=== PATIENT | female | born 1960 | race Hispanic/Latino ===

== ENCOUNTER 2018-02-26 01:56 | Inpatient (IN) | payer OTHER ==
[2018-02-26] MEDS ORDERED: Propofol 10 mg/ml Inj (20 ML) ONE (02:01)
[2018-02-26] MEDS ORDERED: Propofol 10 mg/ml 1,000 MG/100 ML VIAL ONE (02:14)
[2018-02-26] MEDS ORDERED: Propofol 10 mg/ml Inj (20 ML) IVP ONE ×2 (02:15→02:17)
[2018-02-26] MEDS ORDERED: Sodium Chloride 0.9% 1,000 ML IV STA (02:15)
--- NOTE | 2018-02-26 02:16 | ED PDOC ---
Arrival/HPI - General Time Seen by Provider: 02/26/18 02:15 Historian: Spouse, EMS - History of Present Illness Narrative History of Present Illness (Text): 02/26/18 00:53 Sidra Ruano is a 57 year old female, whose past medical history includes CHF , COPD, diabetes, and peripheral vascular disease, who presents to the Emergency department brought in by EMS in respiratory distress. 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 of any chest pain. EMS on arrival noted patient to be in respiratory distress, placed patient on CPAP, and was brought to ER for further evaluation. HPI and ROS limited secondary to patient's respiratory distress. Time/Duration: 1 hour Symptom Onset: Sudden Symptom Course: Worsening Severity Level: Severe Activities at Onset: Light Context: Home Past Medical History - Provider Review Nursing Documentation Reviewed: Yes Family/Social History - Physician Review Nursing Documentation Reviewed: Yes Family/Social History: Unknown Family HX Allergies/Home Meds Allergies/Adverse Reactions: Allergies No Known Allergies Allergy (Verified 02/26/18 02:12) Home Medications: Home Meds Medication Instructions Recorded Confirmed Gabapentin [Neurontin] 300 mg PO TID 02/26/18 02/26/18 metFORMIN [glucOPHAGE] 500 mg PO BID 02/26/18 02/26/18 Review of Systems - Review of Systems Systems not reviewed;Unavailable: Respiratory Distress Respiratory: SOB Endocrine: Diaphoresis Physical Exam Vital Signs Reviewed: Yes Vital Signs Temp Pulse Resp BP Pulse Ox 02/26/18 05:11 120 H 20 107/60 100 02/26/18 04:40 121 H 20 101/60 100 02/26/18 04:25 120 H 22 96/57 L 100 02/26/18 03:45 116 H 22 98/57 L 98 02/26/18 03:15 126 H 20 110/71 98 02/26/18 02:57 120 H 20 91/25 L 99 02/26/18 02:49 124 H 20 154/89 H 97 02/26/18 02:44 97.2 F L 02/26/18 02:40 124 H 20 101/64 99 02/26/18 02:39 128 H 20 116/74 100 02/26/18 02:38 131 H 15 93/32 L 100 02/26/18 02:15 133 H 15 132/79 99 02/26/18 02:05 130 H 43 H 146/92 H 73 L 02/26/18 02:00 158 H 40 H 146/94 H 73 L Blood Pressure: Hypertensive Pulse: Tachycardic Appearance: Positive for: Non-Toxic Mental Status: Positive for: Lethargic - Systems Exam Head: Present: Atraumatic, Normocephalic Pupils: Present: PERRL Conjunctiva: Present: Normal Mouth: Present: Moist Mucous Membranes Neck: Present: Normal Range of Motion Respiratory/Chest: Present: Respiratory Distress (Severe respiratory distress), Rales (Rales bilaterally), Rhonchi Cardiovascular: Present: Normal S1, S2, Tachycardic. No: Murmurs Abdomen: No: Tenderness, Distention, Peritoneal Signs Upper Extremity: No: Cyanosis, Edema Lower Extremity: Present: Other (Mottling of bilateral lower extremities). No: Edema Neurological: Present: Motor Func Grossly Intact Skin: Present: Warm, Dry. No: Rashes Psychiatric: Present: Lethargic Medical Decision Making ED Course and Treatment: 02/26/18 00:53 Impression: 57 year old female brought in for respiratory distress. Plan: -- EKG -- Chest X-ray -- Labs, cardiac enzymes, BNP, blood cultures, ABG, VBG -- Urinalysis, urine cultures -- Duoneb -- Reassess and disposition Progress Notes: Pt brought in by ALS, on CPAP. Seen on arrival. Pt in severe respiratory distress, will intubate. 02/26/2018 02:11 PROCEDURE: INTUBATION Performed by the emergency provider Consent: Discussion of the risks, benefits, and alternatives to the procedure, along with informed consent was precluded by the urgency of the procedure and the patient condition. Timeout: A timeout to verify the correct patient, procedure, and site was performed. Indication: Respiratory distress, low O2 saturation Pre-oxygenation: [id number] Medications: Propofol. See MAR for details. ETT Size: 7.5 gauge Confirmation: Cords directly visualized as tube passed, good bilateral breath sounds, positive CO2 detector color change, tube fogging, adequate chest rise, improving pulse oximetry reading, improved skin color, and absence of gastric sounds. ETT Secured: The cuff was inflated and the tube was secured appropriately at a distance of 22 cm at the lip. Post-Procedure: There were no immediate complications. CXR Confirmation: Yes 02/26/18 02:27 Post-intubation Chest X-ray reviewed, shows increased pulmonary vascular markings, ET riding high above the tabitha. 02/26/18 02:30 ET tube was adjusted accordingly. No complications. 02/26/18 03:03 Reviewed EKG, sinus tachycardia at 124 bpm. Fusion complexes. LAD. Anteroseptal infarct. Lateral ST elevations. Paged cryptographic clerk recreational assistant. 02/26/18 03:[address] Carney, sandwich artist recreational assistant, who is aware and agrees to evaluate EKG. EKG sent to him for review. 02/26/18 03:[address] Carney, who reviewed EKG sent to him, states it is not a Code Heart. Recommends pt be heparinized. 02/26/18 03:26 Case discussed with medical care manager, who is aware and agrees with plan. Case discussed with Dr. Huitron, operations project manager, who is aware and agrees with plan. Accepts pt in to the hospitalist service. Pt will be admitted to the ICU for respiratory failure, CHF, ACS, sepsis, pneumonia, and COPD. 02/26/18 04:16 Lactate: 3.8. Code Sepsis called. - Critical Care Critical Care Minutes: 45 minutes - Lab Interpretations Lab Results: 02/26/18 02:04 02/26/18 02:04 Lab Results 02/26/18 02:55: pCO2 55 H, pO2 471.0 H, HCO3 17.1 L, ABG pH 7.10 L*, ABG Total CO2 18.8 L, ABG O2 Saturation 100.9 H, ABG O2 Content 20.9, ABG Base Excess - 12.9 L, ABG Hemoglobin 14.5, ABG Carboxyhemoglobin 3.5 H, POC ABG HHb (Measured ) -0.9 L, ABG Methemoglobin 0.8, ABG O2 Capacity 20.7, Hgb O2 Saturation 96.6, FiO2 100.0 02/26/18 02:10: Procalcitonin 0.05 L 02/26/18 02:10: Free T4 0.98, TSH 3rd Generation 5.87 H 02/26/18 02:04: Triglycerides 335 H, Cholesterol 211 H, LDL Cholesterol Direct 144 H, HDL Cholesterol 36 02/26/18 02:04: WBC 28.1 H*, RBC 5.61, Hgb 17.1 H, Hct 51.5 H, MCV 91.8, MCH 30.5, MCHC 33.2, RDW 13.6, Plt Count 320, MPV 11.2 H, Neutrophils % (Manual) 26 L, Lymphocytes % (Manual) 67 H, Atypical Lymphs % 2 H, Monocytes % (Manual) 2, Eosinophils % (Manual) 3, Platelet Evaluation Normal 02/26/18 02:04: Sodium 142, Potassium 3.4 L, Chloride 105, Carbon Dioxide 16 L, Anion Gap 25 H, BUN 10, Creatinine 0.8, Est GFR ( Amer) > 60, Est GFR ( Non-Af Amer) > 60, Random Glucose 372 H*, Calcium 9.4, Total Bilirubin 0.3, AST 20, ALT 31, Alkaline Phosphatase 102, Lactate Dehydrogenase 519, Total Creatine Kinase 46, Troponin I 0.93 H*, NT-Pro-B Natriuret Pep 2280 H, Total Protein 7.5 , Albumin 4.1, Globulin 3.4, Albumin/Globulin Ratio 1.2 02/26/18 02:04: PT 10.1, INR 0.89 L, APTT 30.2 I have reviewed the lab results: Yes - RAD Interpretation Radiology Orders: 02/26/18 02:13 CHEST PORTABLE [RAD] Stat Warehouse Freight Handler: ED Physician - EKG Interpretation Interpreted by ED Physician: Yes Type: 12 lead EKG - Medication Orders Current Medication Orders: Albuterol/Ipratropium (Duoneb 3 Mg/0.5 Mg (3 Ml) Ud) 3 ml IH [id number] [facility] Last Admin: 02/26/18 13:38 Dose: 3 ml Atorvastatin Calcium (Lipitor) 40 mg PO DIN [facility] Last Admin: 02/26/18 19:00 Dose: 40 mg Furosemide (Lasix) 40 mg IVP Q12 [facility] Last Admin: 02/26/18 14:30 Dose: 40 mg MAR Blood Pressure Document 02/26/18 14:30 PEPE (Rec: 02/26/18 14:31 [facility] [id number]) Blood Pressure Blood Pressure (100/60-150/90) 120/64 IVP Administration Document 02/26/18 14:30 PEPE (Rec: 02/26/18 14:31 [facility][id number]) Charges for Administration # of IVP Administrations 1 Propofol (Diprivan) 1,000 mg in 100 mls @ 3.36 mls/hr IV .Q24H PRN; Protocol; 5 MCG/KG/MIN PRN Reason: TITRATE PER MD ORDER Last Admin: 02/26/18 14:16 Dose: 37.2 mcg/kg/min, 25 mls/hr eMAR Start Stop Document 02/26/18 14:16 PEPE (Rec: 02/26/18 14:18 [id number]) Intravenous Solution Start Date 02/26/18 Start Time 14:17 End Date 02/26/18 Manuel Agitation Sedation Document 02/26/18 14:16 PEPE (Rec: 02/26/18 14:18 [facility]EROGG-[id number]) Manuel Agitation Sedation Scale Manuel Agitation Sedation Scale Score 0 Alert and Calm: Spontaneously pays attention to care center manager Titration Intervention Document 02/26/18 14:16 PEPE (Rec: 02/26/18 14:18 [facility]DOY-[id number]) Titration Intake Cumulative Intake (Rx) 100 Waste Amount 0 Container Volume 100 Titration Dosing Titration Dose 37.2 IV Rate 25 Intake/Decrease Started/Running Cumulative Dose 1000 Cefepime HCl (Maxipime 2gm) 2 gm in 100 mls @ 100 mls/hr IVPB Q12 [facility] PRN Reason: Protocol Stop: 03/03/18 10:01 Last Admin: 02/26/18 10:26 Dose: 100 mls/hr eMAR Start Stop Document 02/26/18 10:26 PEPE (Rec: 02/26/18 10:26 [facility] CAMPUSTPC-[id number]) Intravenous Solution Start Date 02/26/18 Start Time 10:26 End Date 02/26/18 End time 11:35 Total Infusion Time 69 Doxycycline Hyclate 100 mg/ (Sodium Chloride) 100 mls @ 100 mls/hr IVPB Q12 [facility] PRN Reason: Protocol Last Admin: 02/26/18 09:22 Dose: 100 mls/hr eMAR Start Stop Document 02/26/18 09:22 PEPE (Rec: 02/26/18 09:23 [id number]) Intravenous Solution Start Date 02/26/18 Start Time 09:23 End Date 02/26/18 End time 10:25 Total Infusion Time 62 Insulin Human Regular 100 (units/ Sodium Chloride) 100 mls @ 4 mls/hr IV .Q24H PRN; Protocol; 4 UNITS/HR PRN Reason: TITRATE PER MD ORDER Last Titration: 02/26/18 19:09 Dose: 4 units/hr, 4 mls/hr Titration Intervention Document 02/26/18 19:09 PEPE (Rec: 02/26/18 19:10 [facility]USHZE-[id number]) Titration Intake Titration Intake 4 Cumulative Intake 38 Cumulative Intake (Rx) 38 Waste Amount 0 Container Volume 62 Titration Dosing Titration Dose 4 IV Rate 4 Intake/Decrease Running Cumulative Dose 38 Dobutamine HCl/Dextrose (Dobutamine/Dextrose 5% 500mg/250ml) 500 mg in 250 mls @ 14.499 mls/hr IV .[id number] PRN; Protocol; 5 MCG/KG/MIN PRN Reason: TITRATE PER PROTOCOL Last Admin: 02/26/18 14:18 Dose: 5 mcg/kg/min, 14.499 mls/hr eMAR Start Stop Document 02/26/18 14:18 PEPE (Rec: 02/26/18 14:19 [id number]) Intravenous Solution Start Date 02/26/18 Start Time 14:19 End Date 02/26/18 Titration Intervention Document 02/26/18 14:18 PEPE (Rec: 02/26/18 14:19 [facility]USKYW-[id number]) Titration Intake Waste Amount 0 Container Volume 250 Titration Dosing Titration Dose 5 IV Rate 14.499 Intake/Decrease Started Methylprednisolone (Solu-Medrol) 20 mg IVP Q12 [facility] Last Admin: 02/26/18 09:34 Dose: 20 mg IVP Administration Document 02/26/18 09:34 PEPE (Rec: 02/26/18 09:34 [facility]US[facility]B-[id number]) Charges for Administration # of IVP Administrations 1 Pantoprazole Sodium (Protonix Inj) 40 mg IVP DAILY [facility] Last Admin: 02/26/18 10:27 Dose: 40 mg IVP Administration Document 02/26/18 10:27 PEPE (Rec: 02/26/18 10:27 [facility]USFFR-[id number]) Charges for Administration # of IVP Administrations 1 Discontinued Medications Albuterol/Ipratropium (Duoneb 3 Mg/0.5 Mg (3 Ml) Ud) 3 ml IH ONCE STA Stop: 02/26/18 02:30 Last Admin: 02/26/18 02:31 Dose: 3 ml Aspirin (Aspirin Supp) 300 mg RC STAT STA Stop: 02/26/18 03:16 Last Admin: 02/26/18 03:28 Dose: 300 mg MAR Pain/Vitals Document 02/26/18 03:28 RG (Rec: 02/26/18 03:28 [id number][facility] Pain Reassessment Is This A Pain ReAssessment? No Clopidogrel Bisulfate (Plavix) 75 mg PO DAILY [facility] Last Admin: 02/26/18 09:43 Dose: 75 mg Clopidogrel Bisulfate (Plavix) 525 mg PO STAT STA Stop: 02/26/18 11:15 Last Admin: 02/26/18 11:38 Dose: 525 mg Heparin Sodium (Porcine) (Heparin) 6,000 units IV ONCE STA PRN Reason: Protocol Stop: 02/26/18 03:16 Last Admin: 02/26/18 03:49 Dose: 6,000 units eMAR Start Stop Document 02/26/18 03:49 RG (Rec: 02/26/18 03:51 [id number]) Intravenous Solution Start Date 02/26/18 Start Time 03:52 End Date 02/26/18 End time 03:53 Total Infusion Time 1 Heparin Sodium/Sodium Chloride (Heparin 99614 Units/250ml 1/2 Normal Saline) 25 ,000 units in 250 mls @ 10 mls/hr IV .Q24H PRN; Protocol; 1,000 UNITS/HR PRN Reason: coronary ischemia Last Admin: 02/26/18 04:09 Dose: 10 mls/hr eMAR Start Stop Document 02/26/18 04:09 RG (Rec: 02/26/18 04:16 [id number]) Intravenous Solution Start Date 02/26/18 Start Time 04:09 Vancomycin HCl (Vancomycin 1gm) 1 gm in 250 mls @ 167 mls/hr IVPB STAT STA PRN Reason: Protocol Stop: 02/26/18 04:50 Last Admin: 02/26/18 04:16 Dose: 167 mls/hr eMAR Start Stop Document 02/26/18 04:16 RG (Rec: 02/26/18 04:20 [id number]) Intravenous Solution Start Date 02/26/18 Start Time 04:16 Piperacillin Sod/Tazobactam Sod (Zosyn 3.375 In Ns 100ml) 100 mls @ 200 mls/hr IV STAT STA PRN Reason: Protocol Stop: 02/26/18 03:51 Last Admin: 02/26/18 03:45 Dose: 200 mls/hr eMAR Start Stop Document 02/26/18 03:45 RG (Rec: 02/26/18 04:04 [id number] Intravenous Solution Start Date 02/26/18 Start Time 03:45 Potassium Chloride (Potassium Chloride 10 Meq/100 Ml) 10 meq in 100 mls @ 50 mls/hr IVPB Q2H [facility] Stop: 02/26/18 08:29 Last Admin: 02/26/18 07:14 Dose: 50 mls/hr eMAR Start Stop Document 02/26/18 07:14 [facility] (Rec: 02/26/18 07:15 [facility] [id number]) Intravenous Solution Start Date 02/26/18 Start Time 07:15 End Date 02/26/18 End time 09:15 Total Infusion Time 120 Sodium Chloride (Sodium Chloride 0.9%) 1,000 mls @ 999 mls/hr IV .Q1H1M STA Stop: 02/26/18 03:15 Last Admin: 02/26/18 02:15 Dose: 999 mls/hr eMAR Start Stop Document 02/26/18 02:15 RG (Rec: 02/26/18 05:18 [id number]) Intravenous Solution Start Date 02/26/18 Start Time 02:15 Lactated Ringer's (Lactated Ringer's) 2,000 mls @ 999 mls/hr IV .Q2H1M [facility] Stop: 02/26/18 06:45 Last Admin: 02/26/18 06:00 Dose: 999 mls/hr eMAR Start Stop Document 02/26/18 06:00 [facility]HA (Rec: 02/26/18 07:03 [facility] [id number]) Intravenous Solution Start Date 02/26/18 Start Time 06:00 End Date 02/26/18 End time 07:00 Total Infusion Time 60 Milrinone Lactate/Dextrose (Primacor 20mg/100ml D5w) 100 mls @ 10.874 mls/hr IV .Q9H12M PRN; Protocol; 0.375 MCG/KG/MIN PRN Reason: TITRATE PER MD ORDER Last Admin: 02/26/18 09:09 Dose: 0.375 mcg/kg/min, 10.874 mls/hr eMAR Start Stop Document 02/26/18 09:09 PEPE (Rec: 02/26/18 09:11 [id number]) Intravenous Solution Start Date 02/26/18 Start Time 09:10 End Date 02/26/18 MAR Pulse and Blood Pressure Document 02/26/18 09:09 PEPE (Rec: 02/26/18 09:11 [id number]-[id number]) Pulse Pulse Rate (60-90) 112 Blood Pressure Blood Pressure (100/60-150/90) 98/66 Titration Intervention Document 02/26/18 09:09 PEPE (Rec: 02/26/18 09:11 [id number]-[id number]) Titration Intake Waste Amount 0 Container Volume 100 Titration Dosing Titration Dose 0.375 IV Rate 10.874 Intake/Decrease Started Potassium Chloride (Potassium Chloride 20 Meq/100 Ml) 20 meq in 100 mls @ 50 mls/hr IVPB Q2H [facility] Stop: 02/26/18 12:29 Last Admin: 02/26/18 09:42 Dose: Sodium Chloride (Sodium Chloride 0.9%) 1,000 mls @ 50 mls/hr IV .Q20H [facility] Stop: 02/26/18 19:00 Last Admin: 02/26/18 13:35 Dose: 50 mls/hr eMAR Start Stop Document 02/26/18 13:35 PEPE (Rec: 02/26/18 17:20 [facility]ERVQP-[id number]) Intravenous Solution Start Date 02/26/18 Start Time 13:00 End Date 02/26/18 End time 16:45 Total Infusion Time 225 Lorazepam (Ativan) 2 mg IVP ONCE ONE Stop: 02/26/18 03:01 Last Admin: 02/26/18 03:01 Dose: 2 mg IVP Administration Document 02/26/18 03:01 TOBIAS (Rec: 02/26/18 03:29 RG [id number]) Charges for Administration # of IVP Administrations 1 Lorazepam (Ativan) 2 mg IVP ONCE ONE Stop: 02/26/18 03:43 Last Admin: 02/26/18 03:45 Dose: 2 mg IVP Administration Document 02/26/18 03:45 RG (Rec: 02/26/18 04:21 [id number]) Charges for Administration # of IVP Administrations 1 Methylprednisolone (Solu-Medrol) 125 mg IVP ONCE ONE Stop: 02/26/18 02:51 Last Admin: 02/26/18 02:51 Dose: 125 mg IVP Administration Document 02/26/18 02:51 RG (Rec: 02/26/18 03:28 [id number]) Charges for Administration # of IVP Administrations 1 Metoprolol Tartrate (Lopressor) 5 mg IVP Q6H [facility] Last Admin: 02/26/18 10:25 Dose: 5 mg IVP Administration Document 02/26/18 10:25 PEPE (Rec: 02/26/18 10:26 [facility] [id number]) Charges for Administration # of IVP Administrations 1 MAR Pulse and Blood Pressure Document 02/26/18 10:25 PEPE (Rec: 02/26/18 10:26 [facility] [id number]) Pulse Pulse Rate (60-90) 115 Blood Pressure Blood Pressure (100/60-150/90) 104/65 Midazolam HCl (Versed Inj) 2 mg IVP STAT STA Stop: 02/26/18 04:14 Last Admin: 02/26/18 04:14 Dose: 2 mg IVP Administration Document 02/26/18 04:14 RG (Rec: 02/26/18 04:22 [id number][facility] Charges for Administration # of IVP Administrations 1 Propofol (Diprivan) 50 mg IVP ONCE ONE Stop: 02/26/18 02:16 Last Admin: 02/26/18 02:16 Dose: 50 mg IVP Administration Document 02/26/18 02:16 RG (Rec: 02/26/18 04:24 [id number]) Charges for Administration # of IVP Administrations 1 Propofol (Diprivan) 50 mg IVP ONCE ONE Stop: 02/26/18 02:18 Last Admin: 02/26/18 02:18 Dose: 50 mg IVP Administration Document 02/26/18 02:18 RG (Rec: 02/26/18 04:25 [id number]) Charges for Administration # of IVP Administrations 1 Sodium Bicarbonate (Sodium Bicarbonate 8.4% (50 Meq) Syringe) 50 meq IVP ONCE ONE Stop: 02/26/18 03:44 Last Admin: 02/26/18 05:01 Dose: 50 meq IVP Administration Document 02/26/18 05:01 TOBIAS (Rec: 02/26/18 05:01 [id number]) Charges for Administration # of IVP Administrations 1 - Scribe Statement The provider has reviewed the documentation as recorded by the Shasta Coronel Provider Scribe Attestation: All medical record entries made by the Scribe were at my direction and personally dictated by me. I have reviewed the chart and agree that the record accurately reflects my personal performance of the history, physical exam, medical decision making, and the department course for this patient. I have also personally directed, reviewed, and agree with the discharge instructions and disposition. Disposition/Present on Arrival - Present on Arrival Any Indicators Present on Arrival: No History of DVT/PE: No History of Uncontrolled Diabetes: No Urinary Catheter: No History of Decub. Ulcer: No History Surgical Site Infection Following: None - Disposition Have Diagnosis and Disposition been Completed?: Yes Diagnosis: Respiratory failure, CHF (congestive heart failure), Sepsis, Pneumonia, COPD ( chronic obstructive pulmonary disease), ACS (acute coronary syndrome) Disposition: HOSPITALIZED Disposition Time: 03:50 Patient Plan: Admission Patient Problems: Current Active Problems Problem Status Onset ACS (acute coronary syndrome) Acute CHF (congestive heart failure) Acute COPD (chronic obstructive pulmonary disease) Acute Pneumonia Acute Respiratory failure Acute Sepsis Acute Condition: CRITICAL
[2018-02-26] MEDS: Propofol 10 mg/ml 1,000 MG/100 ML VIAL IV PRN ×3 (02:20→20:00)
[2018-02-26] MEDS ORDERED: Albuterol-Ipratrop 3 mg / 0.5 (3 ml) UD IH STA (02:29)
[2018-02-26] MEDS ORDERED: Albuterol-Ipratrop 3 mg / 0.5 (3 ml) UD ONE (02:35)
[2018-02-26 02:46] LABS: HEMOGLOBIN 17.1 g/dL (12.0-16.0); MEAN CELL VOLUME 91.8 fl (80.0-105.0); MEAN CORPUSCULAR HEMOGLOBIN 30.5 pg (25.0-35.0); MEAN CORPUSCULAR HGB CONC 33.2 g/dl (31.0-37.0); MEAN PLATELET VOLUME 11.2 fl (7.0-11.0); PLATELET COUNT 320 10^3/uL (120.0-450.0); RBC 5.61 10^6/uL (3.5-6.1); RED CELL DISTRIBUTION WIDTH 13.6 % (11.5-14.5)
[2018-02-26 02:59] LABS: ALB/GLOB RATIO 1.2 (1.1-1.8); ALBUMIN 4.1 g/dL (3.0-4.8); ALT/SGPT 31 U/L (7-56); AST/SGOT 20 U/L (14-36); BLOOD UREA NITROGEN 10 mg/dL (7-21); CALCIUM 9.4 mg/dL (8.4-10.5); GFR NON-AFRICAN AMERICAN > 60
[2018-02-26 03:02] LABS: ARTERIAL BLOOD GAS HCO3 17.1 mmol/L (21-28); ARTERIAL BLOOD GAS HEMOGLOBIN 14.5 g/dL (11.7-17.4); ARTERIAL BLOOD GAS O2 CAPACITY 20.7 mL/dl (16-24); ARTERIAL BLOOD GAS O2 CONTENT 20.9 ML/dl (15-23); ARTERIAL BLOOD GAS O2 SAT 100.9 % (95-98); ARTERIAL BLOOD GAS PCO2 55 mm/Hg (35-45); ARTERIAL BLOOD GAS TCO2 18.8 mmol.L (22-28)
[2018-02-26 03:07] LABS: INR 0.89 (0.93-1.08); PARTIAL THROMBOPLASTIN TIME 30.2 Seconds (25.1-36.5); PROTHROMBIN TIME 10.1 SECONDS (9.4-12.5)
[2018-02-26 03:10] LABS: WHITE BLOOD COUNT 28.1 10^3/ul (4.5-11.0)
[2018-02-26] MEDS ORDERED: Heparin25000 units/250ml 1/2NS 25,000 UNITS/250 ML BAG IV PRN (03:15)
[2018-02-26] MEDS ORDERED: Vancomycin 1gm in NS 250ml 1 GM/250 ML BAG IVPB STA (03:21)
[2018-02-26] MEDS ORDERED: Piperacillin/Tazobact 3.375 gm 100 ML IV STA (03:22)
[2018-02-26 03:39] LABS: B-TYPE NATRIURETIC PEPTIDE 2280 pg/mL (0-450); TROPONIN I 0.93 ng/mL
[2018-02-26] MEDS ORDERED: Sodium Bicarbonate (8.4%) 50 Meq Syringe IVP ONE (03:43)
--- NOTE | 2018-02-26 03:47 | CP.PCM.CON ---
History of Present Illness - History of Present Illness History of Present Illness: PGY-[address] Huitron ICU consult: SOB, intubated Sidra Ruano is a 57 year old female, whose past medical history includes COPD , diabetes, and peripheral vascular disease, presents to the Emergency department brought in by EMS in respiratory distress. As per boyfriend, patient became acutely short of breath and diaphoretic 1 prior to arrival, woke boyfriend up at 1am, and notified EMS. EMS on arrival noted patient to be in respiratory distress, placed patient on CPAP, and was brought to ER for further evaluation. pedialyute, pediasure 1/2 galloon/. HOld Pt usually with 1 pillow. She had chronic cough from COPD. Pt is not sick recent. no sick contract. No travel. No Chest pain TEJADA PMH DM at least 8 years COPD, Claudication of L leg Seasonal allergy PSH Balloon angioplasty for L leg, no stent, 02/16/18, (Dr Martinez, @ [facility]) FH Mom = CHF, passed from cancer SH Quit smoking 2 months 1/2 ppd x 30 years Denies ETOH Denies illicit drug All NKDA Med = metformin ([facility]) PMD = No [facility]D [facility] Allergies/Adverse Reactions: Allergies Allergy/AdvReac Type Severity Reaction Status Date / Time No Known Allergies Allergy Verified 02/26/18 02:12 - Medications Medications: Current Medications Propofol (Diprivan) 1,000 mg in 100 mls @ 3.36 mls/hr IV .Q24H PRN; Protocol; 5 MCG/KG/MIN PRN Reason: TITRATE PER MD ORDER Heparin Sodium/Sodium Chloride (Heparin 02433 Units/250ml 1/2 Normal Saline) 25 ,000 units in 250 mls @ 10 mls/hr IV .Q24H PRN; Protocol; 1,000 UNITS/HR PRN Reason: coronary ischemia Vancomycin HCl (Vancomycin 1gm) 1 gm in 250 mls @ 167 mls/hr IVPB STAT STA PRN Reason: Protocol Stop: 02/26/18 04:50 Piperacillin Sod/Tazobactam Sod (Zosyn 3.375 In Ns 100ml) 100 mls @ 200 mls/hr IV STAT STA PRN Reason: Protocol Stop: 02/26/18 03:51 Results - Vital Signs Recent Vital Signs: Last Vital Signs Temp 97.2 F L 02/26/18 02:44 Pulse 130 H 02/26/18 02:05 Resp 43 H 02/26/18 02:05 BP 146/92 H 02/26/18 02:05 Pulse Ox 73 L 02/26/18 02:05 - Labs Result Diagrams: 02/26/18 02:04 02/26/18 02:04 Labs: Laboratory Results - last 24 hr 02/26/18 02/26/18 02/26/18 02:04 02:04 02:04 WBC 28.1 H* RBC 5.61 Hgb 17.1 H Hct 51.5 H MCV 91.8 MCH 30.5 MCHC 33.2 RDW 13.6 Plt Count 320 MPV 11.2 H PT 10.1 INR 0.89 L APTT 30.2 pCO2 pO2 HCO3 ABG pH ABG Total CO2 ABG O2 Saturation ABG O2 Content ABG Base Excess ABG Hemoglobin ABG Carboxyhemoglobin POC ABG HHb (Measured) ABG Methemoglobin ABG O2 Capacity Hgb O2 Saturation FiO2 Sodium 142 Potassium 3.4 L Chloride 105 Carbon Dioxide 16 L Anion Gap 25 H BUN 10 Creatinine 0.8 Est GFR ( Amer) > 60 Est GFR (Non-Af Amer) > 60 Random Glucose 372 H* Calcium 9.4 Total Bilirubin 0.3 AST 20 ALT 31 Alkaline Phosphatase 102 Lactate Dehydrogenase 519 Total Creatine Kinase 46 Total Protein 7.5 Albumin 4.1 Globulin 3.4 Albumin/Globulin Ratio 1.2 02/26/18 02:55 WBC RBC Hgb Hct MCV MCH MCHC RDW Plt Count MPV PT INR APTT pCO2 55 H pO2 471.0 H HCO3 17.1 L ABG pH 7.10 L* ABG Total CO2 18.8 L ABG O2 Saturation 100.9 H ABG O2 Content 20.9 ABG Base Excess -12.9 L ABG Hemoglobin 14.5 ABG Carboxyhemoglobin 3.5 H POC ABG HHb (Measured) -0.9 L ABG Methemoglobin 0.8 ABG O2 Capacity 20.7 Hgb O2 Saturation 96.6 FiO2 100.0 Sodium Potassium Chloride Carbon Dioxide Anion Gap BUN Creatinine Est GFR ( Amer) Est GFR (Non-Af Amer) Random Glucose Calcium Total Bilirubin AST ALT Alkaline Phosphatase Lactate Dehydrogenase Total Creatine Kinase Total Protein Albumin Globulin Albumin/Globulin Ratio
--- NOTE | 2018-02-26 04:02 | CP.PCM.HP ---
<Madeline Fonseca - Last Filed: 02/27/18 07:49> History of Present Illness - History of Present Illness History of Present Illness: PGY-[address] Huitron CC: SOB, intubated Sidra Ruaon is a 57 year old female, COPD former smoker 1/2ppd x 30 years who quit 2 weeks ago after a recent balloon angioplasty for LLE for PAD, presents to the Emergency department brought in by EMS in respiratory distress. As per boyfriend, patient was uneventful during the day, and she went to an outdoor libertarian the previous day. Tonight at 1am, pt complained to boyfriend that she became acutely short of breath and diaphoretic. Sitting up did not relief the SOB. EMS on arrival noted patient to be in respiratory distress, placed patient on CPAP, and was brought to ER for further evaluation. She was intubated in the ED. VS T97.2 rectal HR 130 146/92 RR 43 O2 73L WBC 28. Hb 17. HCT 51 pH 7.1 PCO2 55 PO2 471 on 100%O2 Pending VBG lactate As baseline, Pt usually with 1 pillow. She had chronic cough from COPD. Pt is not sick recent. no sick contract. No travel. No recent antibiotics ROS provided by boyfriend: No Chest pain, N/v/d/c, dysuria. (+) TEJADA PMH DM at least 8 years COPD, Claudication of L leg Seasonal allergy Former smoker who quit 2 weeks ago PSH Balloon angioplasty for L leg, no stent, 02/16/18, (Dr Martinez, @ [facility]) FH Mom = CHF, passed from cancer SH Quit smoking 2 weeks ago 1/2 ppd x 30 years Denies ETOH Denies illicit drug All NKDA Med = metformin ([facility]) PMD = No PMD [facility] pharmacy, [facility] Present on Admission - Present on Admission Any Indicators Present on Admission: No Meds Allergies/Adverse Reactions: Allergies Allergy/AdvReac Type Severity Reaction Status Date / Time No Known Allergies Allergy Verified 02/26/18 02:12 Physical Exam - Constitutional Appears: In Acute Distress, Other (intubated) - Head Exam Head Exam: ATRAUMATIC, NORMAL INSPECTION, NORMOCEPHALIC - Eye Exam Eye Exam: EOMI, Normal appearance, PERRL. absent: Scleral icterus - ENT Exam ENT Exam: Mucous Membranes Moist - Neck Exam Additional comments: supple - Respiratory Exam Respiratory Exam: Clear to Auscultation Bilateral, Rales, Rhonchi, Respiratory Distress - Cardiovascular Exam Cardiovascular Exam: Tachycardia, +S1, +S2 - GI/Abdominal Exam GI & Abdominal Exam: Normal Bowel Sounds, Soft - Extremities Exam Extremities exam: Positive for: pedal pulses present. Negative for: calf tenderness, pedal edema - Back Exam Back exam: absent: CVA tenderness (L), CVA tenderness (R) - Neurological Exam Additional comments: sedated on propofol - Skin Skin Exam: Diaphoretic, Warm Results - Vital Signs Recent Vital Signs: Last Vital Signs Temp 97.2 F L 02/26/18 02:44 Pulse 130 H 02/26/18 02:05 Resp 43 H 02/26/18 02:05 BP 146/92 H 02/26/18 02:05 Pulse Ox 73 L 02/26/18 02:05 - Labs Result Diagrams: 02/27/18 05:20 02/27/18 05:20 Labs: Laboratory Results - last 24 hr 02/26/18 02/26/18 02/26/18 02:04 02:04 02:04 WBC 28.1 H* RBC 5.61 Hgb 17.1 H Hct 51.5 H MCV 91.8 MCH 30.5 MCHC 33.2 RDW 13.6 Plt Count 320 MPV 11.2 H PT 10.1 INR 0.89 L APTT 30.2 pCO2 pO2 HCO3 ABG pH ABG Total CO2 ABG O2 Saturation ABG O2 Content ABG Base Excess ABG Hemoglobin ABG Carboxyhemoglobin POC ABG HHb (Measured) ABG Methemoglobin ABG O2 Capacity Hgb O2 Saturation FiO2 Sodium 142 Potassium 3.4 L Chloride 105 Carbon Dioxide 16 L Anion Gap 25 H BUN 10 Creatinine 0.8 Est GFR ( Amer) > 60 Est GFR (Non-Af Amer) > 60 Random Glucose 372 H* Calcium 9.4 Total Bilirubin 0.3 AST 20 ALT 31 Alkaline Phosphatase 102 Lactate Dehydrogenase 519 Total Creatine Kinase 46 Troponin I 0.93 H* NT-Pro-B Natriuret Pep 2280 H Total Protein 7.5 Albumin 4.1 Globulin 3.4 Albumin/Globulin Ratio 1.2 02/26/18 02:55 WBC RBC Hgb Hct MCV MCH MCHC RDW Plt Count MPV PT INR APTT pCO2 55 H pO2 471.0 H HCO3 17.1 L ABG pH 7.10 L* ABG Total CO2 18.8 L ABG O2 Saturation 100.9 H ABG O2 Content 20.9 ABG Base Excess -12.9 L ABG Hemoglobin 14.5 ABG Carboxyhemoglobin 3.5 H POC ABG HHb (Measured) -0.9 L ABG Methemoglobin 0.8 ABG O2 Capacity 20.7 Hgb O2 Saturation 96.6 FiO2 100.0 Sodium Potassium Chloride Carbon Dioxide Anion Gap BUN Creatinine Est GFR ( Amer) Est GFR (Non-Af Amer) Random Glucose Calcium Total Bilirubin AST ALT Alkaline Phosphatase Lactate Dehydrogenase Total Creatine Kinase Troponin I NT-Pro-B Natriuret Pep Total Protein Albumin Globulin Albumin/Globulin Ratio Assessment & Plan - Assessment and Plan (Free Text) Plan: Hypercapic Hypoxic respiratory failure, requiring intubation COPD exacerbation from pneumonia Severe Sepsis from pneumonia, lactic acidosis @ 3.6, complicated by ACS ACS Possible flash pulmonary edema from acute CHF secondary to ACS Primary Respiratory Acidosis, Chronic, with Secondary Metabolic Acidosis and Additional Metabolic Alkalosis Neuro - Sedated on propofol. Maintain nomothermia. Lefty hugger as needed. Pending UDS Pulm - Duoneb GOLDEN, Steroid, ABX Card - Per Dr Rivera, not a code heart. recommended heparin gtt Echocardiogram; trend cardiac iso Cardiology consult Dr. Cruz. F/u if plan to cath. Defer to cardio re: decision ASA, Beta marsha, ACEi/ARB. f/u lipid panel GI - NPO - Pending UDS, U/A, strict i.o. repleted K s/p 1 amp bicarb Endo - A1c, tsh, free t4 ISSS Heme - on heparin gtt ID - Got Vanco and zosyn in ed @ 4-5am. iD consult. Fluid resuscitated 30cc/kg. PVX - heparin gtt, protonix. s/r/d/w Dr Huitron <Elana BEY,Gm - Last Filed: 02/27/18 15:34> Results - Vital Signs Recent Vital Signs: Last Vital Signs Temp 98.2 F 02/27/18 06:50 Pulse 120 H 02/27/18 10:34 Resp 15 02/27/18 06:59 BP 111/57 L 02/27/18 10:37 Pulse Ox 99 02/27/18 06:59 - Labs Result Diagrams: 02/27/18 05:20 02/27/18 05:20 Labs: Laboratory Results - last 24 hr 02/26/18 02/26/18 02/26/18 15:25 15:25 15:32 WBC RBC Hgb Hct MCV MCH MCHC RDW Plt Count MPV Gran % Lymph % (Auto) [place] % (Auto) Eos % (Auto) Baso % (Auto) Gran # Lymph # (Auto) [place] # (Auto) Eos # (Auto) Baso # (Auto) pCO2 pO2 46 HCO3 ABG pH ABG Total CO2 ABG O2 Saturation ABG Base Excess ABG Potassium VBG pH 7.33 VBG pCO2 39.0 L VBG HCO3 20.6 L VBG Total CO2 21.8 L VBG O2 Sat (Calc) 89.4 H VBG Base Excess -4.9 L VBG Potassium 3.7 Sodium 140.0 Chloride 108.0 H Glucose 247 H Lactate 3.3 H Mechanical Rate FiO2 21.0 Tidal Volume PEEP Potassium Carbon Dioxide Anion Gap BUN Creatinine Est GFR ( Amer) Est GFR (Non-Af Amer) POC Glucose (mg/dL) 212 H Random Glucose Calcium Lactate Dehydrogenase 755 H Total Creatine Kinase 187 Troponin I 2.64 H* D Arterial Blood Potassium Venous Blood Potassium 3.7 02/26/18 02/26/18 02/26/18 17:24 19:04 19:59 WBC RBC Hgb Hct MCV MCH MCHC RDW Plt Count MPV Gran % Lymph % (Auto) [place] % (Auto) Eos % (Auto) Baso % (Auto) Gran # Lymph # (Auto) [place] # (Auto) Eos # (Auto) Baso # (Auto) pCO2 pO2 HCO3 ABG pH ABG Total CO2 ABG O2 Saturation ABG Base Excess ABG Potassium VBG pH VBG pCO2 VBG HCO3 VBG Total CO2 VBG O2 Sat (Calc) VBG Base Excess VBG Potassium Sodium Chloride Glucose Lactate Mechanical Rate FiO2 Tidal Volume PEEP Potassium Carbon Dioxide Anion Gap BUN Creatinine Est GFR ( Amer) Est GFR (Non-Af Amer) POC Glucose (mg/dL) 213 H 220 H 201 H Random Glucose Calcium Lactate Dehydrogenase Total Creatine Kinase Troponin I Arterial Blood Potassium Venous Blood Potassium 02/26/18 02/26/18 02/27/18 21:12 22:20 00:00 WBC RBC Hgb Hct MCV MCH MCHC RDW Plt Count MPV Gran % Lymph % (Auto) [place] % (Auto) Eos % (Auto) Baso % (Auto) Gran # Lymph # (Auto) [place] # (Auto) Eos # (Auto) Baso # (Auto) pCO2 pO2 HCO3 ABG pH ABG Total CO2 ABG O2 Saturation ABG Base Excess ABG Potassium VBG pH VBG pCO2 VBG HCO3 VBG Total CO2 VBG O2 Sat (Calc) VBG Base Excess VBG Potassium Sodium Chloride Glucose Lactate Mechanical Rate FiO2 Tidal Volume PEEP Potassium Carbon Dioxide Anion Gap BUN Creatinine Est GFR ( Amer) Est GFR (Non-Af Amer) POC Glucose (mg/dL) 192 H 201 H 177 H Random Glucose Calcium Lactate Dehydrogenase Total Creatine Kinase Troponin I Arterial Blood Potassium Venous Blood Potassium 02/27/18 02/27/18 02/27/18 00:50 02:16 02:59 WBC RBC Hgb Hct MCV MCH MCHC RDW Plt Count MPV Gran % Lymph % (Auto) [place] % (Auto) Eos % (Auto) Baso % (Auto) Gran # Lymph # (Auto) [place] # (Auto) Eos # (Auto) Baso # (Auto) pCO2 pO2 HCO3 ABG pH ABG Total CO2 ABG O2 Saturation ABG Base Excess ABG Potassium VBG pH VBG pCO2 VBG HCO3 VBG Total CO2 VBG O2 Sat (Calc) VBG Base Excess VBG Potassium Sodium Chloride Glucose Lactate Mechanical Rate FiO2 Tidal Volume PEEP Potassium Carbon Dioxide Anion Gap BUN Creatinine Est GFR ( Amer) Est GFR (Non-Af Amer) POC Glucose (mg/dL) 172 H 171 H 169 H Random Glucose Calcium Lactate Dehydrogenase Total Creatine Kinase Troponin I Arterial Blood Potassium Venous Blood Potassium 02/27/18 02/27/18 02/27/18 04:10 05:18 05:20 WBC RBC Hgb Hct MCV MCH MCHC RDW Plt Count MPV Gran % Lymph % (Auto) [place] % (Auto) Eos % (Auto) Baso % (Auto) Gran # Lymph # (Auto) [place] # (Auto) Eos # (Auto) Baso # (Auto) pCO2 37 pO2 149.0 H HCO3 22.9 ABG pH 7.40 ABG Total CO2 24.0 ABG O2 Saturation 100.0 H ABG Base Excess -1.5 ABG Potassium 3.4 L VBG pH VBG pCO2 VBG HCO3 VBG Total CO2 VBG O2 Sat (Calc) VBG Base Excess VBG Potassium Sodium 139.0 142 Chloride 109.0 H 108 H Glucose 227 H Lactate 1.1 Mechanical Rate 20 FiO2 60.0 Tidal Volume 400 PEEP 5 Potassium 3.6 Carbon Dioxide 23 Anion Gap 15 BUN 8 Creatinine 0.5 L Est GFR ( Amer) > 60 Est GFR (Non-Af Amer) > 60 POC Glucose (mg/dL) 169 H Random Glucose 230 H Calcium 9.2 Lactate Dehydrogenase Total Creatine Kinase Troponin I Arterial Blood Potassium 3.4 L Venous Blood Potassium 02/27/18 02/27/18 05:20 07:45 WBC 14.7 H RBC 4.47 Hgb 13.1 Hct 38.8 MCV 86.8 MCH 29.3 MCHC 33.8 RDW 13.7 Plt Count 207 MPV 10.9 Gran % 87.4 H Lymph % (Auto) 7.4 L [place] % (Auto) 5.2 Eos % (Auto) 0.0 L Baso % (Auto) 0.0 Gran # 12.87 H Lymph # (Auto) 1.1 L [place] # (Auto) 0.8 H Eos # (Auto) 0.0 Baso # (Auto) 0.00 pCO2 pO2 HCO3 ABG pH ABG Total CO2 ABG O2 Saturation ABG Base Excess ABG Potassium VBG pH VBG pCO2 VBG HCO3 VBG Total CO2 VBG O2 Sat (Calc) VBG Base Excess VBG Potassium Sodium Chloride Glucose Lactate Mechanical Rate FiO2 Tidal Volume PEEP Potassium Carbon Dioxide Anion Gap BUN Creatinine Est GFR ( Amer) Est GFR (Non-Af Amer) POC Glucose (mg/dL) 236 H Random Glucose Calcium Lactate Dehydrogenase Total Creatine Kinase Troponin I Arterial Blood Potassium Venous Blood Potassium Attending/Attestation - Attestation I have personally seen and examined this patient.: Yes I have fully participated in the care of the patient.: Yes I have reviewed all pertinent clinical information: Yes Notes (Text): -I agree with the above H&P completed by the resident physician with the following additions and/or changes: -The patient is a 57 year old woman with a history of COPD, NIDDM and PVD (s/p LE stent), who is being admitted to the ICU with acute hypercapneic and hypoxic respiratory failure (requiring intubation in the ED) due to acute COPD exacerbation and acute pulmonary edema. She may also have an underlying pneumonia (difficult to assess on CXR). She was also found to have an elevated troponin for which therapeutic Heparin drip will be started. She will also be placed on Duo-nebs ATC, IV Solumedrol, empiric IV antibiotics and diuretics as needed. A 2D-echo, procalcitonin and repeat ABG-shock panel have all been ordered. Also, cardiology and ID consults have been ordered. Strict I/Os and daily weights will be monitored. Critical Care Time Spent: 45-60 minutes
[2018-02-26 04:04] LABS: VENOUS BLOOD GAS BASE EXCESS -9.8 mmol/L (0.0-2.0); VENOUS BLOOD GAS PO2 61 mm/Hg (30-55)
[2018-02-26] MEDS ORDERED: Midazolam 2 MG/2 ML VIAL IVP STA (04:13)
[2018-02-26] MEDS ORDERED: Midazolam 2 MG/2 ML VIAL ONE ×3 (04:13→12:31)
[2018-02-26] MEDS ORDERED: Lactated Ringer's 2,000 ML IV SCH (04:45)
[2018-02-26 05:24] LABS: ATYPICAL LYMPHOCYTE 2 % (0.0-0.0); EOSINOPHIL 3 % (0.0-3.0); LYMPHOCYTE 67 % (22.0-35.0); NEUTROPHIL 26 % (50.0-70.0)
[2018-02-26 05:26] LABS: MONOCYTE 2 % (1.0-6.0); PLATELET ESTIMATE NORMAL (NORMAL)
[2018-02-26 06:16] LABS: HDL CHOLESTEROL 36 mg/dL (29-60)
[2018-02-26 06:18] LABS: URINE BILIRUBIN NEGATIVE (NEGATIVE); URINE BLOOD MODERATE (NEGATIVE); URINE GLUCOSE (UA) >=1000 mg/dL (NEGATIVE); URINE LEUKOCYTE ESTERASE NEGATIVE Leu/uL (NEGATIVE); URINE PROTEIN >=300 mg/dL (<30 mg/dL); URINE UROBILINOGEN 0.2 E.U./dL (<1 E.U./dL)
[2018-02-26 06:23] LABS: URINE APPEARANCE SL CLOUDY (CLEAR); URINE COLOR YELLOW (YELLOW)
[2018-02-26 06:27] LABS: LDL CHOLESTEROL 144 mg/dL (0-129)
[2018-02-26 06:32] LABS: URINE AMORPHOUS SEDIMENT MANY; URINE WBC 0 - 2 /hpf (0-6)
[2018-02-26 06:33] LABS: FREE T4 0.98 ng/dL (0.78-2.19)
[2018-02-26 06:43] LABS: VENOUS BLOOD GAS BASE EXCESS -6.8 mmol/L (0.0-2.0); VENOUS BLOOD GAS PO2 82 mm/Hg (30-55); VENOUS BLOOD PH 7.22 (7.32-7.43)
[2018-02-26] MEDS ORDERED: Insulin Lispro (humaLOG) MEDIUM Coverage SC SCH (07:30)
[2018-02-26 07:52] LABS: BARBITURATES, UR NEGATIVE (NEGATIVE); BENZODIAZEPINES, UR POSITIVE (NEGATIVE); OPIATES, UR NEGATIVE (NEGATIVE); PHENCYCLIDINE, UR NEGATIVE (NEGATIVE)
[2018-02-26] MEDS: Albuterol-Ipratrop 3 mg / 0.5 (3 ml) UD IH SCH ×3 (07:59→19:51)
[2018-02-26] MEDS ORDERED: Milrinone 20mg/100ml D5W 100 ML IV PRN (08:13)
[2018-02-26] MEDS ORDERED: Metoprolol 1 mg/ml Inj IVP SCH (08:15)
[2018-02-26] MEDS ORDERED: Insulin Regular 100 UNITS in Sodium Chloride 0.9% 99 ML IV PRN (08:20)
[2018-02-26 08:40] LABS: VENOUS BLOOD GAS BASE EXCESS -5.1 mmol/L (0.0-2.0); VENOUS BLOOD GAS PO2 47 mm/Hg (30-55)
[2018-02-26 08:43] LABS: ARTERIAL BLOOD GAS HCO3 18.8 mmol/L (21-28); ARTERIAL BLOOD GAS O2 SAT 98.1 % (95-98); ARTERIAL BLOOD GAS PCO2 34 mm/Hg (35-45); ARTERIAL BLOOD GAS PH 7.35 (7.35-7.45); ARTERIAL BLOOD GAS TCO2 19.8 mmol.L (22-28)
[2018-02-26 08:44] LABS: BASO # 0.02 K/mm3 (0.0-2.0); BASO % 0.1 % (0.0-3.0); EOS % 0.1 % (1.5-5.0); GRAN # 12.52 (1.4-6.5); GRAN % 90.9 % (50.0-68.0); HEMOGLOBIN 14.1 g/dL (12.0-16.0); MEAN CELL VOLUME 87.8 fl (80.0-105.0); MEAN CORPUSCULAR HEMOGLOBIN 30.2 pg (25.0-35.0); MEAN CORPUSCULAR HGB CONC 34.4 g/dl (31.0-37.0); MEAN PLATELET VOLUME 10.7 fl (7.0-11.0); MONO # 0.3 (0.1-0.6); MONO % 1.9 % (1.0-6.0); RBC 4.67 10^6/uL (3.5-6.1); RED CELL DISTRIBUTION WIDTH 13.4 % (11.5-14.5); WHITE BLOOD COUNT 13.8 10^3/ul (4.5-11.0)
[2018-02-26 09:01] LABS: ALB/GLOB RATIO 1.2 (1.1-1.8); ALBUMIN 3.3 g/dL (3.0-4.8); ALT/SGPT 43 U/L (7-56); AST/SGOT 45 U/L (14-36); BLOOD UREA NITROGEN 12 mg/dL (7-21); CALCIUM 8.4 mg/dL (8.4-10.5); GFR NON-AFRICAN AMERICAN > 60
[2018-02-26 09:07] LABS: TROPONIN I 1.97 ng/mL
--- NOTE | 2018-02-26 09:22 | RAD ---
HISTORY: post intubation COMPARISON: No prior. FINDINGS: LUNGS: No active pulmonary disease. PLEURA: No significant pleural effusion identified, no pneumothorax apparent. CARDIOVASCULAR: There is moderate vascular congestion OSSEOUS STRUCTURES: No significant abnormalities. VISUALIZED UPPER ABDOMEN: Normal. OTHER FINDINGS: None. IMPRESSION: Moderate vascular congestion. The endotracheal and nasogastric tubes are in satisfactory position
[2018-02-26] MEDS: MethylPREDNISolone 40 mg Vial IVP SCH ×2 (09:34→23:38)
[2018-02-26] MEDS: Cefepime IV 2 gm in NS 2 GM/100 ML BAG IVPB SCH (10:26)
[2018-02-26] MEDS ORDERED: Phenylephrine 10 mg/ml Inj ONE (11:29)
[2018-02-26] MEDS ORDERED: Lidocaine 2% Inj (20ml) ONE (11:29)
[2018-02-26] MEDS ORDERED: Nitroglycerin 50mg in D5W 50 MG/250 ML BOTTLE IV ONE (11:30)
[2018-02-26] MEDS ORDERED: Iodixanol 320 MG/ML 200 ML BOTTLE IV ONE (11:30)
[2018-02-26] MEDS ORDERED: Iodixanol 320 MG/ML 100 ML BOTTLE IV ONE (11:30)
[2018-02-26] MEDS ORDERED: Iohexol 350mgl/ml 50 ML ONE (11:30)
[2018-02-26] MEDS ORDERED: Eptifibatide 20 mg/10mL Inj IVP ONE (12:31)
[2018-02-26] MEDS ORDERED: Eptifibatide 0.75 mg/ml 75 MG/100 ML BOTTLE IV ONE (12:41)
--- NOTE | 2018-02-26 12:51 | CP.PCM.PN ---
<Sofie Harvey - Last Filed: 02/26/18 14:09> Subjective - Date & Time of Evaluation Date of Evaluation: 02/26/18 Time of Evaluation: 12:49 - Subjective Subjective: Code Heart note 57 year old female with PMH of COPD, former smoker, recent balloon angioplasty of LLE for PAD initially presented with respiratory distress s/p intubation and found to have [place]. Code heart was called this morning at 12:05 pm. Patient was intubated on sedation. Patient was transported to cardiac cath with respiratory therapist and portable ventilation. Patient was on equine dentist as well. patient care was transferred to cardiac cath team and heel blacker. Objective - Vital Signs/Intake and Output Vital Signs (last 24 hours): Temp Pulse Resp BP Pulse Ox 97.2 F L 115 H 30 H 104/65 98 02/26/18 02:44 02/26/18 10:25 02/26/18 10:56 02/26/18 10:25 02/26/18 10:56 Intake and Output: 02/26/18 02/26/18 06:59 18:59 Intake Total 80 26 Balance 80 26 - Medications Medications: Current Medications Albuterol/Ipratropium (Duoneb 3 Mg/0.5 Mg (3 Ml) Ud) 3 ml IH [id number] [facility] Last Admin: 02/26/18 07:59 Dose: 3 ml Atorvastatin Calcium (Lipitor) 40 mg PO DIN GOLDEN Clopidogrel Bisulfate (Plavix) 75 mg PO DAILY [facility] Last Admin: 02/26/18 09:43 Dose: 75 mg Propofol (Diprivan) 1,000 mg in 100 mls @ 3.36 mls/hr IV .Q24H PRN; Protocol; 5 MCG/KG/MIN PRN Reason: TITRATE PER MD ORDER Last Titration: 02/26/18 11:35 Dose: 37.2 mcg/kg/min, 25 mls/hr Heparin Sodium/Sodium Chloride (Heparin 70916 Units/250ml 1/2 Normal Saline) 25 ,000 units in 250 mls @ 10 mls/hr IV .Q24H PRN; Protocol; 1,000 UNITS/HR PRN Reason: coronary ischemia Last Admin: 02/26/18 04:09 Dose: 10 mls/hr Cefepime HCl (Maxipime 2gm) 2 gm in 100 mls @ 100 mls/hr IVPB Q12 GOLDEN PRN Reason: Protocol Stop: 03/03/18 10:01 Last Admin: 02/26/18 10:26 Dose: 100 mls/hr Doxycycline Hyclate 100 mg/ (Sodium Chloride) 100 mls @ 100 mls/hr IVPB Q12 GOLDEN PRN Reason: Protocol Last Admin: 02/26/18 09:22 Dose: 100 mls/hr Milrinone Lactate/Dextrose (Primacor 20mg/100ml D5w) 100 mls @ 10.874 mls/hr IV .Q9H12M PRN; Protocol; 0.375 MCG/KG/MIN PRN Reason: TITRATE PER MD ORDER Last Admin: 02/26/18 09:09 Dose: 0.375 mcg/kg/min, 10.874 mls/hr Insulin Human Regular 100 (units/ Sodium Chloride) 100 mls @ 4 mls/hr IV .Q24H PRN; Protocol; 4 UNITS/HR PRN Reason: TITRATE PER MD ORDER Last Titration: 02/26/18 12:02 Dose: 5 units/hr, 5 mls/hr Methylprednisolone (Solu-Medrol) 20 mg IVP Q12 GOLDEN Last Admin: 02/26/18 09:34 Dose: 20 mg Metoprolol Tartrate (Lopressor) 5 mg IVP Q6H [facility] Last Admin: 02/26/18 10:25 Dose: 5 mg Pantoprazole Sodium (Protonix Inj) 40 mg IVP DAILY [facility] Last Admin: 02/26/18 10:27 Dose: 40 mg - Labs Labs: 02/26/18 08:30 02/26/18 08:30 PT 10.1 SECONDS (9.4-12.5) 02/26/18 02:04 INR 0.89 (0.93-1.08) L 02/26/18 02:04 APTT 64.3 Seconds (25.1-36.5) H 02/26/18 08:30 - Head Exam Head Exam: ATRAUMATIC, NORMOCEPHALIC - Respiratory Exam Respiratory Exam: absent: Respiratory Distress Additional comments: intubated - Cardiovascular Exam Cardiovascular Exam: REGULAR RHYTHM <Irfan,Mohammad - Last Filed: 02/27/18 15:45> Objective - Vital Signs/Intake and Output Vital Signs (last 24 hours): Temp Pulse Resp BP Pulse Ox 98.2 F 120 H 15 111/57 L 99 02/27/18 06:50 02/27/18 10:34 02/27/18 06:59 02/27/18 10:37 02/27/18 06:59 Intake and Output: 02/27/18 02/27/18 06:59 18:59 Intake Total 1146 Output Total 900 Balance 246 - Medications Medications: Current Medications Albuterol/Ipratropium (Duoneb 3 Mg/0.5 Mg (3 Ml) Ud) 3 ml IH [id number] [facility] Last Admin: 02/27/18 13:04 Dose: 3 ml Aspirin (Aspirin Chewable) 81 mg PO DAILY [facility] Last Admin: 02/27/18 10:37 Dose: 81 mg Atorvastatin Calcium (Lipitor) 40 mg PO DIN [facility] Last Admin: 02/26/18 19:00 Dose: 40 mg Budesonide (Pulmicort Respules) 1 mg IH [id number] [facility] Last Admin: 02/27/18 13:03 Dose: 0.5 mg Carvedilol (Coreg) 25 mg PO BID [facility] Enoxaparin Sodium (Lovenox) 40 mg SC DAILY [facility] PRN Reason: Protocol Last Admin: 02/27/18 10:06 Dose: 40 mg Furosemide (Lasix) 40 mg IVP Q12 [facility] Last Admin: 02/27/18 10:12 Dose: 40 mg Cefepime HCl (Maxipime 2gm) 2 gm in 100 mls @ 100 mls/hr IVPB Q12 GOLDEN PRN Reason: Protocol Stop: 03/03/18 10:01 Last Admin: 02/27/18 10:05 Dose: 100 mls/hr Doxycycline Hyclate 100 mg/ (Sodium Chloride) 100 mls @ 100 mls/hr IVPB Q12 GOLDEN PRN Reason: Protocol Last Admin: 02/27/18 09:59 Dose: 100 mls/hr Insulin Detemir (Levemir) 60 unit SC DAILY [facility] Last Admin: 02/27/18 14:21 Dose: 60 unit Insulin Human Regular (Humulin R Med) 0 units SC ACHS [facility] PRN Reason: Protocol Lisinopril (Zestril) 5 mg PO DAILY [facility] Last Admin: 02/27/18 09:56 Dose: 5 mg Methylprednisolone (Solu-Medrol) 20 mg IVP DAILY [facility] Last Admin: 02/27/18 10:02 Dose: 20 mg Pantoprazole Sodium (Protonix Inj) 40 mg IVP DAILY [facility] Last Admin: 02/27/18 10:05 Dose: 40 mg - Labs Labs: 02/27/18 05:20 02/27/18 05:20 PT 10.1 SECONDS (9.4-12.5) 02/26/18 02:04 INR 0.89 (0.93-1.08) L 02/26/18 02:04 APTT 64.3 Seconds (25.1-36.5) H 02/26/18 08:30 Attending/Attestation - Attestation I have personally seen and examined this patient.: Yes I have fully participated in the care of the patient.: Yes I have reviewed all pertinent clinical information, including history, physical exam and plan: Yes
[2018-02-26] MEDS ORDERED: Iodixanol 320 mg/ml 150 ml Bottle IV ONE (12:52)
[2018-02-26 13:27] VITALS: BMI 31.5
[2018-02-26] MEDS ORDERED: DOBUTamine 500mg/250ml D5W 500 MG/250 ML BAG IV PRN (13:27)
[2018-02-26] MEDS ORDERED: Sodium Chloride 0.9% 1,000 ML IV SCH (13:30)
--- NOTE | 2018-02-26 14:26 | CARDCATH ---
PROCEDURE DATE: 02/26/2018 EMERGENCY CARDIAC CATH AND PTCA HISTORY: The patient is a 57-year-old woman, who presented in respiratory distress and cardiogenic shock. She was found to have ST elevations across the anterior precordium. Because of this, a code heart was called and the patient was brought for an emergency cardiac catheterization under code heart secondary to cardiogenic shock. PROCEDURE: Emergency left heart catheterization with coronary arteriography and left ventriculogram followed by attempted PTCA of an occluded LAD. The right femoral artery was cannulated with a 6-[place] sheath. There were no complications. I performed moderate sedation, which included the presence of an independent trained observer that assisted in the patient's level of consciousness and physiologic status. After administration of Versed and fentanyl, my intra service time was 30 minutes. The findings on catheterization revealed a left ventricle that revealed an akinetic anterior apical segment. The inferobasal and anterobasal segments moved well. Overall ejection fraction was approximately 20-25%. There was no mitral regurgitation. LVEDP was 20 mmHg. Her coronary anatomy revealed a right dominant circulation. The RCA revealed diffuse atherosclerosis throughout its tree. There were collaterals going from the RCA into the LAD, which was found to be diffusely diseased with multiple critical lesions. The left main artery revealed intimal irregularities without critical lesions. The circumflex artery and obtuse marginal branches revealed intimal irregularities without critical lesions. The LAD was occluded at its takeoff from the left main. There was a small stump that could barely be seen in only one view. The patient was started on intravenous Integrilin as well as IV heparin. Multiple attempts at crossing the stump of the LAD, which appeared like either a chronic occlusion or a subacute chronic occlusion were unsuccessful due to the heavy calcium and the nature of the occlusion. After multiple attempts with multiple wires, the procedure was aborted. Angio-Seal was used to close the femoral artery site. The patient tolerated the procedure well. In summary, the procedure was unsuccessful for attempt at PTCA of a subacute versus chronic LAD occlusion. The LAD occlusion was a flush occlusion of the left main. Cardiac catheterization reveals single vessel CAD with an LV that revealed an anteroapical anterior wall myocardial infarction with an EF of 20%. Given these findings, the patient's treatment will be IV ionotropic therapy as well as diuresis in hopes of getting off her respirator. Coronary artery bypass surgery would not be feasible given the chronicity of the total occlusion as well as the diffuse disease seen on retrograde filling of the LAD. Tadeo Cruz MD
--- NOTE | 2018-02-26 15:21 | CP.CCUPN ---
<Golden Singer - Last Filed: 02/26/18 15:10> CCU Subjective - Physician Review Events Since Last Encounter (Free Text): 02/26/18 10:00 Patient seen and examined at bedside; no acute events overnight. Patient is intubated and sedated. CCU Objective - Vital Signs / Intake & Output Vital Signs (Last 4 hours): Vital Signs Temp Pulse Pulse Resp BP 02/26/18 14:30 120/64 02/26/18 13:04 97.2 F L 110 H 110 H 30 H 104/59 L Intake and Output (Last 8hrs): Intake & Output 02/26/18 02/26/18 02/26/18 06:59 14:59 22:59 Intake Total 80 40 Balance 80 40 Weight 96.661 kg Intake: IV 80 40 Other: Voiding Method Indwelling Catheter - Physical Exam Head: Positive for: Atraumatic, Normocephalic Pupils: Positive for: PERRL Extroacular Muscles: Positive for: EOMI Conjunctiva: Positive for: Normal Mouth: Positive for: Moist Mucous Membranes Neck: Positive for: Normal Range of Motion Respiratory/Chest: Positive for: Respiratory Distress (Severe respiratory distress), Rales (Rales bilaterally), Rhonchi Cardiovascular: Positive for: Normal S1, S2, Tachycardic. Negative for: Murmurs Abdomen: Negative for: Tenderness, Distention, Peritoneal Signs Upper Extremity: Negative for: Cyanosis, Edema Lower Extremity: Positive for: Other (Mottling of bilateral lower extremities). Negative for: Edema Neurological: Positive for: Motor Func Grossly Intact Skin: Positive for: Warm, Dry. Negative for: Rashes Psychiatric: Positive for: Lethargic - Medications Active Medications: Active Medications Generic Name Dose Route Start Last Admin Trade Name Freq PRN Reason Stop Dose Admin Albuterol/Ipratropium 3 ml 02/26/18 08:00 02/26/18 13:38 Duoneb 3 Mg/0.5 Mg (3 Ml) Ud IH 3 ml [id number] GOLDEN Administration Atorvastatin Calcium 40 mg 02/26/18 17:00 Lipitor PO DIN GOLDEN Furosemide 40 mg 02/26/18 13:30 02/26/18 14:30 Lasix IVP 40 mg Q12 GOLDEN Administration Propofol 1,000 mg in 100 mls @ 3.36 mls/hr 02/26/18 02:19 02/26/18 14:16 Diprivan IV 37.2 mcg/kg/min .Q24H PRN 25 mls/hr TITRATE PER MD ORDER Administration Protocol 5 MCG/KG/MIN Cefepime HCl 2 gm in 100 mls @ 100 mls/hr 02/26/18 10:00 02/26/18 10:26 Maxipime 2gm IVPB 03/03/18 10:01 100 mls/hr Q12 GOLDEN Administration Protocol Doxycycline Hyclate 100 mg/ 100 mls @ 100 mls/hr 02/26/18 10:00 02/26/18 09: 22 Sodium Chloride IVPB 100 mls/hr Q12 GOLDEN Administration Protocol Insulin Human Regular 100 100 mls @ 4 mls/hr 02/26/18 08:20 02/26/18 14:08 units/ Sodium Chloride IV 4 units/hr .Q24H PRN 4 mls/hr TITRATE PER MD ORDER Titration Protocol 4 UNITS/HR Sodium Chloride 1,000 mls @ 50 mls/hr 02/26/18 13:30 Sodium Chloride 0.9% IV 02/26/18 19:00 .Q20H GOLDEN Dobutamine HCl/Dextrose 500 mg in 250 mls @ 14.499 mls/hr 02/26/18 13:27 14:18 Dobutamine/Dextrose 5% 500mg/250ml IV 5 mcg/kg/min .[id number] PRN 14.499 mls/hr TITRATE PER PROTOCOL Administration Protocol 5 MCG/KG/MIN Methylprednisolone 20 mg 02/26/18 10:00 02/26/18 09:34 Solu-Medrol IVP 20 mg Q12 GOLDEN Administration Pantoprazole Sodium 40 mg 02/26/18 10:00 02/26/18 10:27 Protonix Inj IVP 40 mg DAILY GOLDEN Administration - Patient Studies Lab Studies: Lab Studies 02/26/18 02/26/18 02/26/18 Range/Units 13:38 11:59 11:08 WBC (4.5-11.0) 10^3/ul RBC (3.5-6.1) 10^6/uL Hgb (12.0-16.0) g/dL Hct (36.0-48.0) % MCV (80.0-105.0) fl MCH (25.0-35.0) pg MCHC (31.0-37.0) g/dl RDW (11.5-14.5) % Plt Count (120.0-450.0) 10^3/uL MPV (7.0-11.0) fl Gran % (50.0-68.0) % Lymph % (Auto) (22.0-35.0) % [place] % (Auto) (1.0-6.0) % Eos % (Auto) (1.5-5.0) % Baso % (Auto) (0.0-3.0) % Gran # (1.4-6.5) Lymph # (Auto) (1.2-3.4) [place] # (Auto) (0.1-0.6) Eos # (Auto) (0.0-0.7) Baso # (Auto) (0.0-2.0) K/mm3 APTT (25.1-36.5) Seconds pCO2 (35-45) mm/Hg pO2 (30-55) mm/Hg HCO3 (21-28) mmol/L ABG pH (7.35-7.45) ABG Total CO2 (22-28) mmol.L ABG O2 Saturation (95-98) % ABG Base Excess (-2.0-3.0) mmol/L ABG Potassium (3.6-5.2) mmol/L VBG pH (7.32-7.43) VBG pCO2 (40-60) VBG HCO3 (21-28) mmol/l VBG Total CO2 (22-28) mmol.L VBG O2 Sat (Calc) (40-65) % VBG Base Excess (0.0-2.0) mmol/L VBG Potassium (3.6-5.2) mmol/L Sodium (132-148) mmol/L Chloride (98-107) mmol/L Glucose (65-105) mg/dl Lactate (0.7-2.1) mmol/L Mechanical Rate FiO2 % Tidal Volume PEEP Potassium (3.6-5.0) mmol/L Carbon Dioxide (21-33) mmol/L Anion Gap (10-20) BUN (7-21) mg/dL Creatinine (0.7-1.2) mg/dl Est GFR ( Amer) Est GFR (Non-Af Amer) POC Glucose (mg/dL) 234 H 268 H 299 H (65-110) mg/dL Random Glucose (70-110) mg/dL Hemoglobin A1c (4.2-6.5) % Calcium (8.4-10.5) mg/dL Total Bilirubin (0.2-1.3) mg/dL AST (14-36) U/L ALT (7-56) U/L Alkaline Phosphatase (38-126) U/L Lactate Dehydrogenase (333-699) U/L Total Creatine Kinase (35-230) U/L Troponin I ng/mL Total Protein (5.8-8.3) g/dL Albumin (3.0-4.8) g/dL Globulin gm/dL Albumin/Globulin Ratio (1.1-1.8) Arterial Blood Potassium (3.6-5.2) mmol/L Venous Blood Potassium (3.6-5.2) mmol/L Urine Color (YELLOW) Urine Appearance (CLEAR) Urine pH (4.7-8.0) Ur Specific Frederick (1.005-1.035) Urine Protein (<30 mg/dL) mg/dL Urine Glucose (UA) (NEGATIVE) mg/dL Urine Ketones (NEGATIVE) mg/dL Urine Blood (NEGATIVE) Urine Nitrate (NEGATIVE) Urine Bilirubin (NEGATIVE) Urine Urobilinogen (<1 E.U./dL) E.U./dL Ur Leukocyte Esterase (NEGATIVE) Baldemar/uL Urine RBC (0-2) /hpf Urine WBC (0-6) /hpf Ur Epithelial Cells (0-5) /hpf Amorphous Sediment Urine Opiates Screen (NEGATIVE) Urine Methadone Screen (NEGATIVE) Ur Barbiturates Screen (NEGATIVE) Ur Phencyclidine Scrn (NEGATIVE) Ur Amphetamines Screen (NEGATIVE) U Benzodiazepines Scrn (NEGATIVE) U Oth Cocaine Metabols (NEGATIVE) U Cannabinoids Screen (NEGATIVE) Ur L.pneumophila Ag (NEGATIVE) 02/26/18 02/26/18 02/26/18 Range/Units 10:01 08:35 08:30 WBC 13.8 H D (4.5-11.0) 10^3/ul RBC 4.67 (3.5-6.1) 10^6/uL Hgb 14.1 D (12.0-16.0) g/dL Hct 41.0 (36.0-48.0) % MCV 87.8 D (80.0-105.0) fl MCH 30.2 (25.0-35.0) pg MCHC 34.4 (31.0-37.0) g/dl RDW 13.4 (11.5-14.5) % Plt Count 210 (120.0-450.0) 10^3/uL MPV 10.7 (7.0-11.0) fl Gran % 90.9 H (50.0-68.0) % Lymph % (Auto) 7.0 L (22.0-35.0) % Imperial % (Auto) 1.9 (1.0-6.0) % Eos % (Auto) 0.1 L (1.5-5.0) % Baso % (Auto) 0.1 (0.0-3.0) % Gran # 12.52 H (1.4-6.5) Lymph # (Auto) 1.0 L (1.2-3.4) [place] # (Auto) 0.3 (0.1-0.6) Eos # (Auto) 0.0 (0.0-0.7) Baso # (Auto) 0.02 (0.0-2.0) K/mm3 APTT (25.1-36.5) Seconds pCO2 34 L (35-45) mm/Hg pO2 76.0 L (30-55) mm/Hg HCO3 18.8 L (21-28) mmol/L ABG pH 7.35 (7.35-7.45) ABG Total CO2 19.8 L (22-28) mmol.L ABG O2 Saturation 98.1 H (95-98) % ABG Base Excess -6.0 L (-2.0-3.0) mmol/L ABG Potassium 4.3 (3.6-5.2) mmol/L VBG pH (7.32-7.43) VBG pCO2 (40-60) VBG HCO3 (21-28) mmol/l VBG Total CO2 (22-28) mmol.L VBG O2 Sat (Calc) (40-65) % VBG Base Excess (0.0-2.0) mmol/L VBG Potassium (3.6-5.2) mmol/L Sodium 137.0 (132-148) mmol/L Chloride 111.0 H (98-107) mmol/L Glucose 387 H (65-105) mg/dl Lactate 1.6 (0.7-2.1) mmol/L Mechanical Rate 16 FiO2 60.0 % Tidal Volume 400 PEEP 5 Potassium (3.6-5.0) mmol/L Carbon Dioxide (21-33) mmol/L Anion Gap (10-20) BUN (7-21) mg/dL Creatinine (0.7-1.2) mg/dl Est GFR ( Amer) Est GFR (Non-Af Amer) POC Glucose (mg/dL) 329 H (65-110) mg/dL Random Glucose (70-110) mg/dL Hemoglobin A1c (4.2-6.5) % Calcium (8.4-10.5) mg/dL Total Bilirubin (0.2-1.3) mg/dL AST (14-36) U/L ALT (7-56) U/L Alkaline Phosphatase (38-126) U/L Lactate Dehydrogenase (333-699) U/L Total Creatine Kinase (35-230) U/L Troponin I ng/mL Total Protein (5.8-8.3) g/dL Albumin (3.0-4.8) g/dL Globulin gm/dL Albumin/Globulin Ratio (1.1-1.8) Arterial Blood Potassium 4.3 (3.6-5.2) mmol/L Venous Blood Potassium (3.6-5.2) mmol/L Urine Color (YELLOW) Urine Appearance (CLEAR) Urine pH (4.7-8.0) Ur Specific [place] (1.005-1.035) Urine Protein (<30 mg/dL) mg/dL Urine Glucose (UA) (NEGATIVE) mg/dL Urine Ketones (NEGATIVE) mg/dL Urine Blood (NEGATIVE) Urine Nitrate (NEGATIVE) Urine Bilirubin (NEGATIVE) Urine Urobilinogen (<1 E.U./dL) E.U./dL Ur Leukocyte Esterase (NEGATIVE) Baldemar/uL Urine RBC (0-2) /hpf Urine WBC (0-6) /hpf Ur Epithelial Cells (0-5) /hpf Amorphous Sediment Urine Opiates Screen (NEGATIVE) Urine Methadone Screen (NEGATIVE) Ur Barbiturates Screen (NEGATIVE) Ur Phencyclidine Scrn (NEGATIVE) Ur Amphetamines Screen (NEGATIVE) U Benzodiazepines Scrn (NEGATIVE) U Oth Cocaine Metabols (NEGATIVE) U Cannabinoids Screen (NEGATIVE) Ur L.pneumophila Ag (NEGATIVE) 02/26/18 02/26/18 02/26/18 Range/Units 08:30 08:30 08:30 WBC (4.5-11.0) 10^3/ul RBC (3.5-6.1) 10^6/uL Hgb (12.0-16.0) g/dL Hct (36.0-48.0) % MCV (80.0-105.0) fl MCH (25.0-35.0) pg MCHC (31.0-37.0) g/dl RDW (11.5-14.5) % Plt Count (120.0-450.0) 10^3/uL MPV (7.0-11.0) fl Gran % (50.0-68.0) % Lymph % (Auto) (22.0-35.0) % [place] % (Auto) (1.0-6.0) % Eos % (Auto) (1.5-5.0) % Baso % (Auto) (0.0-3.0) % Gran # (1.4-6.5) Lymph # (Auto) (1.2-3.4) [place] # (Auto) (0.1-0.6) Eos # (Auto) (0.0-0.7) Baso # (Auto) (0.0-2.0) K/mm3 APTT 64.3 H (25.1-36.5) Seconds pCO2 (35-45) mm/Hg pO2 47 (30-55) mm/Hg HCO3 (21-28) mmol/L ABG pH (7.35-7.45) ABG Total CO2 (22-28) mmol.L ABG O2 Saturation (95-98) % ABG Base Excess (-2.0-3.0) mmol/L ABG Potassium (3.6-5.2) mmol/L VBG pH 7.30 L (7.32-7.43) VBG pCO2 43.0 (40-60) VBG HCO3 21.2 (21-28) mmol/l VBG Total CO2 22.5 (22-28) mmol.L VBG O2 Sat (Calc) 86.6 H (40-65) % VBG Base Excess -5.1 L (0.0-2.0) mmol/L VBG Potassium 5.0 (3.6-5.2) mmol/L Sodium 136.0 139 (132-148) mmol/L Chloride 108.0 H 109 H (98-107) mmol/L Glucose 404 H* (65-105) mg/dl Lactate 2.4 H (0.7-2.1) mmol/L Mechanical Rate FiO2 21.0 % Tidal Volume PEEP Potassium 5.1 H (3.6-5.0) mmol/L Carbon Dioxide 19 L (21-33) mmol/L Anion Gap 16 (10-20) BUN 12 (7-21) mg/dL Creatinine 0.6 L (0.7-1.2) mg/dl Est GFR ( Amer) > 60 Est GFR (Non-Af Amer) > 60 POC Glucose (mg/dL) (65-110) mg/dL Random Glucose 370 H* (70-110) mg/dL Hemoglobin A1c (4.2-6.5) % Calcium 8.4 (8.4-10.5) mg/dL Total Bilirubin 0.4 (0.2-1.3) mg/dL AST 45 H D (14-36) U/L ALT 43 (7-56) U/L Alkaline Phosphatase 81 (38-126) U/L Lactate Dehydrogenase 678 (333-699) U/L Total Creatine Kinase 159 (35-230) U/L Troponin I 1.97 H* D ng/mL Total Protein 6.1 (5.8-8.3) g/dL Albumin 3.3 (3.0-4.8) g/dL Globulin 2.8 gm/dL Albumin/Globulin Ratio 1.2 (1.1-1.8) Arterial Blood Potassium (3.6-5.2) mmol/L Venous Blood Potassium 5.0 (3.6-5.2) mmol/L Urine Color (YELLOW) Urine Appearance (CLEAR) Urine pH (4.7-8.0) Ur Specific [place] (1.005-1.035) Urine Protein (<30 mg/dL) mg/dL Urine Glucose (UA) (NEGATIVE) mg/dL Urine Ketones (NEGATIVE) mg/dL Urine Blood (NEGATIVE) Urine Nitrate (NEGATIVE) Urine Bilirubin (NEGATIVE) Urine Urobilinogen (<1 E.U./dL) E.U./dL Ur Leukocyte Esterase (NEGATIVE) Baldemar/uL Urine RBC (0-2) /hpf Urine WBC (0-6) /hpf Ur Epithelial Cells (0-5) /hpf Amorphous Sediment Urine Opiates Screen (NEGATIVE) Urine Methadone Screen (NEGATIVE) Ur Barbiturates Screen (NEGATIVE) Ur Phencyclidine Scrn (NEGATIVE) Ur Amphetamines Screen (NEGATIVE) U Benzodiazepines Scrn (NEGATIVE) U Oth Cocaine Metabols (NEGATIVE) U Cannabinoids Screen (NEGATIVE) Ur L.pneumophila Ag (NEGATIVE) 02/26/18 02/26/18 02/26/18 Range/Units 07:39 07:27 07:27 WBC (4.5-11.0) 10^3/ul RBC (3.5-6.1) 10^6/uL Hgb (12.0-16.0) g/dL Hct (36.0-48.0) % MCV (80.0-105.0) fl MCH (25.0-35.0) pg MCHC (31.0-37.0) g/dl RDW (11.5-14.5) % Plt Count (120.0-450.0) 10^3/uL MPV (7.0-11.0) fl Gran % (50.0-68.0) % Lymph % (Auto) (22.0-35.0) % [place] % (Auto) (1.0-6.0) % Eos % (Auto) (1.5-5.0) % Baso % (Auto) (0.0-3.0) % Gran # (1.4-6.5) Lymph # (Auto) (1.2-3.4) Imperial # (Auto) (0.1-0.6) Eos # (Auto) (0.0-0.7) Baso # (Auto) (0.0-2.0) K/mm3 APTT (25.1-36.5) Seconds pCO2 (35-45) mm/Hg pO2 (30-55) mm/Hg HCO3 (21-28) mmol/L ABG pH (7.35-7.45) ABG Total CO2 (22-28) mmol.L ABG O2 Saturation (95-98) % ABG Base Excess (-2.0-3.0) mmol/L ABG Potassium (3.6-5.2) mmol/L VBG pH (7.32-7.43) VBG pCO2 (40-60) VBG HCO3 (21-28) mmol/l VBG Total CO2 (22-28) mmol.L VBG O2 Sat (Calc) (40-65) % VBG Base Excess (0.0-2.0) mmol/L VBG Potassium (3.6-5.2) mmol/L Sodium (132-148) mmol/L Chloride (98-107) mmol/L Glucose (65-105) mg/dl Lactate (0.7-2.1) mmol/L Mechanical Rate FiO2 % Tidal Volume PEEP Potassium (3.6-5.0) mmol/L Carbon Dioxide (21-33) mmol/L Anion Gap (10-20) BUN (7-21) mg/dL Creatinine (0.7-1.2) mg/dl Est GFR ( Amer) Est GFR (Non-Af Amer) POC Glucose (mg/dL) 330 H (65-110) mg/dL Random Glucose (70-110) mg/dL Hemoglobin A1c (4.2-6.5) % Calcium (8.4-10.5) mg/dL Total Bilirubin (0.2-1.3) mg/dL AST (14-36) U/L ALT (7-56) U/L Alkaline Phosphatase (38-126) U/L Lactate Dehydrogenase (333-699) U/L Total Creatine Kinase (35-230) U/L Troponin I ng/mL Total Protein (5.8-8.3) g/dL Albumin (3.0-4.8) g/dL Globulin gm/dL Albumin/Globulin Ratio (1.1-1.8) Arterial Blood Potassium (3.6-5.2) mmol/L Venous Blood Potassium (3.6-5.2) mmol/L Urine Color (YELLOW) Urine Appearance (CLEAR) Urine pH (4.7-8.0) Ur Specific [place] (1.005-1.035) Urine Protein (<30 mg/dL) mg/dL Urine Glucose (UA) (NEGATIVE) mg/dL Urine Ketones (NEGATIVE) mg/dL Urine Blood (NEGATIVE) Urine Nitrate (NEGATIVE) Urine Bilirubin (NEGATIVE) Urine Urobilinogen (<1 E.U./dL) E.U./dL Ur Leukocyte Esterase (NEGATIVE) Baldemar/uL Urine RBC (0-2) /hpf Urine WBC (0-6) /hpf Ur Epithelial Cells (0-5) /hpf Amorphous Sediment Urine Opiates Screen Negative (NEGATIVE) Urine Methadone Screen Negative (NEGATIVE) Ur Barbiturates Screen Negative (NEGATIVE) Ur Phencyclidine Scrn Negative (NEGATIVE) Ur Amphetamines Screen Negative (NEGATIVE) U Benzodiazepines Scrn Positive H (NEGATIVE) U Oth Cocaine Metabols Negative (NEGATIVE) U Cannabinoids Screen Negative (NEGATIVE) Ur L.pneumophila Ag Negative (NEGATIVE) 02/26/18 02/26/18 02/26/18 Range/Units 06:10 05:30 05:11 WBC (4.5-11.0) 10^3/ul RBC (3.5-6.1) 10^6/uL Hgb (12.0-16.0) g/dL Hct (36.0-48.0) % MCV (80.0-105.0) fl MCH (25.0-35.0) pg MCHC (31.0-37.0) g/dl RDW (11.5-14.5) % Plt Count (120.0-450.0) 10^3/uL MPV (7.0-11.0) fl Gran % (50.0-68.0) % Lymph % (Auto) (22.0-35.0) % [place] % (Auto) (1.0-6.0) % Eos % (Auto) (1.5-5.0) % Baso % (Auto) (0.0-3.0) % Gran # (1.4-6.5) Lymph # (Auto) (1.2-3.4) [place] # (Auto) (0.1-0.6) Eos # (Auto) (0.0-0.7) Baso # (Auto) (0.0-2.0) K/mm3 APTT (25.1-36.5) Seconds pCO2 (35-45) mm/Hg pO2 82 H (30-55) mm/Hg HCO3 (21-28) mmol/L ABG pH (7.35-7.45) ABG Total CO2 (22-28) mmol.L ABG O2 Saturation (95-98) % ABG Base Excess (-2.0-3.0) mmol/L ABG Potassium (3.6-5.2) mmol/L VBG pH 7.22 L (7.32-7.43) VBG pCO2 52.0 (40-60) VBG HCO3 21.3 (21-28) mmol/l VBG Total CO2 22.9 (22-28) mmol.L VBG O2 Sat (Calc) 97.2 H (40-65) % VBG Base Excess -6.8 L (0.0-2.0) mmol/L VBG Potassium 4.9 (3.6-5.2) mmol/L Sodium 138.0 (132-148) mmol/L Chloride 106.0 (98-107) mmol/L Glucose 417 H* (65-105) mg/dl Lactate 3.1 H (0.7-2.1) mmol/L Mechanical Rate FiO2 21.0 % Tidal Volume PEEP Potassium (3.6-5.0) mmol/L Carbon Dioxide (21-33) mmol/L Anion Gap (10-20) BUN (7-21) mg/dL Creatinine (0.7-1.2) mg/dl Est GFR ( Amer) Est GFR (Non-Af Amer) POC Glucose (mg/dL) (65-110) mg/dL Random Glucose (70-110) mg/dL Hemoglobin A1c 9.4 H (4.2-6.5) % Calcium (8.4-10.5) mg/dL Total Bilirubin (0.2-1.3) mg/dL AST (14-36) U/L ALT (7-56) U/L Alkaline Phosphatase (38-126) U/L Lactate Dehydrogenase (333-699) U/L Total Creatine Kinase (35-230) U/L Troponin I ng/mL Total Protein (5.8-8.3) g/dL Albumin (3.0-4.8) g/dL Globulin gm/dL Albumin/Globulin Ratio (1.1-1.8) Arterial Blood Potassium (3.6-5.2) mmol/L Venous Blood Potassium 4.9 (3.6-5.2) mmol/L Urine Color Yellow (YELLOW) Urine Appearance Sl cloudy (CLEAR) Urine pH 6.0 (4.7-8.0) Ur Specific [place] >= 1.030 (1.005-1.035) Urine Protein >=300 H (<30 mg/dL) mg/dL Urine Glucose (UA) >=1000 (NEGATIVE) mg/dL Urine Ketones Negative (NEGATIVE) mg/dL Urine Blood Moderate H (NEGATIVE) Urine Nitrate Negative (NEGATIVE) Urine Bilirubin Negative (NEGATIVE) Urine Urobilinogen 0.2 (<1 E.U./dL) E.U./dL Ur Leukocyte Esterase Negative (NEGATIVE) Baldemar/uL Urine RBC 2 - 5 (0-2) /hpf Urine WBC 0 - 2 (0-6) /hpf Ur Epithelial Cells 3 - 4 (0-5) /hpf Amorphous Sediment Many Urine Opiates Screen (NEGATIVE) Urine Methadone Screen (NEGATIVE) Ur Barbiturates Screen (NEGATIVE) Ur Phencyclidine Scrn (NEGATIVE) Ur Amphetamines Screen (NEGATIVE) U Benzodiazepines Scrn (NEGATIVE) U Oth Cocaine Metabols (NEGATIVE) U Cannabinoids Screen (NEGATIVE) Ur L.pneumophila Ag (NEGATIVE) 02/26/18 Range/Units 03:50 WBC (4.5-11.0) 10^3/ul RBC (3.5-6.1) 10^6/uL Hgb (12.0-16.0) g/dL Hct (36.0-48.0) % MCV (80.0-105.0) fl MCH (25.0-35.0) pg MCHC (31.0-37.0) g/dl RDW (11.5-14.5) % Plt Count (120.0-450.0) 10^3/uL MPV (7.0-11.0) fl Gran % (50.0-68.0) % Lymph % (Auto) (22.0-35.0) % [place] % (Auto) (1.0-6.0) % Eos % (Auto) (1.5-5.0) % Baso % (Auto) (0.0-3.0) % Gran # (1.4-6.5) Lymph # (Auto) (1.2-3.4) [place] # (Auto) (0.1-0.6) Eos # (Auto) (0.0-0.7) Baso # (Auto) (0.0-2.0) K/mm3 APTT (25.1-36.5) Seconds pCO2 (35-45) mm/Hg pO2 61 H (30-55) mm/Hg HCO3 (21-28) mmol/L ABG pH (7.35-7.45) ABG Total CO2 (22-28) mmol.L ABG O2 Saturation (95-98) % ABG Base Excess (-2.0-3.0) mmol/L ABG Potassium (3.6-5.2) mmol/L VBG pH 7.10 L* (7.32-7.43) VBG pCO2 67.0 H* (40-60) VBG HCO3 20.8 L (21-28) mmol/l VBG Total CO2 22.9 (22-28) mmol.L VBG O2 Sat (Calc) 91.7 H (40-65) % VBG Base Excess -9.8 L (0.0-2.0) mmol/L VBG Potassium 4.3 (3.6-5.2) mmol/L Sodium 137.0 (132-148) mmol/L Chloride 106.0 (98-107) mmol/L Glucose 439 H* (65-105) mg/dl Lactate 3.6 H (0.7-2.1) mmol/L Mechanical Rate FiO2 21.0 % Tidal Volume PEEP Potassium (3.6-5.0) mmol/L Carbon Dioxide (21-33) mmol/L Anion Gap (10-20) BUN (7-21) mg/dL Creatinine (0.7-1.2) mg/dl Est GFR ( Amer) Est GFR (Non-Af Amer) POC Glucose (mg/dL) (65-110) mg/dL Random Glucose (70-110) mg/dL Hemoglobin A1c (4.2-6.5) % Calcium (8.4-10.5) mg/dL Total Bilirubin (0.2-1.3) mg/dL AST (14-36) U/L ALT (7-56) U/L Alkaline Phosphatase (38-126) U/L Lactate Dehydrogenase (333-699) U/L Total Creatine Kinase (35-230) U/L Troponin I ng/mL Total Protein (5.8-8.3) g/dL Albumin (3.0-4.8) g/dL Globulin gm/dL Albumin/Globulin Ratio (1.1-1.8) Arterial Blood Potassium (3.6-5.2) mmol/L Venous Blood Potassium 4.3 (3.6-5.2) mmol/L Urine Color (YELLOW) Urine Appearance (CLEAR) Urine pH (4.7-8.0) Ur Specific [place] (1.005-1.035) Urine Protein (<30 mg/dL) mg/dL Urine Glucose (UA) (NEGATIVE) mg/dL Urine Ketones (NEGATIVE) mg/dL Urine Blood (NEGATIVE) Urine Nitrate (NEGATIVE) Urine Bilirubin (NEGATIVE) Urine Urobilinogen (<1 E.U./dL) E.U./dL Ur Leukocyte Esterase (NEGATIVE) [place]/uL Urine RBC (0-2) /hpf Urine WBC (0-6) /hpf Ur Epithelial Cells (0-5) /hpf Amorphous Sediment Urine Opiates Screen (NEGATIVE) Urine Methadone Screen (NEGATIVE) Ur Barbiturates Screen (NEGATIVE) Ur Phencyclidine Scrn (NEGATIVE) Ur Amphetamines Screen (NEGATIVE) U Benzodiazepines Scrn (NEGATIVE) U Oth Cocaine Metabols (NEGATIVE) U Cannabinoids Screen (NEGATIVE) Ur L.pneumophila Ag (NEGATIVE) Laboratory Results - last 24 hr 02/26/18 02/26/18 02/26/18 03:50 05:11 05:30 WBC RBC Hgb Hct MCV MCH MCHC RDW Plt Count MPV Gran % Lymph % (Auto) [place] % (Auto) Eos % (Auto) Baso % (Auto) Gran # Lymph # (Auto) [place] # (Auto) Eos # (Auto) Baso # (Auto) APTT pCO2 pO2 61 H HCO3 ABG pH ABG Total CO2 ABG O2 Saturation ABG Base Excess ABG Potassium VBG pH 7.10 L* VBG pCO2 67.0 H* VBG HCO3 20.8 L VBG Total CO2 22.9 VBG O2 Sat (Calc) 91.7 H VBG Base Excess -9.8 L VBG Potassium 4.3 Sodium 137.0 Chloride 106.0 Glucose 439 H* Lactate 3.6 H Mechanical Rate FiO2 21.0 Tidal Volume PEEP Potassium Carbon Dioxide Anion Gap BUN Creatinine Est GFR ( Amer) Est GFR (Non-Af Amer) POC Glucose (mg/dL) Random Glucose Hemoglobin A1c 9.4 H Calcium Total Bilirubin AST ALT Alkaline Phosphatase Lactate Dehydrogenase Total Creatine Kinase Troponin I Total Protein Albumin Globulin Albumin/Globulin Ratio Arterial Blood Potassium Venous Blood Potassium 4.3 Urine Color Yellow Urine Appearance Sl cloudy Urine pH 6.0 Ur Specific [place] >= 1.030 Urine Protein >=300 H Urine Glucose (UA) >=1000 Urine Ketones Negative Urine Blood Moderate H Urine Nitrate Negative Urine Bilirubin Negative Urine Urobilinogen 0.2 Ur Leukocyte Esterase Negative Urine RBC 2 - 5 Urine WBC 0 - 2 Ur Epithelial Cells 3 - 4 Amorphous Sediment Many Urine Opiates Screen Urine Methadone Screen Ur Barbiturates Screen Ur Phencyclidine Scrn Ur Amphetamines Screen U Benzodiazepines Scrn U Oth Cocaine Metabols U Cannabinoids Screen Ur L.pneumophila Ag 02/26/18 02/26/18 02/26/18 06:10 07:27 07:27 WBC RBC Hgb Hct MCV MCH MCHC RDW Plt Count MPV Gran % Lymph % (Auto) [place] % (Auto) Eos % (Auto) Baso % (Auto) Gran # Lymph # (Auto) [place] # (Auto) Eos # (Auto) Baso # (Auto) APTT pCO2 pO2 82 H HCO3 ABG pH ABG Total CO2 ABG O2 Saturation ABG Base Excess ABG Potassium VBG pH 7.22 L VBG pCO2 52.0 VBG HCO3 21.3 VBG Total CO2 22.9 VBG O2 Sat (Calc) 97.2 H VBG Base Excess -6.8 L VBG Potassium 4.9 Sodium 138.0 Chloride 106.0 Glucose 417 H* Lactate 3.1 H Mechanical Rate FiO2 21.0 Tidal Volume PEEP Potassium Carbon Dioxide Anion Gap BUN Creatinine Est GFR ( Amer) Est GFR (Non-Af Amer) POC Glucose (mg/dL) Random Glucose Hemoglobin A1c Calcium Total Bilirubin AST ALT Alkaline Phosphatase Lactate Dehydrogenase Total Creatine Kinase Troponin I Total Protein Albumin Globulin Albumin/Globulin Ratio Arterial Blood Potassium Venous Blood Potassium 4.9 Urine Color Urine Appearance Urine pH Ur Specific [place] Urine Protein Urine Glucose (UA) Urine Ketones Urine Blood Urine Nitrate Urine Bilirubin Urine Urobilinogen Ur Leukocyte Esterase Urine RBC Urine WBC Ur Epithelial Cells Amorphous Sediment Urine Opiates Screen Negative Urine Methadone Screen Negative Ur Barbiturates Screen Negative Ur Phencyclidine Scrn Negative Ur Amphetamines Screen Negative U Benzodiazepines Scrn Positive H U Oth Cocaine Metabols Negative U Cannabinoids Screen Negative Ur L.pneumophila Ag Negative 02/26/18 02/26/18 02/26/18 07:39 08:30 08:30 WBC RBC Hgb Hct MCV MCH MCHC RDW Plt Count MPV Gran % Lymph % (Auto) [place] % (Auto) Eos % (Auto) Baso % (Auto) Gran # Lymph # (Auto) [place] # (Auto) Eos # (Auto) Baso # (Auto) APTT pCO2 pO2 47 HCO3 ABG pH ABG Total CO2 ABG O2 Saturation ABG Base Excess ABG Potassium VBG pH 7.30 L VBG pCO2 43.0 VBG HCO3 21.2 VBG Total CO2 22.5 VBG O2 Sat (Calc) 86.6 H VBG Base Excess -5.1 L VBG Potassium 5.0 Sodium 139 136.0 Chloride 109 H 108.0 H Glucose 404 H* Lactate 2.4 H Mechanical Rate FiO2 21.0 Tidal Volume PEEP Potassium 5.1 H Carbon Dioxide 19 L Anion Gap 16 BUN 12 Creatinine 0.6 L Est GFR ( Amer) > 60 Est GFR (Non-Af Amer) > 60 POC Glucose (mg/dL) 330 H Random Glucose 370 H* Hemoglobin A1c Calcium 8.4 Total Bilirubin 0.4 AST 45 H D ALT 43 Alkaline Phosphatase 81 Lactate Dehydrogenase 678 Total Creatine Kinase 159 Troponin I 1.97 H* D Total Protein 6.1 Albumin 3.3 Globulin 2.8 Albumin/Globulin Ratio 1.2 Arterial Blood Potassium Venous Blood Potassium 5.0 Urine Color Urine Appearance Urine pH Ur Specific [place] Urine Protein Urine Glucose (UA) Urine Ketones Urine Blood Urine Nitrate Urine Bilirubin Urine Urobilinogen Ur Leukocyte Esterase Urine RBC Urine WBC Ur Epithelial Cells Amorphous Sediment Urine Opiates Screen Urine Methadone Screen Ur Barbiturates Screen Ur Phencyclidine Scrn Ur Amphetamines Screen U Benzodiazepines Scrn U Oth Cocaine Metabols U Cannabinoids Screen Ur L.pneumophila Ag 02/26/18 02/26/18 02/26/18 08:30 08:30 08:35 WBC 13.8 H D RBC 4.67 Hgb 14.1 D Hct 41.0 MCV 87.8 D MCH 30.2 MCHC 34.4 RDW 13.4 Plt Count 210 MPV 10.7 Gran % 90.9 H Lymph % (Auto) 7.0 L [place] % (Auto) 1.9 Eos % (Auto) 0.1 L Baso % (Auto) 0.1 Gran # 12.52 H Lymph # (Auto) 1.0 L [place] # (Auto) 0.3 Eos # (Auto) 0.0 Baso # (Auto) 0.02 APTT 64.3 H pCO2 34 L pO2 76.0 L HCO3 18.8 L ABG pH 7.35 ABG Total CO2 19.8 L ABG O2 Saturation 98.1 H ABG Base Excess -6.0 L ABG Potassium 4.3 VBG pH VBG pCO2 VBG HCO3 VBG Total CO2 VBG O2 Sat (Calc) VBG Base Excess VBG Potassium Sodium 137.0 Chloride 111.0 H Glucose 387 H Lactate 1.6 Mechanical Rate 16 FiO2 60.0 Tidal Volume 400 PEEP 5 Potassium Carbon Dioxide Anion Gap BUN Creatinine Est GFR ( Amer) Est GFR (Non-Af Amer) POC Glucose (mg/dL) Random Glucose Hemoglobin A1c Calcium Total Bilirubin AST ALT Alkaline Phosphatase Lactate Dehydrogenase Total Creatine Kinase Troponin I Total Protein Albumin Globulin Albumin/Globulin Ratio Arterial Blood Potassium 4.3 Venous Blood Potassium Urine Color Urine Appearance Urine pH Ur Specific [place] Urine Protein Urine Glucose (UA) Urine Ketones Urine Blood Urine Nitrate Urine Bilirubin Urine Urobilinogen Ur Leukocyte Esterase Urine RBC Urine WBC Ur Epithelial Cells Amorphous Sediment Urine Opiates Screen Urine Methadone Screen Ur Barbiturates Screen Ur Phencyclidine Scrn Ur Amphetamines Screen U Benzodiazepines Scrn U Oth Cocaine Metabols U Cannabinoids Screen Ur L.pneumophila Ag 02/26/18 02/26/18 02/26/18 10:01 11:08 11:59 WBC RBC Hgb Hct MCV MCH MCHC RDW Plt Count MPV Gran % Lymph % (Auto) [place] % (Auto) Eos % (Auto) Baso % (Auto) Gran # Lymph # (Auto) [place] # (Auto) Eos # (Auto) Baso # (Auto) APTT pCO2 pO2 HCO3 ABG pH ABG Total CO2 ABG O2 Saturation ABG Base Excess ABG Potassium VBG pH VBG pCO2 VBG HCO3 VBG Total CO2 VBG O2 Sat (Calc) VBG Base Excess VBG Potassium Sodium Chloride Glucose Lactate Mechanical Rate FiO2 Tidal Volume PEEP Potassium Carbon Dioxide Anion Gap BUN Creatinine Est GFR ( Amer) Est GFR (Non-Af Amer) POC Glucose (mg/dL) 329 H 299 H 268 H Random Glucose Hemoglobin A1c Calcium Total Bilirubin AST ALT Alkaline Phosphatase Lactate Dehydrogenase Total Creatine Kinase Troponin I Total Protein Albumin Globulin Albumin/Globulin Ratio Arterial Blood Potassium Venous Blood Potassium Urine Color Urine Appearance Urine pH Ur Specific [place] Urine Protein Urine Glucose (UA) Urine Ketones Urine Blood Urine Nitrate Urine Bilirubin Urine Urobilinogen Ur Leukocyte Esterase Urine RBC Urine WBC Ur Epithelial Cells Amorphous Sediment Urine Opiates Screen Urine Methadone Screen Ur Barbiturates Screen Ur Phencyclidine Scrn Ur Amphetamines Screen U Benzodiazepines Scrn U Oth Cocaine Metabols U Cannabinoids Screen Ur L.pneumophila Ag 02/26/18 13:38 WBC RBC Hgb Hct MCV MCH MCHC RDW Plt Count MPV Gran % Lymph % (Auto) [place] % (Auto) Eos % (Auto) Baso % (Auto) Gran # Lymph # (Auto) [place] # (Auto) Eos # (Auto) Baso # (Auto) APTT pCO2 pO2 HCO3 ABG pH ABG Total CO2 ABG O2 Saturation ABG Base Excess ABG Potassium VBG pH VBG pCO2 VBG HCO3 VBG Total CO2 VBG O2 Sat (Calc) VBG Base Excess VBG Potassium Sodium Chloride Glucose Lactate Mechanical Rate FiO2 Tidal Volume PEEP Potassium Carbon Dioxide Anion Gap BUN Creatinine Est GFR ( Amer) Est GFR (Non-Af Amer) POC Glucose (mg/dL) 234 H Random Glucose Hemoglobin A1c Calcium Total Bilirubin AST ALT Alkaline Phosphatase Lactate Dehydrogenase Total Creatine Kinase Troponin I Total Protein Albumin Globulin Albumin/Globulin Ratio Arterial Blood Potassium Venous Blood Potassium Urine Color Urine Appearance Urine pH Ur Specific [place] Urine Protein Urine Glucose (UA) Urine Ketones Urine Blood Urine Nitrate Urine Bilirubin Urine Urobilinogen Ur Leukocyte Esterase Urine RBC Urine WBC Ur Epithelial Cells Amorphous Sediment Urine Opiates Screen Urine Methadone Screen Ur Barbiturates Screen Ur Phencyclidine Scrn Ur Amphetamines Screen U Benzodiazepines Scrn U Oth Cocaine Metabols U Cannabinoids Screen Ur L.pneumophila Ag EKG/Cardiology Studies: Cardiology / EKG Studies 02/26/18 08:01 EKG [ELECTROCARDIOGRAM] Stat Comment: Reason For Exam: stemi 02/26/18 11:54 EKG [ELECTROCARDIOGRAM] Stat Comment: Reason For Exam: stemi 02/26/18 13:23 ELECTROCARDIOGRAM Urgent Comment: 12 lead EKG upon arrival in unit Reason For Exam: post ptca 02/26/18 13:30 ELECTROCARDIOGRAM DAILY Comment: Reason For Exam: chest pain 02/27/18 13:30 ELECTROCARDIOGRAM DAILY Comment: Reason For Exam: chest pain Fingerstick Blood Sugar Results: 329 Critical Care Progress Note - Nutrition Nutrition: Nutrition Category Date Time Status NPO Diet [DIET] Diets 02/26/18 Breakfast Ordered Assessment/Plan - Assessment and Plan (Free Text) Assessment: 57 year old female under ICU care for Hypercapneic Hypoxic Respiratory Failure requiring intubation. ACS and COPD exacerbation - Cardiopulmonary Failure Severe Sepsis from pneumonia, lactic acidosis @ 3.6, complicated by ACS Possible flash pulmonary edema from acute CHF secondary to ACS Primary Respiratory Acidosis, Chronic, with Secondary Metabolic Acidosis and Additional Metabolic Alkalosis Neuro - Sedated on propofol. Maintain nomothermia. Lefty hugger as needed. 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 repleted K s/p 1 amp bicarb Endo - RISS - Maintain euglycemia Heme - Heparin gtt serves as DVT PPX ID - Got Vanco and zosyn in ed @ 4-5am. iD consult. 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 <Gal Edouard - Last Filed: 02/27/18 07:28> CCU Objective - Vital Signs / Intake & Output Vital Signs (Last 4 hours): Vital Signs Temp Pulse Resp BP Pulse Ox 02/27/18 06:59 15 99 02/27/18 06:50 98.2 F 116 H 98 02/27/18 06:40 98.1 F 113 H 100 02/27/18 06:30 97.9 F 111 H 99 02/27/18 06:20 97.9 F 115 H 100 02/27/18 06:10 123 H 98 02/27/18 06:00 122 H 115/55 L 98 02/27/18 05:50 122 H 98 06/19/18 05:40 121 H 99 02/27/18 05:30 122 H 123/61 98 02/27/18 05:23 97.5 F L 02/27/18 05:20 121 H 98 02/27/18 05:10 117 H 97 02/27/18 05:00 118 H 122/62 98 02/27/18 04:50 117 H 99 02/27/18 04:40 114 H 97 02/27/18 04:30 114 H 104/54 L 98 02/27/18 04:20 110 H 98 02/27/18 04:10 110 H 98 02/27/18 04:00 98.3 F 111 H 115/52 L 97 02/27/18 03:50 112 H 97 02/27/18 03:40 109 H 98 02/27/18 03:30 117 H 111/57 L 96 Intake and Output (Last 8hrs): Intake & Output 02/26/18 02/27/18 02/27/18 22:59 06:59 14:59 Intake Total 411 144 Balance 411 144 Weight 197 lb 4 oz Intake: IV 111 144 Other 300 Other: # Bowel Movements 2 - Medications Active Medications: Active Medications Generic Name Dose Route Start Last Admin Trade Name Freq PRN Reason Stop Dose Admin Albuterol/Ipratropium 3 ml 02/26/18 08:00 02/27/18 07:03 Duoneb 3 Mg/0.5 Mg (3 Ml) Ud IH 3 ml [id number] GOLDEN Administration Atorvastatin Calcium 40 mg 02/26/18 17:00 02/26/18 19:00 Lipitor PO 40 mg DIN GOLDEN Administration Furosemide 40 mg 02/26/18 13:30 02/26/18 23:41 Lasix IVP 40 mg Q12 GOLDEN Administration Propofol 1,000 mg in 100 mls @ 3.36 mls/hr 02/26/18 02:19 02/27/18 04:40 Diprivan IV 35 mcg/kg/min .Q24H PRN 23.52 mls/hr TITRATE PER MD ORDER Administration Protocol 5 MCG/KG/MIN Cefepime HCl 2 gm in 100 mls @ 100 mls/hr 02/26/18 10:00 02/27/18 00:00 Maxipime 2gm IVPB 03/03/18 10:01 100 mls/hr Q12 GOLDEN Administration Protocol Doxycycline Hyclate 100 mg/ 100 mls @ 100 mls/hr 02/26/18 10:00 02/26/18 23: 00 Sodium Chloride IVPB 100 mls/hr Q12 GOLDEN Administration Protocol Insulin Human Regular 100 100 mls @ 4 mls/hr 02/26/18 08:20 02/27/18 03:02 units/ Sodium Chloride IV 2 units/hr .Q24H PRN 2 mls/hr TITRATE PER MD ORDER Titration Protocol 4 UNITS/HR Dobutamine HCl/Dextrose 500 mg in 250 mls @ 14.499 mls/hr 02/26/18 13:27 14:18 Dobutamine/Dextrose 5% 500mg/250ml IV 5 mcg/kg/min .[id number] PRN 14.499 mls/hr TITRATE PER PROTOCOL Administration Protocol 5 MCG/KG/MIN Methylprednisolone 20 mg 02/26/18 10:00 02/26/18 23:38 Solu-Medrol IVP 20 mg Q12 GOLDEN Administration Pantoprazole Sodium 40 mg 02/26/18 10:00 02/26/18 10:27 Protonix Inj IVP 40 mg DAILY GOLDEN Administration - Patient Studies Lab Studies: Lab Studies 02/27/18 02/27/18 02/27/18 Range/Units 05:20 05:20 05:18 WBC 14.7 H (4.5-11.0) 10^3/ul RBC 4.47 (3.5-6.1) 10^6/uL Hgb 13.1 (12.0-16.0) g/dL Hct 38.8 (36.0-48.0) % MCV 86.8 (80.0-105.0) fl MCH 29.3 (25.0-35.0) pg MCHC 33.8 (31.0-37.0) g/dl RDW 13.7 (11.5-14.5) % Plt Count 207 (120.0-450.0) 10^3/uL MPV 10.9 (7.0-11.0) fl Gran % 87.4 H (50.0-68.0) % Lymph % (Auto) 7.4 L (22.0-35.0) % Imperial % (Auto) 5.2 (1.0-6.0) % Eos % (Auto) 0.0 L (1.5-5.0) % Baso % (Auto) 0.0 (0.0-3.0) % Gran # 12.87 H (1.4-6.5) Lymph # (Auto) 1.1 L (1.2-3.4) Imperial # (Auto) 0.8 H (0.1-0.6) Eos # (Auto) 0.0 (0.0-0.7) Baso # (Auto) 0.00 (0.0-2.0) K/mm3 APTT (25.1-36.5) Seconds pCO2 37 (35-45) mm/Hg pO2 149.0 H (30-55) mm/Hg HCO3 22.9 (21-28) mmol/L ABG pH 7.40 (7.35-7.45) ABG Total CO2 24.0 (22-28) mmol.L ABG O2 Saturation 100.0 H (95-98) % ABG Base Excess -1.5 (-2.0-3.0) mmol/L ABG Potassium 3.4 L (3.6-5.2) mmol/L VBG pH (7.32-7.43) VBG pCO2 (40-60) VBG HCO3 (21-28) mmol/l VBG Total CO2 (22-28) mmol.L VBG O2 Sat (Calc) (40-65) % VBG Base Excess (0.0-2.0) mmol/L VBG Potassium (3.6-5.2) mmol/L Sodium 142 139.0 (132-148) mmol/L Chloride 108 H 109.0 H (98-107) mmol/L Glucose 227 H (65-105) mg/dl Lactate 1.1 (0.7-2.1) mmol/L Mechanical Rate 20 FiO2 60.0 % Tidal Volume 400 PEEP 5 Potassium 3.6 (3.6-5.0) mmol/L Carbon Dioxide 23 (21-33) mmol/L Anion Gap 15 (10-20) BUN 8 (7-21) mg/dL Creatinine 0.5 L (0.7-1.2) mg/dl Est GFR ( Amer) > 60 Est GFR (Non-Af Amer) > 60 POC Glucose (mg/dL) (65-110) mg/dL Random Glucose 230 H (70-110) mg/dL Hemoglobin A1c (4.2-6.5) % Calcium 9.2 (8.4-10.5) mg/dL Total Bilirubin (0.2-1.3) mg/dL AST (14-36) U/L ALT (7-56) U/L Alkaline Phosphatase (38-126) U/L Lactate Dehydrogenase (333-699) U/L Total Creatine Kinase (35-230) U/L Troponin I ng/mL Total Protein (5.8-8.3) g/dL Albumin (3.0-4.8) g/dL Globulin gm/dL Albumin/Globulin Ratio (1.1-1.8) Arterial Blood Potassium 3.4 L (3.6-5.2) mmol/L Venous Blood Potassium (3.6-5.2) mmol/L Urine Opiates Screen (NEGATIVE) Urine Methadone Screen (NEGATIVE) Ur Barbiturates Screen (NEGATIVE) Ur Phencyclidine Scrn (NEGATIVE) Ur Amphetamines Screen (NEGATIVE) U Benzodiazepines Scrn (NEGATIVE) U Oth Cocaine Metabols (NEGATIVE) U Cannabinoids Screen (NEGATIVE) Ur L.pneumophila Ag (NEGATIVE) 02/27/18 02/27/18 02/27/18 Range/Units 04:10 02:59 02:16 WBC (4.5-11.0) 10^3/ul RBC (3.5-6.1) 10^6/uL Hgb (12.0-16.0) g/dL Hct (36.0-48.0) % MCV (80.0-105.0) fl MCH (25.0-35.0) pg MCHC (31.0-37.0) g/dl RDW (11.5-14.5) % Plt Count (120.0-450.0) 10^3/uL MPV (7.0-11.0) fl Gran % (50.0-68.0) % Lymph % (Auto) (22.0-35.0) % [place] % (Auto) (1.0-6.0) % Eos % (Auto) (1.5-5.0) % Baso % (Auto) (0.0-3.0) % Gran # (1.4-6.5) Lymph # (Auto) (1.2-3.4) [place] # (Auto) (0.1-0.6) Eos # (Auto) (0.0-0.7) Baso # (Auto) (0.0-2.0) K/mm3 APTT (25.1-36.5) Seconds pCO2 (35-45) mm/Hg pO2 (30-55) mm/Hg HCO3 (21-28) mmol/L ABG pH (7.35-7.45) ABG Total CO2 (22-28) mmol.L ABG O2 Saturation (95-98) % ABG Base Excess (-2.0-3.0) mmol/L ABG Potassium (3.6-5.2) mmol/L VBG pH (7.32-7.43) VBG pCO2 (40-60) VBG HCO3 (21-28) mmol/l VBG Total CO2 (22-28) mmol.L VBG O2 Sat (Calc) (40-65) % VBG Base Excess (0.0-2.0) mmol/L VBG Potassium (3.6-5.2) mmol/L Sodium (132-148) mmol/L Chloride (98-107) mmol/L Glucose (65-105) mg/dl Lactate (0.7-2.1) mmol/L Mechanical Rate FiO2 % Tidal Volume PEEP Potassium (3.6-5.0) mmol/L Carbon Dioxide (21-33) mmol/L Anion Gap (10-20) BUN (7-21) mg/dL Creatinine (0.7-1.2) mg/dl Est GFR ( Amer) Est GFR (Non-Af Amer) POC Glucose (mg/dL) 169 H 169 H 171 H (65-110) mg/dL Random Glucose (70-110) mg/dL Hemoglobin A1c (4.2-6.5) % Calcium (8.4-10.5) mg/dL Total Bilirubin (0.2-1.3) mg/dL AST (14-36) U/L ALT (7-56) U/L Alkaline Phosphatase (38-126) U/L Lactate Dehydrogenase (333-699) U/L Total Creatine Kinase (35-230) U/L Troponin I ng/mL Total Protein (5.8-8.3) g/dL Albumin (3.0-4.8) g/dL Globulin gm/dL Albumin/Globulin Ratio (1.1-1.8) Arterial Blood Potassium (3.6-5.2) mmol/L Venous Blood Potassium (3.6-5.2) mmol/L Urine Opiates Screen (NEGATIVE) Urine Methadone Screen (NEGATIVE) Ur Barbiturates Screen (NEGATIVE) Ur Phencyclidine Scrn (NEGATIVE) Ur Amphetamines Screen (NEGATIVE) U Benzodiazepines Scrn (NEGATIVE) U Oth Cocaine Metabols (NEGATIVE) U Cannabinoids Screen (NEGATIVE) Ur L.pneumophila Ag (NEGATIVE) 02/27/18 02/27/18 02/26/18 Range/Units 00:50 00:00 22:20 WBC (4.5-11.0) 10^3/ul RBC (3.5-6.1) 10^6/uL Hgb (12.0-16.0) g/dL Hct (36.0-48.0) % MCV (80.0-105.0) fl MCH (25.0-35.0) pg MCHC (31.0-37.0) g/dl RDW (11.5-14.5) % Plt Count (120.0-450.0) 10^3/uL MPV (7.0-11.0) fl Gran % (50.0-68.0) % Lymph % (Auto) (22.0-35.0) % [place] % (Auto) (1.0-6.0) % Eos % (Auto) (1.5-5.0) % Baso % (Auto) (0.0-3.0) % Gran # (1.4-6.5) Lymph # (Auto) (1.2-3.4) [place] # (Auto) (0.1-0.6) Eos # (Auto) (0.0-0.7) Baso # (Auto) (0.0-2.0) K/mm3 APTT (25.1-36.5) Seconds pCO2 (35-45) mm/Hg pO2 (30-55) mm/Hg HCO3 (21-28) mmol/L ABG pH (7.35-7.45) ABG Total CO2 (22-28) mmol.L ABG O2 Saturation (95-98) % ABG Base Excess (-2.0-3.0) mmol/L ABG Potassium (3.6-5.2) mmol/L VBG pH (7.32-7.43) VBG pCO2 (40-60) VBG HCO3 (21-28) mmol/l VBG Total CO2 (22-28) mmol.L VBG O2 Sat (Calc) (40-65) % VBG Base Excess (0.0-2.0) mmol/L VBG Potassium (3.6-5.2) mmol/L Sodium (132-148) mmol/L Chloride (98-107) mmol/L Glucose (65-105) mg/dl Lactate (0.7-2.1) mmol/L Mechanical Rate FiO2 % Tidal Volume PEEP Potassium (3.6-5.0) mmol/L Carbon Dioxide (21-33) mmol/L Anion Gap (10-20) BUN (7-21) mg/dL Creatinine (0.7-1.2) mg/dl Est GFR ( Amer) Est GFR (Non-Af Amer) POC Glucose (mg/dL) 172 H 177 H 201 H (65-110) mg/dL Random Glucose (70-110) mg/dL Hemoglobin A1c (4.2-6.5) % Calcium (8.4-10.5) mg/dL Total Bilirubin (0.2-1.3) mg/dL AST (14-36) U/L ALT (7-56) U/L Alkaline Phosphatase (38-126) U/L Lactate Dehydrogenase (333-699) U/L Total Creatine Kinase (35-230) U/L Troponin I ng/mL Total Protein (5.8-8.3) g/dL Albumin (3.0-4.8) g/dL Globulin gm/dL Albumin/Globulin Ratio (1.1-1.8) Arterial Blood Potassium (3.6-5.2) mmol/L Venous Blood Potassium (3.6-5.2) mmol/L Urine Opiates Screen (NEGATIVE) Urine Methadone Screen (NEGATIVE) Ur Barbiturates Screen (NEGATIVE) Ur Phencyclidine Scrn (NEGATIVE) Ur Amphetamines Screen (NEGATIVE) U Benzodiazepines Scrn (NEGATIVE) U Oth Cocaine Metabols (NEGATIVE) U Cannabinoids Screen (NEGATIVE) Ur L.pneumophila Ag (NEGATIVE) 02/26/18 02/26/18 02/26/18 Range/Units 21:12 19:59 19:04 WBC (4.5-11.0) 10^3/ul RBC (3.5-6.1) 10^6/uL Hgb (12.0-16.0) g/dL Hct (36.0-48.0) % MCV (80.0-105.0) fl MCH (25.0-35.0) pg MCHC (31.0-37.0) g/dl RDW (11.5-14.5) % Plt Count (120.0-450.0) 10^3/uL MPV (7.0-11.0) fl Gran % (50.0-68.0) % Lymph % (Auto) (22.0-35.0) % [place] % (Auto) (1.0-6.0) % Eos % (Auto) (1.5-5.0) % Baso % (Auto) (0.0-3.0) % Gran # (1.4-6.5) Lymph # (Auto) (1.2-3.4) [place] # (Auto) (0.1-0.6) Eos # (Auto) (0.0-0.7) Baso # (Auto) (0.0-2.0) K/mm3 APTT (25.1-36.5) Seconds pCO2 (35-45) mm/Hg pO2 (30-55) mm/Hg HCO3 (21-28) mmol/L ABG pH (7.35-7.45) ABG Total CO2 (22-28) mmol.L ABG O2 Saturation (95-98) % ABG Base Excess (-2.0-3.0) mmol/L ABG Potassium (3.6-5.2) mmol/L VBG pH (7.32-7.43) VBG pCO2 (40-60) VBG HCO3 (21-28) mmol/l VBG Total CO2 (22-28) mmol.L VBG O2 Sat (Calc) (40-65) % VBG Base Excess (0.0-2.0) mmol/L VBG Potassium (3.6-5.2) mmol/L Sodium (132-148) mmol/L Chloride (98-107) mmol/L Glucose (65-105) mg/dl Lactate (0.7-2.1) mmol/L Mechanical Rate FiO2 % Tidal Volume PEEP Potassium (3.6-5.0) mmol/L Carbon Dioxide (21-33) mmol/L Anion Gap (10-20) BUN (7-21) mg/dL Creatinine (0.7-1.2) mg/dl Est GFR ( Amer) Est GFR (Non-Af Amer) POC Glucose (mg/dL) 192 H 201 H 220 H (65-110) mg/dL Random Glucose (70-110) mg/dL Hemoglobin A1c (4.2-6.5) % Calcium (8.4-10.5) mg/dL Total Bilirubin (0.2-1.3) mg/dL AST (14-36) U/L ALT (7-56) U/L Alkaline Phosphatase (38-126) U/L Lactate Dehydrogenase (333-699) U/L Total Creatine Kinase (35-230) U/L Troponin I ng/mL Total Protein (5.8-8.3) g/dL Albumin (3.0-4.8) g/dL Globulin gm/dL Albumin/Globulin Ratio (1.1-1.8) Arterial Blood Potassium (3.6-5.2) mmol/L Venous Blood Potassium (3.6-5.2) mmol/L Urine Opiates Screen (NEGATIVE) Urine Methadone Screen (NEGATIVE) Ur Barbiturates Screen (NEGATIVE) Ur Phencyclidine Scrn (NEGATIVE) Ur Amphetamines Screen (NEGATIVE) U Benzodiazepines Scrn (NEGATIVE) U Oth Cocaine Metabols (NEGATIVE) U Cannabinoids Screen (NEGATIVE) Ur L.pneumophila Ag (NEGATIVE) 02/26/18 02/26/18 02/26/18 Range/Units 17:24 15:32 15:25 WBC (4.5-11.0) 10^3/ul RBC (3.5-6.1) 10^6/uL Hgb (12.0-16.0) g/dL Hct (36.0-48.0) % MCV (80.0-105.0) fl MCH (25.0-35.0) pg MCHC (31.0-37.0) g/dl RDW (11.5-14.5) % Plt Count (120.0-450.0) 10^3/uL MPV (7.0-11.0) fl Gran % (50.0-68.0) % Lymph % (Auto) (22.0-35.0) % [place] % (Auto) (1.0-6.0) % Eos % (Auto) (1.5-5.0) % Baso % (Auto) (0.0-3.0) % Gran # (1.4-6.5) Lymph # (Auto) (1.2-3.4) [place] # (Auto) (0.1-0.6) Eos # (Auto) (0.0-0.7) Baso # (Auto) (0.0-2.0) K/mm3 APTT (25.1-36.5) Seconds pCO2 (35-45) mm/Hg pO2 46 (30-55) mm/Hg HCO3 (21-28) mmol/L ABG pH (7.35-7.45) ABG Total CO2 (22-28) mmol.L ABG O2 Saturation (95-98) % ABG Base Excess (-2.0-3.0) mmol/L ABG Potassium (3.6-5.2) mmol/L VBG pH 7.33 (7.32-7.43) VBG pCO2 39.0 L (40-60) VBG HCO3 20.6 L (21-28) mmol/l VBG Total CO2 21.8 L (22-28) mmol.L VBG O2 Sat (Calc) 89.4 H (40-65) % VBG Base Excess -4.9 L (0.0-2.0) mmol/L VBG Potassium 3.7 (3.6-5.2) mmol/L Sodium 140.0 (132-148) mmol/L Chloride 108.0 H (98-107) mmol/L Glucose 247 H (65-105) mg/dl Lactate 3.3 H (0.7-2.1) mmol/L Mechanical Rate FiO2 21.0 % Tidal Volume PEEP Potassium (3.6-5.0) mmol/L Carbon Dioxide (21-33) mmol/L Anion Gap (10-20) BUN (7-21) mg/dL Creatinine (0.7-1.2) mg/dl Est GFR ( Amer) Est GFR (Non-Af Amer) POC Glucose (mg/dL) 213 H 212 H (65-110) mg/dL Random Glucose (70-110) mg/dL Hemoglobin A1c (4.2-6.5) % Calcium (8.4-10.5) mg/dL Total Bilirubin (0.2-1.3) mg/dL AST (14-36) U/L ALT (7-56) U/L Alkaline Phosphatase (38-126) U/L Lactate Dehydrogenase (333-699) U/L Total Creatine Kinase (35-230) U/L Troponin I ng/mL Total Protein (5.8-8.3) g/dL Albumin (3.0-4.8) g/dL Globulin gm/dL Albumin/Globulin Ratio (1.1-1.8) Arterial Blood Potassium (3.6-5.2) mmol/L Venous Blood Potassium 3.7 (3.6-5.2) mmol/L Urine Opiates Screen (NEGATIVE) Urine Methadone Screen (NEGATIVE) Ur Barbiturates Screen (NEGATIVE) Ur Phencyclidine Scrn (NEGATIVE) Ur Amphetamines Screen (NEGATIVE) U Benzodiazepines Scrn (NEGATIVE) U Oth Cocaine Metabols (NEGATIVE) U Cannabinoids Screen (NEGATIVE) Ur L.pneumophila Ag (NEGATIVE) 02/26/18 02/26/18 02/26/18 Range/Units 15:25 13:38 11:59 WBC (4.5-11.0) 10^3/ul RBC (3.5-6.1) 10^6/uL Hgb (12.0-16.0) g/dL Hct (36.0-48.0) % MCV (80.0-105.0) fl MCH (25.0-35.0) pg MCHC (31.0-37.0) g/dl RDW (11.5-14.5) % Plt Count (120.0-450.0) 10^3/uL MPV (7.0-11.0) fl Gran % (50.0-68.0) % Lymph % (Auto) (22.0-35.0) % [place] % (Auto) (1.0-6.0) % Eos % (Auto) (1.5-5.0) % Baso % (Auto) (0.0-3.0) % Gran # (1.4-6.5) Lymph # (Auto) (1.2-3.4) [place] # (Auto) (0.1-0.6) Eos # (Auto) (0.0-0.7) Baso # (Auto) (0.0-2.0) K/mm3 APTT (25.1-36.5) Seconds pCO2 (35-45) mm/Hg pO2 (30-55) mm/Hg HCO3 (21-28) mmol/L ABG pH (7.35-7.45) ABG Total CO2 (22-28) mmol.L ABG O2 Saturation (95-98) % ABG Base Excess (-2.0-3.0) mmol/L ABG Potassium (3.6-5.2) mmol/L VBG pH (7.32-7.43) VBG pCO2 (40-60) VBG HCO3 (21-28) mmol/l VBG Total CO2 (22-28) mmol.L VBG O2 Sat (Calc) (40-65) % VBG Base Excess (0.0-2.0) mmol/L VBG Potassium (3.6-5.2) mmol/L Sodium (132-148) mmol/L Chloride (98-107) mmol/L Glucose (65-105) mg/dl Lactate (0.7-2.1) mmol/L Mechanical Rate FiO2 % Tidal Volume PEEP Potassium (3.6-5.0) mmol/L Carbon Dioxide (21-33) mmol/L Anion Gap (10-20) BUN (7-21) mg/dL Creatinine (0.7-1.2) mg/dl Est GFR ( Amer) Est GFR (Non-Af Amer) POC Glucose (mg/dL) 234 H 268 H (65-110) mg/dL Random Glucose (70-110) mg/dL Hemoglobin A1c (4.2-6.5) % Calcium (8.4-10.5) mg/dL Total Bilirubin (0.2-1.3) mg/dL AST (14-36) U/L ALT (7-56) U/L Alkaline Phosphatase (38-126) U/L Lactate Dehydrogenase 755 H (333-699) U/L Total Creatine Kinase 187 (35-230) U/L Troponin I 2.64 H* D ng/mL Total Protein (5.8-8.3) g/dL Albumin (3.0-4.8) g/dL Globulin gm/dL Albumin/Globulin Ratio (1.1-1.8) Arterial Blood Potassium (3.6-5.2) mmol/L Venous Blood Potassium (3.6-5.2) mmol/L Urine Opiates Screen (NEGATIVE) Urine Methadone Screen (NEGATIVE) Ur Barbiturates Screen (NEGATIVE) Ur Phencyclidine Scrn (NEGATIVE) Ur Amphetamines Screen (NEGATIVE) U Benzodiazepines Scrn (NEGATIVE) U Oth Cocaine Metabols (NEGATIVE) U Cannabinoids Screen (NEGATIVE) Ur L.pneumophila Ag (NEGATIVE) 02/26/18 02/26/18 02/26/18 Range/Units 11:08 10:01 08:35 WBC (4.5-11.0) 10^3/ul RBC (3.5-6.1) 10^6/uL Hgb (12.0-16.0) g/dL Hct (36.0-48.0) % MCV (80.0-105.0) fl MCH (25.0-35.0) pg MCHC (31.0-37.0) g/dl RDW (11.5-14.5) % Plt Count (120.0-450.0) 10^3/uL MPV (7.0-11.0) fl Gran % (50.0-68.0) % Lymph % (Auto) (22.0-35.0) % Imperial % (Auto) (1.0-6.0) % Eos % (Auto) (1.5-5.0) % Baso % (Auto) (0.0-3.0) % Gran # (1.4-6.5) Lymph # (Auto) (1.2-3.4) Imperial # (Auto) (0.1-0.6) Eos # (Auto) (0.0-0.7) Baso # (Auto) (0.0-2.0) K/mm3 APTT (25.1-36.5) Seconds pCO2 34 L (35-45) mm/Hg pO2 76.0 L (30-55) mm/Hg HCO3 18.8 L (21-28) mmol/L ABG pH 7.35 (7.35-7.45) ABG Total CO2 19.8 L (22-28) mmol.L ABG O2 Saturation 98.1 H (95-98) % ABG Base Excess -6.0 L (-2.0-3.0) mmol/L ABG Potassium 4.3 (3.6-5.2) mmol/L VBG pH (7.32-7.43) VBG pCO2 (40-60) VBG HCO3 (21-28) mmol/l VBG Total CO2 (22-28) mmol.L VBG O2 Sat (Calc) (40-65) % VBG Base Excess (0.0-2.0) mmol/L VBG Potassium (3.6-5.2) mmol/L Sodium 137.0 (132-148) mmol/L Chloride 111.0 H (98-107) mmol/L Glucose 387 H (65-105) mg/dl Lactate 1.6 (0.7-2.1) mmol/L Mechanical Rate 16 FiO2 60.0 % Tidal Volume 400 PEEP 5 Potassium (3.6-5.0) mmol/L Carbon Dioxide (21-33) mmol/L Anion Gap (10-20) BUN (7-21) mg/dL Creatinine (0.7-1.2) mg/dl Est GFR ( Amer) Est GFR (Non-Af Amer) POC Glucose (mg/dL) 299 H 329 H (65-110) mg/dL Random Glucose (70-110) mg/dL Hemoglobin A1c (4.2-6.5) % Calcium (8.4-10.5) mg/dL Total Bilirubin (0.2-1.3) mg/dL AST (14-36) U/L ALT (7-56) U/L Alkaline Phosphatase (38-126) U/L Lactate Dehydrogenase (333-699) U/L Total Creatine Kinase (35-230) U/L Troponin I ng/mL Total Protein (5.8-8.3) g/dL Albumin (3.0-4.8) g/dL Globulin gm/dL Albumin/Globulin Ratio (1.1-1.8) Arterial Blood Potassium 4.3 (3.6-5.2) mmol/L Venous Blood Potassium (3.6-5.2) mmol/L Urine Opiates Screen (NEGATIVE) Urine Methadone Screen (NEGATIVE) Ur Barbiturates Screen (NEGATIVE) Ur Phencyclidine Scrn (NEGATIVE) Ur Amphetamines Screen (NEGATIVE) U Benzodiazepines Scrn (NEGATIVE) U Oth Cocaine Metabols (NEGATIVE) U Cannabinoids Screen (NEGATIVE) Ur L.pneumophila Ag (NEGATIVE) 02/26/18 02/26/18 02/26/18 Range/Units 08:30 08:30 08:30 WBC 13.8 H D (4.5-11.0) 10^3/ul RBC 4.67 (3.5-6.1) 10^6/uL Hgb 14.1 D (12.0-16.0) g/dL Hct 41.0 (36.0-48.0) % MCV 87.8 D (80.0-105.0) fl MCH 30.2 (25.0-35.0) pg MCHC 34.4 (31.0-37.0) g/dl RDW 13.4 (11.5-14.5) % Plt Count 210 (120.0-450.0) 10^3/uL MPV 10.7 (7.0-11.0) fl Gran % 90.9 H (50.0-68.0) % Lymph % (Auto) 7.0 L (22.0-35.0) % Imperial % (Auto) 1.9 (1.0-6.0) % Eos % (Auto) 0.1 L (1.5-5.0) % Baso % (Auto) 0.1 (0.0-3.0) % Gran # 12.52 H (1.4-6.5) Lymph # (Auto) 1.0 L (1.2-3.4) Imperial # (Auto) 0.3 (0.1-0.6) Eos # (Auto) 0.0 (0.0-0.7) Baso # (Auto) 0.02 (0.0-2.0) K/mm3 APTT 64.3 H (25.1-36.5) Seconds pCO2 (35-45) mm/Hg pO2 47 (30-55) mm/Hg HCO3 (21-28) mmol/L ABG pH (7.35-7.45) ABG Total CO2 (22-28) mmol.L ABG O2 Saturation (95-98) % ABG Base Excess (-2.0-3.0) mmol/L ABG Potassium (3.6-5.2) mmol/L VBG pH 7.30 L (7.32-7.43) VBG pCO2 43.0 (40-60) VBG HCO3 21.2 (21-28) mmol/l VBG Total CO2 22.5 (22-28) mmol.L VBG O2 Sat (Calc) 86.6 H (40-65) % VBG Base Excess -5.1 L (0.0-2.0) mmol/L VBG Potassium 5.0 (3.6-5.2) mmol/L Sodium 136.0 (132-148) mmol/L Chloride 108.0 H (98-107) mmol/L Glucose 404 H* (65-105) mg/dl Lactate 2.4 H (0.7-2.1) mmol/L Mechanical Rate FiO2 21.0 % Tidal Volume PEEP Potassium (3.6-5.0) mmol/L Carbon Dioxide (21-33) mmol/L Anion Gap (10-20) BUN (7-21) mg/dL Creatinine (0.7-1.2) mg/dl Est GFR ( Amer) Est GFR (Non-Af Amer) POC Glucose (mg/dL) (65-110) mg/dL Random Glucose (70-110) mg/dL Hemoglobin A1c (4.2-6.5) % Calcium (8.4-10.5) mg/dL Total Bilirubin (0.2-1.3) mg/dL AST (14-36) U/L ALT (7-56) U/L Alkaline Phosphatase (38-126) U/L Lactate Dehydrogenase (333-699) U/L Total Creatine Kinase (35-230) U/L Troponin I ng/mL Total Protein (5.8-8.3) g/dL Albumin (3.0-4.8) g/dL Globulin gm/dL Albumin/Globulin Ratio (1.1-1.8) Arterial Blood Potassium (3.6-5.2) mmol/L Venous Blood Potassium 5.0 (3.6-5.2) mmol/L Urine Opiates Screen (NEGATIVE) Urine Methadone Screen (NEGATIVE) Ur Barbiturates Screen (NEGATIVE) Ur Phencyclidine Scrn (NEGATIVE) Ur Amphetamines Screen (NEGATIVE) U Benzodiazepines Scrn (NEGATIVE) U Oth Cocaine Metabols (NEGATIVE) U Cannabinoids Screen (NEGATIVE) Ur L.pneumophila Ag (NEGATIVE) 02/26/18 02/26/18 02/26/18 Range/Units 08:30 07:39 07:27 WBC (4.5-11.0) 10^3/ul RBC (3.5-6.1) 10^6/uL Hgb (12.0-16.0) g/dL Hct (36.0-48.0) % MCV (80.0-105.0) fl MCH (25.0-35.0) pg MCHC (31.0-37.0) g/dl RDW (11.5-14.5) % Plt Count (120.0-450.0) 10^3/uL MPV (7.0-11.0) fl Gran % (50.0-68.0) % Lymph % (Auto) (22.0-35.0) % Imperial % (Auto) (1.0-6.0) % Eos % (Auto) (1.5-5.0) % Baso % (Auto) (0.0-3.0) % Gran # (1.4-6.5) Lymph # (Auto) (1.2-3.4) Imperial # (Auto) (0.1-0.6) Eos # (Auto) (0.0-0.7) Baso # (Auto) (0.0-2.0) K/mm3 APTT (25.1-36.5) Seconds pCO2 (35-45) mm/Hg pO2 (30-55) mm/Hg HCO3 (21-28) mmol/L ABG pH (7.35-7.45) ABG Total CO2 (22-28) mmol.L ABG O2 Saturation (95-98) % ABG Base Excess (-2.0-3.0) mmol/L ABG Potassium (3.6-5.2) mmol/L VBG pH (7.32-7.43) VBG pCO2 (40-60) VBG HCO3 (21-28) mmol/l VBG Total CO2 (22-28) mmol.L VBG O2 Sat (Calc) (40-65) % VBG Base Excess (0.0-2.0) mmol/L VBG Potassium (3.6-5.2) mmol/L Sodium 139 (132-148) mmol/L Chloride 109 H (98-107) mmol/L Glucose (65-105) mg/dl Lactate (0.7-2.1) mmol/L Mechanical Rate FiO2 % Tidal Volume PEEP Potassium 5.1 H (3.6-5.0) mmol/L Carbon Dioxide 19 L (21-33) mmol/L Anion Gap 16 (10-20) BUN 12 (7-21) mg/dL Creatinine 0.6 L (0.7-1.2) mg/dl Est GFR ( Amer) > 60 Est GFR (Non-Af Amer) > 60 POC Glucose (mg/dL) 330 H (65-110) mg/dL Random Glucose 370 H* (70-110) mg/dL Hemoglobin A1c (4.2-6.5) % Calcium 8.4 (8.4-10.5) mg/dL Total Bilirubin 0.4 (0.2-1.3) mg/dL AST 45 H D (14-36) U/L ALT 43 (7-56) U/L Alkaline Phosphatase 81 (38-126) U/L Lactate Dehydrogenase 678 (333-699) U/L Total Creatine Kinase 159 (35-230) U/L Troponin I 1.97 H* D ng/mL Total Protein 6.1 (5.8-8.3) g/dL Albumin 3.3 (3.0-4.8) g/dL Globulin 2.8 gm/dL Albumin/Globulin Ratio 1.2 (1.1-1.8) Arterial Blood Potassium (3.6-5.2) mmol/L Venous Blood Potassium (3.6-5.2) mmol/L Urine Opiates Screen (NEGATIVE) Urine Methadone Screen (NEGATIVE) Ur Barbiturates Screen (NEGATIVE) Ur Phencyclidine Scrn (NEGATIVE) Ur Amphetamines Screen (NEGATIVE) U Benzodiazepines Scrn (NEGATIVE) U Oth Cocaine Metabols (NEGATIVE) U Cannabinoids Screen (NEGATIVE) Ur L.pneumophila Ag Negative (NEGATIVE) 02/26/18 02/26/18 Range/Units 07:27 05:30 WBC (4.5-11.0) 10^3/ul RBC (3.5-6.1) 10^6/uL Hgb (12.0-16.0) g/dL Hct (36.0-48.0) % MCV (80.0-105.0) fl MCH (25.0-35.0) pg MCHC (31.0-37.0) g/dl RDW (11.5-14.5) % Plt Count (120.0-450.0) 10^3/uL MPV (7.0-11.0) fl Gran % (50.0-68.0) % Lymph % (Auto) (22.0-35.0) % Imperial % (Auto) (1.0-6.0) % Eos % (Auto) (1.5-5.0) % Baso % (Auto) (0.0-3.0) % Gran # (1.4-6.5) Lymph # (Auto) (1.2-3.4) Imperial # (Auto) (0.1-0.6) Eos # (Auto) (0.0-0.7) Baso # (Auto) (0.0-2.0) K/mm3 APTT (25.1-36.5) Seconds pCO2 (35-45) mm/Hg pO2 (30-55) mm/Hg HCO3 (21-28) mmol/L ABG pH (7.35-7.45) ABG Total CO2 (22-28) mmol.L ABG O2 Saturation (95-98) % ABG Base Excess (-2.0-3.0) mmol/L ABG Potassium (3.6-5.2) mmol/L VBG pH (7.32-7.43) VBG pCO2 (40-60) VBG HCO3 (21-28) mmol/l VBG Total CO2 (22-28) mmol.L VBG O2 Sat (Calc) (40-65) % VBG Base Excess (0.0-2.0) mmol/L VBG Potassium (3.6-5.2) mmol/L Sodium (132-148) mmol/L Chloride (98-107) mmol/L Glucose (65-105) mg/dl Lactate (0.7-2.1) mmol/L Mechanical Rate FiO2 % Tidal Volume PEEP Potassium (3.6-5.0) mmol/L Carbon Dioxide (21-33) mmol/L Anion Gap (10-20) BUN (7-21) mg/dL Creatinine (0.7-1.2) mg/dl Est GFR ( Amer) Est GFR (Non-Af Amer) POC Glucose (mg/dL) (65-110) mg/dL Random Glucose (70-110) mg/dL Hemoglobin A1c 9.4 H (4.2-6.5) % Calcium (8.4-10.5) mg/dL Total Bilirubin (0.2-1.3) mg/dL AST (14-36) U/L ALT (7-56) U/L Alkaline Phosphatase (38-126) U/L Lactate Dehydrogenase (333-699) U/L Total Creatine Kinase (35-230) U/L Troponin I ng/mL Total Protein (5.8-8.3) g/dL Albumin (3.0-4.8) g/dL Globulin gm/dL Albumin/Globulin Ratio (1.1-1.8) Arterial Blood Potassium (3.6-5.2) mmol/L Venous Blood Potassium (3.6-5.2) mmol/L Urine Opiates Screen Negative (NEGATIVE) Urine Methadone Screen Negative (NEGATIVE) Ur Barbiturates Screen Negative (NEGATIVE) Ur Phencyclidine Scrn Negative (NEGATIVE) Ur Amphetamines Screen Negative (NEGATIVE) U Benzodiazepines Scrn Positive H (NEGATIVE) U Oth Cocaine Metabols Negative (NEGATIVE) U Cannabinoids Screen Negative (NEGATIVE) Ur L.pneumophila Ag (NEGATIVE) Laboratory Results - last 24 hr 02/26/18 02/26/18 02/26/18 05:30 07:27 07:27 WBC RBC Hgb Hct MCV MCH MCHC RDW Plt Count MPV Gran % Lymph % (Auto) Imperial % (Auto) Eos % (Auto) Baso % (Auto) Gran # Lymph # (Auto) Imperial # (Auto) Eos # (Auto) Baso # (Auto) APTT pCO2 pO2 HCO3 ABG pH ABG Total CO2 ABG O2 Saturation ABG Base Excess ABG Potassium VBG pH VBG pCO2 VBG HCO3 VBG Total CO2 VBG O2 Sat (Calc) VBG Base Excess VBG Potassium Sodium Chloride Glucose Lactate Mechanical Rate FiO2 Tidal Volume PEEP Potassium Carbon Dioxide Anion Gap BUN Creatinine Est GFR ( Amer) Est GFR (Non-Af Amer) POC Glucose (mg/dL) Random Glucose Hemoglobin A1c 9.4 H Calcium Total Bilirubin AST ALT Alkaline Phosphatase Lactate Dehydrogenase Total Creatine Kinase Troponin I Total Protein Albumin Globulin Albumin/Globulin Ratio Arterial Blood Potassium Venous Blood Potassium Urine Opiates Screen Negative Urine Methadone Screen Negative Ur Barbiturates Screen Negative Ur Phencyclidine Scrn Negative Ur Amphetamines Screen Negative U Benzodiazepines Scrn Positive H U Oth Cocaine Metabols Negative U Cannabinoids Screen Negative Ur L.pneumophila Ag Negative 02/26/18 02/26/18 02/26/18 07:39 08:30 08:30 WBC RBC Hgb Hct MCV MCH MCHC RDW Plt Count MPV Gran % Lymph % (Auto) Imperial % (Auto) Eos % (Auto) Baso % (Auto) Gran # Lymph # (Auto) Imperial # (Auto) Eos # (Auto) Baso # (Auto) APTT pCO2 pO2 47 HCO3 ABG pH ABG Total CO2 ABG O2 Saturation ABG Base Excess ABG Potassium VBG pH 7.30 L VBG pCO2 43.0 VBG HCO3 21.2 VBG Total CO2 22.5 VBG O2 Sat (Calc) 86.6 H VBG Base Excess -5.1 L VBG Potassium 5.0 Sodium 139 136.0 Chloride 109 H 108.0 H Glucose 404 H* Lactate 2.4 H Mechanical Rate FiO2 21.0 Tidal Volume PEEP Potassium 5.1 H Carbon Dioxide 19 L Anion Gap 16 BUN 12 Creatinine 0.6 L Est GFR ( Amer) > 60 Est GFR (Non-Af Amer) > 60 POC Glucose (mg/dL) 330 H Random Glucose 370 H* Hemoglobin A1c Calcium 8.4 Total Bilirubin 0.4 AST 45 H D ALT 43 Alkaline Phosphatase 81 Lactate Dehydrogenase 678 Total Creatine Kinase 159 Troponin I 1.97 H* D Total Protein 6.1 Albumin 3.3 Globulin 2.8 Albumin/Globulin Ratio 1.2 Arterial Blood Potassium Venous Blood Potassium 5.0 Urine Opiates Screen Urine Methadone Screen Ur Barbiturates Screen Ur Phencyclidine Scrn Ur Amphetamines Screen U Benzodiazepines Scrn U Oth Cocaine Metabols U Cannabinoids Screen Ur L.pneumophila Ag 02/26/18 02/26/18 02/26/18 08:30 08:30 08:35 WBC 13.8 H D RBC 4.67 Hgb 14.1 D Hct 41.0 MCV 87.8 D MCH 30.2 MCHC 34.4 RDW 13.4 Plt Count 210 MPV 10.7 Gran % 90.9 H Lymph % (Auto) 7.0 L [place] % (Auto) 1.9 Eos % (Auto) 0.1 L Baso % (Auto) 0.1 Gran # 12.52 H Lymph # (Auto) 1.0 L Imperial # (Auto) 0.3 Eos # (Auto) 0.0 Baso # (Auto) 0.02 APTT 64.3 H pCO2 34 L pO2 76.0 L HCO3 18.8 L ABG pH 7.35 ABG Total CO2 19.8 L ABG O2 Saturation 98.1 H ABG Base Excess -6.0 L ABG Potassium 4.3 VBG pH VBG pCO2 VBG HCO3 VBG Total CO2 VBG O2 Sat (Calc) VBG Base Excess VBG Potassium Sodium 137.0 Chloride 111.0 H Glucose 387 H Lactate 1.6 Mechanical Rate 16 FiO2 60.0 Tidal Volume 400 PEEP 5 Potassium Carbon Dioxide Anion Gap BUN Creatinine Est GFR ( Amer) Est GFR (Non-Af Amer) POC Glucose (mg/dL) Random Glucose Hemoglobin A1c Calcium Total Bilirubin AST ALT Alkaline Phosphatase Lactate Dehydrogenase Total Creatine Kinase Troponin I Total Protein Albumin Globulin Albumin/Globulin Ratio Arterial Blood Potassium 4.3 Venous Blood Potassium Urine Opiates Screen Urine Methadone Screen Ur Barbiturates Screen Ur Phencyclidine Scrn Ur Amphetamines Screen U Benzodiazepines Scrn U Oth Cocaine Metabols U Cannabinoids Screen Ur L.pneumophila Ag 02/26/18 02/26/18 02/26/18 10:01 11:08 11:59 WBC RBC Hgb Hct MCV MCH MCHC RDW Plt Count MPV Gran % Lymph % (Auto) Imperial % (Auto) Eos % (Auto) Baso % (Auto) Gran # Lymph # (Auto) Imperial # (Auto) Eos # (Auto) Baso # (Auto) APTT pCO2 pO2 HCO3 ABG pH ABG Total CO2 ABG O2 Saturation ABG Base Excess ABG Potassium VBG pH VBG pCO2 VBG HCO3 VBG Total CO2 VBG O2 Sat (Calc) VBG Base Excess VBG Potassium Sodium Chloride Glucose Lactate Mechanical Rate FiO2 Tidal Volume PEEP Potassium Carbon Dioxide Anion Gap BUN Creatinine Est GFR ( Amer) Est GFR (Non-Af Amer) POC Glucose (mg/dL) 329 H 299 H 268 H Random Glucose Hemoglobin A1c Calcium Total Bilirubin AST ALT Alkaline Phosphatase Lactate Dehydrogenase Total Creatine Kinase Troponin I Total Protein Albumin Globulin Albumin/Globulin Ratio Arterial Blood Potassium Venous Blood Potassium Urine Opiates Screen Urine Methadone Screen Ur Barbiturates Screen Ur Phencyclidine Scrn Ur Amphetamines Screen U Benzodiazepines Scrn U Oth Cocaine Metabols U Cannabinoids Screen Ur L.pneumophila Ag 02/26/18 02/26/18 02/26/18 13:38 15:25 15:25 WBC RBC Hgb Hct MCV MCH MCHC RDW Plt Count MPV Gran % Lymph % (Auto) Imperial % (Auto) Eos % (Auto) Baso % (Auto) Gran # Lymph # (Auto) Imperial # (Auto) Eos # (Auto) Baso # (Auto) APTT pCO2 pO2 46 HCO3 ABG pH ABG Total CO2 ABG O2 Saturation ABG Base Excess ABG Potassium VBG pH 7.33 VBG pCO2 39.0 L VBG HCO3 20.6 L VBG Total CO2 21.8 L VBG O2 Sat (Calc) 89.4 H VBG Base Excess -4.9 L VBG Potassium 3.7 Sodium 140.0 Chloride 108.0 H Glucose 247 H Lactate 3.3 H Mechanical Rate FiO2 21.0 Tidal Volume PEEP Potassium Carbon Dioxide Anion Gap BUN Creatinine Est GFR ( Amer) Est GFR (Non-Af Amer) POC Glucose (mg/dL) 234 H Random Glucose Hemoglobin A1c Calcium Total Bilirubin AST ALT Alkaline Phosphatase Lactate Dehydrogenase 755 H Total Creatine Kinase 187 Troponin I 2.64 H* D Total Protein Albumin Globulin Albumin/Globulin Ratio Arterial Blood Potassium Venous Blood Potassium 3.7 Urine Opiates Screen Urine Methadone Screen Ur Barbiturates Screen Ur Phencyclidine Scrn Ur Amphetamines Screen U Benzodiazepines Scrn U Oth Cocaine Metabols U Cannabinoids Screen Ur L.pneumophila Ag 02/26/18 02/26/18 02/26/18 15:32 17:24 19:04 WBC RBC Hgb Hct MCV MCH MCHC RDW Plt Count MPV Gran % Lymph % (Auto) Imperial % (Auto) Eos % (Auto) Baso % (Auto) Gran # Lymph # (Auto) Imperial # (Auto) Eos # (Auto) Baso # (Auto) APTT pCO2 pO2 HCO3 ABG pH ABG Total CO2 ABG O2 Saturation ABG Base Excess ABG Potassium VBG pH VBG pCO2 VBG HCO3 VBG Total CO2 VBG O2 Sat (Calc) VBG Base Excess VBG Potassium Sodium Chloride Glucose Lactate Mechanical Rate FiO2 Tidal Volume PEEP Potassium Carbon Dioxide Anion Gap BUN Creatinine Est GFR ( Amer) Est GFR (Non-Af Amer) POC Glucose (mg/dL) 212 H 213 H 220 H Random Glucose Hemoglobin A1c Calcium Total Bilirubin AST ALT Alkaline Phosphatase Lactate Dehydrogenase Total Creatine Kinase Troponin I Total Protein Albumin Globulin Albumin/Globulin Ratio Arterial Blood Potassium Venous Blood Potassium Urine Opiates Screen Urine Methadone Screen Ur Barbiturates Screen Ur Phencyclidine Scrn Ur Amphetamines Screen U Benzodiazepines Scrn U Oth Cocaine Metabols U Cannabinoids Screen Ur L.pneumophila Ag 02/26/18 02/26/18 02/26/18 19:59 21:12 22:20 WBC RBC Hgb Hct MCV MCH MCHC RDW Plt Count MPV Gran % Lymph % (Auto) Imperial % (Auto) Eos % (Auto) Baso % (Auto) Gran # Lymph # (Auto) Imperial # (Auto) Eos # (Auto) Baso # (Auto) APTT pCO2 pO2 HCO3 ABG pH ABG Total CO2 ABG O2 Saturation ABG Base Excess ABG Potassium VBG pH VBG pCO2 VBG HCO3 VBG Total CO2 VBG O2 Sat (Calc) VBG Base Excess VBG Potassium Sodium Chloride Glucose Lactate Mechanical Rate FiO2 Tidal Volume PEEP Potassium Carbon Dioxide Anion Gap BUN Creatinine Est GFR ( Amer) Est GFR (Non-Af Amer) POC Glucose (mg/dL) 201 H 192 H 201 H Random Glucose Hemoglobin A1c Calcium Total Bilirubin AST ALT Alkaline Phosphatase Lactate Dehydrogenase Total Creatine Kinase Troponin I Total Protein Albumin Globulin Albumin/Globulin Ratio Arterial Blood Potassium Venous Blood Potassium Urine Opiates Screen Urine Methadone Screen Ur Barbiturates Screen Ur Phencyclidine Scrn Ur Amphetamines Screen U Benzodiazepines Scrn U Oth Cocaine Metabols U Cannabinoids Screen Ur L.pneumophila Ag 02/27/18 02/27/18 02/27/18 00:00 00:50 02:16 WBC RBC Hgb Hct MCV MCH MCHC RDW Plt Count MPV Gran % Lymph % (Auto) Imperial % (Auto) Eos % (Auto) Baso % (Auto) Gran # Lymph # (Auto) Imperial # (Auto) Eos # (Auto) Baso # (Auto) APTT pCO2 pO2 HCO3 ABG pH ABG Total CO2 ABG O2 Saturation ABG Base Excess ABG Potassium VBG pH VBG pCO2 VBG HCO3 VBG Total CO2 VBG O2 Sat (Calc) VBG Base Excess VBG Potassium Sodium Chloride Glucose Lactate Mechanical Rate FiO2 Tidal Volume PEEP Potassium Carbon Dioxide Anion Gap BUN Creatinine Est GFR ( Amer) Est GFR (Non-Af Amer) POC Glucose (mg/dL) 177 H 172 H 171 H Random Glucose Hemoglobin A1c Calcium Total Bilirubin AST ALT Alkaline Phosphatase Lactate Dehydrogenase Total Creatine Kinase Troponin I Total Protein Albumin Globulin Albumin/Globulin Ratio Arterial Blood Potassium Venous Blood Potassium Urine Opiates Screen Urine Methadone Screen Ur Barbiturates Screen Ur Phencyclidine Scrn Ur Amphetamines Screen U Benzodiazepines Scrn U Oth Cocaine Metabols U Cannabinoids Screen Ur L.pneumophila Ag 02/27/18 02/27/18 02/27/18 02:59 04:10 05:18 WBC RBC Hgb Hct MCV MCH MCHC RDW Plt Count MPV Gran % Lymph % (Auto) Imperial % (Auto) Eos % (Auto) Baso % (Auto) Gran # Lymph # (Auto) Imperial # (Auto) Eos # (Auto) Baso # (Auto) APTT pCO2 37 pO2 149.0 H HCO3 22.9 ABG pH 7.40 ABG Total CO2 24.0 ABG O2 Saturation 100.0 H ABG Base Excess -1.5 ABG Potassium 3.4 L VBG pH VBG pCO2 VBG HCO3 VBG Total CO2 VBG O2 Sat (Calc) VBG Base Excess VBG Potassium Sodium 139.0 Chloride 109.0 H Glucose 227 H Lactate 1.1 Mechanical Rate 20 FiO2 60.0 Tidal Volume 400 PEEP 5 Potassium Carbon Dioxide Anion Gap BUN Creatinine Est GFR ( Amer) Est GFR (Non-Af Amer) POC Glucose (mg/dL) 169 H 169 H Random Glucose Hemoglobin A1c Calcium Total Bilirubin AST ALT Alkaline Phosphatase Lactate Dehydrogenase Total Creatine Kinase Troponin I Total Protein Albumin Globulin Albumin/Globulin Ratio Arterial Blood Potassium 3.4 L Venous Blood Potassium Urine Opiates Screen Urine Methadone Screen Ur Barbiturates Screen Ur Phencyclidine Scrn Ur Amphetamines Screen U Benzodiazepines Scrn U Oth Cocaine Metabols U Cannabinoids Screen Ur L.pneumophila Ag 02/27/18 02/27/18 05:20 05:20 WBC 14.7 H RBC 4.47 Hgb 13.1 Hct 38.8 MCV 86.8 MCH 29.3 MCHC 33.8 RDW 13.7 Plt Count 207 MPV 10.9 Gran % 87.4 H Lymph % (Auto) 7.4 L Imperial % (Auto) 5.2 Eos % (Auto) 0.0 L Baso % (Auto) 0.0 Gran # 12.87 H Lymph # (Auto) 1.1 L Imperial # (Auto) 0.8 H Eos # (Auto) 0.0 Baso # (Auto) 0.00 APTT pCO2 pO2 HCO3 ABG pH ABG Total CO2 ABG O2 Saturation ABG Base Excess ABG Potassium VBG pH VBG pCO2 VBG HCO3 VBG Total CO2 VBG O2 Sat (Calc) VBG Base Excess VBG Potassium Sodium 142 Chloride 108 H Glucose Lactate Mechanical Rate FiO2 Tidal Volume PEEP Potassium 3.6 Carbon Dioxide 23 Anion Gap 15 BUN 8 Creatinine 0.5 L Est GFR ( Amer) > 60 Est GFR (Non-Af Amer) > 60 POC Glucose (mg/dL) Random Glucose 230 H Hemoglobin A1c Calcium 9.2 Total Bilirubin AST ALT Alkaline Phosphatase Lactate Dehydrogenase Total Creatine Kinase Troponin I Total Protein Albumin Globulin Albumin/Globulin Ratio Arterial Blood Potassium Venous Blood Potassium Urine Opiates Screen Urine Methadone Screen Ur Barbiturates Screen Ur Phencyclidine Scrn Ur Amphetamines Screen U Benzodiazepines Scrn U Oth Cocaine Metabols U Cannabinoids Screen Ur L.pneumophila Ag EKG/Cardiology Studies: Cardiology / EKG Studies 02/26/18 08:01 EKG [ELECTROCARDIOGRAM] Stat Comment: Reason For Exam: stemi 02/26/18 11:54 EKG [ELECTROCARDIOGRAM] Stat Comment: Reason For Exam: stemi 02/26/18 13:23 ELECTROCARDIOGRAM Urgent Comment: 12 lead EKG upon arrival in unit Reason For Exam: post ptca 02/26/18 13:30 ELECTROCARDIOGRAM DAILY Comment: Reason For Exam: chest pain 02/27/18 13:30 ELECTROCARDIOGRAM DAILY Comment: Reason For Exam: chest pain Critical Care Progress Note - Nutrition Nutrition: Nutrition Category Date Time Status NPO Diet [DIET] Diets 02/26/18 Breakfast Ordered Attending/Attestation - Attestation I have personally seen and examined this patient.: Yes I have fully participated in the care of the patient.: Yes I have reviewed all pertinent clinical information: Yes Notes (Text): 02/27/18 07:[address] edouard note
--- NOTE | 2018-02-26 15:27 | CP.PCM.CON ---
History of Present Illness - History of Present Illness History of Present Illness: 57 year old female with PMH of COPD, significant smoking history, obesity with BMI 32, DM, PAD S/P angioplasty of left leg came in to [facility] [place] [facility] because of respiratory distress. HPI was taken from ED records and ICU team since the patient is currently intubated and there are no family members available. The patient apparently all of a sudden had shortness of breath at around 1 AM and was diaphoretic. In the ED, she was noted to be in severe distress and was intubated and sent to the ICU for further observation and management. There was no note of fevers, no vomiting, no diarrhea. She was noted to have leukocytosis and Infectious Diseases consult is requested to further evaluate and manage. Review of Systems - Review of Systems All systems: reviewed and no additional remarkable complaints except (as per HPI ) Meds Allergies/Adverse Reactions: Allergies Allergy/AdvReac Type Severity Reaction Status Date / Time No Known Allergies Allergy Verified 02/26/18 02:12 - Medications Medications: Current Medications Albuterol/Ipratropium (Duoneb 3 Mg/0.5 Mg (3 Ml) Ud) 3 ml IH [id number] GOLDEN Propofol (Diprivan) 1,000 mg in 100 mls @ 3.36 mls/hr IV .Q24H PRN; Protocol; 5 MCG/KG/MIN PRN Reason: TITRATE PER MD ORDER Last Titration: 02/26/18 06:00 Dose: 29.76 mcg/kg/min, 20 mls/hr Heparin Sodium/Sodium Chloride (Heparin 46390 Units/250ml 1/2 Normal Saline) 25 ,000 units in 250 mls @ 10 mls/hr IV .Q24H PRN; Protocol; 1,000 UNITS/HR PRN Reason: coronary ischemia Last Admin: 02/26/18 04:09 Dose: 10 mls/hr Potassium Chloride (Potassium Chloride 10 Meq/100 Ml) 10 meq in 100 mls @ 50 mls/hr IVPB Q2H GOLDEN Stop: 02/26/18 08:29 Last Admin: 02/26/18 07:14 Dose: 50 mls/hr Cefepime HCl (Maxipime 2gm) 2 gm in 100 mls @ 100 mls/hr IVPB Q12 GOLDEN PRN Reason: Protocol Stop: 03/03/18 10:01 Doxycycline Hyclate 100 mg/ (Sodium Chloride) 100 mls @ 100 mls/hr IVPB Q12 GOLDEN PRN Reason: Protocol Insulin Human Lispro (Humalog Med) 0 units SC ACHS GOLDEN PRN Reason: Protocol Methylprednisolone (Solu-Medrol) 20 mg IVP Q12 GOLDEN Pantoprazole Sodium (Protonix Inj) 40 mg IVP DAILY [facility] Physical Exam - Constitutional Appears: Other (intubated and sedated) - Head Exam Head Exam: NORMAL INSPECTION - ENT Exam Additional comments: ET tube in place - Neck Exam Neck exam: Negative for: Meningismus - Respiratory Exam Respiratory Exam: Decreased Breath Sounds - Cardiovascular Exam Cardiovascular Exam: +S1, +S2 - GI/Abdominal Exam GI & Abdominal Exam: Soft. absent: Tenderness Results - Vital Signs Recent Vital Signs: Last Vital Signs Temp 97.2 F L 02/26/18 02:44 Pulse 120 H 02/26/18 05:11 Resp 20 02/26/18 05:11 BP 107/60 02/26/18 05:11 Pulse Ox 100 02/26/18 05:11 - Labs Result Diagrams: 02/26/18 08:30 02/26/18 08:30 Labs: Laboratory Results - last 24 hr 02/26/18 02/26/18 02/26/18 03:50 05:11 06:10 pO2 61 H 82 H VBG pH 7.10 L* 7.22 L VBG pCO2 67.0 H* 52.0 VBG HCO3 20.8 L 21.3 VBG Total CO2 22.9 22.9 VBG O2 Sat (Calc) 91.7 H 97.2 H VBG Base Excess -9.8 L -6.8 L VBG Potassium 4.3 4.9 Sodium 137.0 138.0 Chloride 106.0 106.0 Glucose 439 H* 417 H* Lactate 3.6 H 3.1 H FiO2 21.0 21.0 Venous Blood Potassium 4.3 4.9 Urine Color Yellow Urine Appearance Sl cloudy Urine pH 6.0 Ur Specific [place] >= 1.030 Urine Protein >=300 H Urine Glucose (UA) >=1000 Urine Ketones Negative Urine Blood Moderate H Urine Nitrate Negative Urine Bilirubin Negative Urine Urobilinogen 0.2 Ur Leukocyte Esterase Negative Urine RBC 2 - 5 Urine WBC 0 - 2 Ur Epithelial Cells 3 - 4 Amorphous Sediment Many Assessment & Plan - Assessment and Plan (Free Text) Plan: Assessment Systemic inflammatory response syndrome with ventilator-dependent respiratory failure, consider due to acute coronary syndrome with probable CHF, R/O pneumonia, R/O COPD exacerbation COPD significant smoking history obesity with BMI 32 DM PAD S/P angioplasty of left leg Plan gave a dose of IV Vancomycin and started Cefepime and Doxycycline pending blood cx, PCT; reviewed CXR - will need repeat tomorrow follow up findings of Cardiac cath will monitor clinically
[2018-02-26 15:32] LABS: VENOUS BLOOD GAS BASE EXCESS -4.9 mmol/L (0.0-2.0); VENOUS BLOOD GAS PO2 46 mm/Hg (30-55); VENOUS BLOOD PH 7.33 (7.32-7.43)
[2018-02-26 16:12] LABS: TROPONIN I 2.64 ng/mL
--- NOTE | 2018-02-26 17:08 | CARD ---
APPROVED REPORT EKG Measurement Heart [id number] <Conclusion> Sinus tachycardia Left axis deviation Low voltage QRS Cannot rule out Anteroseptal infarct, age undetermined
--- NOTE | 2018-02-26 17:11 | CARD ---
APPROVED REPORT EKG Measurement Heart [id number] <Conclusion> Sinus tachycardia Left axis deviation Low voltage QRS Cannot rule out Anteroseptal infarct, age undetermined Abnormal ECG
--- NOTE | 2018-02-26 17:17 | CARD ---
APPROVED REPORT EKG Measurement Heart [id number] [place] [id number] <Conclusion> Sinus tachycardia with Abberrantly Conducted Beats. Left axis deviation Anteroseptal infarct, age undetermined Lateral injury pattern Possibly ACUTE AL ? Correlate Clinically.
--- NOTE | 2018-02-26 17:18 | CARD ---
APPROVED REPORT EKG Measurement Heart [id number] [place] [id number] <Conclusion> Sinus tachycardia with fusion complexes Left axis deviation Anteroseptal infarct, age undetermined Lateral injury pattern ACUTE IN Correlate Clinically. Abnormal ECG
--- NOTE | 2018-02-26 18:55 | CON ---
DATE: 02/26/2018 HISTORY OF PRESENT ILLNESS: This is a 57-year-old lady who presented with impending respiratory failure, acute respiratory distress, diaphoresis, inability to talk few words at one sentence. It appears that this happened suddenly around 01:00 in the morning. It is unclear whether the patient had chest pain, nausea, vomiting, diarrhea, constipation as the patient is intubated now and no family or witnesses of past night events available at the bedside. PAST MEDICAL HISTORY: COPD, peripheral vascular disease, diabetes. PAST SURGICAL HISTORY: Balloon angioplasty for left leg. FAMILY HISTORY: Noncontributory. SOCIAL HISTORY: The patient is an ex-smoker. She quit smoking about 2 weeks ago. She used to smoke half a pack a day for 30 years. She denies alcohol or illicit drug abuse. ALLERGIES: NKDA. MEDICATIONS: Metformin. REVIEW OF SYSTEMS: Review of 12-organ systems other than mentioned in the history of present illness is negative. PHYSICAL EXAMINATION: GENERAL: The patient currently is intubated on PRVC 400/20/5/60. The patient is on propofol 10 mcg/kg/minute. The patient is on heparin drip. VITAL SIGNS: Heart rate 111, oxygen saturation 96%, respiratory rate 30, blood pressure 98/60. HEENT: Head and neck traumatic. LUNGS: A few crackles heard bilaterally. HEART: Regular rate and rhythm. S1, S2 distant. ABDOMEN: Soft, nontender, nondistended. MUSCULOSKELETAL: Trace bilateral pedal and ankle edema. NEURO: The patient moves all extremities spontaneously during sedation vacation. SKIN: Moist. PSYCH: The patient was somewhat following commands (when asked to open eyes) during sedation vacation. LABORATORY DATA: WBC 28.1, hemoglobin 17.1. Sodium 142, potassium 3.4, chloride 105, carbon dioxide 16, BUN 10, creatinine 0.8, glucose 330, (the patient is on insulin drip and potassium is aggressively supplemented). Triglyceride 335, cholesterol 211, LDL cholesterol 144, HDL cholesterol 36, TSH 5.87, free T4 of 0.98, PTT prior to initiation of heparin 30. VBG showed lactic acid 3.1, pH 7.22. ABG is pending. Urine is negative for nitrites and esterase. CURRENT MEDICATIONS: Including those that were just started in the morning, DuoNeb every 6 hours, aspirin, Lipitor, Plavix, heparin drip, doxycycline, insulin, cefepime, Solu-Medrol 20 mg IV every 12 hours, metoprolol 5 mg IV every 6, Protonix daily, and milrinone. Chest x-ray: No active pulmonary disease. EKG, questionable ST elevation in the lateral leads. Troponin 0.93. ProBNP 2208. Bedside preliminary echo showed severe left ventricular systolic dysfunction with ejection fraction approximately less than 20% (that is why decision was made to start milrinone until official echo results are available). ASSESSMENT AND PLAN: This is a 57-year-old lady, who presented with acute coronary syndrome with troponin leak, hypercapnic respiratory failure with borderline hypotension in the setting of severe left ventricular systolic dysfunction and underlying diagnosis of chronic obstructive pulmonary disease. 1. Neurologic: The patient is sedated with propofol, which will also help with afterload reduction. She had, however, sedation vacation during which she was moving all extremities and appeared to be able to follow commands. 2. Pulmonary: We will continue with protective lung ventilation strategy with low tidal volume ventilation to prevent progression into acute lung injury. Conservative fluid and oxygen management. FIO2 was weaned down to 60% and her oxygen saturation at present time is 95. Head of bed elevated more than 35 degrees and oral hygiene. We will avoid extubation attempt until decision about cardiac catheterization is made. We will continue with other components of VAP bundle. We will continue with bronchodilators and steroid taper as component of chronic obstructive pulmonary disease exacerbation cannot be ruled out in the setting of hypercapnic respiratory failure. We will try to maintain I:E ratio more than 2.5 and avoid hyperventilation to avoid barotrauma and hemodynamic compromise. Daily sedation vacation and extubation attempt will be made after decision about cardiac catheterization is made by Cardiology Service. 3. Cardiovascular: The patient has acute myocardial infarction. We will repeat EKG to see if evolution of ST-segment and lateral leads are evident. Cardiology consult was requested. At present time, the patient is on therapeutic anticoagulation with heparin, dual antiplatelet therapy, beta-blockers and statins. Conservative fluid management and conservative oxygen management is in order. Cardiology consult is pending, specifically regarding whether or not to proceed with cardiac catheterization at present time. The patient has multiple cardiovascular risk factors including history of smoking and peripheral vascular disease. Formal echocardiogram is pending. POC US revealed severe LV systolic dysfunction. Milrinone has been started. 4. Gastrointestinal: At present time, the patient will be n.p.o. except for medications. Gastrointestinal prophylaxis. 5. Infectious disease: The patient has leukocytosis, which is most likely reactive; however, cannot rule out infectious etiology with certainty and thus the patient is on broad-spectrum antibiotics as well as septic workup was initiated. Infectious Disease service is following the patient as well. 5. Endocrine. We will start the patient on insulin drip as blood glucose is consistently elevated above 300. Accu-Chek every 1 hour. We will maintain blood glucose within 140-180 range according to night sugar trial. We will taper steroids based on clinical status, which may also help with glucose control. We will maintain euvolemia, euglycemia, normothermia and oxygen saturation more than 90%. We will continue with deep venous thrombosis and gastrointestinal prophylaxis. ccm time 40 min Gal Lyons MD EMMANUELLE
[2018-02-27] MEDS ORDERED: HYDROmorphone 0.5 mg/0.5 ml ISec IVP STA (00:49)
[2018-02-27] MEDS: Albuterol-Ipratrop 3 mg / 0.5 (3 ml) UD IH SCH ×4 (04:23→19:35)
[2018-02-27] MEDS: Propofol 10 mg/ml 1,000 MG/100 ML VIAL IV PRN ×2 (04:34→04:40)
[2018-02-27 05:27] LABS: ARTERIAL BLOOD GAS HCO3 22.9 mmol/L (21-28); ARTERIAL BLOOD GAS PCO2 37 mm/Hg (35-45)
[2018-02-27 06:04] LABS: GRAN # 12.87 (1.4-6.5); GRAN % 87.4 % (50.0-68.0); HEMOGLOBIN 13.1 g/dL (12.0-16.0); LYMPH # 1.1 (1.2-3.4); LYMPH % 7.4 % (22.0-35.0); MEAN CELL VOLUME 86.8 fl (80.0-105.0); MEAN CORPUSCULAR HEMOGLOBIN 29.3 pg (25.0-35.0); MEAN CORPUSCULAR HGB CONC 33.8 g/dl (31.0-37.0); MEAN PLATELET VOLUME 10.9 fl (7.0-11.0); MONO # 0.8 (0.1-0.6); MONO % 5.2 % (1.0-6.0); RBC 4.47 10^6/uL (3.5-6.1); RED CELL DISTRIBUTION WIDTH 13.7 % (11.5-14.5); WHITE BLOOD COUNT 14.7 10^3/ul (4.5-11.0)
[2018-02-27 07:23] LABS: BLOOD UREA NITROGEN 8 mg/dL (7-21); GFR NON-AFRICAN AMERICAN > 60
[2018-02-27 07:24] LABS: CALCIUM 9.2 mg/dL (8.4-10.5)
[2018-02-27] MEDS: MethylPREDNISolone 40 mg Vial IVP SCH (10:02)
[2018-02-27] MEDS: Cefepime IV 2 gm in NS 2 GM/100 ML BAG IVPB SCH ×3 (10:05→21:30)
[2018-02-27] MEDS: Enoxaparin 40 mg Syringe SC SCH (10:06)
--- NOTE | 2018-02-27 10:27 | CARD ---
APPROVED REPORT EXAM: Two-dimensional and M-mode echocardiogram with Doppler and color Doppler. INDICATION R/O CHF/FLASH PUML EDEMA 2D DIMENSIONS Left Atrium (2D)4.4 (1.6-4.0cm)IVSd1.0 (0.7-1.1cm) LVDd4.8 (3.9-5.9cm)PWd1.1 (0.7-1.1cm) LVDs4.2 (2.5-4.0cm)FS (%) 11.7 % LVEF (%)25.3 (>50%) M-Mode DIMENSIONS Aortic Root3.10 (2.2-3.7cm)Aortic Cusp Exc.1.70 (1.5-2.0cm) Aortic Valve AoV Peak Dpamqamg324.0cm/Nadeen Peak GR.7mmHg Mitral Valve MV E Jdrzqshz24.8cm/sMV A Jrozssla04.9cm/sE/A ratio1.1 TDI Lateral E' Peak V11.90cm/sMedial E' Peak V6.73cm/sE/Lateral E'7.8 E/Medial E'13.8 Pulmonary Valve PV Peak Jsxpgtkd34.9cm/sPV Peak Grad.3mmHg Tricuspid Valve TR Peak [id number]/sRAP [id number] Peak Gr.23mmHg [id number] LEFT VENTRICLE The left ventricle is normal size. There is normal left ventricular wall thickness. The systolic function is moderately impaired.EF-25% There is Moderate global hypokinesis of the left ventricle. Transmitral Doppler flow pattern is Grade II-pseudonormal filling dynamics. No left ventricle thrombus noted on this study. There is no ventricular septal defect visualized. There is no left ventricular aneurysm. There is no mass noted in the left ventricle. RIGHT VENTRICLE The right ventricle is normal size. There is normal right ventricular wall thickness. The right ventricular systolic function is normal. ATRIA The left atrium is mildly dilated. The right atrium size is normal. The interatrial septum is intact with no evidence for an atrial septal defect. AORTIC VALVE The aortic valve is thickened but opens well. No aortic regurgitation is present. There is no aortic valvular stenosis. There is no aortic valvular vegetation. MITRAL VALVE The mitral valve is thickened but opens well. Mitral regurgitation is mild. There is no mitral valve stenosis. There is no evidence of mitral valve prolapse. TRICUSPID VALVE The tricuspid valve is normal in structure. There is mild tricuspid regurgitation.RVSP-33 mmof hg. There is no tricuspid valve stenosis. There is no tricuspid valve prolapse or vegetation. PULMONIC VALVE The pulmonary valve is normal in structure. There is no pulmonic valvular regurgitation. There is no pulmonic valvular stenosis. GREAT VESSELS The aortic root is normal in size. The ascending aorta is normal in size. The pulmonary artery is normal. The IVC is normal in size and collapses >50% with inspiration. PERICARDIAL EFFUSION There is no pleural effusion. There is no pericardial effusion. <Conclusion> The left ventricle is normal size. There is normal left ventricular wall thickness. The systolic function is moderately impaired.EF-25% Mitral regurgitation is mild. There is mild tricuspid regurgitation.RVSP-33 mmof hg. The IVC is normal in size and collapses >50% with inspiration. There is no pericardial effusion.
--- NOTE | 2018-02-27 11:56 | CP.CCUPN ---
Addendum entered and electronically signed by Golden Singer DO 11:56: Edit to Dispo: - Patient to be monitored in ICU for one day s/p extubation Original Note: <Golden Singer - Last Filed: 02/27/18 11:48> CCU Subjective - Physician Review Events Since Last Encounter (Free Text): 02/27/18 08:45A Patient seen and examined at bedside. Patient had cath done yesterday, no stents placed, with single vessel disease. Patient seen today post extubation, she is doing well and satting well on RA. No acute complaints. CCU Objective - Vital Signs / Intake & Output Vital Signs (Last 4 hours): Vital Signs Pulse BP 02/27/18 10:37 111/57 L 02/27/18 10:34 120 H 111/57 L 02/27/18 10:12 120/74 02/27/18 09:56 121 H 125/70 Intake and Output (Last 8hrs): Intake & Output 02/26/18 02/27/18 02/27/18 22:59 06:59 14:59 Intake Total 829 1039 Output Total 1900 900 Balance -1071 139 Weight 89.471 kg Intake: IV 329 659 Dobutamine 70 144 Propofol 120 230 insulin 28 33 Oral 180 Other 500 200 Output: Urine 1900 900 Urethral (Rod) 1900 900 Other: # Bowel Movements 2 0 - Physical Exam Head: Positive for: Atraumatic, Normocephalic Pupils: Positive for: PERRL Extroacular Muscles: Positive for: EOMI Conjunctiva: Positive for: Normal Mouth: Positive for: Moist Mucous Membranes Neck: Positive for: Normal Range of Motion Respiratory/Chest: Positive for: Respiratory Distress (Severe respiratory distress), Rales (Rales bilaterally), Rhonchi Cardiovascular: Positive for: Normal S1, S2, Tachycardic. Negative for: Murmurs Abdomen: Negative for: Tenderness, Distention, Peritoneal Signs Upper Extremity: Negative for: Cyanosis, Edema Lower Extremity: Positive for: Other (Mottling of bilateral lower extremities). Negative for: Edema Neurological: Positive for: Motor Func Grossly Intact Skin: Positive for: Warm, Dry. Negative for: Rashes Psychiatric: Positive for: Lethargic - Medications Active Medications: Active Medications Generic Name Dose Route Start Last Admin Trade Name Freq PRN Reason Stop Dose Admin Albuterol/Ipratropium 3 ml 02/26/18 08:00 02/27/18 07:03 Duoneb 3 Mg/0.5 Mg (3 Ml) Ud IH 3 ml [id number] GOLDEN Administration Aspirin 81 mg 02/27/18 10:00 02/27/18 10:37 Aspirin Chewable PO 81 mg DAILY GOLDEN Administration Atorvastatin Calcium 40 mg 02/26/18 17:00 02/26/18 19:00 Lipitor PO 40 mg DIN GOLDEN Administration Budesonide 1 mg 02/27/18 08:00 Pulmicort Respules IH [id number] GOLDEN Carvedilol 6.25 mg 02/27/18 10:00 02/27/18 10:37 Coreg PO 6.25 mg BID GOLDEN Administration Enoxaparin Sodium 40 mg 02/27/18 10:00 02/27/18 10:06 Lovenox SC 40 mg DAILY GOLDEN Administration Protocol Furosemide 40 mg 02/26/18 13:30 02/27/18 10:12 Lasix IVP 40 mg Q12 GOLDEN Administration Cefepime HCl 2 gm in 100 mls @ 100 mls/hr 02/26/18 10:00 02/27/18 10:05 Maxipime 2gm IVPB 03/03/18 10:01 100 mls/hr Q12 GOLDEN Administration Protocol Doxycycline Hyclate 100 mg/ 100 mls @ 100 mls/hr 02/26/18 10:00 02/27/18 09: 59 Sodium Chloride IVPB 100 mls/hr Q12 GOLDEN Administration Protocol Lisinopril 5 mg 02/27/18 10:00 02/27/18 09:56 Zestril PO 5 mg DAILY GOLDEN Administration Methylprednisolone 20 mg 02/27/18 10:00 02/27/18 10:02 Solu-Medrol IVP 20 mg DAILY GOLDEN Administration Metoprolol Tartrate 5 mg 02/27/18 12:00 02/27/18 10:34 Lopressor IVP 5 mg Q6 GOLDEN Administration Pantoprazole Sodium 40 mg 02/26/18 10:00 02/27/18 10:05 Protonix Inj IVP 40 mg DAILY GOLDEN Administration - Patient Studies Lab Studies: Microbiology Studies 02/26/18 06:41 MRSA Culture (Admit) - Final Naris MRSA NOT DETECTED Lab Studies 02/27/18 02/27/18 02/27/18 Range/Units 07:45 05:20 05:20 WBC 14.7 H (4.5-11.0) 10^3/ul RBC 4.47 (3.5-6.1) 10^6/uL Hgb 13.1 (12.0-16.0) g/dL Hct 38.8 (36.0-48.0) % MCV 86.8 (80.0-105.0) fl MCH 29.3 (25.0-35.0) pg MCHC 33.8 (31.0-37.0) g/dl RDW 13.7 (11.5-14.5) % Plt Count 207 (120.0-450.0) 10^3/uL MPV 10.9 (7.0-11.0) fl Gran % 87.4 H (50.0-68.0) % Lymph % (Auto) 7.4 L (22.0-35.0) % Ponce % (Auto) 5.2 (1.0-6.0) % Eos % (Auto) 0.0 L (1.5-5.0) % Baso % (Auto) 0.0 (0.0-3.0) % Gran # 12.87 H (1.4-6.5) Lymph # (Auto) 1.1 L (1.2-3.4) Ponce # (Auto) 0.8 H (0.1-0.6) Eos # (Auto) 0.0 (0.0-0.7) Baso # (Auto) 0.00 (0.0-2.0) K/mm3 pCO2 (35-45) mm/Hg pO2 (30-55) mm/Hg HCO3 (21-28) mmol/L ABG pH (7.35-7.45) ABG Total CO2 (22-28) mmol.L ABG O2 Saturation (95-98) % ABG Base Excess (-2.0-3.0) mmol/L ABG Potassium (3.6-5.2) mmol/L VBG pH (7.32-7.43) VBG pCO2 (40-60) VBG HCO3 (21-28) mmol/l VBG Total CO2 (22-28) mmol.L VBG O2 Sat (Calc) (40-65) % VBG Base Excess (0.0-2.0) mmol/L VBG Potassium (3.6-5.2) mmol/L Sodium 142 (132-148) mmol/L Chloride 108 H (98-107) mmol/L Glucose (65-105) mg/dl Lactate (0.7-2.1) mmol/L Mechanical Rate FiO2 % Tidal Volume PEEP Potassium 3.6 (3.6-5.0) mmol/L Carbon Dioxide 23 (21-33) mmol/L Anion Gap 15 (10-20) BUN 8 (7-21) mg/dL Creatinine 0.5 L (0.7-1.2) mg/dl Est GFR ( Amer) > 60 Est GFR (Non-Af Amer) > 60 POC Glucose (mg/dL) 236 H (65-110) mg/dL Random Glucose 230 H (70-110) mg/dL Calcium 9.2 (8.4-10.5) mg/dL Lactate Dehydrogenase (333-699) U/L Total Creatine Kinase (35-230) U/L Troponin I ng/mL Arterial Blood Potassium (3.6-5.2) mmol/L Venous Blood Potassium (3.6-5.2) mmol/L Ur L.pneumophila Ag (NEGATIVE) 02/27/18 02/27/18 02/27/18 Range/Units 05:18 04:10 02:59 WBC (4.5-11.0) 10^3/ul RBC (3.5-6.1) 10^6/uL Hgb (12.0-16.0) g/dL Hct (36.0-48.0) % MCV (80.0-105.0) fl MCH (25.0-35.0) pg MCHC (31.0-37.0) g/dl RDW (11.5-14.5) % Plt Count (120.0-450.0) 10^3/uL MPV (7.0-11.0) fl Gran % (50.0-68.0) % Lymph % (Auto) (22.0-35.0) % Ponce % (Auto) (1.0-6.0) % Eos % (Auto) (1.5-5.0) % Baso % (Auto) (0.0-3.0) % Gran # (1.4-6.5) Lymph # (Auto) (1.2-3.4) Ponce # (Auto) (0.1-0.6) Eos # (Auto) (0.0-0.7) Baso # (Auto) (0.0-2.0) K/mm3 pCO2 37 (35-45) mm/Hg pO2 149.0 H (30-55) mm/Hg HCO3 22.9 (21-28) mmol/L ABG pH 7.40 (7.35-7.45) ABG Total CO2 24.0 (22-28) mmol.L ABG O2 Saturation 100.0 H (95-98) % ABG Base Excess -1.5 (-2.0-3.0) mmol/L ABG Potassium 3.4 L (3.6-5.2) mmol/L VBG pH (7.32-7.43) VBG pCO2 (40-60) VBG HCO3 (21-28) mmol/l VBG Total CO2 (22-28) mmol.L VBG O2 Sat (Calc) (40-65) % VBG Base Excess (0.0-2.0) mmol/L VBG Potassium (3.6-5.2) mmol/L Sodium 139.0 (132-148) mmol/L Chloride 109.0 H (98-107) mmol/L Glucose 227 H (65-105) mg/dl Lactate 1.1 (0.7-2.1) mmol/L Mechanical Rate 20 FiO2 60.0 % Tidal Volume 400 PEEP 5 Potassium (3.6-5.0) mmol/L Carbon Dioxide (21-33) mmol/L Anion Gap (10-20) BUN (7-21) mg/dL Creatinine (0.7-1.2) mg/dl Est GFR ( Amer) Est GFR (Non-Af Amer) POC Glucose (mg/dL) 169 H 169 H (65-110) mg/dL Random Glucose (70-110) mg/dL Calcium (8.4-10.5) mg/dL Lactate Dehydrogenase (333-699) U/L Total Creatine Kinase (35-230) U/L Troponin I ng/mL Arterial Blood Potassium 3.4 L (3.6-5.2) mmol/L Venous Blood Potassium (3.6-5.2) mmol/L Ur L.pneumophila Ag (NEGATIVE) 02/27/18 02/27/18 02/27/18 Range/Units 02:16 00:50 00:00 WBC (4.5-11.0) 10^3/ul RBC (3.5-6.1) 10^6/uL Hgb (12.0-16.0) g/dL Hct (36.0-48.0) % MCV (80.0-105.0) fl MCH (25.0-35.0) pg MCHC (31.0-37.0) g/dl RDW (11.5-14.5) % Plt Count (120.0-450.0) 10^3/uL MPV (7.0-11.0) fl Gran % (50.0-68.0) % Lymph % (Auto) (22.0-35.0) % Ponce % (Auto) (1.0-6.0) % Eos % (Auto) (1.5-5.0) % Baso % (Auto) (0.0-3.0) % Gran # (1.4-6.5) Lymph # (Auto) (1.2-3.4) Ponce # (Auto) (0.1-0.6) Eos # (Auto) (0.0-0.7) Baso # (Auto) (0.0-2.0) K/mm3 pCO2 (35-45) mm/Hg pO2 (30-55) mm/Hg HCO3 (21-28) mmol/L ABG pH (7.35-7.45) ABG Total CO2 (22-28) mmol.L ABG O2 Saturation (95-98) % ABG Base Excess (-2.0-3.0) mmol/L ABG Potassium (3.6-5.2) mmol/L VBG pH (7.32-7.43) VBG pCO2 (40-60) VBG HCO3 (21-28) mmol/l VBG Total CO2 (22-28) mmol.L VBG O2 Sat (Calc) (40-65) % VBG Base Excess (0.0-2.0) mmol/L VBG Potassium (3.6-5.2) mmol/L Sodium (132-148) mmol/L Chloride (98-107) mmol/L Glucose (65-105) mg/dl Lactate (0.7-2.1) mmol/L Mechanical Rate FiO2 % Tidal Volume PEEP Potassium (3.6-5.0) mmol/L Carbon Dioxide (21-33) mmol/L Anion Gap (10-20) BUN (7-21) mg/dL Creatinine (0.7-1.2) mg/dl Est GFR ( Amer) Est GFR (Non-Af Amer) POC Glucose (mg/dL) 171 H 172 H 177 H (65-110) mg/dL Random Glucose (70-110) mg/dL Calcium (8.4-10.5) mg/dL Lactate Dehydrogenase (333-699) U/L Total Creatine Kinase (35-230) U/L Troponin I ng/mL Arterial Blood Potassium (3.6-5.2) mmol/L Venous Blood Potassium (3.6-5.2) mmol/L Ur L.pneumophila Ag (NEGATIVE) 02/26/18 02/26/18 02/26/18 Range/Units 22:20 21:12 19:59 WBC (4.5-11.0) 10^3/ul RBC (3.5-6.1) 10^6/uL Hgb (12.0-16.0) g/dL Hct (36.0-48.0) % MCV (80.0-105.0) fl MCH (25.0-35.0) pg MCHC (31.0-37.0) g/dl RDW (11.5-14.5) % Plt Count (120.0-450.0) 10^3/uL MPV (7.0-11.0) fl Gran % (50.0-68.0) % Lymph % (Auto) (22.0-35.0) % Ponce % (Auto) (1.0-6.0) % Eos % (Auto) (1.5-5.0) % Baso % (Auto) (0.0-3.0) % Gran # (1.4-6.5) Lymph # (Auto) (1.2-3.4) Ponce # (Auto) (0.1-0.6) Eos # (Auto) (0.0-0.7) Baso # (Auto) (0.0-2.0) K/mm3 pCO2 (35-45) mm/Hg pO2 (30-55) mm/Hg HCO3 (21-28) mmol/L ABG pH (7.35-7.45) ABG Total CO2 (22-28) mmol.L ABG O2 Saturation (95-98) % ABG Base Excess (-2.0-3.0) mmol/L ABG Potassium (3.6-5.2) mmol/L VBG pH (7.32-7.43) VBG pCO2 (40-60) VBG HCO3 (21-28) mmol/l VBG Total CO2 (22-28) mmol.L VBG O2 Sat (Calc) (40-65) % VBG Base Excess (0.0-2.0) mmol/L VBG Potassium (3.6-5.2) mmol/L Sodium (132-148) mmol/L Chloride (98-107) mmol/L Glucose (65-105) mg/dl Lactate (0.7-2.1) mmol/L Mechanical Rate FiO2 % Tidal Volume PEEP Potassium (3.6-5.0) mmol/L Carbon Dioxide (21-33) mmol/L Anion Gap (10-20) BUN (7-21) mg/dL Creatinine (0.7-1.2) mg/dl Est GFR ( Amer) Est GFR (Non-Af Amer) POC Glucose (mg/dL) 201 H 192 H 201 H (65-110) mg/dL Random Glucose (70-110) mg/dL Calcium (8.4-10.5) mg/dL Lactate Dehydrogenase (333-699) U/L Total Creatine Kinase (35-230) U/L Troponin I ng/mL Arterial Blood Potassium (3.6-5.2) mmol/L Venous Blood Potassium (3.6-5.2) mmol/L Ur L.pneumophila Ag (NEGATIVE) 02/26/18 02/26/18 02/26/18 Range/Units 19:04 17:24 15:32 WBC (4.5-11.0) 10^3/ul RBC (3.5-6.1) 10^6/uL Hgb (12.0-16.0) g/dL Hct (36.0-48.0) % MCV (80.0-105.0) fl MCH (25.0-35.0) pg MCHC (31.0-37.0) g/dl RDW (11.5-14.5) % Plt Count (120.0-450.0) 10^3/uL MPV (7.0-11.0) fl Gran % (50.0-68.0) % Lymph % (Auto) (22.0-35.0) % Ponce % (Auto) (1.0-6.0) % Eos % (Auto) (1.5-5.0) % Baso % (Auto) (0.0-3.0) % Gran # (1.4-6.5) Lymph # (Auto) (1.2-3.4) Ponce # (Auto) (0.1-0.6) Eos # (Auto) (0.0-0.7) Baso # (Auto) (0.0-2.0) K/mm3 pCO2 (35-45) mm/Hg pO2 (30-55) mm/Hg HCO3 (21-28) mmol/L ABG pH (7.35-7.45) ABG Total CO2 (22-28) mmol.L ABG O2 Saturation (95-98) % ABG Base Excess (-2.0-3.0) mmol/L ABG Potassium (3.6-5.2) mmol/L VBG pH (7.32-7.43) VBG pCO2 (40-60) VBG HCO3 (21-28) mmol/l VBG Total CO2 (22-28) mmol.L VBG O2 Sat (Calc) (40-65) % VBG Base Excess (0.0-2.0) mmol/L VBG Potassium (3.6-5.2) mmol/L Sodium (132-148) mmol/L Chloride (98-107) mmol/L Glucose (65-105) mg/dl Lactate (0.7-2.1) mmol/L Mechanical Rate FiO2 % Tidal Volume PEEP Potassium (3.6-5.0) mmol/L Carbon Dioxide (21-33) mmol/L Anion Gap (10-20) BUN (7-21) mg/dL Creatinine (0.7-1.2) mg/dl Est GFR ( Amer) Est GFR (Non-Af Amer) POC Glucose (mg/dL) 220 H 213 H 212 H (65-110) mg/dL Random Glucose (70-110) mg/dL Calcium (8.4-10.5) mg/dL Lactate Dehydrogenase (333-699) U/L Total Creatine Kinase (35-230) U/L Troponin I ng/mL Arterial Blood Potassium (3.6-5.2) mmol/L Venous Blood Potassium (3.6-5.2) mmol/L Ur L.pneumophila Ag (NEGATIVE) 02/26/18 02/26/18 02/26/18 Range/Units 15:25 15:25 13:38 WBC (4.5-11.0) 10^3/ul RBC (3.5-6.1) 10^6/uL Hgb (12.0-16.0) g/dL Hct (36.0-48.0) % MCV (80.0-105.0) fl MCH (25.0-35.0) pg MCHC (31.0-37.0) g/dl RDW (11.5-14.5) % Plt Count (120.0-450.0) 10^3/uL MPV (7.0-11.0) fl Gran % (50.0-68.0) % Lymph % (Auto) (22.0-35.0) % Ponce % (Auto) (1.0-6.0) % Eos % (Auto) (1.5-5.0) % Baso % (Auto) (0.0-3.0) % Gran # (1.4-6.5) Lymph # (Auto) (1.2-3.4) Ponce # (Auto) (0.1-0.6) Eos # (Auto) (0.0-0.7) Baso # (Auto) (0.0-2.0) K/mm3 pCO2 (35-45) mm/Hg pO2 46 (30-55) mm/Hg HCO3 (21-28) mmol/L ABG pH (7.35-7.45) ABG Total CO2 (22-28) mmol.L ABG O2 Saturation (95-98) % ABG Base Excess (-2.0-3.0) mmol/L ABG Potassium (3.6-5.2) mmol/L VBG pH 7.33 (7.32-7.43) VBG pCO2 39.0 L (40-60) VBG HCO3 20.6 L (21-28) mmol/l VBG Total CO2 21.8 L (22-28) mmol.L VBG O2 Sat (Calc) 89.4 H (40-65) % VBG Base Excess -4.9 L (0.0-2.0) mmol/L VBG Potassium 3.7 (3.6-5.2) mmol/L Sodium 140.0 (132-148) mmol/L Chloride 108.0 H (98-107) mmol/L Glucose 247 H (65-105) mg/dl Lactate 3.3 H (0.7-2.1) mmol/L Mechanical Rate FiO2 21.0 % Tidal Volume PEEP Potassium (3.6-5.0) mmol/L Carbon Dioxide (21-33) mmol/L Anion Gap (10-20) BUN (7-21) mg/dL Creatinine (0.7-1.2) mg/dl Est GFR ( Amer) Est GFR (Non-Af Amer) POC Glucose (mg/dL) 234 H (65-110) mg/dL Random Glucose (70-110) mg/dL Calcium (8.4-10.5) mg/dL Lactate Dehydrogenase 755 H (333-699) U/L Total Creatine Kinase 187 (35-230) U/L Troponin I 2.64 H* D ng/mL Arterial Blood Potassium (3.6-5.2) mmol/L Venous Blood Potassium 3.7 (3.6-5.2) mmol/L Ur L.pneumophila Ag (NEGATIVE) 02/26/18 02/26/18 Range/Units 11:59 07:27 WBC (4.5-11.0) 10^3/ul RBC (3.5-6.1) 10^6/uL Hgb (12.0-16.0) g/dL Hct (36.0-48.0) % MCV (80.0-105.0) fl MCH (25.0-35.0) pg MCHC (31.0-37.0) g/dl RDW (11.5-14.5) % Plt Count (120.0-450.0) 10^3/uL MPV (7.0-11.0) fl Gran % (50.0-68.0) % Lymph % (Auto) (22.0-35.0) % Ponce % (Auto) (1.0-6.0) % Eos % (Auto) (1.5-5.0) % Baso % (Auto) (0.0-3.0) % Gran # (1.4-6.5) Lymph # (Auto) (1.2-3.4) Ponce # (Auto) (0.1-0.6) Eos # (Auto) (0.0-0.7) Baso # (Auto) (0.0-2.0) K/mm3 pCO2 (35-45) mm/Hg pO2 (30-55) mm/Hg HCO3 (21-28) mmol/L ABG pH (7.35-7.45) ABG Total CO2 (22-28) mmol.L ABG O2 Saturation (95-98) % ABG Base Excess (-2.0-3.0) mmol/L ABG Potassium (3.6-5.2) mmol/L VBG pH (7.32-7.43) VBG pCO2 (40-60) VBG HCO3 (21-28) mmol/l VBG Total CO2 (22-28) mmol.L VBG O2 Sat (Calc) (40-65) % VBG Base Excess (0.0-2.0) mmol/L VBG Potassium (3.6-5.2) mmol/L Sodium (132-148) mmol/L Chloride (98-107) mmol/L Glucose (65-105) mg/dl Lactate (0.7-2.1) mmol/L Mechanical Rate FiO2 % Tidal Volume PEEP Potassium (3.6-5.0) mmol/L Carbon Dioxide (21-33) mmol/L Anion Gap (10-20) BUN (7-21) mg/dL Creatinine (0.7-1.2) mg/dl Est GFR ( Amer) Est GFR (Non-Af Amer) POC Glucose (mg/dL) 268 H (65-110) mg/dL Random Glucose (70-110) mg/dL Calcium (8.4-10.5) mg/dL Lactate Dehydrogenase (333-699) U/L Total Creatine Kinase (35-230) U/L Troponin I ng/mL Arterial Blood Potassium (3.6-5.2) mmol/L Venous Blood Potassium (3.6-5.2) mmol/L Ur L.pneumophila Ag Negative (NEGATIVE) Laboratory Results - last 24 hr 02/26/18 02/26/18 02/26/18 07:27 11:59 13:38 WBC RBC Hgb Hct MCV MCH MCHC RDW Plt Count MPV Gran % Lymph % (Auto) Ponce % (Auto) Eos % (Auto) Baso % (Auto) Gran # Lymph # (Auto) Ponce # (Auto) Eos # (Auto) Baso # (Auto) pCO2 pO2 HCO3 ABG pH ABG Total CO2 ABG O2 Saturation ABG Base Excess ABG Potassium VBG pH VBG pCO2 VBG HCO3 VBG Total CO2 VBG O2 Sat (Calc) VBG Base Excess VBG Potassium Sodium Chloride Glucose Lactate Mechanical Rate FiO2 Tidal Volume PEEP Potassium Carbon Dioxide Anion Gap BUN Creatinine Est GFR ( Amer) Est GFR (Non-Af Amer) POC Glucose (mg/dL) 268 H 234 H Random Glucose Calcium Lactate Dehydrogenase Total Creatine Kinase Troponin I Arterial Blood Potassium Venous Blood Potassium Ur L.pneumophila Ag Negative 02/26/18 02/26/18 02/26/18 15:25 15:25 15:32 WBC RBC Hgb Hct MCV MCH MCHC RDW Plt Count MPV Gran % Lymph % (Auto) Ponce % (Auto) Eos % (Auto) Baso % (Auto) Gran # Lymph # (Auto) Ponce # (Auto) Eos # (Auto) Baso # (Auto) pCO2 pO2 46 HCO3 ABG pH ABG Total CO2 ABG O2 Saturation ABG Base Excess ABG Potassium VBG pH 7.33 VBG pCO2 39.0 L VBG HCO3 20.6 L VBG Total CO2 21.8 L VBG O2 Sat (Calc) 89.4 H VBG Base Excess -4.9 L VBG Potassium 3.7 Sodium 140.0 Chloride 108.0 H Glucose 247 H Lactate 3.3 H Mechanical Rate FiO2 21.0 Tidal Volume PEEP Potassium Carbon Dioxide Anion Gap BUN Creatinine Est GFR ( Amer) Est GFR (Non-Af Amer) POC Glucose (mg/dL) 212 H Random Glucose Calcium Lactate Dehydrogenase 755 H Total Creatine Kinase 187 Troponin I 2.64 H* D Arterial Blood Potassium Venous Blood Potassium 3.7 Ur L.pneumophila Ag 02/26/18 02/26/18 02/26/18 17:24 19:04 19:59 WBC RBC Hgb Hct MCV MCH MCHC RDW Plt Count MPV Gran % Lymph % (Auto) Ponce % (Auto) Eos % (Auto) Baso % (Auto) Gran # Lymph # (Auto) Ponce # (Auto) Eos # (Auto) Baso # (Auto) pCO2 pO2 HCO3 ABG pH ABG Total CO2 ABG O2 Saturation ABG Base Excess ABG Potassium VBG pH VBG pCO2 VBG HCO3 VBG Total CO2 VBG O2 Sat (Calc) VBG Base Excess VBG Potassium Sodium Chloride Glucose Lactate Mechanical Rate FiO2 Tidal Volume PEEP Potassium Carbon Dioxide Anion Gap BUN Creatinine Est GFR ( Amer) Est GFR (Non-Af Amer) POC Glucose (mg/dL) 213 H 220 H 201 H Random Glucose Calcium Lactate Dehydrogenase Total Creatine Kinase Troponin I Arterial Blood Potassium Venous Blood Potassium Ur L.pneumophila Ag 02/26/18 02/26/18 02/27/18 21:12 22:20 00:00 WBC RBC Hgb Hct MCV MCH MCHC RDW Plt Count MPV Gran % Lymph % (Auto) Ponce % (Auto) Eos % (Auto) Baso % (Auto) Gran # Lymph # (Auto) Ponce # (Auto) Eos # (Auto) Baso # (Auto) pCO2 pO2 HCO3 ABG pH ABG Total CO2 ABG O2 Saturation ABG Base Excess ABG Potassium VBG pH VBG pCO2 VBG HCO3 VBG Total CO2 VBG O2 Sat (Calc) VBG Base Excess VBG Potassium Sodium Chloride Glucose Lactate Mechanical Rate FiO2 Tidal Volume PEEP Potassium Carbon Dioxide Anion Gap BUN Creatinine Est GFR ( Amer) Est GFR (Non-Af Amer) POC Glucose (mg/dL) 192 H 201 H 177 H Random Glucose Calcium Lactate Dehydrogenase Total Creatine Kinase Troponin I Arterial Blood Potassium Venous Blood Potassium Ur L.pneumophila Ag 02/27/18 02/27/18 02/27/18 00:50 02:16 02:59 WBC RBC Hgb Hct MCV MCH MCHC RDW Plt Count MPV Gran % Lymph % (Auto) Ponce % (Auto) Eos % (Auto) Baso % (Auto) Gran # Lymph # (Auto) Ponce # (Auto) Eos # (Auto) Baso # (Auto) pCO2 pO2 HCO3 ABG pH ABG Total CO2 ABG O2 Saturation ABG Base Excess ABG Potassium VBG pH VBG pCO2 VBG HCO3 VBG Total CO2 VBG O2 Sat (Calc) VBG Base Excess VBG Potassium Sodium Chloride Glucose Lactate Mechanical Rate FiO2 Tidal Volume PEEP Potassium Carbon Dioxide Anion Gap BUN Creatinine Est GFR ( Amer) Est GFR (Non-Af Amer) POC Glucose (mg/dL) 172 H 171 H 169 H Random Glucose Calcium Lactate Dehydrogenase Total Creatine Kinase Troponin I Arterial Blood Potassium Venous Blood Potassium Ur L.pneumophila Ag 02/27/18 02/27/18 02/27/18 04:10 05:18 05:20 WBC RBC Hgb Hct MCV MCH MCHC RDW Plt Count MPV Gran % Lymph % (Auto) Ponce % (Auto) Eos % (Auto) Baso % (Auto) Gran # Lymph # (Auto) Ponce # (Auto) Eos # (Auto) Baso # (Auto) pCO2 37 pO2 149.0 H HCO3 22.9 ABG pH 7.40 ABG Total CO2 24.0 ABG O2 Saturation 100.0 H ABG Base Excess -1.5 ABG Potassium 3.4 L VBG pH VBG pCO2 VBG HCO3 VBG Total CO2 VBG O2 Sat (Calc) VBG Base Excess VBG Potassium Sodium 139.0 142 Chloride 109.0 H 108 H Glucose 227 H Lactate 1.1 Mechanical Rate 20 FiO2 60.0 Tidal Volume 400 PEEP 5 Potassium 3.6 Carbon Dioxide 23 Anion Gap 15 BUN 8 Creatinine 0.5 L Est GFR ( Amer) > 60 Est GFR (Non-Af Amer) > 60 POC Glucose (mg/dL) 169 H Random Glucose 230 H Calcium 9.2 Lactate Dehydrogenase Total Creatine Kinase Troponin I Arterial Blood Potassium 3.4 L Venous Blood Potassium Ur L.pneumophila Ag 02/27/18 02/27/18 05:20 07:45 WBC 14.7 H RBC 4.47 Hgb 13.1 Hct 38.8 MCV 86.8 MCH 29.3 MCHC 33.8 RDW 13.7 Plt Count 207 MPV 10.9 Gran % 87.4 H Lymph % (Auto) 7.4 L Ponce % (Auto) 5.2 Eos % (Auto) 0.0 L Baso % (Auto) 0.0 Gran # 12.87 H Lymph # (Auto) 1.1 L Ponce # (Auto) 0.8 H Eos # (Auto) 0.0 Baso # (Auto) 0.00 pCO2 pO2 HCO3 ABG pH ABG Total CO2 ABG O2 Saturation ABG Base Excess ABG Potassium VBG pH VBG pCO2 VBG HCO3 VBG Total CO2 VBG O2 Sat (Calc) VBG Base Excess VBG Potassium Sodium Chloride Glucose Lactate Mechanical Rate FiO2 Tidal Volume PEEP Potassium Carbon Dioxide Anion Gap BUN Creatinine Est GFR ( Amer) Est GFR (Non-Af Amer) POC Glucose (mg/dL) 236 H Random Glucose Calcium Lactate Dehydrogenase Total Creatine Kinase Troponin I Arterial Blood Potassium Venous Blood Potassium Ur L.pneumophila Ag EKG/Cardiology Studies: Cardiology / EKG Studies 02/26/18 11:54 EKG [ELECTROCARDIOGRAM] Stat Comment: Reason For Exam: stemi 02/26/18 13:23 ELECTROCARDIOGRAM Urgent Comment: 12 lead EKG upon arrival in unit Reason For Exam: post ptca 02/26/18 13:30 ELECTROCARDIOGRAM DAILY Comment: Reason For Exam: chest pain 02/27/18 13:30 ELECTROCARDIOGRAM DAILY Comment: Reason For Exam: chest pain Fingerstick Blood Sugar Results: 169 Critical Care Progress Note - Nutrition Nutrition: Nutrition Category Date Time Status NPO Diet [DIET] Diets 02/26/18 Breakfast Ordered Assessment/Plan - Assessment and Plan (Free Text) Assessment: 57 year old female under ICU care for Hypercapneic Hypoxic Respiratory Failure requiring intubation ACS and COPD exacerbation - Cardiopulmonary Failure Severe Sepsis from pneumonia, lactic acidosis @ 3.6, complicated by ACS Neuro - Maintain nomothermia - UDS Positive for benzos Pulm - Duoneb GOLDEN, Steroid, ABX - Maintain sats > 92% - Patient has been weaned off of NC, on RA now Card - S/p catheterization and AMI - continue B-Dante, BRAD-I, ASA, Lipitor - Maintain MAP GI - HH/CC Diet - Protonix for PPX - Monitor for contrast nephropathy Endo - Insulin coverage - Maintain euglycemia Heme - Heparin gtt serves as DVT PPX ID - Got Vanco and zosyn in ed @ 4-5am. iD consult. Fluid resuscitated 30cc/kg - Cefepime and Doxy right now Dispo: Patient for can labeler <Gal Edouard - Last Filed: 02/27/18 13:22> CCU Objective - Vital Signs / Intake & Output Vital Signs (Last 4 hours): Vital Signs Pulse BP 02/27/18 10:37 111/57 L 02/27/18 10:34 120 H 111/57 L 02/27/18 10:12 120/74 02/27/18 09:56 121 H 125/70 Intake and Output (Last 8hrs): Intake & Output 02/26/18 02/27/18 02/27/18 22:59 06:59 14:59 Intake Total 829 1039 Output Total 1900 900 Balance -1071 139 Weight 197 lb 4 oz Intake: IV 329 659 Dobutamine 70 144 Propofol 120 230 insulin 28 33 Oral 180 Other 500 200 Output: Urine 1900 900 Urethral (Rod) 1900 900 Other: # Bowel Movements 2 0 - Medications Active Medications: Active Medications Generic Name Dose Route Start Last Admin Trade Name Freq PRN Reason Stop Dose Admin Albuterol/Ipratropium 3 ml 02/26/18 08:00 02/27/18 13:04 Duoneb 3 Mg/0.5 Mg (3 Ml) Ud IH 3 ml [id number] GOLDEN Administration Aspirin 81 mg 02/27/18 10:00 02/27/18 10:37 Aspirin Chewable PO 81 mg DAILY GOLDEN Administration Atorvastatin Calcium 40 mg 02/26/18 17:00 02/26/18 19:00 Lipitor PO 40 mg DIN GOLDEN Administration Budesonide 1 mg 02/27/18 08:00 02/27/18 13:03 Pulmicort Respules IH 0.5 mg [id number] GOLDEN Administration Carvedilol 6.25 mg 02/27/18 10:00 02/27/18 10:37 Coreg PO 6.25 mg BID GOLDEN Administration Enoxaparin Sodium 40 mg 02/27/18 10:00 02/27/18 10:06 Lovenox SC 40 mg DAILY GOLDEN Administration Protocol Furosemide 40 mg 02/26/18 13:30 02/27/18 10:12 Lasix IVP 40 mg Q12 GOLDEN Administration Cefepime HCl 2 gm in 100 mls @ 100 mls/hr 02/26/18 10:00 06/19/18 10:05 Maxipime 2gm IVPB 03/03/18 10:01 100 mls/hr Q12 GOLDEN Administration Protocol Doxycycline Hyclate 100 mg/ 100 mls @ 100 mls/hr 02/26/18 10:00 02/27/18 09: 59 Sodium Chloride IVPB 100 mls/hr Q12 GOLDEN Administration Protocol Lisinopril 5 mg 02/27/18 10:00 02/27/18 09:56 Zestril PO 5 mg DAILY GOLDEN Administration Methylprednisolone 20 mg 02/27/18 10:00 02/27/18 10:02 Solu-Medrol IVP 20 mg DAILY GOLDEN Administration Metoprolol Tartrate 5 mg 02/27/18 12:00 02/27/18 10:34 Lopressor IVP 5 mg Q6 GOLDEN Administration Pantoprazole Sodium 40 mg 02/26/18 10:00 02/27/18 10:05 Protonix Inj IVP 40 mg DAILY GOLDEN Administration - Patient Studies Lab Studies: Microbiology Studies 02/26/18 06:41 MRSA Culture (Admit) - Final Naris MRSA NOT DETECTED Lab Studies 02/27/18 02/27/18 02/27/18 Range/Units 07:45 05:20 05:20 WBC 14.7 H (4.5-11.0) 10^3/ul RBC 4.47 (3.5-6.1) 10^6/uL Hgb 13.1 (12.0-16.0) g/dL Hct 38.8 (36.0-48.0) % MCV 86.8 (80.0-105.0) fl MCH 29.3 (25.0-35.0) pg MCHC 33.8 (31.0-37.0) g/dl RDW 13.7 (11.5-14.5) % Plt Count 207 (120.0-450.0) 10^3/uL MPV 10.9 (7.0-11.0) fl Gran % 87.4 H (50.0-68.0) % Lymph % (Auto) 7.4 L (22.0-35.0) % Ponce % (Auto) 5.2 (1.0-6.0) % Eos % (Auto) 0.0 L (1.5-5.0) % Baso % (Auto) 0.0 (0.0-3.0) % Gran # 12.87 H (1.4-6.5) Lymph # (Auto) 1.1 L (1.2-3.4) Ponce # (Auto) 0.8 H (0.1-0.6) Eos # (Auto) 0.0 (0.0-0.7) Baso # (Auto) 0.00 (0.0-2.0) K/mm3 pCO2 (35-45) mm/Hg pO2 (30-55) mm/Hg HCO3 (21-28) mmol/L ABG pH (7.35-7.45) ABG Total CO2 (22-28) mmol.L ABG O2 Saturation (95-98) % ABG Base Excess (-2.0-3.0) mmol/L ABG Potassium (3.6-5.2) mmol/L VBG pH (7.32-7.43) VBG pCO2 (40-60) VBG HCO3 (21-28) mmol/l VBG Total CO2 (22-28) mmol.L VBG O2 Sat (Calc) (40-65) % VBG Base Excess (0.0-2.0) mmol/L VBG Potassium (3.6-5.2) mmol/L Sodium 142 (132-148) mmol/L Chloride 108 H (98-107) mmol/L Glucose (65-105) mg/dl Lactate (0.7-2.1) mmol/L Mechanical Rate FiO2 % Tidal Volume PEEP Potassium 3.6 (3.6-5.0) mmol/L Carbon Dioxide 23 (21-33) mmol/L Anion Gap 15 (10-20) BUN 8 (7-21) mg/dL Creatinine 0.5 L (0.7-1.2) mg/dl Est GFR ( Amer) > 60 Est GFR (Non-Af Amer) > 60 POC Glucose (mg/dL) 236 H (65-110) mg/dL Random Glucose 230 H (70-110) mg/dL Calcium 9.2 (8.4-10.5) mg/dL Lactate Dehydrogenase (333-699) U/L Total Creatine Kinase (35-230) U/L Troponin I ng/mL Arterial Blood Potassium (3.6-5.2) mmol/L Venous Blood Potassium (3.6-5.2) mmol/L 02/27/18 02/27/18 02/27/18 Range/Units 05:18 04:10 02:59 WBC (4.5-11.0) 10^3/ul RBC (3.5-6.1) 10^6/uL Hgb (12.0-16.0) g/dL Hct (36.0-48.0) % MCV (80.0-105.0) fl MCH (25.0-35.0) pg MCHC (31.0-37.0) g/dl RDW (11.5-14.5) % Plt Count (120.0-450.0) 10^3/uL MPV (7.0-11.0) fl Gran % (50.0-68.0) % Lymph % (Auto) (22.0-35.0) % Ponce % (Auto) (1.0-6.0) % Eos % (Auto) (1.5-5.0) % Baso % (Auto) (0.0-3.0) % Gran # (1.4-6.5) Lymph # (Auto) (1.2-3.4) Ponce # (Auto) (0.1-0.6) Eos # (Auto) (0.0-0.7) Baso # (Auto) (0.0-2.0) K/mm3 pCO2 37 (35-45) mm/Hg pO2 149.0 H (30-55) mm/Hg HCO3 22.9 (21-28) mmol/L ABG pH 7.40 (7.35-7.45) ABG Total CO2 24.0 (22-28) mmol.L ABG O2 Saturation 100.0 H (95-98) % ABG Base Excess -1.5 (-2.0-3.0) mmol/L ABG Potassium 3.4 L (3.6-5.2) mmol/L VBG pH (7.32-7.43) VBG pCO2 (40-60) VBG HCO3 (21-28) mmol/l VBG Total CO2 (22-28) mmol.L VBG O2 Sat (Calc) (40-65) % VBG Base Excess (0.0-2.0) mmol/L VBG Potassium (3.6-5.2) mmol/L Sodium 139.0 (132-148) mmol/L Chloride 109.0 H (98-107) mmol/L Glucose 227 H (65-105) mg/dl Lactate 1.1 (0.7-2.1) mmol/L Mechanical Rate 20 FiO2 60.0 % Tidal Volume 400 PEEP 5 Potassium (3.6-5.0) mmol/L Carbon Dioxide (21-33) mmol/L Anion Gap (10-20) BUN (7-21) mg/dL Creatinine (0.7-1.2) mg/dl Est GFR ( Amer) Est GFR (Non-Af Amer) POC Glucose (mg/dL) 169 H 169 H (65-110) mg/dL Random Glucose (70-110) mg/dL Calcium (8.4-10.5) mg/dL Lactate Dehydrogenase (333-699) U/L Total Creatine Kinase (35-230) U/L Troponin I ng/mL Arterial Blood Potassium 3.4 L (3.6-5.2) mmol/L Venous Blood Potassium (3.6-5.2) mmol/L 02/27/18 02/27/18 02/27/18 Range/Units 02:16 00:50 00:00 WBC (4.5-11.0) 10^3/ul RBC (3.5-6.1) 10^6/uL Hgb (12.0-16.0) g/dL Hct (36.0-48.0) % MCV (80.0-105.0) fl MCH (25.0-35.0) pg MCHC (31.0-37.0) g/dl RDW (11.5-14.5) % Plt Count (120.0-450.0) 10^3/uL MPV (7.0-11.0) fl Gran % (50.0-68.0) % Lymph % (Auto) (22.0-35.0) % Ponce % (Auto) (1.0-6.0) % Eos % (Auto) (1.5-5.0) % Baso % (Auto) (0.0-3.0) % Gran # (1.4-6.5) Lymph # (Auto) (1.2-3.4) Ponce # (Auto) (0.1-0.6) Eos # (Auto) (0.0-0.7) Baso # (Auto) (0.0-2.0) K/mm3 pCO2 (35-45) mm/Hg pO2 (30-55) mm/Hg HCO3 (21-28) mmol/L ABG pH (7.35-7.45) ABG Total CO2 (22-28) mmol.L ABG O2 Saturation (95-98) % ABG Base Excess (-2.0-3.0) mmol/L ABG Potassium (3.6-5.2) mmol/L VBG pH (7.32-7.43) VBG pCO2 (40-60) VBG HCO3 (21-28) mmol/l VBG Total CO2 (22-28) mmol.L VBG O2 Sat (Calc) (40-65) % VBG Base Excess (0.0-2.0) mmol/L VBG Potassium (3.6-5.2) mmol/L Sodium (132-148) mmol/L Chloride (98-107) mmol/L Glucose (65-105) mg/dl Lactate (0.7-2.1) mmol/L Mechanical Rate FiO2 % Tidal Volume PEEP Potassium (3.6-5.0) mmol/L Carbon Dioxide (21-33) mmol/L Anion Gap (10-20) BUN (7-21) mg/dL Creatinine (0.7-1.2) mg/dl Est GFR ( Amer) Est GFR (Non-Af Amer) POC Glucose (mg/dL) 171 H 172 H 177 H (65-110) mg/dL Random Glucose (70-110) mg/dL Calcium (8.4-10.5) mg/dL Lactate Dehydrogenase (333-699) U/L Total Creatine Kinase (35-230) U/L Troponin I ng/mL Arterial Blood Potassium (3.6-5.2) mmol/L Venous Blood Potassium (3.6-5.2) mmol/L 02/26/18 02/26/18 02/26/18 Range/Units 22:20 21:12 19:59 WBC (4.5-11.0) 10^3/ul RBC (3.5-6.1) 10^6/uL Hgb (12.0-16.0) g/dL Hct (36.0-48.0) % MCV (80.0-105.0) fl MCH (25.0-35.0) pg MCHC (31.0-37.0) g/dl RDW (11.5-14.5) % Plt Count (120.0-450.0) 10^3/uL MPV (7.0-11.0) fl Gran % (50.0-68.0) % Lymph % (Auto) (22.0-35.0) % Ponce % (Auto) (1.0-6.0) % Eos % (Auto) (1.5-5.0) % Baso % (Auto) (0.0-3.0) % Gran # (1.4-6.5) Lymph # (Auto) (1.2-3.4) Ponce # (Auto) (0.1-0.6) Eos # (Auto) (0.0-0.7) Baso # (Auto) (0.0-2.0) K/mm3 pCO2 (35-45) mm/Hg pO2 (30-55) mm/Hg HCO3 (21-28) mmol/L ABG pH (7.35-7.45) ABG Total CO2 (22-28) mmol.L ABG O2 Saturation (95-98) % ABG Base Excess (-2.0-3.0) mmol/L ABG Potassium (3.6-5.2) mmol/L VBG pH (7.32-7.43) VBG pCO2 (40-60) VBG HCO3 (21-28) mmol/l VBG Total CO2 (22-28) mmol.L VBG O2 Sat (Calc) (40-65) % VBG Base Excess (0.0-2.0) mmol/L VBG Potassium (3.6-5.2) mmol/L Sodium (132-148) mmol/L Chloride (98-107) mmol/L Glucose (65-105) mg/dl Lactate (0.7-2.1) mmol/L Mechanical Rate FiO2 % Tidal Volume PEEP Potassium (3.6-5.0) mmol/L Carbon Dioxide (21-33) mmol/L Anion Gap (10-20) BUN (7-21) mg/dL Creatinine (0.7-1.2) mg/dl Est GFR ( Amer) Est GFR (Non-Af Amer) POC Glucose (mg/dL) 201 H 192 H 201 H (65-110) mg/dL Random Glucose (70-110) mg/dL Calcium (8.4-10.5) mg/dL Lactate Dehydrogenase (333-699) U/L Total Creatine Kinase (35-230) U/L Troponin I ng/mL Arterial Blood Potassium (3.6-5.2) mmol/L Venous Blood Potassium (3.6-5.2) mmol/L 02/26/18 02/26/18 02/26/18 Range/Units 19:04 17:24 15:32 WBC (4.5-11.0) 10^3/ul RBC (3.5-6.1) 10^6/uL Hgb (12.0-16.0) g/dL Hct (36.0-48.0) % MCV (80.0-105.0) fl MCH (25.0-35.0) pg MCHC (31.0-37.0) g/dl RDW (11.5-14.5) % Plt Count (120.0-450.0) 10^3/uL MPV (7.0-11.0) fl Gran % (50.0-68.0) % Lymph % (Auto) (22.0-35.0) % Ponce % (Auto) (1.0-6.0) % Eos % (Auto) (1.5-5.0) % Baso % (Auto) (0.0-3.0) % Gran # (1.4-6.5) Lymph # (Auto) (1.2-3.4) Ponce # (Auto) (0.1-0.6) Eos # (Auto) (0.0-0.7) Baso # (Auto) (0.0-2.0) K/mm3 pCO2 (35-45) mm/Hg pO2 (30-55) mm/Hg HCO3 (21-28) mmol/L ABG pH (7.35-7.45) ABG Total CO2 (22-28) mmol.L ABG O2 Saturation (95-98) % ABG Base Excess (-2.0-3.0) mmol/L ABG Potassium (3.6-5.2) mmol/L VBG pH (7.32-7.43) VBG pCO2 (40-60) VBG HCO3 (21-28) mmol/l VBG Total CO2 (22-28) mmol.L VBG O2 Sat (Calc) (40-65) % VBG Base Excess (0.0-2.0) mmol/L VBG Potassium (3.6-5.2) mmol/L Sodium (132-148) mmol/L Chloride (98-107) mmol/L Glucose (65-105) mg/dl Lactate (0.7-2.1) mmol/L Mechanical Rate FiO2 % Tidal Volume PEEP Potassium (3.6-5.0) mmol/L Carbon Dioxide (21-33) mmol/L Anion Gap (10-20) BUN (7-21) mg/dL Creatinine (0.7-1.2) mg/dl Est GFR ( Amer) Est GFR (Non-Af Amer) POC Glucose (mg/dL) 220 H 213 H 212 H (65-110) mg/dL Random Glucose (70-110) mg/dL Calcium (8.4-10.5) mg/dL Lactate Dehydrogenase (333-699) U/L Total Creatine Kinase (35-230) U/L Troponin I ng/mL Arterial Blood Potassium (3.6-5.2) mmol/L Venous Blood Potassium (3.6-5.2) mmol/L 02/26/18 02/26/18 02/26/18 Range/Units 15:25 15:25 13:38 WBC (4.5-11.0) 10^3/ul RBC (3.5-6.1) 10^6/uL Hgb (12.0-16.0) g/dL Hct (36.0-48.0) % MCV (80.0-105.0) fl MCH (25.0-35.0) pg MCHC (31.0-37.0) g/dl RDW (11.5-14.5) % Plt Count (120.0-450.0) 10^3/uL MPV (7.0-11.0) fl Gran % (50.0-68.0) % Lymph % (Auto) (22.0-35.0) % Ponce % (Auto) (1.0-6.0) % Eos % (Auto) (1.5-5.0) % Baso % (Auto) (0.0-3.0) % Gran # (1.4-6.5) Lymph # (Auto) (1.2-3.4) Ponce # (Auto) (0.1-0.6) Eos # (Auto) (0.0-0.7) Baso # (Auto) (0.0-2.0) K/mm3 pCO2 (35-45) mm/Hg pO2 46 (30-55) mm/Hg HCO3 (21-28) mmol/L ABG pH (7.35-7.45) ABG Total CO2 (22-28) mmol.L ABG O2 Saturation (95-98) % ABG Base Excess (-2.0-3.0) mmol/L ABG Potassium (3.6-5.2) mmol/L VBG pH 7.33 (7.32-7.43) VBG pCO2 39.0 L (40-60) VBG HCO3 20.6 L (21-28) mmol/l VBG Total CO2 21.8 L (22-28) mmol.L VBG O2 Sat (Calc) 89.4 H (40-65) % VBG Base Excess -4.9 L (0.0-2.0) mmol/L VBG Potassium 3.7 (3.6-5.2) mmol/L Sodium 140.0 (132-148) mmol/L Chloride 108.0 H (98-107) mmol/L Glucose 247 H (65-105) mg/dl Lactate 3.3 H (0.7-2.1) mmol/L Mechanical Rate FiO2 21.0 % Tidal Volume PEEP Potassium (3.6-5.0) mmol/L Carbon Dioxide (21-33) mmol/L Anion Gap (10-20) BUN (7-21) mg/dL Creatinine (0.7-1.2) mg/dl Est GFR ( Amer) Est GFR (Non-Af Amer) POC Glucose (mg/dL) 234 H (65-110) mg/dL Random Glucose (70-110) mg/dL Calcium (8.4-10.5) mg/dL Lactate Dehydrogenase 755 H (333-699) U/L Total Creatine Kinase 187 (35-230) U/L Troponin I 2.64 H* D ng/mL Arterial Blood Potassium (3.6-5.2) mmol/L Venous Blood Potassium 3.7 (3.6-5.2) mmol/L Laboratory Results - last 24 hr 02/26/18 02/26/18 02/26/18 13:38 15:25 15:25 WBC RBC Hgb Hct MCV MCH MCHC RDW Plt Count MPV Gran % Lymph % (Auto) Ponce % (Auto) Eos % (Auto) Baso % (Auto) Gran # Lymph # (Auto) Ponce # (Auto) Eos # (Auto) Baso # (Auto) pCO2 pO2 46 HCO3 ABG pH ABG Total CO2 ABG O2 Saturation ABG Base Excess ABG Potassium VBG pH 7.33 VBG pCO2 39.0 L VBG HCO3 20.6 L VBG Total CO2 21.8 L VBG O2 Sat (Calc) 89.4 H VBG Base Excess -4.9 L VBG Potassium 3.7 Sodium 140.0 Chloride 108.0 H Glucose 247 H Lactate 3.3 H Mechanical Rate FiO2 21.0 Tidal Volume PEEP Potassium Carbon Dioxide Anion Gap BUN Creatinine Est GFR ( Amer) Est GFR (Non-Af Amer) POC Glucose (mg/dL) 234 H Random Glucose Calcium Lactate Dehydrogenase 755 H Total Creatine Kinase 187 Troponin I 2.64 H* D Arterial Blood Potassium Venous Blood Potassium 3.7 02/26/18 02/26/18 02/26/18 15:32 17:24 19:04 WBC RBC Hgb Hct MCV MCH MCHC RDW Plt Count MPV Gran % Lymph % (Auto) Ponce % (Auto) Eos % (Auto) Baso % (Auto) Gran # Lymph # (Auto) Ponce # (Auto) Eos # (Auto) Baso # (Auto) pCO2 pO2 HCO3 ABG pH ABG Total CO2 ABG O2 Saturation ABG Base Excess ABG Potassium VBG pH VBG pCO2 VBG HCO3 VBG Total CO2 VBG O2 Sat (Calc) VBG Base Excess VBG Potassium Sodium Chloride Glucose Lactate Mechanical Rate FiO2 Tidal Volume PEEP Potassium Carbon Dioxide Anion Gap BUN Creatinine Est GFR ( Amer) Est GFR (Non-Af Amer) POC Glucose (mg/dL) 212 H 213 H 220 H Random Glucose Calcium Lactate Dehydrogenase Total Creatine Kinase Troponin I Arterial Blood Potassium Venous Blood Potassium 02/26/18 02/26/18 02/26/18 19:59 21:12 22:20 WBC RBC Hgb Hct MCV MCH MCHC RDW Plt Count MPV Gran % Lymph % (Auto) Ponce % (Auto) Eos % (Auto) Baso % (Auto) Gran # Lymph # (Auto) Ponce # (Auto) Eos # (Auto) Baso # (Auto) pCO2 pO2 HCO3 ABG pH ABG Total CO2 ABG O2 Saturation ABG Base Excess ABG Potassium VBG pH VBG pCO2 VBG HCO3 VBG Total CO2 VBG O2 Sat (Calc) VBG Base Excess VBG Potassium Sodium Chloride Glucose Lactate Mechanical Rate FiO2 Tidal Volume PEEP Potassium Carbon Dioxide Anion Gap BUN Creatinine Est GFR ( Amer) Est GFR (Non-Af Amer) POC Glucose (mg/dL) 201 H 192 H 201 H Random Glucose Calcium Lactate Dehydrogenase Total Creatine Kinase Troponin I Arterial Blood Potassium Venous Blood Potassium 02/27/18 02/27/18 02/27/18 00:00 00:50 02:16 WBC RBC Hgb Hct MCV MCH MCHC RDW Plt Count MPV Gran % Lymph % (Auto) Ponce % (Auto) Eos % (Auto) Baso % (Auto) Gran # Lymph # (Auto) Ponce # (Auto) Eos # (Auto) Baso # (Auto) pCO2 pO2 HCO3 ABG pH ABG Total CO2 ABG O2 Saturation ABG Base Excess ABG Potassium VBG pH VBG pCO2 VBG HCO3 VBG Total CO2 VBG O2 Sat (Calc) VBG Base Excess VBG Potassium Sodium Chloride Glucose Lactate Mechanical Rate FiO2 Tidal Volume PEEP Potassium Carbon Dioxide Anion Gap BUN Creatinine Est GFR ( Amer) Est GFR (Non-Af Amer) POC Glucose (mg/dL) 177 H 172 H 171 H Random Glucose Calcium Lactate Dehydrogenase Total Creatine Kinase Troponin I Arterial Blood Potassium Venous Blood Potassium 02/27/18 02/27/18 02/27/18 02:59 04:10 05:18 WBC RBC Hgb Hct MCV MCH MCHC RDW Plt Count MPV Gran % Lymph % (Auto) Ponce % (Auto) Eos % (Auto) Baso % (Auto) Gran # Lymph # (Auto) Ponce # (Auto) Eos # (Auto) Baso # (Auto) pCO2 37 pO2 149.0 H HCO3 22.9 ABG pH 7.40 ABG Total CO2 24.0 ABG O2 Saturation 100.0 H ABG Base Excess -1.5 ABG Potassium 3.4 L VBG pH VBG pCO2 VBG HCO3 VBG Total CO2 VBG O2 Sat (Calc) VBG Base Excess VBG Potassium Sodium 139.0 Chloride 109.0 H Glucose 227 H Lactate 1.1 Mechanical Rate 20 FiO2 60.0 Tidal Volume 400 PEEP 5 Potassium Carbon Dioxide Anion Gap BUN Creatinine Est GFR ( Amer) Est GFR (Non-Af Amer) POC Glucose (mg/dL) 169 H 169 H Random Glucose Calcium Lactate Dehydrogenase Total Creatine Kinase Troponin I Arterial Blood Potassium 3.4 L Venous Blood Potassium 02/27/18 02/27/18 02/27/18 05:20 05:20 07:45 WBC 14.7 H RBC 4.47 Hgb 13.1 Hct 38.8 MCV 86.8 MCH 29.3 MCHC 33.8 RDW 13.7 Plt Count 207 MPV 10.9 Gran % 87.4 H Lymph % (Auto) 7.4 L Ponce % (Auto) 5.2 Eos % (Auto) 0.0 L Baso % (Auto) 0.0 Gran # 12.87 H Lymph # (Auto) 1.1 L Ponce # (Auto) 0.8 H Eos # (Auto) 0.0 Baso # (Auto) 0.00 pCO2 pO2 HCO3 ABG pH ABG Total CO2 ABG O2 Saturation ABG Base Excess ABG Potassium VBG pH VBG pCO2 VBG HCO3 VBG Total CO2 VBG O2 Sat (Calc) VBG Base Excess VBG Potassium Sodium 142 Chloride 108 H Glucose Lactate Mechanical Rate FiO2 Tidal Volume PEEP Potassium 3.6 Carbon Dioxide 23 Anion Gap 15 BUN 8 Creatinine 0.5 L Est GFR ( Amer) > 60 Est GFR (Non-Af Amer) > 60 POC Glucose (mg/dL) 236 H Random Glucose 230 H Calcium 9.2 Lactate Dehydrogenase Total Creatine Kinase Troponin I Arterial Blood Potassium Venous Blood Potassium EKG/Cardiology Studies: Cardiology / EKG Studies 02/26/18 13:23 ELECTROCARDIOGRAM Urgent Comment: 12 lead EKG upon arrival in unit Reason For Exam: post ptca 02/26/18 13:30 ELECTROCARDIOGRAM DAILY Comment: Reason For Exam: chest pain 02/27/18 13:30 ELECTROCARDIOGRAM DAILY Comment: Reason For Exam: chest pain Critical Care Progress Note - Nutrition Nutrition: Nutrition Category Date Time Status Heart Healthy Diet [DIET] Diets 02/27/18 Lunch Active Attending/Attestation - Attestation I have personally seen and examined this patient.: Yes I have fully participated in the care of the patient.: Yes I have reviewed all pertinent clinical information: Yes Notes (Text): 02/27/18 13:[address] edouard note
[2018-02-27] MEDS ORDERED: Metoprolol 1 mg/ml Inj IVP SCH (12:00)
--- NOTE | 2018-02-27 12:19 | PN ---
DATE: 02/27/2018 SUBJECTIVE: The patient was seen and examined at bedside. She is extubated. She is doing very well. She is not in respiratory distress. She is alert, awake, oriented, and very comfortable. PHYSICAL EXAMINATION: VITAL SIGNS: The patient is on dobutamine 5 mcg per kg per minute, her heart rate is 160-120 (the patient had episode of SVT at night and dobutamine will be stopped. I will touch base with Dr. Cruz whether we can start the patient on beta blockers at this time). Blood pressure 106/58, temperature 98.6, respiratory rate 20, oxygen saturation 93% on 2 liters nasal cannula. HEENT: Head and neck atraumatic. LUNGS: Clear to auscultation bilaterally (Solu-Medrol tapered down to 20 mg IV daily with concomitant start of inhaled Pulmicort). HEART: Regular rate and rhythm. S1, S2 distant. ABDOMEN: Soft, nontender, nondistended. MUSCULOSKELETAL: No C/C/E. NEUROLOGIC: The patient moves all extremities spontaneously. SKIN: Moist. PSYCHIATRIC: The patient is alert, awake, oriented x3, and comfortable. LABORATORY DATA: WBC 14.7, hemoglobin 13.1, platelet count 207. Sodium 142, potassium 3.6, chloride 108, carbon dioxide 23, BUN 8, creatinine 0.5, glucose 230 (the patient is on insulin drip, tapering systemic steroids will also help with glucose control, which will lead to starting a longer-acting formulation of subcu insulin and stopping insulin drip). Urine Legionella antigen is negative. MEDICATIONS: DuoNeb every 6 hours, aspirin 81 mg p.o. daily, Lipitor, Pulmicort, doxycycline, Lasix 40 mg IV every 12 hours, insulin, lisinopril 5 mg p.o. daily, cefepime, Solu-Medrol 20 mg IV daily, and Protonix 40 mg daily. ASSESSMENT AND PLAN: This is 57-year-old lady who presented with acute coronary syndrome in the setting of severe left ventricular systolic dysfunction, possibly triggering COPD exacerbation complicated by hypercapnic respiratory failure requiring intubation. The patient had coronary angiography yesterday; however, stenting or balloon angioplasty was not performed due to anatomical peculiarities of disease and coronary anatomy. Optimization of conservative treatment was recommended by Cardiology service, which was done and the patient got extubated today. The patient had an episode of supraventricular tachycardia overnight and dobutamine will be stopped. I will touch base with Dr. Cruz whether we can start beta blockers at present time. Meanwhile, cardiac regimen includes aspirin, statins, BRAD inhibitors for afterload reduction. I will also recommend BiPAP at night. The patient will be on inhaled corticosteroids and DuoNeb every 6 hours for now. Out of bed to chair, initiation of oral nutrition and hydration is also recommended. Counseling about smoking cessation was done as well. The patient verbalized understanding. We will continue with deep venous thrombosis, gastric prophylaxis. Head of bed elevated >35 degrees. We will continue to maintain euvolemia, euglycemia, normothermia, and saturation more than 90%. The patient is on broad-spectrum antibiotics and ID service is following her as well. I think at present time completion of 5 days of antibiotics would be reasonable, but the decision will be deferred to ID service. We will try to avoid nephrotoxins and hyperchloremia. We will maintain mean arterial pressure more than 65. ccm time 40 min Gal Lyons MD EMMANUELLE
[2018-02-27] MEDS: Budesonide 0.5 mg/2 ml Inhal Susp UD IH SCH ×2 (13:03→19:35)
[2018-02-27] MEDS: Insulin Detemir 100 units/ml Vial (Levemir) SC SCH (14:21)
--- NOTE | 2018-02-27 14:47 | PN ---
DATE: 02/27/2018 CARDIOLOGY FOLLOWUP SUBJECTIVE: The patient is extubated. She is in a chair without shortness of breath. She is status post catheterization without issues. PHYSICAL EXAMINATION: VITAL SIGNS: The blood pressure is 111/57, heart rate is 100. NECK: Negative JVD. LUNGS: Without rales. HEART: Reveals S1, S2. EXTREMITIES: Without edema. LABORATORY DATA: Hemoglobin is 13.1. Chemistries: BUN and creatinine are 8 and 0.5. IMPRESSION: 1. Status post respiratory failure. 2. Status post congestive heart failure. 3. Dilated cardiomyopathy. 4. Hypertension. 5. Pneumonia. 6. Tachycardia. PLAN: Given these findings, the patient has tolerated her BRAD inhibitor. We will start her on p.o. beta-blockers. Tadeo Cruz MD
[2018-02-27] MEDS ORDERED: Insulin Reg-MEDIUM-Coverage SC SCH (16:30)
[2018-02-27] MEDS: Insulin Reg-MEDIUM-Coverage SC SCH ×2 (21:27→23:57)
--- NOTE | 2018-02-27 22:50 | PN ---
DATE: 02/27/2018 SUBJECTIVE: The patient is seen earlier this morning in the ICU, 129, bed 6. The patient is in bed, in no acute distress, nontoxic. PHYSICAL EXAMINATION: VITAL SIGNS: Temperature is 98, blood pressure is 111/50, respiratory rate of 16, heart rate of 120. HEENT: Unremarkable. NECK: Supple. LUNGS: Have decreased breath sounds. HEART: Normal S1, S2. ABDOMEN: Soft. LABORATORY DATA: Reveals the patient's white count of 14,700; hemoglobin of 13; platelets of 207. BUN of 8, creatinine of 0.8. Procalcitonin of 0.05. Urinalysis is noted. Blood cultures, no growth. Nasal MRSA is not detected. Urine for Legionella antigen is negative. REVIEW OF ORDERS: Reveals the patient to be on IV doxycycline, Zosyn was given in the ER, currently also on cefepime. MICROBIOLOGY: Reveals the blood culture is negative. Nasal MRSA screen is negative. Procalcitonin is 0.05. ASSESSMENT AND PLAN: This is a 57-year-old female, who was seen earlier today in 129, bed 6 with a chronic obstructive lung disease; obesity; BMI of 32; diabetes mellitus; peripheral artery disease with an angioplasty with systemic inflammatory response syndrome; acute coronary syndrome with congestive heart failure; exacerbation of chronic obstructive pulmonary disease, on intermittent vancomycin, cefepime, doxycycline; negative blood cultures; negative procalcitonin; and a chest x-ray which was from yesterday. No active pulmonary disease. Dr. Tadeo Cruz's progress note is reviewed. Patient has dilated cardiomyopathy. Dr. Lyons's note is reviewed. We will follow up closely with you. Today is day #2 of 5 days of antibiotic therapy. Matthew Lombardo MD
--- NOTE | 2018-02-27 22:55 | CP.PCM.PN ---
<Itz Mckeon - Last Filed: 02/27/18 22:48> Subjective - Date & Time of Evaluation Date of Evaluation: 02/27/18 Time of Evaluation: 08:00 - Subjective Subjective: Patient seen and evalauted. Patient noted to be extubated this AM, off milirinone gtt, heparin gtt, insulin gtt. Patient on dobutamine gtt and on NC 5 L tolerating well. Patient has no complaints at time of interview. Objective - Vital Signs/Intake and Output Vital Signs (last 24 hours): Temp Pulse Resp BP Pulse Ox 98.2 F 70 15 98/56 L 99 02/27/18 06:50 02/27/18 18:51 02/27/18 06:59 02/27/18 22:43 02/27/18 06:59 Intake and Output: 02/27/18 02/28/18 18:59 06:59 Intake Total 280 Output Total 1700 Balance -1420 - Medications Medications: Current Medications Albuterol/Ipratropium (Duoneb 3 Mg/0.5 Mg (3 Ml) Ud) 3 ml IH [id number] [facility] Last Admin: 02/27/18 19:35 Dose: 3 ml Aspirin (Aspirin Chewable) 81 mg PO DAILY [facility] Last Admin: 02/27/18 10:37 Dose: 81 mg Atorvastatin Calcium (Lipitor) 40 mg PO DIN [facility] Last Admin: 02/27/18 18:52 Dose: 40 mg Budesonide (Pulmicort Respules) 1 mg IH [id number] [facility] Last Admin: 02/27/18 19:35 Dose: 1 mg Carvedilol (Coreg) 25 mg PO BID [facility] Last Admin: 02/27/18 18:51 Dose: 25 mg Enoxaparin Sodium (Lovenox) 40 mg SC DAILY [facility] PRN Reason: Protocol Last Admin: 02/27/18 10:06 Dose: 40 mg Furosemide (Lasix) 40 mg IVP Q12 [facility] Last Admin: 02/27/18 22:43 Dose: 40 mg Cefepime HCl (Maxipime 2gm) 2 gm in 100 mls @ 100 mls/hr IVPB Q12 [facility] PRN Reason: Protocol Stop: 03/03/18 10:01 Last Admin: 02/27/18 21:30 Dose: 100 mls/hr Doxycycline Hyclate 100 mg/ (Sodium Chloride) 100 mls @ 100 mls/hr IVPB Q12 [facility] PRN Reason: Protocol Last Admin: 02/27/18 21:30 Dose: 100 mls/hr Insulin Detemir (Levemir) 60 unit SC DAILY [facility] Last Admin: 02/27/18 14:21 Dose: 60 unit Insulin Human Regular (Humulin R Med) 0 units SC Q4H [facility] PRN Reason: Protocol Last Admin: 02/27/18 21:27 Dose: Not Given Lisinopril (Zestril) 5 mg PO DAILY [facility] Last Admin: 02/27/18 09:56 Dose: 5 mg Methylprednisolone (Solu-Medrol) 20 mg IVP DAILY [facility] Last Admin: 02/27/18 10:02 Dose: 20 mg Pantoprazole Sodium (Protonix Inj) 40 mg IVP DAILY [facility] Last Admin: 02/27/18 10:05 Dose: 40 mg - Labs Labs: 02/27/18 05:20 02/27/18 05:20 PT 10.1 SECONDS (9.4-12.5) 02/26/18 02:04 INR 0.89 (0.93-1.08) L 02/26/18 02:04 APTT 64.3 Seconds (25.1-36.5) H 02/26/18 08:30 - Constitutional Appears: No Acute Distress - Head Exam Head Exam: ATRAUMATIC, NORMAL INSPECTION, NORMOCEPHALIC - Neck Exam Neck Exam: Full ROM - Respiratory Exam Respiratory Exam: Clear to Ausculation Bilateral, NORMAL BREATHING PATTERN - Cardiovascular Exam Cardiovascular Exam: REGULAR RHYTHM, +S1, +S2 - GI/Abdominal Exam GI & Abdominal Exam: Soft, Normal Bowel Sounds - Neurological Exam Neurological Exam: Alert, Awake, Oriented x3 Additional comments: motor and sensory intact - Psychiatric Exam Psychiatric exam: Normal Affect, Normal Mood - Skin Skin Exam: Dry, Warm Assessment and Plan - Assessment and Plan (Free Text) Assessment: 57 year old female with past medical history that includes who presented with acute coronary syndrome in the setting of severe left ventricular systolic dysfunction with suspected COPD exacerbation in the setting of hypercapnic respiratory failure requiring intubation. Patient is s/p left heart cath with Cardiology and extubation Plan: 1. ACS s/p LHC - Elevated troponin, EKG showing poor r wave progression - s/p LHC with cardiology, without intervention, recs for medical therapy - Cardiology consulted and following - Aspirin, Statin, Tolu-inhibitors, beta marsha - Milrinone gtt discontinued - Dobutamine gtt today - Maintain MAP >65 2. COPD exacerbation - Presentation of COPD exacerbation with hypercapnic respiratory failure requrigin intubation - Patient extubated today, to remain in ICU for monitoring - Duonebs Q6H, ICS - Pulmicort - NC with plan for wean to room air - BiPAP QHS - Continue broad spectrum antibiotics with doxycycline and cefepime 3. DM2 - HgbA1c 9.4 - Elevated sugars - Insulin 60 units daily - ISS medium - monitor ACHS 4. Tobacco abuse - Tobacco cessation counseling GI/DVT ppx - Protonix - Lovenox Case and plan discussed with attending <Mani Barber - Last Filed: 03/05/18 18:04> Objective - Vital Signs/Intake and Output Vital Signs (last 24 hours): Temp Pulse Resp BP Pulse Ox 97.9 F 72 20 94/52 L 94 L 03/05/18 12:00 03/05/18 12:00 03/05/18 12:00 03/05/18 09:18 03/05/18 12:00 Intake and Output: 03/05/18 03/05/18 06:59 18:59 Intake Total 360 Balance 360 - Medications Medications: Current Medications Amiodarone HCl (Cordarone) 400 mg PO BID [facility] Last Admin: 03/05/18 09:17 Dose: 400 mg Aspirin (Aspirin Chewable) 81 mg PO DAILY [facility] Last Admin: 03/05/18 09:17 Dose: 81 mg Atorvastatin Calcium (Lipitor) 40 mg PO DIN [facility] Last Admin: 03/04/18 17:58 Dose: 40 mg Budesonide (Pulmicort Respules) 1 mg IH [id number] [facility] Last Admin: 03/05/18 07:16 Dose: 1 mg Carvedilol (Coreg) 25 mg PO BID [facility] Last Admin: 03/05/18 09:18 Dose: 25 mg Enoxaparin Sodium (Lovenox) 40 mg SC DAILY [facility] PRN Reason: Protocol Last Admin: 03/05/18 09:17 Dose: 40 mg Furosemide (Lasix) 20 mg PO DAILY [facility] Last Admin: 03/05/18 09:16 Dose: 20 mg Insulin Detemir (Levemir) 60 unit SC DAILY [facility] Last Admin: 03/05/18 09:18 Dose: 60 unit Insulin Human Regular (Humulin R Med) 0 units SC Q4H [facility] PRN Reason: Protocol Last Admin: 03/05/18 12:25 Dose: Not Given Lisinopril (Zestril) 5 mg PO DAILY [facility] Last Admin: 02/28/18 12:16 Dose: Not Given Pantoprazole Sodium (Protonix Ec Tab) 40 mg PO ACB [facility] Last Admin: 03/05/18 08:12 Dose: 40 mg Prednisone (Prednisone Tab) 10 mg PO DAILY [facility] Last Admin: 03/05/18 09:16 Dose: 10 mg - Labs Labs: 03/02/18 10:00 03/02/18 10:00 PT 10.1 SECONDS (9.4-12.5) 02/26/18 02:04 INR 0.89 (0.93-1.08) L 02/26/18 02:04 APTT 64.3 Seconds (25.1-36.5) H 02/26/18 08:30 Attending/Attestation - Attestation I have personally seen and examined this patient.: Yes I have fully participated in the care of the patient.: Yes I have reviewed all pertinent clinical information, including history, physical exam and plan: Yes Notes (Text): 03/05/18 18:02 Medical record note made by the resident after discussion with my direction and input after the patient was personally seen and examined by me. I have reviewed the chart and agree that the record accurately reflects by personal performance of the history, physical exam, data review, and medical decision-making, in the course for the patient. I have also personally directed the plan of care. 57 year old female with PMH od DM,Obesity presented with acute coronary syndrome in the setting of severe left ventricular systolic dysfunction with suspected COPD exacerbation in the setting of hypercapnic respiratory failure requiring intubation, underwent cardiac cath showed critical LAD lesion which was not amendable by angioplasty, medical management was recommended. Patient was extubated yesterday, had episode of hypotension last night, but better now . , Management plan was discussed in detail with patient. Education was provided.
[2018-02-28] MEDS: Albuterol-Ipratrop 3 mg / 0.5 (3 ml) UD IH SCH ×4 (02:00→21:05)
[2018-02-28] MEDS ORDERED: Sodium Chloride 0.9% 1,000 ML IV STA (02:05)
[2018-02-28] MEDS ORDERED: Sodium Chloride 0.9% 1,000 ML IV SCH ×2 (02:15→02:30)
[2018-02-28 02:43] LABS: ALB/GLOB RATIO 1.2 (1.1-1.8); ALBUMIN 3.3 g/dL (3.0-4.8); ALT/SGPT 34 U/L (7-56); AST/SGOT 19 U/L (14-36); BLOOD UREA NITROGEN 16 mg/dL (7-21); CALCIUM 9.2 mg/dL (8.4-10.5); GFR NON-AFRICAN AMERICAN > 60
[2018-02-28] MEDS ORDERED: Magnesium Sulfate 2 gm/50 ml 2 GM/50 ML BAG IVPB ONE (04:01)
[2018-02-28 06:25] LABS: BASO # 0.02 K/mm3 (0.0-2.0); BASO % 0.1 % (0.0-3.0); EOS % 0.2 % (1.5-5.0); GRAN # 9.91 (1.4-6.5); GRAN % 61.6 % (50.0-68.0); HEMOGLOBIN 13.2 g/dL (12.0-16.0); MEAN CELL VOLUME 88.2 fl (80.0-105.0); MEAN CORPUSCULAR HEMOGLOBIN 29.3 pg (25.0-35.0); MEAN CORPUSCULAR HGB CONC 33.2 g/dl (31.0-37.0); MONO # 1.1 (0.1-0.6); MONO % 7.1 % (1.0-6.0); RBC 4.51 10^6/uL (3.5-6.1); WHITE BLOOD COUNT 16.1 10^3/ul (4.5-11.0)
[2018-02-28 06:58] LABS: ALB/GLOB RATIO 1.1 (1.1-1.8); ALBUMIN 3.2 g/dL (3.0-4.8); ALT/SGPT 33 U/L (7-56); AST/SGOT 17 U/L (14-36); BLOOD UREA NITROGEN 17 mg/dL (7-21); CALCIUM 9.1 mg/dL (8.4-10.5); GFR NON-AFRICAN AMERICAN > 60
[2018-02-28] MEDS: Budesonide 0.5 mg/2 ml Inhal Susp UD IH SCH ×2 (07:02→21:05)
--- NOTE | 2018-02-28 08:16 | CARD ---
APPROVED REPORT EKG Measurement Heart [id number] <Conclusion> Sinus tachycardia Low voltage QRS Septal infarct, age undetermined Possible Lateral infarct, age undetermined Abnormal ECG
--- NOTE | 2018-02-28 09:27 | CARD ---
APPROVED REPORT EKG Measurement Heart [id number] <Conclusion> Sinus rhythm with premature supraventricular complexes Left axis deviation Septal infarct, age undetermined Abnormal ECG
--- NOTE | 2018-02-28 09:30 | CARD ---
APPROVED REPORT EKG Measurement Heart [id number] <Conclusion> Sinus rhythm with premature ventricular complexes or fusion complexes Left axis deviation Anteroseptal infarct, age undetermined Abnormal ECG
[2018-02-28] MEDS: Insulin Reg-MEDIUM-Coverage SC SCH ×4 (09:53→20:50)
[2018-02-28] MEDS: Enoxaparin 40 mg Syringe SC SCH (09:54)
[2018-02-28] MEDS: Insulin Detemir 100 units/ml Vial (Levemir) SC SCH (09:55)
[2018-02-28] MEDS: MethylPREDNISolone 40 mg Vial IVP SCH (09:55)
[2018-02-28] MEDS: Cefepime IV 2 gm in NS 2 GM/100 ML BAG IVPB SCH ×2 (09:56→22:22)
--- NOTE | 2018-02-28 11:11 | RAD ---
HISTORY: Wheezing COMPARISON: 02/26/2018 FINDINGS: LUNGS: No active pulmonary disease. PLEURA: No significant pleural effusion identified, no pneumothorax apparent. CARDIOVASCULAR: Improved vascular congestion OSSEOUS STRUCTURES: No significant abnormalities. VISUALIZED UPPER ABDOMEN: Normal. OTHER FINDINGS: None. IMPRESSION: Improved vascular congestion
[2018-02-28] MEDS ORDERED: Potassium Chloride 20 mEq/15 ml LIQ UD PO STA (11:12)
--- NOTE | 2018-02-28 11:51 | PN ---
DATE: 02/28/2018 CARDIOLOGY FOLLOWUP SUBJECTIVE: The patient is comfortable in bed. No shortness of breath. PHYSICAL EXAMINATION: VITAL SIGNS: Blood pressure is 90/53, the heart rate is in the 80s. NECK: Negative JVD. LUNGS: Clear to auscultation. HEART: Reveals S1, S2. EXTREMITIES: Without edema. LABORATORY DATA: Magnesium is 2.8, potassium is 3.8. BUN and creatinine are unremarkable. Glucose is 149 with a hemoglobin of 13. IMPRESSION: 1. Status post subacute anterior wall myocardial infarction. 2. Ischemic dilated cardiomyopathy with an ejection fraction of 20-25%. 3. Status post congestive heart failure. 4. Hypertension. 5. Episodes of self-limiting wide complex tachycardia consistent with a accelerated idioventricular rhythm versus transient atrial fibrillation with aberrancy. PLAN: 1. Given these findings, I will discontinue IV Lasix and change to low-dose p.o. Lasix. 2. Increase her beta marsha to Coreg 50 b.i.d. 3. Given these findings, the patient will likely need either a LifeVest versus of possible AICD. Tadeo Cruz MD
--- NOTE | 2018-02-28 14:09 | CP.PCM.PN ---
<Itz Mckeon - Last Filed: 02/28/18 13:59> Subjective - Date & Time of Evaluation Date of Evaluation: 02/28/18 Time of Evaluation: 13:59 - Subjective Subjective: Patient seen and evaluated this AM. No acute events overnight. Patient denies complaints. Denies dizziness, chest pain, shortness of breath, abdominal pain, weakness. Objective - Vital Signs/Intake and Output Vital Signs (last 24 hours): Temp Pulse Resp BP Pulse Ox 98.6 F 93 H 31 H 105/65 94 L 02/28/18 12:00 02/28/18 13:30 02/28/18 13:30 02/28/18 13:30 02/28/18 13:30 - Medications Medications: Current Medications Albuterol/Ipratropium (Duoneb 3 Mg/0.5 Mg (3 Ml) Ud) 3 ml IH [id number] [facility] Last Admin: 02/28/18 13:03 Dose: 3 ml Aspirin (Aspirin Chewable) 81 mg PO DAILY [facility] Last Admin: 02/28/18 09:55 Dose: 81 mg Atorvastatin Calcium (Lipitor) 40 mg PO DIN [facility] Last Admin: 02/27/18 18:52 Dose: 40 mg Budesonide (Pulmicort Respules) 1 mg IH [id number] [facility] Last Admin: 02/28/18 07:02 Dose: 1 mg Carvedilol (Coreg) 12.5 mg PO BID [facility] Enoxaparin Sodium (Lovenox) 40 mg SC DAILY [facility] PRN Reason: Protocol Last Admin: 02/28/18 09:54 Dose: 40 mg Furosemide (Lasix) 20 mg PO DAILY [facility] Hydrocortisone Sodium Succinate (Solu-Cortef) 20 mg IVP DAILY [facility] Stop: 03/01/18 20:00 Cefepime HCl (Maxipime 2gm) 2 gm in 100 mls @ 100 mls/hr IVPB Q12 [facility] PRN Reason: Protocol Stop: 03/03/18 10:01 Last Admin: 02/28/18 09:56 Dose: 100 mls/hr Doxycycline Hyclate 100 mg/ (Sodium Chloride) 100 mls @ 100 mls/hr IVPB Q12 [facility] PRN Reason: Protocol Last Admin: 02/28/18 09:56 Dose: 100 mls/hr Insulin Detemir (Levemir) 60 unit SC DAILY [facility] Last Admin: 02/28/18 09:55 Dose: 60 unit Insulin Human Regular (Humulin R Med) 0 units SC Q4H [facility] PRN Reason: Protocol Last Admin: 02/28/18 12:02 Dose: 3 u Lisinopril (Zestril) 5 mg PO DAILY [facility] Last Admin: 02/28/18 12:16 Dose: Not Given Pantoprazole Sodium (Protonix Ec Tab) 40 mg PO ACB [facility] - Labs Labs: 02/28/18 05:30 02/28/18 05:30 PT 10.1 SECONDS (9.4-12.5) 02/26/18 02:04 INR 0.89 (0.93-1.08) L 02/26/18 02:04 APTT 64.3 Seconds (25.1-36.5) H 02/26/18 08:30 - Constitutional Appears: No Acute Distress - Head Exam Head Exam: ATRAUMATIC, NORMAL INSPECTION, NORMOCEPHALIC - Eye Exam Eye Exam: EOMI, PERRL - Respiratory Exam Respiratory Exam: Rales, NORMAL BREATHING PATTERN Additional comments: mild left base - Cardiovascular Exam Cardiovascular Exam: REGULAR RHYTHM, +S1, +S2 - GI/Abdominal Exam GI & Abdominal Exam: Soft, Normal Bowel Sounds. absent: Rigid, Tenderness - Extremities Exam Extremities Exam: Normal Capillary Refill. absent: Calf Tenderness, Pedal Edema - Neurological Exam Neurological Exam: Alert, Awake, Normal Gait, Oriented x3 Additional comments: MOtor and sensory grossly intact - Psychiatric Exam Psychiatric exam: Normal Affect, Normal Mood - Skin Skin Exam: Dry, Warm Assessment and Plan - Assessment and Plan (Free Text) Assessment: 57 year old female with past medical history that includes who presented with acute coronary syndrome in the setting of severe left ventricular systolic dysfunction with suspected COPD exacerbation in the setting of hypercapnic respiratory failure requiring intubation. Patient is s/p left heart cath with Cardiology and extubation. Patient is stable and has been transferred out of ICU. Plan: ACS s/p LHC - Elevated troponin, EKG showing poor r wave progression - s/p LHC with cardiology, without intervention, recs for medical therapy - Cardiology consulted and following - Aspirin, Statin, Tolu-inhibitors, beta marsha - Carvedilol 6.125mg, holding if systolic BP below 100 - Holding lasix at this time for hypotension - Stop IVF hydration, CXR for fluid status - Dobutamine gtt discontinued - Maintain MAP >65 COPD exacerbation - Presentation of COPD exacerbation with hypercapnic respiratory failure requiring intubation - Duonebs Q6H, ICS - Pulmicort - NC with plan for wean to room air - BiPAP QHS - Continue broad spectrum antibiotics with doxycycline and cefepime - Continue Steroids hydrocortisone 20mg today and tomorrow with plan to move to oral steroids after DM2 - HgbA1c 9.4 - Elevated sugars - Insulin 60 units daily - ISS medium - monitor ACHS Tobacco abuse - Tobacco cessation counseling GI/DVT ppx - Protonix - Lovenox dispo: patient to follow up with [facility] [place] clinic upon discharge Case and plan discussed with attending <Mani Barber - Last Filed: 03/08/18 17:13> Objective - Vital Signs/Intake and Output Vital Signs (last 24 hours): Temp Pulse Resp BP Pulse Ox 98.4 F 66 17 85/53 L 95 03/06/18 12:00 03/06/18 12:00 03/06/18 12:00 03/06/18 12:00 03/06/18 00:01 - Labs Labs: 03/02/18 10:00 03/06/18 08:20 PT 10.1 SECONDS (9.4-12.5) 02/26/18 02:04 INR 0.89 (0.93-1.08) L 02/26/18 02:04 APTT 64.3 Seconds (25.1-36.5) H 02/26/18 08:30 Attending/Attestation - Attestation I have personally seen and examined this patient.: Yes I have fully participated in the care of the patient.: Yes I have reviewed all pertinent clinical information, including history, physical exam and plan: Yes Notes (Text): 03/08/18 17:12 Medical record note made by the resident after discussion with my direction and input after the patient was personally seen and examined by me. I have reviewed the chart and agree that the record accurately reflects by personal performance of the history, physical exam, data review, and medical decision-making, in the course for the patient. I have also personally directed the plan of care. 57 year old female with PMH od DM,Obesity presented with acute coronary syndrome in the setting of severe left ventricular systolic dysfunction with suspected COPD exacerbation in the setting of hypercapnic respiratory failure requiring intubation, underwent cardiac cath showed critical LAD lesion which was not amendable by angioplasty, medical management was recommended. Patient is SP extubation, had episode of hypotension last night, but better now .Cardiology is following.
--- NOTE | 2018-02-28 20:14 | PN ---
DATE: 02/28/2018 SUBJECTIVE: The patient is in bed, in no acute distress. PHYSICAL EXAMINATION: VITAL SIGNS: Temperature is 98, blood pressure is 104/40, respiratory rate of 18, and heart rate of 93. HEENT: Unremarkable. NECK: Supple. LUNGS: Have decreased breath sounds. HEART: Normal S1 and S2. ABDOMEN: Soft, nontender. LABORATORY DATA: Reveals a white count of 16,000, hemoglobin of 13, platelets of 214. Chemistry reveals a BUN of 17, creatinine of 0.6. Urinalysis is noted. Serology: Urine for Legionella antigen is negative. Blood cultures are negative and naris also negative. Chest x-ray, no active disease. Dr. Tadeo Cruz's note is reviewed. Dr. Ceballos note is reviewed. ASSESSMENT AND PLAN: A 57-year-old female who was seen earlier this morning in [facility], bed 6 with chronic obstructive lung disease, obesity with a body mass index of 32, diabetes mellitus, peripheral artery disease, angioplasty with systemic inflammatory response syndrome, acute coronary syndrome, congestive heart failure, exacerbation of chronic obstructive lung disease, on cefepime and doxycycline. Negative blood cultures, negative procalcitonin. No active disease on chest x-ray and day #3 of 5 days of cefepime and doxycycline. We will change the doxycycline to p.o. and the patient is also on IV cefepime. The patient is also on Solu-Cortef, which may explain the 16,000 white count in this patient who does not appear to be toxic. We will follow with you. Matthew Lombardo MD
[2018-03-01] MEDS: Insulin Reg-MEDIUM-Coverage SC SCH ×6 (00:34→21:40)
[2018-03-01] MEDS: Albuterol-Ipratrop 3 mg / 0.5 (3 ml) UD IH SCH ×2 (02:50→07:41)
[2018-03-01 07:11] LABS: BASO # 0.02 K/mm3 (0.0-2.0); BASO % 0.1 % (0.0-3.0); EOS # 0.1 (0.0-0.7); EOS % 0.5 % (1.5-5.0); GRAN # 7.04 (1.4-6.5); GRAN % 51.1 % (50.0-68.0); HEMOGLOBIN 13.4 g/dL (12.0-16.0); LYMPH # 5.7 (1.2-3.4); LYMPH % 41.1 % (22.0-35.0); MEAN CELL VOLUME 88.4 fl (80.0-105.0); MEAN CORPUSCULAR HEMOGLOBIN 29.4 pg (25.0-35.0); MEAN CORPUSCULAR HGB CONC 33.3 g/dl (31.0-37.0); MEAN PLATELET VOLUME 10.9 fl (7.0-11.0); MONO % 7.2 % (1.0-6.0); RBC 4.56 10^6/uL (3.5-6.1); RED CELL DISTRIBUTION WIDTH 13.7 % (11.5-14.5); WHITE BLOOD COUNT 13.8 10^3/ul (4.5-11.0)
[2018-03-01 07:36] LABS: ALB/GLOB RATIO 1.1 (1.1-1.8); ALBUMIN 3.3 g/dL (3.0-4.8); ALT/SGPT 38 U/L (7-56); AST/SGOT 23 U/L (14-36); BLOOD UREA NITROGEN 17 mg/dL (7-21); CALCIUM 9.2 mg/dL (8.4-10.5); GFR NON-AFRICAN AMERICAN > 60
[2018-03-01] MEDS: Budesonide 0.5 mg/2 ml Inhal Susp UD IH SCH ×2 (07:41→21:00)
[2018-03-01] MEDS: Pantoprazole 40 mg EC Tab PO SCH (08:09)
[2018-03-01] MEDS: Enoxaparin 40 mg Syringe SC SCH (09:46)
[2018-03-01] MEDS: Cefepime IV 2 gm in NS 2 GM/100 ML BAG IVPB SCH ×2 (09:47→21:57)
[2018-03-01] MEDS: Insulin Detemir 100 units/ml Vial (Levemir) SC SCH ×2 (09:56→12:51)
--- NOTE | 2018-03-01 11:04 | PN ---
DATE: 03/01/2018 CARDIOLOGY FOLLOWUP SUBJECTIVE: The patient is chest pain free. No shortness of breath noted. PHYSICAL EXAMINATION VITAL SIGNS: Blood pressure is 90/56, the heart rate is in the 80s. NECK: Negative JVD. LUNGS: Without rales. HEART: Reveals S1 and S2. EXTREMITIES: Without edema. LABORATORY DATA: White count is down to 13,000; hemoglobin is 13.4. Chemistries: BUN and creatinine are unremarkable. IMPRESSION: 1. Subacute anterior wall myocardial infarction. 2. Ischemic dilated cardiomyopathy. 3. Coronary artery disease. 4. Diabetes mellitus. 5. Hypertension. 6. Nonsustained wide complex tachycardia. PLAN: Given these findings, the patient is ambulating without symptoms at this time. No shortness of breath. No chest pain. We will increase her Coreg to 25 b.i.d. We will arrange for a LifeVest in preparation for her discharge. Tadeo Cruz MD
--- NOTE | 2018-03-01 15:51 | CP.PCM.PN ---
<Itz Mckeon - Last Filed: 03/01/18 15:47> Subjective - Date & Time of Evaluation Date of Evaluation: 03/01/18 Time of Evaluation: 15:48 - Subjective Subjective: Patient seen and examined this AM. overnight reports of junctional rhythms reported. Patient denies palpitations, dizziness, chest pain, shortness of breath overnight. Patient has no complaints at time of interview. Objective - Vital Signs/Intake and Output Vital Signs (last 24 hours): Temp Pulse Resp BP Pulse Ox 98 F 92 H 20 107/70 94 L 03/01/18 11:48 03/01/18 11:48 03/01/18 11:48 03/01/18 11:48 03/01/18 09:45 Intake and Output: 03/01/18 03/01/18 06:59 18:59 Intake Total 220 Output Total 0 Balance 220 - Medications Medications: Current Medications Aspirin (Aspirin Chewable) 81 mg PO DAILY [facility] Last Admin: 03/01/18 09:45 Dose: 81 mg Atorvastatin Calcium (Lipitor) 40 mg PO DIN [facility] Last Admin: 02/28/18 17:10 Dose: 40 mg Budesonide (Pulmicort Respules) 1 mg IH [id number] [facility] Last Admin: 03/01/18 07:41 Dose: 1 mg Carvedilol (Coreg) 25 mg PO BID [facility] Last Admin: 03/01/18 09:56 Dose: Not Given Doxycycline Hyclate (Doryx) 100 mg PO Q12 [facility] PR[facility] Reason: Protocol Stop: 03/04/18 22:01 Last Admin: 03/01/18 09:46 Dose: 100 mg Enoxaparin Sodium (Lovenox) 40 mg SC DAILY [facility] PRN Reason: Protocol Last Admin: 03/01/18 09:46 Dose: 40 mg Furosemide (Lasix) 20 mg PO DAILY [facility] Last Admin: 03/01/18 09:46 Dose: 20 mg Hydrocortisone Sodium Succinate (Solu-Cortef) 20 mg IVP DAILY [facility] Stop: 03/01/18 20:00 Last Admin: 03/01/18 09:47 Dose: 20 mg Cefepime HCl (Maxipime 2gm) 2 gm in 100 mls @ 100 mls/hr IVPB Q12 [facility] PRN Reason: Protocol Stop: 03/03/18 10:01 Last Admin: 03/01/18 09:47 Dose: 100 mls/hr Insulin Detemir (Levemir) 60 unit SC DAILY [facility] Last Admin: 03/01/18 12:51 Dose: 60 unit Insulin Human Regular (Humulin R Med) 0 units SC Q4H [facility] PRN Reason: Protocol Last Admin: 03/01/18 12:49 Dose: 1 u Lisinopril (Zestril) 5 mg PO DAILY [facility] Last Admin: 02/28/18 12:16 Dose: Not Given Pantoprazole Sodium (Protonix Ec Tab) 40 mg PO ACB [facility] Last Admin: 03/01/18 08:09 Dose: 40 mg - Labs Labs: 03/01/18 06:45 03/01/18 06:45 PT 10.1 SECONDS (9.4-12.5) 02/26/18 02:04 INR 0.89 (0.93-1.08) L 02/26/18 02:04 APTT 64.3 Seconds (25.1-36.5) H 02/26/18 08:30 - Constitutional Appears: No Acute Distress - Head Exam Head Exam: ATRAUMATIC, NORMAL INSPECTION, NORMOCEPHALIC - Eye Exam Eye Exam: EOMI, PERRL - ENT Exam ENT Exam: Mucous Membranes Moist - Respiratory Exam Respiratory Exam: Wheezes (mild), NORMAL BREATHING PATTERN. absent: Rales, Rhonchi - Cardiovascular Exam Cardiovascular Exam: REGULAR RHYTHM, +S1, +S2 - GI/Abdominal Exam GI & Abdominal Exam: Soft, Normal Bowel Sounds. absent: Tenderness - Extremities Exam Extremities Exam: Full ROM, Normal Capillary Refill. absent: Pedal Edema, Tenderness - Neurological Exam Neurological Exam: Alert, Awake, Normal Gait, Oriented x3 Neuro motor strength exam: Left Upper Extremity: 5, Right Upper Extremity: 5, Left Lower Extremity: 5, Right Lower Extremity: 5 - Psychiatric Exam Psychiatric exam: Normal Affect, Normal Mood - Skin Skin Exam: Dry, Warm Assessment and Plan - Assessment and Plan (Free Text) Assessment: 57 year old female with past medical history that includes who presented with acute coronary syndrome in the setting of severe left ventricular systolic dysfunction with suspected COPD exacerbation in the setting of hypercapnic respiratory failure requiring intubation. Patient is s/p left heart cath and monitored on telemetry floor. Plan: ACS s/p LHC - Elevated troponin, EKG showing poor r wave progression - s/p LHC with cardiology, without intervention, recs for medical therapy - Cardiology consulted and following - Aspirin, Statin, Tolu-inhibitors, beta marsha, Lasix - Carvedilol 25mg, holding if systolic BP below 100 - Maintain MAP >65 - Patient to be fitted for lifevest COPD exacerbation - Presentation of COPD exacerbation with hypercapnic respiratory failure requiring intubation - Duonebs Q6H, ICS - Pulmicort - NC with plan for wean to room air - BiPAP QHS - Continue broad spectrum antibiotics with doxycycline and cefepime day 4/5 - Continue Steroids hydrocortisone 20mg today and tomorrow with plan to move to oral steroids tomorrow - Plan for home taper DM2 - HgbA1c 9.4 - Elevated sugars - Insulin 60 units daily - ISS medium - monitor ACHS Tobacco abuse - Tobacco cessation counseling GI/DVT ppx - Protonix - Lovenox dispo: patient to follow up with [facility] clinic upon discharge Case and plan discussed with attending <Norberto Banegas - Last Filed: 03/28/18 14:26> Objective - Vital Signs/Intake and Output Vital Signs (last 24 hours): Temp Pulse Resp BP Pulse Ox 98.4 F 66 17 85/53 L 95 03/06/18 12:00 03/06/18 12:00 03/06/18 12:00 03/06/18 12:00 03/06/18 00:01 - Labs Labs: 03/02/18 10:00 03/06/18 08:20 PT 10.1 SECONDS (9.4-12.5) 02/26/18 02:04 INR 0.89 (0.93-1.08) L 02/26/18 02:04 APTT 64.3 Seconds (25.1-36.5) H 02/26/18 08:30 Attending/Attestation - Attestation I have personally seen and examined this patient.: Yes I have fully participated in the care of the patient.: Yes I have reviewed all pertinent clinical information, including history, physical exam and plan: Yes Notes (Text): 57 year old female with past medical history that includes who presented with acute coronary syndrome in the setting of severe left ventricular systolic dysfunction with suspected COPD exacerbation in the setting of hypercapnic respiratory failure requiring intubation. Patient is s/p left heart cath and monitored on telemetry floor. Plan: ACS s/p LHC s/p LHC with cardiology, without intervention, recs for medical therapy plannned life vest COPD exacerbation
[2018-03-01 20:23] LABS: SOURCE SERUM
[2018-03-01 23:03] LABS: ALB/GLOB RATIO 1.1 (1.1-1.8); ALBUMIN 3.2 g/dL (3.0-4.8); ALT/SGPT 38 U/L (7-56); AST/SGOT 24 U/L (14-36); BLOOD UREA NITROGEN 19 mg/dL (7-21); GFR NON-AFRICAN AMERICAN > 60
[2018-03-02] MEDS: Insulin Reg-MEDIUM-Coverage SC SCH ×6 (00:30→20:55)
--- NOTE | 2018-03-02 02:19 | PN ---
DATE: 03/01/2018 SUBJECTIVE: Patient is seen earlier today in room 270, bed 2. No fevers. No chills. No nausea or vomiting. PHYSICAL EXAMINATION: VITAL SIGNS: Temperature is 98, blood pressure is 114/50, respiratory rate of 18. HEENT: Unremarkable. NECK: Supple. LUNGS: Have decreased breath sounds. HEART: Normal S1 and S2. ABDOMEN: Soft and nontender. LABORATORY EXAMINATION: Reveals a white count of 13,800, hemoglobin of 13, platelets of . BUN of 17, creatinine of 0.5 and the urinalysis is noted. Serology is noted. Microbiology reveals the one blood culture is positive for Gram-positive cocci. Other blood cultures have no growth. The blood cultures reported coag-negative Staph and review of orders reveals the patient to be on p.o. doxycycline and cefepime. ASSESSMENT AND PLAN: This is a 57-year-old female who was seen earlier this morning in room 270, bed 2 with a history of chronic obstructive lung disease; obesity; body mass index of 32; diabetes mellitus; peripheral artery disease; angioplasty, systemic inflammatory response syndrome, acute coronary syndrome, congestive heart failure, exacerbation of chronic obstructive lung disease, on cefepime and doxycycline. Today is day #4 of cefepime and doxycycline, would complete 5 days more of last day of antibiotics and this patient with an anterior wall myocardial infarction, leukocytosis improving 13,800 and patient was on steroids, currently now off of steroids. Matthew Lombardo MD
[2018-03-02] MEDS: Pantoprazole 40 mg EC Tab PO SCH (07:46)
[2018-03-02] MEDS: Budesonide 0.5 mg/2 ml Inhal Susp UD IH SCH ×2 (08:00→19:48)
[2018-03-02] MEDS: Enoxaparin 40 mg Syringe SC SCH (09:15)
[2018-03-02 10:21] LABS: BASO # 0.02 K/mm3 (0.0-2.0); BASO % 0.2 % (0.0-3.0); EOS # 0.2 (0.0-0.7); EOS % 1.8 % (1.5-5.0); GRAN # 5.81 (1.4-6.5); GRAN % 54.1 % (50.0-68.0); HEMOGLOBIN 14.2 g/dL (12.0-16.0); LYMPH # 4.1 (1.2-3.4); LYMPH % 38.1 % (22.0-35.0); MEAN CORPUSCULAR HEMOGLOBIN 29.8 pg (25.0-35.0); MEAN CORPUSCULAR HGB CONC 34.3 g/dl (31.0-37.0); MEAN PLATELET VOLUME 10.9 fl (7.0-11.0); MONO # 0.6 (0.1-0.6); MONO % 5.8 % (1.0-6.0); RBC 4.76 10^6/uL (3.5-6.1); RED CELL DISTRIBUTION WIDTH 13.5 % (11.5-14.5); WHITE BLOOD COUNT 10.7 10^3/ul (4.5-11.0)
[2018-03-02 10:30] LABS: ALB/GLOB RATIO 1.1 (1.1-1.8); ALBUMIN 3.4 g/dL (3.0-4.8); ALT/SGPT 41 U/L (7-56); AST/SGOT 17 U/L (14-36); BLOOD UREA NITROGEN 15 mg/dL (7-21); CALCIUM 9.2 mg/dL (8.4-10.5); GFR NON-AFRICAN AMERICAN > 60
[2018-03-02] MEDS ORDERED: Amiodarone 150 mg/D5W 100 ml 150 MG/100 ML BAG IVPB ONE (10:33)
[2018-03-02] MEDS ORDERED: Potassium Chloride 20 mEq/15 ml LIQ UD PO STA (10:36)
[2018-03-02] MEDS: Cefepime IV 2 gm in NS 2 GM/100 ML BAG IVPB SCH ×2 (11:20→21:01)
--- NOTE | 2018-03-02 12:15 | CP.PCM.PN ---
<ChancenatashaItz - Last Filed: 03/02/18 17:14> Subjective - Date & Time of Evaluation Date of Evaluation: 03/02/18 Time of Evaluation: 12:12 - Subjective Subjective: Patient seen and evaluated this AM. Overnight patient was noted to have VTach of 210 episode. Patient lifevest fired. Patient reported asymptomatic during event. Patient stat labs done and appreciated. Patient indicated no chest pain, shortness of breath, abdominal pain, dizziness, palpitations. Objective - Vital Signs/Intake and Output Vital Signs (last 24 hours): Temp Pulse Resp BP Pulse Ox 97.9 F 81 20 102/57 L 95 03/02/18 11:50 03/02/18 11:50 03/02/18 11:50 03/02/18 11:50 03/02/18 06:00 Intake and Output: 03/02/18 03/02/18 06:59 18:59 Intake Total 240 Balance 240 - Medications Medications: Current Medications Amiodarone HCl (Cordarone) 400 mg PO BID [facility] Last Admin: 03/02/18 11:19 Dose: 400 mg Aspirin (Aspirin Chewable) 81 mg PO DAILY [facility] Last Admin: 03/02/18 09:15 Dose: 81 mg Atorvastatin Calcium (Lipitor) 40 mg PO DIN [facility] Last Admin: 03/01/18 18:02 Dose: 40 mg Budesonide (Pulmicort Respules) 1 mg IH [id number] [facility] Last Admin: 03/02/18 08:00 Dose: 1 mg Carvedilol (Coreg) 25 mg PO BID [facility] Last Admin: 03/02/18 09:15 Dose: 25 mg Doxycycline Hyclate (Doryx) 100 mg PO Q12 [facility] PRN Reason: Protocol Stop: 03/04/18 22:01 Last Admin: 03/02/18 09:15 Dose: 100 mg Enoxaparin Sodium (Lovenox) 40 mg SC DAILY [facility] PRN Reason: Protocol Last Admin: 03/02/18 09:15 Dose: 40 mg Furosemide (Lasix) 20 mg PO DAILY [facility] Last Admin: 03/02/18 09:14 Dose: 20 mg Cefepime HCl (Maxipime 2gm) 2 gm in 100 mls @ 100 mls/hr IVPB Q12 [facility] PRN Reason: Protocol Stop: 03/03/18 10:01 Last Admin: 03/02/18 11:20 Dose: 100 mls/hr Insulin Detemir (Levemir) 60 unit SC DAILY [facility] Last Admin: 03/01/18 12:51 Dose: 60 unit Insulin Human Regular (Humulin R Med) 0 units SC Q4H [facility] PRN Reason: Protocol Last Admin: 03/02/18 09:03 Dose: Not Given Lisinopril (Zestril) 5 mg PO DAILY [facility] Last Admin: 02/28/18 12:16 Dose: Not Given Pantoprazole Sodium (Protonix Ec Tab) 40 mg PO ACB [facility] Last Admin: 03/02/18 07:46 Dose: 40 mg Prednisone (Prednisone Tab) 20 mg PO DAILY [facility] Last Admin: 03/02/18 11:21 Dose: 20 mg - Labs Labs: 03/02/18 10:00 03/02/18 10:00 PT 10.1 SECONDS (9.4-12.5) 02/26/18 02:04 INR 0.89 (0.93-1.08) L 02/26/18 02:04 APTT 64.3 Seconds (25.1-36.5) H 02/26/18 08:30 - Constitutional Appears: No Acute Distress - Head Exam Head Exam: ATRAUMATIC, NORMAL INSPECTION, NORMOCEPHALIC - Eye Exam Eye Exam: EOMI, PERRL - ENT Exam ENT Exam: Mucous Membranes Moist - Neck Exam Neck Exam: Full ROM - Respiratory Exam Respiratory Exam: Clear to Ausculation Bilateral, NORMAL BREATHING PATTERN. absent: Rhonchi, Wheezes - Cardiovascular Exam Cardiovascular Exam: REGULAR RHYTHM, +S1, +S2 - GI/Abdominal Exam GI & Abdominal Exam: Soft, Normal Bowel Sounds - Extremities Exam Extremities Exam: absent: Calf Tenderness - Neurological Exam Neurological Exam: Alert, Awake, Normal Gait, Oriented x3 Neuro motor strength exam: Left Upper Extremity: 5, Right Upper Extremity: 5, Left Lower Extremity: 5, Right Lower Extremity: 5 - Psychiatric Exam Psychiatric exam: Normal Affect, Normal Mood - Skin Skin Exam: Dry, Warm Assessment and Plan - Assessment and Plan (Free Text) Assessment: 57 year old female with past medical history that includes who presented with acute coronary syndrome in the setting of severe left ventricular systolic dysfunction with suspected COPD exacerbation in the setting of hypercapnic respiratory failure requiring intubation. Patient is s/p left heart cath and monitored on telemetry floor. Patient with life vest fire overnight after episode of Vtach 210 with return to NSR. Plan: ACS s/p LHC - Elevated troponin, EKG showing poor r wave progression - s/p LHC with cardiology, without intervention, recs for medical therapy - Cardiology consulted and following - Aspirin, Statin, Tolu-inhibitors, beta marsha, Lasix - Carvedilol 25mg, holding if systolic BP below 100 - Maintain MAP >65 - Life vest fired last night after V-tach episode of 210 with return of NSR - Cardiology made aware, patient to be loaded with amiodarone and EP consultation for AICD COPD exacerbation - Presentation of COPD exacerbation with hypercapnic respiratory failure requiring intubation - Duonebs Q6H, ICS - Pulmicort - NC with plan for wean to room air - BiPAP QHS - Continue broad spectrum antibiotics with doxycycline and cefepime day 4/5 - Continue Steroids hydrocortisone 20mg today and tomorrow with plan to move to oral steroids tomorrow - Plan for home taper DM2 - HgbA1c 9.4 - Elevated sugars - Insulin 60 units daily - ISS medium - monitor ACHS Tobacco abuse - Tobacco cessation counseling GI/DVT ppx - Protonix - Lovenox dispo: patient to follow up with [facility] clinic upon discharge Case and plan discussed with attending <Norberto Banegas - Last Filed: 03/28/18 14:28> Objective - Vital Signs/Intake and Output Vital Signs (last 24 hours): Temp Pulse Resp BP Pulse Ox 98.4 F 66 17 85/53 L 95 03/06/18 12:00 03/06/18 12:00 03/06/18 12:00 03/06/18 12:00 03/06/18 00:01 - Labs Labs: 03/02/18 10:00 03/06/18 08:20 PT 10.1 SECONDS (9.4-12.5) 02/26/18 02:04 INR 0.89 (0.93-1.08) L 02/26/18 02:04 APTT 64.3 Seconds (25.1-36.5) H 02/26/18 08:30 Attending/Attestation - Attestation I have personally seen and examined this patient.: Yes I have fully participated in the care of the patient.: Yes I have reviewed all pertinent clinical information, including history, physical exam and plan: Yes Notes (Text): ACS s/p LHC s/p LHC with cardiology, without intervention, recs for medical therapy plannned life vest V-Tach COPD exacerbation
[2018-03-02] MEDS: Insulin Detemir 100 units/ml Vial (Levemir) SC SCH (12:30)
--- NOTE | 2018-03-02 14:37 | PN ---
DATE: 03/02/2018 CARDIOLOGY FOLLOWUP SUBJECTIVE: The patient is comfortable in bed. LifeVest was placed on her which resulted in a shock due to ventricular arrhythmia. PHYSICAL EXAMINATION: VITAL SIGNS: Blood pressure is 110/58, the heart rate in the 90s. NECK: Negative JVD. LUNGS: Without rales. HEART: With S1, S2. EXTREMITIES: Without edema. LABORATORY DATA: BUN and creatinine unremarkable. Potassium is 3.5. Magnesium is 2. Troponins are on a descending trend. IMPRESSION: 1. Status post anterior wall myocardial infarction. 2. Ventricular arrhythmias including ventricular tachycardia. 3. Coronary artery disease. 4. Ischemic dilated cardiomyopathy. PLAN: Given these findings, we will give the patient IV and p.o. amiodarone. I have asked Dr. Yang, an web site designer to see the patient for evaluation for an ICD. Tadeo Cruz MD
--- NOTE | 2018-03-02 19:14 | CP.PCM.PN ---
Subjective - Date & Time of Evaluation Date of Evaluation: 03/02/18 Time of Evaluation: 09:20 - Subjective Subjective: Comfortable, no fevers. Objective - Vital Signs/Intake and Output Vital Signs (last 24 hours): Temp Pulse Resp BP Pulse Ox 98.1 F 89 20 130/79 95 03/02/18 06:00 03/02/18 06:00 03/02/18 06:00 03/02/18 06:00 03/02/18 06:00 Intake and Output: 03/02/18 03/02/18 06:59 18:59 Intake Total 240 Balance 240 - Medications Medications: Current Medications Aspirin (Aspirin Chewable) 81 mg PO DAILY [facility] Last Admin: 03/01/18 09:45 Dose: 81 mg Atorvastatin Calcium (Lipitor) 40 mg PO DIN [facility] Last Admin: 03/01/18 18:02 Dose: 40 mg Budesonide (Pulmicort Respules) 1 mg IH [id number] [facility] Last Admin: 03/02/18 08:00 Dose: 1 mg Carvedilol (Coreg) 25 mg PO BID [facility] Last Admin: 03/01/18 18:03 Dose: 25 mg Doxycycline Hyclate (Doryx) 100 mg PO Q12 [facility] PRN Reason: Protocol Stop: 03/04/18 22:01 Last Admin: 03/01/18 21:57 Dose: 100 mg Enoxaparin Sodium (Lovenox) 40 mg SC DAILY [facility] PRN Reason: Protocol Last Admin: 03/01/18 09:46 Dose: 40 mg Furosemide (Lasix) 20 mg PO DAILY [facility] Last Admin: 03/01/18 09:46 Dose: 20 mg Cefepime HCl (Maxipime 2gm) 2 gm in 100 mls @ 100 mls/hr IVPB Q12 [facility] PRN Reason: Protocol Stop: 03/03/18 10:01 Last Admin: 03/01/18 21:57 Dose: 100 mls/hr Insulin Detemir (Levemir) 60 unit SC DAILY [facility] Last Admin: 03/01/18 12:51 Dose: 60 unit Insulin Human Regular (Humulin R Med) 0 units SC Q4H [facility] PRN Reason: Protocol Last Admin: 03/02/18 04:35 Dose: Not Given Lisinopril (Zestril) 5 mg PO DAILY [facility] Last Admin: 02/28/18 12:16 Dose: Not Given Pantoprazole Sodium (Protonix Ec Tab) 40 mg PO ACB [facility] Last Admin: 03/02/18 07:46 Dose: 40 mg - Labs Labs: 03/01/18 06:45 03/01/18 22:47 PT 10.1 SECONDS (9.4-12.5) 02/26/18 02:04 INR 0.89 (0.93-1.08) L 02/26/18 02:04 APTT 64.3 Seconds (25.1-36.5) H 02/26/18 08:30 - Constitutional Appears: Chronically Ill - Head Exam Head Exam: NORMAL INSPECTION - Neck Exam Neck Exam: absent: Meningismus - Respiratory Exam Respiratory Exam: Decreased Breath Sounds - Cardiovascular Exam Cardiovascular Exam: +S1, +S2 - GI/Abdominal Exam GI & Abdominal Exam: Soft. absent: Tenderness Assessment and Plan - Assessment and Plan (Free Text) Plan: Assessment Systemic inflammatory response syndrome S/P ventilator-dependent respiratory failure, consider due to acute coronary syndrome with probable CHF, R/O pneumonia, R/O COPD exacerbation COPD significant smoking history obesity with BMI 32 DM PAD S/P angioplasty of left leg Plan continue Cefepime and Doxycycline day 5 to complete up to 7 days of antibiotics will continue to monitor clinically
[2018-03-02] MEDS ORDERED: Sodium Chloride 0.9% 100 ML IV STA (23:59)
[2018-03-03] MEDS: Insulin Reg-MEDIUM-Coverage SC SCH ×6 (00:40→20:23)
[2018-03-03] MEDS: Pantoprazole 40 mg EC Tab PO SCH (08:19)
[2018-03-03] MEDS: Budesonide 0.5 mg/2 ml Inhal Susp UD IH SCH ×2 (08:23→19:21)
[2018-03-03] MEDS: Enoxaparin 40 mg Syringe SC SCH (11:12)
[2018-03-03] MEDS: Cefepime IV 2 gm in NS 2 GM/100 ML BAG IVPB SCH (11:13)
[2018-03-03] MEDS: Insulin Detemir 100 units/ml Vial (Levemir) SC SCH (11:13)
--- NOTE | 2018-03-03 11:31 | CP.PCM.PN ---
Subjective - Date & Time of Evaluation Date of Evaluation: 03/03/18 Time of Evaluation: 11:10 - Subjective Subjective: No fevers, not in distress, breathing much better. No nausea. No diarrhea. Objective - Vital Signs/Intake and Output Vital Signs (last 24 hours): Temp Pulse Resp BP Pulse Ox 98.1 F 82 20 112/48 L 95 03/03/18 05:46 03/03/18 05:46 03/03/18 05:46 03/03/18 05:46 03/03/18 05:46 Intake and Output: 03/03/18 03/03/18 06:59 18:59 Intake Total 180 Balance 180 - Medications Medications: Current Medications Amiodarone HCl (Cordarone) 400 mg PO BID [facility] Last Admin: 03/02/18 17:15 Dose: 400 mg Aspirin (Aspirin Chewable) 81 mg PO DAILY [facility] Last Admin: 03/02/18 09:15 Dose: 81 mg Atorvastatin Calcium (Lipitor) 40 mg PO DIN [facility] Last Admin: 03/02/18 17:15 Dose: 40 mg Budesonide (Pulmicort Respules) 1 mg IH [id number] [facility] Last Admin: 03/03/18 08:23 Dose: 1 mg Carvedilol (Coreg) 25 mg PO BID [facility] Last Admin: 03/02/18 17:16 Dose: 25 mg Doxycycline Hyclate (Doryx) 100 mg PO Q12 [facility] PRN Reason: Protocol Stop: 03/04/18 22:01 Last Admin: 03/02/18 21:01 Dose: 100 mg Enoxaparin Sodium (Lovenox) 40 mg SC DAILY [facility] PRN Reason: Protocol Last Admin: 03/02/18 09:15 Dose: 40 mg Furosemide (Lasix) 20 mg PO DAILY [facility] Last Admin: 03/02/18 09:14 Dose: 20 mg Cefepime HCl (Maxipime 2gm) 2 gm in 100 mls @ 100 mls/hr IVPB Q12 [facility] PRN Reason: Protocol Stop: 03/03/18 10:01 Last Admin: 03/02/18 21:01 Dose: 100 mls/hr Insulin Detemir (Levemir) 60 unit SC DAILY [facility] Last Admin: 03/02/18 12:30 Dose: 60 unit Insulin Human Regular (Humulin R Med) 0 units SC Q4H [facility] PRN Reason: Protocol Last Admin: 03/03/18 08:13 Dose: Not Given Lisinopril (Zestril) 5 mg PO DAILY [facility] Last Admin: 02/28/18 12:16 Dose: Not Given Pantoprazole Sodium (Protonix Ec Tab) 40 mg PO ACB [facility] Last Admin: 03/03/18 08:19 Dose: 40 mg Prednisone (Prednisone Tab) 20 mg PO DAILY [facility] Last Admin: 03/02/18 11:21 Dose: 20 mg - Labs Labs: 03/02/18 10:00 03/02/18 10:00 PT 10.1 SECONDS (9.4-12.5) 02/26/18 02:04 INR 0.89 (0.93-1.08) L 02/26/18 02:04 APTT 64.3 Seconds (25.1-36.5) H 02/26/18 08:30 - Constitutional Appears: Non-toxic, Chronically Ill - Head Exam Head Exam: NORMAL INSPECTION - ENT Exam ENT Exam: Mucous Membranes Moist - Neck Exam Neck Exam: absent: Meningismus - Respiratory Exam Respiratory Exam: Decreased Breath Sounds - Cardiovascular Exam Cardiovascular Exam: +S1, +S2 - GI/Abdominal Exam GI & Abdominal Exam: Soft. absent: Tenderness Assessment and Plan - Assessment and Plan (Free Text) Plan: Assessment Systemic inflammatory response syndrome S/P ventilator-dependent respiratory failure, consider due to acute coronary syndrome with probable CHF, R/O pneumonia, R/O COPD exacerbation coagulase negative staph in blood cx, probably contamination COPD significant smoking history obesity with BMI 32 DM PAD S/P angioplasty of left leg Plan continue Cefepime and Doxycycline day 6 to complete 5-7 days of antibiotics; may d/c antibiotics after today will repeat blood cx; patient does not have indwelling hardware, prosthetic devices or catheters - coagulase negative staph in blood cx is probably contamination and will not specifically treat with antibiotics will continue to monitor clinically
--- NOTE | 2018-03-03 18:26 | CP.PCM.PN ---
<Char Cortez - Last Filed: 03/03/18 18:20> Subjective - Date & Time of Evaluation Date of Evaluation: 03/03/18 Time of Evaluation: 08:00 - Subjective Subjective: Cahr Cortez DO PGY1 - Internal Medicine Progress Note for Dr. Adams Patient seen and examined at bedside. Per nursing staff, patient had an episode of hypotension overnight, which improved with a small fluid bolus. Patient has no new complaints. Reports that she was seen by Dr. Barrett (EP) this morning, and that he will take her for AICD placement on Monday or Monday. Denies chest pain, shortnes sof breath, palpitations. Lifevest did not fire since the night prior. Objective - Vital Signs/Intake and Output Vital Signs (last 24 hours): Temp Pulse Resp BP Pulse Ox 98.8 F 58 L 18 103/59 L 97 03/03/18 17:45 03/03/18 17:45 03/03/18 17:45 03/03/18 17:45 03/03/18 17:45 Intake and Output: 03/03/18 03/03/18 06:59 18:59 Intake Total 180 300 Output Total 300 Balance 180 0 - Medications Medications: Current Medications Amiodarone HCl (Cordarone) 400 mg PO BID [facility] Last Admin: 03/03/18 17:07 Dose: 400 mg Aspirin (Aspirin Chewable) 81 mg PO DAILY [facility] Last Admin: 03/03/18 11:12 Dose: 81 mg Atorvastatin Calcium (Lipitor) 40 mg PO DIN [facility] Last Admin: 03/03/18 17:07 Dose: 40 mg Budesonide (Pulmicort Respules) 1 mg IH [id number] [facility] Last Admin: 03/03/18 08:23 Dose: 1 mg Carvedilol (Coreg) 25 mg PO BID [facility] Last Admin: 03/03/18 17:00 Dose: Not Given Doxycycline Hyclate (Doryx) 100 mg PO Q12 [facility] PRN Reason: Protocol Stop: 03/04/18 22:01 Last Admin: 03/03/18 11:10 Dose: 100 mg Enoxaparin Sodium (Lovenox) 40 mg SC DAILY [facility] PRN Reason: Protocol Last Admin: 03/03/18 11:12 Dose: 40 mg Furosemide (Lasix) 20 mg PO DAILY [facility] Last Admin: 03/03/18 11:12 Dose: 20 mg Insulin Detemir (Levemir) 60 unit SC DAILY [facility] Last Admin: 03/03/18 11:13 Dose: 60 unit Insulin Human Regular (Humulin R Med) 0 units SC Q4H [facility] PRN Reason: Protocol Last Admin: 03/03/18 17:06 Dose: 5 u Lisinopril (Zestril) 5 mg PO DAILY [facility] Last Admin: 02/28/18 12:16 Dose: Not Given Pantoprazole Sodium (Protonix Ec Tab) 40 mg PO ACB [facility] Last Admin: 03/03/18 08:19 Dose: 40 mg Prednisone (Prednisone Tab) 10 mg PO DAILY [facility] - Labs Labs: 03/02/18 10:00 03/02/18 10:00 PT 10.1 SECONDS (9.4-12.5) 02/26/18 02:04 INR 0.89 (0.93-1.08) L 02/26/18 02:04 APTT 64.3 Seconds (25.1-36.5) H 02/26/18 08:30 - Additional Findings Additional findings: - Constitutional Appears: No Acute Distress - Head Exam Head Exam: ATRAUMATIC, NORMAL INSPECTION, NORMOCEPHALIC - Eye Exam Eye Exam: EOMI, PERRL - ENT Exam ENT Exam: Mucous Membranes Moist - Neck Exam Neck Exam: Full ROM - Respiratory Exam Respiratory Exam: Clear to Ausculation Bilateral, NORMAL BREATHING PATTERN. absent: Rhonchi, Wheezes - Cardiovascular Exam Cardiovascular Exam: REGULAR RHYTHM, +S1, +S2 - GI/Abdominal Exam GI & Abdominal Exam: Soft, Normal Bowel Sounds - Extremities Exam Extremities Exam: absent: Calf Tenderness - Neurological Exam Neurological Exam: Alert, Awake, Normal Gait, Oriented x3 Neuro motor strength exam: Left Upper Extremity: 5, Right Upper Extremity: 5, Left Lower Extremity: 5, Right Lower Extremity: 5 - Psychiatric Exam Psychiatric exam: Normal Affect, Normal Mood - Skin Skin Exam: Dry, Warm Assessment and Plan - Assessment and Plan (Free Text) Assessment: 57 year old female with past medical history that includes who presented with acute coronary syndrome in the setting of severe left ventricular systolic dysfunction with suspected COPD exacerbation in the setting of hypercapnic respiratory failure requiring intubation. Patient is s/p left heart cath and monitored on telemetry floor. Patient with life vest fire two nights ago after episode of Vtach 210 with return to NSR. Plan: ACS s/p LHC - s/p LHC with cardiology, without intervention, recs for medical therapy - Aspirin, Statin, Tolu-inhibitors, beta marsha, Lasix - Carvedilol 25mg, holding if systolic BP below 100 - Continue amiodarone - Maintain MAP >65 - Life vest fired previously after V-tach episode of 210 with return of NSR - Patient was seen by EP who will take patient for AICD placement early next week - Cardio on consult; appreciate recs COPD exacerbation - Presentation of COPD exacerbation with hypercapnic respiratory failure requiring intubation - Duonebs Q6H, ICS - Pulmicort - NC with plan for wean to room air - BiPAP QHS - Continue broad spectrum antibiotics with doxycycline and cefepime day 5/5 - Continue oral steroid taper DM2 - HgbA1c 9.4 - Insulin 60 units daily - ISS medium - monitor ACHS GI/DVT ppx - Protonix - Lovenox dispo: patient to follow up with [facility] upon discharge Case and plan discussed with attending <Richelle Adams - Last Filed: 03/03/18 23:06> Objective - Vital Signs/Intake and Output Vital Signs (last 24 hours): Temp Pulse Resp BP Pulse Ox 98.8 F 87 18 103/59 L 97 03/03/18 17:45 03/03/18 18:00 03/03/18 17:45 03/03/18 17:45 03/03/18 17:45 Intake and Output: 03/03/18 03/04/18 18:59 06:59 Intake Total 300 Output Total 300 Balance 0 - Medications Medications: Current Medications Amiodarone HCl (Cordarone) 400 mg PO BID [facility] Last Admin: 03/03/18 17:07 Dose: 400 mg Aspirin (Aspirin Chewable) 81 mg PO DAILY [facility] Last Admin: 03/03/18 11:12 Dose: 81 mg Atorvastatin Calcium (Lipitor) 40 mg PO DIN [facility] Last Admin: 03/03/18 17:07 Dose: 40 mg Budesonide (Pulmicort Respules) 1 mg IH [id number] [facility] Last Admin: 03/03/18 19:21 Dose: 0.5 mg Carvedilol (Coreg) 25 mg PO BID [facility] Last Admin: 03/03/18 17:00 Dose: Not Given Doxycycline Hyclate (Doryx) 100 mg PO Q12 [facility] PRN Reason: Protocol Stop: 03/04/18 22:01 Last Admin: 03/03/18 21:01 Dose: 100 mg Enoxaparin Sodium (Lovenox) 40 mg SC DAILY [facility] PRN Reason: Protocol Last Admin: 03/03/18 11:12 Dose: 40 mg Furosemide (Lasix) 20 mg PO DAILY [facility] Last Admin: 03/03/18 11:12 Dose: 20 mg Insulin Detemir (Levemir) 60 unit SC DAILY [facility] Last Admin: 03/03/18 11:13 Dose: 60 unit Insulin Human Regular (Humulin R Med) 0 units SC Q4H [facility] PRN Reason: Protocol Last Admin: 03/03/18 20:23 Dose: Not Given Lisinopril (Zestril) 5 mg PO DAILY [facility] Last Admin: 02/28/18 12:16 Dose: Not Given Pantoprazole Sodium (Protonix Ec Tab) 40 mg PO ACB [facility] Last Admin: 03/03/18 08:19 Dose: 40 mg Prednisone (Prednisone Tab) 10 mg PO DAILY [facility] - Labs Labs: 03/02/18 10:00 03/02/18 10:00 PT 10.1 SECONDS (9.4-12.5) 02/26/18 02:04 INR 0.89 (0.93-1.08) L 02/26/18 02:04 APTT 64.3 Seconds (25.1-36.5) H 02/26/18 08:30 Attending/Attestation - Attestation I have personally seen and examined this patient.: Yes I have fully participated in the care of the patient.: Yes I have reviewed all pertinent clinical information, including history, physical exam and plan: Yes
[2018-03-04] MEDS: Insulin Reg-MEDIUM-Coverage SC SCH ×6 (00:19→20:01)
[2018-03-04] MEDS: Budesonide 0.5 mg/2 ml Inhal Susp UD IH SCH ×2 (07:42→20:05)
[2018-03-04] MEDS: Pantoprazole 40 mg EC Tab PO SCH (08:15)
[2018-03-04] MEDS: Insulin Detemir 100 units/ml Vial (Levemir) SC SCH (09:26)
[2018-03-04] MEDS: Enoxaparin 40 mg Syringe SC SCH (09:26)
--- NOTE | 2018-03-04 13:32 | CP.PCM.PN ---
Subjective - Date & Time of Evaluation Date of Evaluation: 03/04/18 Time of Evaluation: 10:10 - Subjective Subjective: Comfortable in bed, breathing better, no fevers. Objective - Vital Signs/Intake and Output Vital Signs (last 24 hours): Temp Pulse Resp BP Pulse Ox 97.7 F 90 20 125/87 94 L 03/04/18 06:00 03/04/18 06:00 03/04/18 06:00 03/04/18 06:00 03/04/18 06:00 Intake and Output: 03/04/18 03/04/18 06:59 18:59 Intake Total 600 Output Total 300 Balance 300 - Medications Medications: Current Medications Amiodarone HCl (Cordarone) 400 mg PO BID [facility] Last Admin: 03/03/18 17:07 Dose: 400 mg Aspirin (Aspirin Chewable) 81 mg PO DAILY [facility] Last Admin: 03/03/18 11:12 Dose: 81 mg Atorvastatin Calcium (Lipitor) 40 mg PO DIN [facility] Last Admin: 03/03/18 17:07 Dose: 40 mg Budesonide (Pulmicort Respules) 1 mg IH [id number] [facility] Last Admin: 03/04/18 07:42 Dose: 1 mg Carvedilol (Coreg) 25 mg PO BID [facility] Last Admin: 03/03/18 17:00 Dose: Not Given Doxycycline Hyclate (Doryx) 100 mg PO Q12 [facility] PRN Reason: Protocol Stop: 03/04/18 22:01 Last Admin: 03/03/18 21:01 Dose: 100 mg Enoxaparin Sodium (Lovenox) 40 mg SC DAILY [facility] PRN Reason: Protocol Last Admin: 03/03/18 11:12 Dose: 40 mg Furosemide (Lasix) 20 mg PO DAILY [facility] Last Admin: 03/03/18 11:12 Dose: 20 mg Insulin Detemir (Levemir) 60 unit SC DAILY [facility] Last Admin: 03/03/18 11:13 Dose: 60 unit Insulin Human Regular (Humulin R Med) 0 units SC Q4H [facility] PRN Reason: Protocol Last Admin: 03/04/18 05:04 Dose: Not Given Lisinopril (Zestril) 5 mg PO DAILY [facility] Last Admin: 02/28/18 12:16 Dose: Not Given Pantoprazole Sodium (Protonix Ec Tab) 40 mg PO ACB [facility] Last Admin: 03/03/18 08:19 Dose: 40 mg Prednisone (Prednisone Tab) 10 mg PO DAILY [facility] - Labs Labs: 03/02/18 10:00 03/02/18 10:00 PT 10.1 SECONDS (9.4-12.5) 02/26/18 02:04 INR 0.89 (0.93-1.08) L 02/26/18 02:04 APTT 64.3 Seconds (25.1-36.5) H 02/26/18 08:30 - Constitutional Appears: Chronically Ill - Head Exam Head Exam: NORMAL INSPECTION - ENT Exam ENT Exam: Mucous Membranes Moist - Neck Exam Neck Exam: absent: Meningismus - Respiratory Exam Respiratory Exam: Decreased Breath Sounds - Cardiovascular Exam Cardiovascular Exam: +S1, +S2 - GI/Abdominal Exam GI & Abdominal Exam: Soft. absent: Tenderness Assessment and Plan - Assessment and Plan (Free Text) Plan: Assessment S/P Systemic inflammatory response syndrome S/P ventilator-dependent respiratory failure, consider due to acute coronary syndrome with probable CHF, R/O pneumonia, R/O COPD exacerbation coagulase negative staph in blood cx, probably contamination COPD significant smoking history obesity with BMI 32 DM PAD S/P angioplasty of left leg Plan will continue to monitor off antibiotics since she is at risk for infections will repeat blood cx; patient does not have indwelling hardware, prosthetic devices or catheters - coagulase negative staph in blood cx is probably contamination and will not specifically treat with antibiotics
--- NOTE | 2018-03-04 14:42 | CP.PCM.PN ---
<Char Cortez - Last Filed: 03/04/18 14:39> Subjective - Date & Time of Evaluation Date of Evaluation: 03/04/18 Time of Evaluation: 07:30 - Subjective Subjective: Char Cortez DO PGY1 - IM Progress Note for Dr. Adams Patient seen and examined at bedside. Per nursing staff, no acute events overnight. Patient denies any further episodes of warmth, flushing, palpitations , hypotension, tachycardia. She denies any chest pain. Reports that shortness of breath is improved. She is pending transfer tomorrow or Monday for AICD placement with Dr. Barrett. Objective - Vital Signs/Intake and Output Vital Signs (last 24 hours): Temp Pulse Resp BP Pulse Ox 98.6 F 56 L 18 104/59 L 94 L 03/04/18 12:00 03/04/18 12:00 03/04/18 12:00 03/04/18 12:00 03/04/18 06:00 Intake and Output: 03/04/18 03/04/18 06:59 18:59 Intake Total 600 240 Output Total 300 300 Balance 300 -60 - Medications Medications: Current Medications Amiodarone HCl (Cordarone) 400 mg PO BID [facility] Last Admin: 03/04/18 09:27 Dose: 400 mg Aspirin (Aspirin Chewable) 81 mg PO DAILY [facility] Last Admin: 03/04/18 09:27 Dose: 81 mg Atorvastatin Calcium (Lipitor) 40 mg PO DIN [facility] Last Admin: 03/03/18 17:07 Dose: 40 mg Budesonide (Pulmicort Respules) 1 mg IH [id number] [facility] Last Admin: 03/04/18 07:42 Dose: 1 mg Carvedilol (Coreg) 25 mg PO BID [facility] Last Admin: 03/04/18 09:27 Dose: Not Given Doxycycline Hyclate (Doryx) 100 mg PO Q12 [facility] PRN Reason: Protocol Stop: 03/04/18 22:01 Last Admin: 03/04/18 09:27 Dose: 100 mg Enoxaparin Sodium (Lovenox) 40 mg SC DAILY [facility] PRN Reason: Protocol Last Admin: 03/04/18 09:26 Dose: 40 mg Furosemide (Lasix) 20 mg PO DAILY [facility] Last Admin: 03/04/18 09:27 Dose: 20 mg Insulin Detemir (Levemir) 60 unit SC DAILY [facility] Last Admin: 03/04/18 09:26 Dose: 60 unit Insulin Human Regular (Humulin R Med) 0 units SC Q4H [facility] PRN Reason: Protocol Last Admin: 03/04/18 09:22 Dose: Not Given Lisinopril (Zestril) 5 mg PO DAILY [facility] Last Admin: 02/28/18 12:16 Dose: Not Given Pantoprazole Sodium (Protonix Ec Tab) 40 mg PO ACB [facility] Last Admin: 03/04/18 08:15 Dose: 40 mg Prednisone (Prednisone Tab) 10 mg PO DAILY [facility] Last Admin: 03/04/18 09:28 Dose: 10 mg - Labs Labs: 03/02/18 10:00 03/02/18 10:00 PT 10.1 SECONDS (9.4-12.5) 02/26/18 02:04 INR 0.89 (0.93-1.08) L 02/26/18 02:04 APTT 64.3 Seconds (25.1-36.5) H 02/26/18 08:30 - Additional Findings Additional findings: - Additional Findings Additional findings: - Constitutional Appears: No Acute Distress - Head Exam Head Exam: ATRAUMATIC, NORMAL INSPECTION, NORMOCEPHALIC - Eye Exam Eye Exam: EOMI, PERRL - ENT Exam ENT Exam: Mucous Membranes Moist - Neck Exam Neck Exam: Full ROM - Respiratory Exam Respiratory Exam: Clear to Ausculation Bilateral, NORMAL BREATHING PATTERN. absent: Rhonchi, Wheezes - Cardiovascular Exam Cardiovascular Exam: REGULAR RHYTHM, +S1, +S2 - GI/Abdominal Exam GI & Abdominal Exam: Soft, Normal Bowel Sounds - Extremities Exam Extremities Exam: absent: Calf Tenderness - Neurological Exam Neurological Exam: Alert, Awake, Normal Gait, Oriented x3 Neuro motor strength exam: Left Upper Extremity: 5, Right Upper Extremity: 5, Left Lower Extremity: 5, Right Lower Extremity: 5 - Psychiatric Exam Psychiatric exam: Normal Affect, Normal Mood - Skin Skin Exam: Dry, Warm Assessment and Plan - Assessment and Plan (Free Text) Assessment: 57 year old female with past medical history that includes who presented with acute coronary syndrome in the setting of severe left ventricular systolic dysfunction with suspected COPD exacerbation in the setting of hypercapnic respiratory failure requiring intubation. Patient is s/p left heart cath and monitored on telemetry floor. Patient with life vest fire three nights ago after episode of Vtach 210 with return to NSR. Plan: ACS s/p LHC - s/p LHC with cardiology, without intervention, recs for medical therapy - Aspirin, Statin, beta marsha, Lasix; ACEi held for hypotension - Carvedilol 25mg bid, holding if systolic BP below 100 - Continue amiodarone - Maintain MAP >65 - Life vest fired previously after V-tach episode of 210 with return of NSR - Patient was seen by EP who will take patient for AICD placement early next week - Cardio on consult; appreciate recs COPD exacerbation - Presentation of COPD exacerbation with hypercapnic respiratory failure requiring intubation - Duonebs Q6H, ICS - Pulmicort - NC with plan for wean to room air - BiPAP QHS - Discontinue Abx today - Continue oral steroid taper DM2 - HgbA1c 9.4 - Insulin 60 units daily - ISS medium - monitor ACHS GI/DVT ppx - Protonix - Lovenox dispo: patient to follow up with [facility] clinic upon discharge Case and plan discussed with attending <Richelle Adams - Last Filed: 03/04/18 15:47> Objective - Vital Signs/Intake and Output Vital Signs (last 24 hours): Temp Pulse Resp BP Pulse Ox 98.6 F 84 18 104/59 L 94 L 03/04/18 12:00 03/04/18 14:00 03/04/18 12:00 03/04/18 12:00 03/04/18 06:00 Intake and Output: 03/04/18 03/04/18 06:59 18:59 Intake Total 600 240 Output Total 300 300 Balance 300 -60 - Medications Medications: Current Medications Amiodarone HCl (Cordarone) 400 mg PO BID [facility] Last Admin: 03/04/18 09:27 Dose: 400 mg Aspirin (Aspirin Chewable) 81 mg PO DAILY [facility] Last Admin: 03/04/18 09:27 Dose: 81 mg Atorvastatin Calcium (Lipitor) 40 mg PO DIN [facility] Last Admin: 03/03/18 17:07 Dose: 40 mg Budesonide (Pulmicort Respules) 1 mg IH [id number] [facility] Last Admin: 03/04/18 07:42 Dose: 1 mg Carvedilol (Coreg) 25 mg PO BID [facility] Last Admin: 03/04/18 09:27 Dose: Not Given Doxycycline Hyclate (Doryx) 100 mg PO Q12 [facility] PRN Reason: Protocol Stop: 03/04/18 22:01 Last Admin: 03/04/18 09:27 Dose: 100 mg Enoxaparin Sodium (Lovenox) 40 mg SC DAILY [facility] PRN Reason: Protocol Last Admin: 03/04/18 09:26 Dose: 40 mg Furosemide (Lasix) 20 mg PO DAILY [facility] Last Admin: 03/04/18 09:27 Dose: 20 mg Insulin Detemir (Levemir) 60 unit SC DAILY [facility] Last Admin: 03/04/18 09:26 Dose: 60 unit Insulin Human Regular (Humulin R Med) 0 units SC Q4H [facility] PRN Reason: Protocol Last Admin: 03/04/18 09:22 Dose: Not Given Lisinopril (Zestril) 5 mg PO DAILY [facility] Last Admin: 02/28/18 12:16 Dose: Not Given Pantoprazole Sodium (Protonix Ec Tab) 40 mg PO ACB [facility] Last Admin: 03/04/18 08:15 Dose: 40 mg Prednisone (Prednisone Tab) 10 mg PO DAILY [facility] Last Admin: 03/04/18 09:28 Dose: 10 mg - Labs Labs: 03/02/18 10:00 03/02/18 10:00 PT 10.1 SECONDS (9.4-12.5) 02/26/18 02:04 INR 0.89 (0.93-1.08) L 02/26/18 02:04 APTT 64.3 Seconds (25.1-36.5) H 02/26/18 08:30 Attending/Attestation - Attestation I have personally seen and examined this patient.: Yes I have fully participated in the care of the patient.: Yes I have reviewed all pertinent clinical information, including history, physical exam and plan: Yes Notes (Text): 03/04/18 15:42 Patient seen and examined at bedside. No new complaints. Vitals and labs reviewed and plan discussed with . Plan for AICD placement tomorrow by his team will confirm disposition tomorrow AM. Agree with the plan as discussed and outlined by the resident.
[2018-03-05] MEDS: Insulin Reg-MEDIUM-Coverage SC SCH ×4 (00:25→18:03)
[2018-03-05] MEDS: Budesonide 0.5 mg/2 ml Inhal Susp UD IH SCH ×2 (07:16→19:45)
[2018-03-05] MEDS: Pantoprazole 40 mg EC Tab PO SCH (08:12)
--- NOTE | 2018-03-05 08:53 | CON ---
DATE: 03/03/2018 INPATIENT ELECTROPHYSIOLOGY CONSULTATION REFERRING PHYSICIAN: Tadeo Cruz MD. REASON FOR EVALUATION: 1. Ventricular tachycardia, requiring shock. 2. Ischemic cardiomyopathy, EF of 20%. 3. Systolic heart failure. 4. Diabetes. Thank you very much for this consult. I was asked personally to see this patient by Dr. Tadeo Cruz. HISTORY OF PRESENT ILLNESS: Ms. Sidra Ruano is a 57-year-old female who is from [place] with past medical history significant for COPD, severe peripheral vascular disease, history of angioplasty to the left lower extremity, who presented to the Emergency Department at [facility] on the day of admission, 02/26/2018, with severe respiratory distress, requiring intubation and ICU stay on admission. The patient had been in her usual state of glory as per her boyfriend at the time of admission at 1:00 a.m., complained that she became acutely short of breath, her body started to shake, she began to feel weak, and then blacked out. 911 was called, EMS came, placed her on CPAP for support, brought to the Emergency Department for further evaluation. In the ER, she required intubation. The patient's condition was stabilized. She was seen in cardiac consultation by Dr. Tadeo Cruz. She made low level of cardiac enzymes. She was discovered to have a cardiomyopathy. She underwent cardiac catheterization on 02/26/2018 which was notable for an RCA, which revealed diffuse atherosclerotic disease throughout its tree, the collaterals going from the RCA into the LAD. Left main artery revealed irregularities without critical stenosis. Circumflex appeared to have again irregularities without critical lesions. The left anterior descending, however, was occluded at its takeoff from the left main. There was a small stump that could barely be seen. It was felt to be chronically occluded versus a subacute chronic occlusion. Multiple attempts were made to cross these lesions, but they were not successful. The patient was found to have an ejection fraction of 20% with evidence of chronic anteroapical anterior wall myocardial infarction. Echocardiogram, which was done on 02/16/2018, shown to have an ejection fraction of 25%, moderate global hypokinesis of the left ventricle. Transmitral Doppler flow suggests grade 2 pseudo normal filling. Right ventricle is of normal size. Left atrium is mildly dilated. Right atrium is normal in size. The aortic valve is thickened. No aortic regurgitation or stenosis. Mitral valve is thickened. Mitral regurgitation is mild. No evidence of mitral valve prolapse. The right ventricular systolic pressure of 33 is noted. No stenosis across the valve. No significant regurgitation is noted. There is no pericardial effusion. Given the patient's cardiomyopathy, the patient was referred for a LifeVest. The patient was downgraded to telemetry, at which point the patient received therapy from her LifeVest, which was appropriate. There was an episode of sustained monomorphic ventricular tachycardia for which the patient was appropriately treated, defibrillated, and normal sinus rhythm was restored. The patient is currently stable and without complaints. The patient was initiated on IV amiodarone therapy and is currently being transitioned to p.o. amiodarone therapy. I was asked to see her in regards to evaluation for an implantable defibrillator for a secondary prevention of sudden cardiac . As far as the patient's prior functional status, the patient is severely limited from her residual claudication symptoms. The patient's left lower extremity had been revascularized and less problematic. The right lower extremity continues to be a problem. She has trouble walking any further than down the hallway before she develops lower extremity claudication pain. She denies baseline shortness of breath at rest, palpitations, or prior syncope. She had been smoking, but recently quit. PAST MEDICAL HISTORY: Significant for diabetes, COPD, severe peripheral vascular disease, and smoking history. PAST SURGICAL HISTORY: Balloon angioplasty of the left leg, not requiring a stent, on 02/16/2018. FAMILY HISTORY: The patient has a maternal history of coronary artery disease with initially being diagnosed with coronary artery disease at the age of 50, ultimately succumbing to coronary artery disease and cancer at the age of 70, she did require a bypass surgery and of heart failure type symptoms. SOCIAL HISTORY: The patient has a history of smoking. She quit 2 weeks ago, but had a half pack per day history for 30 years. Denies EtOH abuse. No illicit drug use. ALLERGIES: NO KNOWN DRUG ALLERGIES. Prior to being admitted, had been on metformin. PHYSICAL EXAMINATION: VITAL SIGNS: Temperature is 98.7, blood pressure is 82/61, mean arterial blood pressure is , respirations of 20. GENERAL: She is a mildly obese, pleasant female, in no acute distress. HEENT: Her head is normocephalic and atraumatic. There is no natalie facial asymmetry. Mucous membranes appear moist. Dentition is poor. NECK: Within normal limits. No carotid bruit. CHEST: Clear to auscultation bilaterally. She is wearing a LifeVest. CARDIOVASCULAR: Regular rate and rhythm. S1 and S2. No S3 or S4. PMI is displaced past the midclavicular line. ABDOMEN: Soft, obese, nontender, nondistended. Positive for bowel sounds. EXTREMITIES: No cyanosis, clubbing, or edema. Peripheral pulses are significantly impaired in the lower extremities. LABORATORY DATA: On review of relevant lab work, the patient has a white count currently of 10, had been as high as 14.7; H and H of 14.2 and 41.4; platelets of 220. BUN and creatinine are 15 and 0.5, potassium is 3.9, sodium of 141, magnesium is 1.9. ALT and AST are 17 and 41. The patient's potassium and magnesium had been within normal limits throughout her admission. Albumin is 3.4. Troponin peak is 0.8. MEDICATIONS: On review of current medications, the patient is on amiodarone 400 mg twice a day, aspirin 81 mg p.o. daily, atorvastatin 40 mg p.o. daily, Coreg 25 mg p.o. b.i.d., enoxaparin 40 mg subcu daily, Lasix 20 mg p.o. daily, insulin sliding scale, lisinopril 5 mg p.o. daily, Protonix 40 mg p.o. daily, and prednisone 20 mg p.o. daily. IMAGING: On review of EKG, which was done on admission, it shows sinus tachycardia with a heart rate of 122 beats per minute, normal P-wave morphology, frequent PVCs are seen with a right bundle type appearance that is inferiorly directed. There does appear to be concordance across the precordial leads. In terms of intrinsic complexes, there does appear to be Q-wave inferiorly consistent with prior anteroseptal myocardial infarction. There are possibly acute lateral changes. Most recent EKG which was done on the 02/28/2018 by comparison shows normal sinus rhythm, normal LA interval with anteroseptal poor precordial progression. QT, QTc are 364 and 450 respectively. There does appear to be supraventricular ectopy with aberrant conduction as well. ASSESSMENT AND PLAN: 1. The patient with documented wide complex tachycardia, requiring external defibrillation via her LifeVest. The patient presented with acute respiratory distress, likely to have some degree of heart failure given her diminished ejection fraction and likely prior unknown anteroseptal myocardial infarction. This likely does not represent an acute myocardial infarction at the time of presentation. It is unclear whether the patient had ventricular arrhythmia on presentation causing respiratory distress; there is no documentation to that effect. Given the patient's higher risk of developing ventricular arrhythmias in the setting of unaddressable coronary artery disease and ischemic cardiomyopathy, it is felt that the patient would benefit from an implantable defibrillator for secondary prevention of sudden cardiac . To that end, we will make arrangements for a transfer and implantation. She will likely require authorization. Plans would be for early next week, either Monday or Monday. 2. Ischemic cardiomyopathy, ejection fraction 20%. The patient will be optimized on medical therapies, at this point on high-dose carvedilol. In addition, the patient is on amiodarone p.o., which will be continued, dose will be decreased going forward. At this point, we would try to shy away from long-term amiodarone therapy given her age and underlying chronic obstructive pulmonary disease/pulmonary disease. 3. Systolic heart failure. The patient will be monitored closely, will need close followup. She does spend a fair amount of time in [place], so she is encouraged to follow up with Dr. Tadeo Cruz following implantable cardioverter defibrillator placement. I would be happy to see her in the office as well from a device standpoint. 4. Diabetes, which should be managed aggressively. 5. Supraventricular tachycardia, which has been documented on EKGs. The patient will be maximized on beta-marsha therapy and would benefit from atrial lead, therapeutic/diagnostic. Greater than 90 minutes were spent in review of the patient's chart, interview and examination of the patient, and coordination of care. Thank you for allowing me to participate in the care of your patient. Please do not hesitate to call if you have any questions in regards to her care. Yours sincerely. Donnell Viramontes MD cc: MD Mani Reagan MD
[2018-03-05] MEDS: Enoxaparin 40 mg Syringe SC SCH (09:17)
[2018-03-05] MEDS: Insulin Detemir 100 units/ml Vial (Levemir) SC SCH (09:18)
--- NOTE | 2018-03-05 10:20 | PN ---
DATE: 03/05/2018 CARDIOLOGY FOLLOWUP SUBJECTIVE: The patient is not short of breath. PHYSICAL EXAMINATION VITAL SIGNS: Stable. NECK: Negative JVD. LUNGS: Without rales. HEART: S1 and S2. EXTREMITIES: Without edema. IMPRESSION: 1. Status post anteroseptal myocardial infarction. 2. Ventricular tachycardia. 3. Ischemic dilated cardiomyopathy. 4. Diabetes mellitus. PLAN: Given these findings, awaiting transfer for ICD implantation. Tadeo Cruz MD
--- NOTE | 2018-03-05 17:04 | CP.PCM.PN ---
Subjective - Date & Time of Evaluation Date of Evaluation: 03/05/18 Time of Evaluation: 10:00 - Subjective Subjective: Feeling more comfortable, no fevers, not in distress, improved cough and breathing. Objective - Vital Signs/Intake and Output Vital Signs (last 24 hours): Temp Pulse Resp BP Pulse Ox 97.8 F 69 20 129/69 94 L 03/05/18 05:48 03/05/18 05:48 03/05/18 05:48 03/05/18 05:48 03/05/18 05:48 Intake and Output: 03/05/18 03/05/18 06:59 18:59 Intake Total 360 Balance 360 - Medications Medications: Current Medications Amiodarone HCl (Cordarone) 400 mg PO BID [facility] Last Admin: 03/04/18 17:58 Dose: 400 mg Aspirin (Aspirin Chewable) 81 mg PO DAILY [facility] Last Admin: 03/04/18 09:27 Dose: 81 mg Atorvastatin Calcium (Lipitor) 40 mg PO DIN [facility] Last Admin: 03/04/18 17:58 Dose: 40 mg Budesonide (Pulmicort Respules) 1 mg IH [id number] [facility] Last Admin: 03/05/18 07:16 Dose: 1 mg Carvedilol (Coreg) 25 mg PO BID [facility] Last Admin: 03/04/18 17:57 Dose: 25 mg Enoxaparin Sodium (Lovenox) 40 mg SC DAILY [facility] PRN Reason: Protocol Last Admin: 03/04/18 09:26 Dose: 40 mg Furosemide (Lasix) 20 mg PO DAILY [facility] Last Admin: 03/04/18 09:27 Dose: 20 mg Insulin Detemir (Levemir) 60 unit SC DAILY [facility] Last Admin: 03/04/18 09:26 Dose: 60 unit Insulin Human Regular (Humulin R Med) 0 units SC Q4H [facility] PRN Reason: Protocol Last Admin: 03/05/18 00:25 Dose: Not Given Lisinopril (Zestril) 5 mg PO DAILY [facility] Last Admin: 02/28/18 12:16 Dose: Not Given Pantoprazole Sodium (Protonix Ec Tab) 40 mg PO ACB [facility] Last Admin: 03/04/18 08:15 Dose: 40 mg Prednisone (Prednisone Tab) 10 mg PO DAILY [facility] Last Admin: 03/04/18 09:28 Dose: 10 mg - Labs Labs: 03/02/18 10:00 03/02/18 10:00 PT 10.1 SECONDS (9.4-12.5) 02/26/18 02:04 INR 0.89 (0.93-1.08) L 02/26/18 02:04 APTT 64.3 Seconds (25.1-36.5) H 02/26/18 08:30 - Constitutional Appears: Non-toxic, Chronically Ill - Head Exam Head Exam: NORMAL INSPECTION - Respiratory Exam Respiratory Exam: Decreased Breath Sounds - Cardiovascular Exam Cardiovascular Exam: +S1, +S2 - GI/Abdominal Exam GI & Abdominal Exam: Soft. absent: Tenderness Assessment and Plan - Assessment and Plan (Free Text) Plan: Assessment S/P Systemic inflammatory response syndrome S/P ventilator-dependent respiratory failure, consider due to acute coronary syndrome with probable CHF, R/O pneumonia, R/O COPD exacerbation coagulase negative staph in blood cx, probably contamination COPD significant smoking history obesity with BMI 32 DM PAD S/P angioplasty of left leg Plan will continue to monitor off antibiotics since she is at risk for infections will repeat blood cx; patient does not have indwelling hardware, prosthetic devices or catheters - coagulase negative staph in blood cx is probably contamination and will not specifically treat with antibiotics
--- NOTE | 2018-03-05 18:07 | CP.PCM.PN ---
<Itz Mckeon - Last Filed: 03/05/18 18:04> Subjective - Date & Time of Evaluation Date of Evaluation: 03/05/18 Time of Evaluation: 07:45 - Subjective Subjective: Patient seen and evaluated this AM. No acute events reported overnight. Patient denies chest pain shortness of breath, abdominal pain, nasuea, vomiting, palpitations. Objective - Vital Signs/Intake and Output Vital Signs (last 24 hours): Temp Pulse Resp BP Pulse Ox 97.9 F 79 20 129/53 L 94 L 03/05/18 12:00 03/05/18 18:03 03/05/18 12:00 03/05/18 18:03 03/05/18 12:00 Intake and Output: 03/05/18 03/05/18 06:59 18:59 Intake Total 360 Balance 360 - Medications Medications: Current Medications Amiodarone HCl (Cordarone) 400 mg PO BID [facility] Last Admin: 03/05/18 18:02 Dose: 400 mg Aspirin (Aspirin Chewable) 81 mg PO DAILY [facility] Last Admin: 03/05/18 09:17 Dose: 81 mg Atorvastatin Calcium (Lipitor) 40 mg PO DIN [facility] Last Admin: 03/05/18 18:02 Dose: 40 mg Budesonide (Pulmicort Respules) 1 mg IH [id number] [facility] Last Admin: 03/05/18 07:16 Dose: 1 mg Carvedilol (Coreg) 25 mg PO BID [facility] Last Admin: 03/05/18 18:03 Dose: 25 mg Enoxaparin Sodium (Lovenox) 40 mg SC DAILY [facility] PRN Reason: Protocol Last Admin: 03/05/18 09:17 Dose: 40 mg Furosemide (Lasix) 20 mg PO DAILY [facility] Last Admin: 03/05/18 09:16 Dose: 20 mg Insulin Detemir (Levemir) 60 unit SC DAILY [facility] Last Admin: 03/05/18 09:18 Dose: 60 unit Insulin Human Regular (Humulin R Med) 0 units SC Q4H [facility] PRN Reason: Protocol Last Admin: 03/05/18 18:03 Dose: 1 u Lisinopril (Zestril) 5 mg PO DAILY [facility] Last Admin: 02/28/18 12:16 Dose: Not Given Pantoprazole Sodium (Protonix Ec Tab) 40 mg PO ACB [facility] Last Admin: 03/05/18 08:12 Dose: 40 mg Prednisone (Prednisone Tab) 10 mg PO DAILY [facility] Last Admin: 03/05/18 09:16 Dose: 10 mg - Labs Labs: 03/02/18 10:00 03/02/18 10:00 PT 10.1 SECONDS (9.4-12.5) 02/26/18 02:04 INR 0.89 (0.93-1.08) L 02/26/18 02:04 APTT 64.3 Seconds (25.1-36.5) H 02/26/18 08:30 - Constitutional Appears: No Acute Distress - Head Exam Head Exam: ATRAUMATIC, NORMAL INSPECTION, NORMOCEPHALIC - Eye Exam Eye Exam: EOMI, PERRL - ENT Exam ENT Exam: Mucous Membranes Moist - Neck Exam Neck Exam: Full ROM - Respiratory Exam Respiratory Exam: Clear to Ausculation Bilateral, NORMAL BREATHING PATTERN - Cardiovascular Exam Cardiovascular Exam: REGULAR RHYTHM, +S1, +S2 - GI/Abdominal Exam GI & Abdominal Exam: Soft, Normal Bowel Sounds. absent: Tenderness - Extremities Exam Extremities Exam: Full ROM, Pedal Edema (+1 bilateral ) - Neurological Exam Neurological Exam: Alert, Awake, Normal Gait, Oriented x3 Neuro motor strength exam: Left Upper Extremity: 5, Right Upper Extremity: 5, Left Lower Extremity: 5, Right Lower Extremity: 5 - Psychiatric Exam Psychiatric exam: Normal Affect, Normal Mood - Skin Skin Exam: Dry, Warm Assessment and Plan - Assessment and Plan (Free Text) Assessment: 57 year old female with past medical history that includes who presented with acute coronary syndrome in the setting of severe left ventricular systolic dysfunction with suspected COPD exacerbation in the setting of hypercapnic respiratory failure requiring intubation. Patient is s/p left heart cath and monitored on telemetry floor. Patient status post firing of livevest. Patient amio loaded and to have AICD placement tomorrow at [facility] with EP. Plan: ACS s/p LHC - s/p LHC with cardiology, without intervention, recs for medical therapy - Aspirin, Statin, beta marsha, Lasix; ACEi held for hypotension - Carvedilol 25mg bid, holding if systolic BP below 100 - Continue amiodarone - Maintain MAP >65 - Life vest fired previously after V-tach episode of 210 with return of NSR 4 days ago - Patient was seen by EP who will take patient for AICD placement tomorrow at [facility] - Cardio on consult; appreciate recs COPD exacerbation - Presentation of COPD exacerbation with hypercapnic respiratory failure requiring intubation - Duonebs Q6H, ICS - Pulmicort - Patietn able to ambulate hallway without distress - BiPAP QHS - Continue oral steroid taper DM2 - HgbA1c 9.4 - Insulin 60 units daily - ISS medium - monitor ACHS GI/DVT ppx - Protonix - Lovenox dispo: patient to follow up with [facility] clinic upon discharge Case and plan discussed with attending <Mani Barber - Last Filed: 03/10/18 13:28> Objective - Vital Signs/Intake and Output Vital Signs (last 24 hours): Temp Pulse Resp BP Pulse Ox 98.4 F 66 17 85/53 L 95 03/06/18 12:00 03/06/18 12:00 03/06/18 12:00 03/06/18 12:00 03/06/18 00:01 - Labs Labs: 03/02/18 10:00 03/06/18 08:20 PT 10.1 SECONDS (9.4-12.5) 02/26/18 02:04 INR 0.89 (0.93-1.08) L 02/26/18 02:04 APTT 64.3 Seconds (25.1-36.5) H 02/26/18 08:30 Attending/Attestation - Attestation I have personally seen and examined this patient.: Yes I have fully participated in the care of the patient.: Yes I have reviewed all pertinent clinical information, including history, physical exam and plan: Yes Notes (Text): 03/10/18 13:25 Medical record note made by the resident after discussion with my direction and input after the patient was personally seen and examined by me. I have reviewed the chart and agree that the record accurately reflects by personal performance of the history, physical exam, data review, and medical decision-making, in the course for the patient. I have also personally directed the plan of care. 57 year old female with PMH od DM,Obesity presented with acute coronary syndrome in the setting of severe left ventricular systolic dysfunction with suspected COPD exacerbation in the setting of hypercapnic respiratory failure requiring intubation, underwent cardiac cath showed critical LAD lesion which was not amendable by angioplasty, medical management was recommended. Patient was extubated ,life vest was placed on her , has VT , shock was given was by life vest, Patient was evaluated by EP and will be transferred for AICD Placement. Management plan was discussed in detail with patient. Education was provided. 03/10/18 13:27
[2018-03-06] MEDS: Insulin Reg-MEDIUM-Coverage SC SCH ×5 (03:08→23:33)
[2018-03-06 05:31] VITALS: O2SAT 95
[2018-03-06] MEDS: Budesonide 0.5 mg/2 ml Inhal Susp UD IH SCH ×2 (08:04→20:00)
--- NOTE | 2018-03-06 09:05 | PN ---
DATE: 03/06/2018 CARDIOLOGY FOLLOWUP SUBJECTIVE: The patient is asymptomatic. PHYSICAL EXAMINATION: VITAL SIGNS: Blood pressure is 112/73, the heart rate is in the 60s. No ventricular arrhythmias noted. NECK: Negative JVD. LUNGS: Without rales. HEART: Reveals S1, S2. EXTREMITIES: Without edema. LABORATORY DATA: Hemoglobin is 49. Chemistries: Glucose is 80. IMPRESSION: 1. Status post anterior wall myocardial infarction. 2. Ischemic dilated cardiomyopathy. 3. History of ventricular tachycardia. 4. Hypertension. 5. Diabetes mellitus. PLAN: Given these findings, the patient is for transfer to [facility] for an ICD today. Tadeo Cruz MD
[2018-03-06] MEDS: Insulin Detemir 100 units/ml Vial (Levemir) SC SCH (09:07)
[2018-03-06] MEDS: Pantoprazole 40 mg EC Tab PO SCH (09:14)
[2018-03-06 09:20] LABS: BLOOD UREA NITROGEN 14 mg/dL (7-21); CALCIUM 9.4 mg/dL (8.4-10.5); GFR NON-AFRICAN AMERICAN > 60
[2018-03-06] MEDS: Enoxaparin 40 mg Syringe SC SCH (10:11)
[2018-03-06 13:18] VITALS: BP 85/53; PULSE 66; RESP 17; TEMP 98.4
--- NOTE | 2018-03-06 15:06 | CP.PCM.PN ---
<Itz Mckeon - Last Filed: 03/06/18 14:57> Subjective - Date & Time of Evaluation Date of Evaluation: 03/06/18 Time of Evaluation: 14:57 - Subjective Subjective: Patient seen and examined this AM. No acute events reported overnight. Patient to be transferred today for AICD placement. Denies chest pain, shortness of breath, abdominal pain, diarrhea, nausea, vomiting Objective - Vital Signs/Intake and Output Vital Signs (last 24 hours): Temp Pulse Resp BP Pulse Ox 98.4 F 66 17 85/53 L 95 03/06/18 12:00 03/06/18 12:00 03/06/18 12:00 03/06/18 12:00 03/06/18 00:01 Intake and Output: 03/06/18 03/06/18 06:59 18:59 Intake Total 360 180 Balance 360 180 - Medications Medications: Current Medications Amiodarone HCl (Cordarone) 400 mg PO BID COUNTS INCLUDE 234 BEDS AT THE [facility] Last Admin: 03/06/18 09:13 Dose: 400 mg Aspirin (Aspirin Chewable) 81 mg PO DAILY COUNTS INCLUDE 234 BEDS AT THE [facility] Last Admin: 03/06/18 10:13 Dose: Not Given Atorvastatin Calcium (Lipitor) 40 mg PO DIN COUNTS INCLUDE 234 BEDS AT THE [facility] Last Admin: 03/05/18 18:02 Dose: 40 mg Budesonide (Pulmicort Respules) 1 mg IH [id number] COUNTS INCLUDE 234 BEDS AT THE [facility] Last Admin: 03/06/18 08:04 Dose: 1 mg Carvedilol (Coreg) 25 mg PO BID COUNTS INCLUDE 234 BEDS AT THE [facility] Last Admin: 03/06/18 09:13 Dose: 25 mg Enoxaparin Sodium (Lovenox) 40 mg SC DAILY COUNTS INCLUDE 234 BEDS AT THE [facility] PRN Reason: Protocol Last Admin: 03/06/18 10:11 Dose: Not Given Furosemide (Lasix) 20 mg PO DAILY COUNTS INCLUDE 234 BEDS AT THE [facility] Last Admin: 03/06/18 09:14 Dose: 20 mg Insulin Detemir (Levemir) 60 unit SC DAILY COUNTS INCLUDE 234 BEDS AT THE [facility] Last Admin: 03/06/18 09:07 Dose: Not Given Insulin Human Regular (Humulin R Med) 0 units SC ACHS COUNTS INCLUDE 234 BEDS AT THE [facility] PRN Reason: Protocol Last Admin: 03/06/18 12:26 Dose: Not Given Lisinopril (Zestril) 5 mg PO DAILY COUNTS INCLUDE 234 BEDS AT THE [facility] Last Admin: 02/28/18 12:16 Dose: Not Given Pantoprazole Sodium (Protonix Ec Tab) 40 mg PO ACB COUNTS INCLUDE 234 BEDS AT THE [facility] Last Admin: 03/06/18 09:14 Dose: 40 mg Prednisone (Prednisone Tab) 10 mg PO DAILY COUNTS INCLUDE 234 BEDS AT THE [facility] Last Admin: 03/06/18 09:14 Dose: 10 mg - Labs Labs: 03/02/18 10:00 03/06/18 08:20 PT 10.1 SECONDS (9.4-12.5) 02/26/18 02:04 INR 0.89 (0.93-1.08) L 02/26/18 02:04 APTT 64.3 Seconds (25.1-36.5) H 02/26/18 08:30 - Constitutional Appears: No Acute Distress - Head Exam Head Exam: ATRAUMATIC, NORMAL INSPECTION, NORMOCEPHALIC - Eye Exam Eye Exam: EOMI, PERRL - ENT Exam ENT Exam: Mucous Membranes Moist - Neck Exam Neck Exam: Full ROM - Respiratory Exam Respiratory Exam: Clear to Ausculation Bilateral, NORMAL BREATHING PATTERN - Cardiovascular Exam Cardiovascular Exam: REGULAR RHYTHM, +S1, +S2 - GI/Abdominal Exam GI & Abdominal Exam: Soft, Normal Bowel Sounds - Extremities Exam Extremities Exam: Normal Capillary Refill, Pedal Edema (trace). absent: Tenderness - Neurological Exam Neurological Exam: Alert, Awake, Normal Gait, Oriented x3 - Psychiatric Exam Psychiatric exam: Normal Affect, Normal Mood - Skin Skin Exam: Dry, Intact Assessment and Plan - Assessment and Plan (Free Text) Assessment: 57 year old female with past medical history that includes who presented with acute coronary syndrome in the setting of severe left ventricular systolic dysfunction with suspected COPD exacerbation in the setting of hypercapnic respiratory failure requiring intubation. Patient is s/p left heart cath and monitored on telemetry floor. Patient status post firing of livevest. Patient amio loaded and to have AICD placement today at [facility] with EP. Plan: ACS s/p LHC - s/p LHC with cardiology, without intervention, recs for medical therapy - Aspirin, Statin, beta marsha, Lasix; ACEi held for hypotension - Carvedilol 25mg bid, holding if systolic BP below 100 - Continue amiodarone, monitor on telemetry - Maintain MAP >65 - Life vest fired previously after V-tach episode of 210 with return of NSR 5 days prior - Patient was seen by EP who will take patient for AICD placement today - Cardio on consult; appreciate recs COPD exacerbation - Presentation of COPD exacerbation with hypercapnic respiratory failure requiring intubation - Duonebs Q6H, ICS - Pulmicort - Patient able to ambulate hallway without distress - BiPAP QHS, patient refusing at this time - Continue oral steroid taper DM2 - HgbA1c 9.4 - Insulin 60 units daily - ISS medium - monitor ACHS GI/DVT ppx - Protonix - Lovenox dispo: patient to be transferred to [facility] for AICD placement today, plan for [place] [facility] [place] Case and plan discussed with attending <Mani Barber - Last Filed: 03/10/18 13:29> Objective - Vital Signs/Intake and Output Vital Signs (last 24 hours): Temp Pulse Resp BP Pulse Ox 98.4 F 66 17 85/53 L 95 03/06/18 12:00 03/06/18 12:00 03/06/18 12:00 03/06/18 12:00 03/06/18 00:01 - Labs Labs: 03/02/18 10:00 03/06/18 08:20 PT 10.1 SECONDS (9.4-12.5) 02/26/18 02:04 INR 0.89 (0.93-1.08) L 02/26/18 02:04 APTT 64.3 Seconds (25.1-36.5) H 02/26/18 08:30 Attending/Attestation - Attestation I have personally seen and examined this patient.: Yes I have fully participated in the care of the patient.: Yes I have reviewed all pertinent clinical information, including history, physical exam and plan: Yes Notes (Text): 03/10/18 13:29 Medical record note made by the resident after discussion with my direction and input after the patient was personally seen and examined by me. I have reviewed the chart and agree that the record accurately reflects by personal performance of the history, physical exam, data review, and medical decision-making, in the course for the patient. I have also personally directed the plan of care. 57 year old female with PMH od DM,Obesity presented with acute coronary syndrome in the setting of severe left ventricular systolic dysfunction with suspected COPD exacerbation in the setting of hypercapnic respiratory failure requiring intubation, underwent cardiac cath showed critical LAD lesion which was not amendable by angioplasty, medical management was recommended. Patient was extubated ,life vest was placed on her , has VT , shock was given was by life vest, Patient was evaluated by EP and will be transferred for AICD Placement. COPD is stable, on room air , not wheezing, on tapering dose of Prednisone. IRDM, on Levemir, blood sugars are better controlled. Management plan was discussed in detail with patient. Education was provided.
--- NOTE | 2018-03-06 23:43 | PN ---
DATE: 03/06/2018 SUBJECTIVE: The patient is in bed and seen earlier today in no acute distress, nontoxic. PHYSICAL EXAMINATION: GENERAL: Temperature is 98, blood pressure is 85/50, respiratory rate of 18, heart rate of 66. HEENT: Examination of HEENT is unremarkable. NECK: Supple. LUNGS: Have decreased breath sounds. HEART: Normal S1 and S2. ABDOMEN: Soft, nontender. LABORATORY EXAMINATION: Reveals a white count of 10,700, hemoglobin of 14. Chemistry reveals a BUN of 14, creatinine of 0.6. Urinalysis is noted. Toxicology is noted. Serology is reviewed. Microbiology reveals the patient has a coag negative staph in the blood of one bottle. Repeat blood cultures are negative status post anterior wall MT as per Dr. Tadeo Cruz's note. ASSESSMENT AND PLAN: This is a 57-year-old female status post systemic inflammatory response syndrome status post ventilatory dependant respiratory failure due to acute coronary syndrome, probable congestive heart failure with a coag-negative Staph and one blood culture consistent with contamination with chronic obstructive lung disease, long-time smoker, obesity with a body mass index of 32, diabetes, peripheral artery disease status post angioplasty of left leg. Currently, the patient is off of antibiotics . The patient is at risk for developing nosocomial infections. Matthew Lombardo MD
--- NOTE | 2018-03-10 15:30 | CP.PCM.DIS ---
<Itz Mckeon - Last Filed: 03/10/18 15:30> Provider - Provider Date of Admission: 02/26/18 03:45 Attending physician: Mani Barber MD Primary care physician: Cardiology: Dr. Cruz ID: Dr. Snow Time Spent in preparation of Discharge (in minutes): 45 Diagnosis - Discharge Diagnosis (1) ACS (acute coronary syndrome) Status: Resolved (2) Pneumonia Status: Resolved (3) Respiratory failure Status: Resolved (4) Sepsis Status: Resolved (5) CHF (congestive heart failure) Status: Chronic (6) COPD (chronic obstructive pulmonary disease) Status: Chronic Hospital Course - Lab Results Lab Results: Micro Results 03/03/18 10:10 Blood-Venous Blood Culture - Final NO GROWTH AFTER 5 DAYS 03/03/18 10:10 Blood-Venous Gram Stain - Final TEST NOT PERFORMED 03/03/18 10:10 Blood-Venous Blood Culture - Final NO GROWTH AFTER 5 DAYS 03/03/18 10:10 Blood-Venous Gram Stain - Final TEST NOT PERFORMED 02/26/18 06:41 Naris MRSA Culture (Admit) - Final MRSA NOT DETECTED Most Recent Lab Values WBC 10.7 10^3/ul (4.5-11.0) D 03/02/18 10:00 RBC 4.76 10^6/uL (3.5-6.1) 03/02/18 10:00 Hgb 14.2 g/dL (12.0-16.0) 03/02/18 10:00 Hct 41.4 % (36.0-48.0) 03/02/18 10:00 MCV 87.0 fl (80.0-105.0) 03/02/18 10:00 MCH 29.8 pg (25.0-35.0) 03/02/18 10:00 MCHC 34.3 g/dl (31.0-37.0) 03/02/18 10:00 RDW 13.5 % (11.5-14.5) 03/02/18 10:00 Plt Count 220 10^3/uL (120.0-450.0) 03/02/18 10:00 MPV 10.9 fl (7.0-11.0) 03/02/18 10:00 Gran % 54.1 % (50.0-68.0) 03/02/18 10:00 Lymph % (Auto) 38.1 % (22.0-35.0) H 03/02/18 10:00 Chase % (Auto) 5.8 % (1.0-6.0) 03/02/18 10:00 Eos % (Auto) 1.8 % (1.5-5.0) 03/02/18 10:00 Baso % (Auto) 0.2 % (0.0-3.0) 03/02/18 10:00 Gran # 5.81 (1.4-6.5) 03/02/18 10:00 Lymph # (Auto) 4.1 (1.2-3.4) H 03/02/18 10:00 Chase # (Auto) 0.6 (0.1-0.6) 03/02/18 10:00 Eos # (Auto) 0.2 (0.0-0.7) 03/02/18 10:00 Baso # (Auto) 0.02 K/mm3 (0.0-2.0) 03/02/18 10:00 Neutrophils % (Manual) 26 % (50.0-70.0) L 02/26/18 02:04 Lymphocytes % (Manual) 67 % (22.0-35.0) H 02/26/18 02:04 Atypical Lymphs % 2 % (0.0-0.0) H 02/26/18 02:04 Monocytes % (Manual) 2 % (1.0-6.0) 02/26/18 02:04 Eosinophils % (Manual) 3 % (0.0-3.0) 02/26/18 02:04 Platelet Evaluation Normal (NORMAL) 02/26/18 02:04 PT 10.1 SECONDS (9.4-12.5) 02/26/18 02:04 INR 0.89 (0.93-1.08) L 02/26/18 02:04 APTT 64.3 Seconds (25.1-36.5) H 02/26/18 08:30 pCO2 37 mm/Hg (35-45) 02/27/18 05:18 pO2 149.0 mm/Hg (80-100) H 02/27/18 05:18 HCO3 22.9 mmol/L (21-28) 02/27/18 05:18 ABG pH 7.40 (7.35-7.45) 02/27/18 05:18 ABG Total CO2 24.0 mmol.L (22-28) 02/27/18 05:18 ABG O2 Saturation 100.0 % (95-98) H 02/27/18 05:18 ABG O2 Content 20.9 ML/dl (15-23) 02/26/18 02:55 ABG Base Excess -1.5 mmol/L (-2.0-3.0) 02/27/18 05:18 ABG Hemoglobin 14.5 g/dL (11.7-17.4) 02/26/18 02:55 ABG Carboxyhemoglobin 3.5 % (0.5-1.5) H 02/26/18 02:55 POC ABG HHb (Measured) -0.9 % (0-5) L 02/26/18 02:55 ABG Methemoglobin 0.8 % (0.0-3.0) 02/26/18 02:55 ABG O2 Capacity 20.7 mL/dl (16-24) 02/26/18 02:55 ABG Potassium 3.4 mmol/L (3.6-5.2) L 02/27/18 05:18 VBG pH 7.33 (7.32-7.43) 02/26/18 15:25 VBG pCO2 39.0 (40-60) L 02/26/18 15:25 VBG HCO3 20.6 mmol/l (21-28) L 02/26/18 15:25 VBG Total CO2 21.8 mmol.L (22-28) L 02/26/18 15:25 VBG O2 Sat (Calc) 89.4 % (40-65) H 02/26/18 15:25 VBG Base Excess -4.9 mmol/L (0.0-2.0) L 02/26/18 15:25 VBG Potassium 3.7 mmol/L (3.6-5.2) 02/26/18 15:25 Hgb O2 Saturation 96.6 % (95.0-98.0) 02/26/18 02:55 Sodium 139.0 mmol/L (132-148) 02/27/18 05:18 Chloride 109.0 mmol/L (98-107) H 02/27/18 05:18 Glucose 227 mg/dl (65-105) H 02/27/18 05:18 Lactate 1.1 mmol/L (0.7-2.1) 02/27/18 05:18 Mechanical Rate 20 02/27/18 05:18 FiO2 60.0 % 02/27/18 05:18 Tidal Volume 400 02/27/18 05:18 PEEP 5 02/27/18 05:18 Sodium 142 mmol/L (132-148) 03/06/18 08:20 Potassium 3.7 mmol/L (3.6-5.0) 03/06/18 08:20 Chloride 107 mmol/L (98-107) 03/06/18 08:20 Carbon Dioxide 25 mmol/L (21-33) 03/06/18 08:20 Anion Gap 14 (10-20) 03/06/18 08:20 BUN 14 mg/dL (7-21) 03/06/18 08:20 Creatinine 0.6 mg/dl (0.7-1.2) L 03/06/18 08:20 Est GFR ( Amer) > 60 03/06/18 08:20 Est GFR (Non-Af Amer) > 60 03/06/18 08:20 POC Glucose (mg/dL) 106 mg/dL (65-110) 03/06/18 16:06 Random Glucose 84 mg/dL (70-110) 03/06/18 08:20 Hemoglobin A1c 9.4 % (4.2-6.5) H 02/26/18 05:30 Calcium 9.4 mg/dL (8.4-10.5) 03/06/18 08:20 Phosphorus 3.1 mg/dL (2.5-4.5) 03/02/18 10:00 Magnesium 1.8 mg/dL (1.7-2.2) 03/06/18 08:20 Total Bilirubin 0.9 mg/dL (0.2-1.3) 03/02/18 10:00 AST 17 U/L (14-36) 03/02/18 10:00 ALT 41 U/L (7-56) 03/02/18 10:00 Alkaline Phosphatase 74 U/L (38-126) 03/02/18 10:00 Lactate Dehydrogenase 755 U/L (333-699) H 02/26/18 15:25 Total Creatine Kinase 187 U/L (35-230) 02/26/18 15:25 Troponin I 0.80 ng/mL H* D 03/01/18 22:47 NT-Pro-B Natriuret Pep 2280 pg/mL (0-450) H 02/26/18 02:04 Total Protein 6.4 g/dL (5.8-8.3) 03/02/18 10:00 Albumin 3.4 g/dL (3.0-4.8) 03/02/18 10:00 Globulin 3.1 gm/dL 03/02/18 10:00 Albumin/Globulin Ratio 1.1 (1.1-1.8) 03/02/18 10:00 Triglycerides 335 mg/dL (35-160) H 02/26/18 02:04 Cholesterol 211 mg/dL (130-200) H 02/26/18 02:04 LDL Cholesterol Direct 144 mg/dL (0-129) H 02/26/18 02:04 HDL Cholesterol 36 mg/dL (29-60) 02/26/18 02:04 Procalcitonin 0.05 NG/ML (0.19-0.49) L 02/26/18 02:10 Free T4 0.98 ng/dL (0.78-2.19) 02/26/18 02:10 TSH 3rd Generation 5.87 mIU/mL (0.46-4.68) H 02/26/18 02:10 Arterial Blood Potassium 3.4 mmol/L (3.6-5.2) L 02/27/18 05:18 Venous Blood Potassium 3.7 mmol/L (3.6-5.2) 02/26/18 15:25 Urine Color Yellow (YELLOW) 02/26/18 05:11 Urine Appearance Sl cloudy (CLEAR) 02/26/18 05:11 Urine pH 6.0 (4.7-8.0) 02/26/18 05:11 Ur Specific Sargeant >= 1.030 (1.005-1.035) 02/26/18 05:11 Urine Protein >=300 mg/dL (<30 mg/dL) H 02/26/18 05:11 Urine Glucose (UA) >=1000 mg/dL (NEGATIVE) 02/26/18 05:11 Urine Ketones Negative mg/dL (NEGATIVE) 02/26/18 05:11 Urine Blood Moderate (NEGATIVE) H 02/26/18 05:11 Urine Nitrate Negative (NEGATIVE) 02/26/18 05:11 Urine Bilirubin Negative (NEGATIVE) 02/26/18 05:11 Urine Urobilinogen 0.2 E.U./dL (<1 E.U./dL) 02/26/18 05:11 Ur Leukocyte Esterase Negative Baldemar/uL (NEGATIVE) 02/26/18 05:11 Urine RBC 2 - 5 /hpf (0-2) 02/26/18 05:11 Urine WBC 0 - 2 /hpf (0-6) 02/26/18 05:11 Ur Epithelial Cells 3 - 4 /hpf (0-5) 02/26/18 05:11 Amorphous Sediment Many 02/26/18 05:11 Urine Opiates Screen Negative (NEGATIVE) 02/26/18 07:27 Urine Methadone Screen Negative (NEGATIVE) 02/26/18 07:27 Ur Barbiturates Screen Negative (NEGATIVE) 02/26/18 07:27 Ur Phencyclidine Scrn Negative (NEGATIVE) 02/26/18 07:27 Ur Amphetamines Screen Negative (NEGATIVE) 02/26/18 07:27 U Benzodiazepines Scrn Positive (NEGATIVE) H 02/26/18 07:27 U Oth Cocaine Metabols Negative (NEGATIVE) 02/26/18 07:27 U Cannabinoids Screen Negative (NEGATIVE) 02/26/18 07:27 Ur L.pneumophila Ag Negative (NEGATIVE) 02/26/18 07:27 Mycoplasma pneumon IgG 3.77 (<=0.90) H 02/26/18 06:20 Mycoplasma pneumon IgM 6 U/mL (<770) 02/26/18 06:20 Pneumocystis Source Serum 02/26/18 06:20 S. pneumoniae Antigen Not detected 02/26/18 06:20 - Hospital Course Hospital Course: Patient is a 57 year old female with past medical history of COPD, DM2, claudication of left leg who presented to [facility] emergency department on 02/26/2018 in respiratory distress. Patient was evaluated in ED placed on CPAP and eventually intubated due to hypercapnic respiratory failure based of ABG and clinical picture. Patient was admitted with hypercapic hypoxic respiratory failure requiring intubation, COPD exacerbation from possible pneumonia, severe sepsis with elevated lactic acidosis of 3.6, acute coronary syndrome, and possible flash pulmonary edema from acute CHF secondary to ACS. Patient was transferred to ICU and evaluated and monitored. While in ED patient had questionable EKG findings and with repeat EKG in ICU and elevated troponin, patient was originally placed on heparin drip and was taken for a LHC due to NSTEMI. While in ICU and in heart cath suite patient ejection fraction was noted to be ~20%. Patient was placed on milrinone drip prior to and continued on after LHC. According to LHC reports patient was unable to undergo PCI or angioplasty due to significant stenosis. Patient was recommended for AICD with optimal medical management due to limited ejection fraction. Patient was stabilized after LHC and extubated and transferred to telemetry floor. Milrinone drip was discontinued and patient was placed on optimal medical management. Patient was fitted for lifevest and monitored in telemetry. While on telemetry floor patient had an episode of ventricular tachycardia and her lifevest fired. Patient denied symptoms of palpitations of chest pain at time of firing. Patient was loaded with Amiodarone and electrophysiology was consulted. Patient was recommended for AICD placement at [facility]. Patient was stabilized medically and cleared for transfer to [facility] for AICD placement with EP Dr. Viramontes. Discharge planning including medication reconciliation and outpatient follow up were discussed with patient. She was in understanding and agreeable. - Date & Time of H&P Date of H&P: 02/26/18 Time of H&P: 03:56 Discharge Exam - Head Exam Head Exam: ATRAUMATIC, NORMAL INSPECTION, NORMOCEPHALIC - Additional Findings Additional findings: See progress note on day of transfer for physical exam Discharge Plan - Discharge Medications Prescriptions: Aspirin [Aspirin Chewable] 81 mg PO DAILY 30 Days #30 chew Atorvastatin [Lipitor] 40 mg PO DIN 30 Days #30 tab Budesonide [Pulmicort Respules] 1 mg IH [id number] 21 Days #42 neb Carvedilol [Coreg] 25 mg PO BID 30 Days #60 tab Lancets [Onetouch Lancets] 1 each MC BID 30 Days #60 each Lisinopril [Zestril] 5 mg PO DAILY 30 Days #30 tab - Follow Up Plan Condition: CRITICAL Disposition: Trans to Other Acute Care Hosp Instructions: Automatic Cardioverter Defibrillator Implantation, Automatic Cardioverter Defibrillator Implantation (DC) Additional Instructions: Follow up with [facility] on March 19 2:30PM - Please bring ID and insurance information Follow up with Dr. Barrett the stippler within 1-2 weeks upon discharge Follow up with Dr. Cruz, Cardiology within 1-2 weeks upon discharge Take Medications as prescribed to you -Amiodarone 400mg by mouth daily -ASA 81 by mouth Daily -Lipitor 40mg by mouth Daily -Flovent 110mg INH -Lasix 20mg by mouth Daily -Lisinopril 5mg by mouth Daily -Carvedilol 25mg by mouth twice daily -Prednisone Taper - see instructions -Levemir 60 unit SC Daily Referrals: Donnell Viramontes MD [Staff Provider] - [facility], [Non-Staff] - Tadeo Cruz MD [Staff Provider] - <Mani Barber - Last Filed: 03/11/18 10:30> Provider - Provider Date of Admission: 02/26/18 03:45 Attending physician: Mani Barber MD Hospital Course - Lab Results Lab Results: Micro Results 03/03/18 10:10 Blood-Venous Blood Culture - Final NO GROWTH AFTER 5 DAYS 03/03/18 10:10 Blood-Venous Gram Stain - Final TEST NOT PERFORMED 03/03/18 10:10 Blood-Venous Blood Culture - Final NO GROWTH AFTER 5 DAYS 03/03/18 10:10 Blood-Venous Gram Stain - Final TEST NOT PERFORMED 02/26/18 06:41 Naris MRSA Culture (Admit) - Final MRSA NOT DETECTED Most Recent Lab Values WBC 10.7 10^3/ul (4.5-11.0) D 03/02/18 10:00 RBC 4.76 10^6/uL (3.5-6.1) 03/02/18 10:00 Hgb 14.2 g/dL (12.0-16.0) 03/02/18 10:00 Hct 41.4 % (36.0-48.0) 03/02/18 10:00 MCV 87.0 fl (80.0-105.0) 03/02/18 10:00 MCH 29.8 pg (25.0-35.0) 03/02/18 10:00 MCHC 34.3 g/dl (31.0-37.0) 03/02/18 10:00 RDW 13.5 % (11.5-14.5) 03/02/18 10:00 Plt Count 220 10^3/uL (120.0-450.0) 03/02/18 10:00 MPV 10.9 fl (7.0-11.0) 03/02/18 10:00 Gran % 54.1 % (50.0-68.0) 03/02/18 10:00 Lymph % (Auto) 38.1 % (22.0-35.0) H 03/02/18 10:00 Chase % (Auto) 5.8 % (1.0-6.0) 03/02/18 10:00 Eos % (Auto) 1.8 % (1.5-5.0) 03/02/18 10:00 Baso % (Auto) 0.2 % (0.0-3.0) 03/02/18 10:00 Gran # 5.81 (1.4-6.5) 03/02/18 10:00 Lymph # (Auto) 4.1 (1.2-3.4) H 03/02/18 10:00 Chase # (Auto) 0.6 (0.1-0.6) 03/02/18 10:00 Eos # (Auto) 0.2 (0.0-0.7) 03/02/18 10:00 Baso # (Auto) 0.02 K/mm3 (0.0-2.0) 03/02/18 10:00 Neutrophils % (Manual) 26 % (50.0-70.0) L 02/26/18 02:04 Lymphocytes % (Manual) 67 % (22.0-35.0) H 02/26/18 02:04 Atypical Lymphs % 2 % (0.0-0.0) H 02/26/18 02:04 Monocytes % (Manual) 2 % (1.0-6.0) 02/26/18 02:04 Eosinophils % (Manual) 3 % (0.0-3.0) 02/26/18 02:04 Platelet Evaluation Normal (NORMAL) 02/26/18 02:04 PT 10.1 SECONDS (9.4-12.5) 02/26/18 02:04 INR 0.89 (0.93-1.08) L 02/26/18 02:04 APTT 64.3 Seconds (25.1-36.5) H 02/26/18 08:30 pCO2 37 mm/Hg (35-45) 02/27/18 05:18 pO2 149.0 mm/Hg (80-100) H 02/27/18 05:18 HCO3 22.9 mmol/L (21-28) 02/27/18 05:18 ABG pH 7.40 (7.35-7.45) 02/27/18 05:18 ABG Total CO2 24.0 mmol.L (22-28) 02/27/18 05:18 ABG O2 Saturation 100.0 % (95-98) H 02/27/18 05:18 ABG O2 Content 20.9 ML/dl (15-23) 02/26/18 02:55 ABG Base Excess -1.5 mmol/L (-2.0-3.0) 02/27/18 05:18 ABG Hemoglobin 14.5 g/dL (11.7-17.4) 02/26/18 02:55 ABG Carboxyhemoglobin 3.5 % (0.5-1.5) H 02/26/18 02:55 POC ABG HHb (Measured) -0.9 % (0-5) L 02/26/18 02:55 ABG Methemoglobin 0.8 % (0.0-3.0) 02/26/18 02:55 ABG O2 Capacity 20.7 mL/dl (16-24) 02/26/18 02:55 ABG Potassium 3.4 mmol/L (3.6-5.2) L 02/27/18 05:18 VBG pH 7.33 (7.32-7.43) 02/26/18 15:25 VBG pCO2 39.0 (40-60) L 02/26/18 15:25 VBG HCO3 20.6 mmol/l (21-28) L 02/26/18 15:25 VBG Total CO2 21.8 mmol.L (22-28) L 02/26/18 15:25 VBG O2 Sat (Calc) 89.4 % (40-65) H 02/26/18 15:25 VBG Base Excess -4.9 mmol/L (0.0-2.0) L 02/26/18 15:25 VBG Potassium 3.7 mmol/L (3.6-5.2) 02/26/18 15:25 Hgb O2 Saturation 96.6 % (95.0-98.0) 02/26/18 02:55 Sodium 139.0 mmol/L (132-148) 02/27/18 05:18 Chloride 109.0 mmol/L (98-107) H 02/27/18 05:18 Glucose 227 mg/dl (65-105) H 02/27/18 05:18 Lactate 1.1 mmol/L (0.7-2.1) 02/27/18 05:18 Mechanical Rate 20 02/27/18 05:18 FiO2 60.0 % 02/27/18 05:18 Tidal Volume 400 02/27/18 05:18 PEEP 5 02/27/18 05:18 Sodium 142 mmol/L (132-148) 03/06/18 08:20 Potassium 3.7 mmol/L (3.6-5.0) 03/06/18 08:20 Chloride 107 mmol/L (98-107) 03/06/18 08:20 Carbon Dioxide 25 mmol/L (21-33) 03/06/18 08:20 Anion Gap 14 (10-20) 03/06/18 08:20 BUN 14 mg/dL (7-21) 03/06/18 08:20 Creatinine 0.6 mg/dl (0.7-1.2) L 03/06/18 08:20 Est GFR ( Amer) > 60 03/06/18 08:20 Est GFR (Non-Af Amer) > 60 03/06/18 08:20 POC Glucose (mg/dL) 106 mg/dL (65-110) 03/06/18 16:06 Random Glucose 84 mg/dL (70-110) 03/06/18 08:20 Hemoglobin A1c 9.4 % (4.2-6.5) H 02/26/18 05:30 Calcium 9.4 mg/dL (8.4-10.5) 03/06/18 08:20 Phosphorus 3.1 mg/dL (2.5-4.5) 03/02/18 10:00 Magnesium 1.8 mg/dL (1.7-2.2) 03/06/18 08:20 Total Bilirubin 0.9 mg/dL (0.2-1.3) 03/02/18 10:00 AST 17 U/L (14-36) 03/02/18 10:00 ALT 41 U/L (7-56) 03/02/18 10:00 Alkaline Phosphatase 74 U/L (38-126) 03/02/18 10:00 Lactate Dehydrogenase 755 U/L (333-699) H 02/26/18 15:25 Total Creatine Kinase 187 U/L (35-230) 02/26/18 15:25 Troponin I 0.80 ng/mL H* D 03/01/18 22:47 NT-Pro-B Natriuret Pep 2280 pg/mL (0-450) H 02/26/18 02:04 Total Protein 6.4 g/dL (5.8-8.3) 03/02/18 10:00 Albumin 3.4 g/dL (3.0-4.8) 03/02/18 10:00 Globulin 3.1 gm/dL 03/02/18 10:00 Albumin/Globulin Ratio 1.1 (1.1-1.8) 03/02/18 10:00 Triglycerides 335 mg/dL (35-160) H 02/26/18 02:04 Cholesterol 211 mg/dL (130-200) H 02/26/18 02:04 LDL Cholesterol Direct 144 mg/dL (0-129) H 02/26/18 02:04 HDL Cholesterol 36 mg/dL (29-60) 02/26/18 02:04 Procalcitonin 0.05 NG/ML (0.19-0.49) L 02/26/18 02:10 Free T4 0.98 ng/dL (0.78-2.19) 02/26/18 02:10 TSH 3rd Generation 5.87 mIU/mL (0.46-4.68) H 02/26/18 02:10 Arterial Blood Potassium 3.4 mmol/L (3.6-5.2) L 02/27/18 05:18 Venous Blood Potassium 3.7 mmol/L (3.6-5.2) 02/26/18 15:25 Urine Color Yellow (YELLOW) 02/26/18 05:11 Urine Appearance Sl cloudy (CLEAR) 02/26/18 05:11 Urine pH 6.0 (4.7-8.0) 02/26/18 05:11 Ur Specific Sargeant >= 1.030 (1.005-1.035) 02/26/18 05:11 Urine Protein >=300 mg/dL (<30 mg/dL) H 02/26/18 05:11 Urine Glucose (UA) >=1000 mg/dL (NEGATIVE) 02/26/18 05:11 Urine Ketones Negative mg/dL (NEGATIVE) 02/26/18 05:11 Urine Blood Moderate (NEGATIVE) H 02/26/18 05:11 Urine Nitrate Negative (NEGATIVE) 02/26/18 05:11 Urine Bilirubin Negative (NEGATIVE) 02/26/18 05:11 Urine Urobilinogen 0.2 E.U./dL (<1 E.U./dL) 02/26/18 05:11 Ur Leukocyte Esterase Negative Baldemar/uL (NEGATIVE) 02/26/18 05:11 Urine RBC 2 - 5 /hpf (0-2) 02/26/18 05:11 Urine WBC 0 - 2 /hpf (0-6) 02/26/18 05:11 Ur Epithelial Cells 3 - 4 /hpf (0-5) 02/26/18 05:11 Amorphous Sediment Many 02/26/18 05:11 Urine Opiates Screen Negative (NEGATIVE) 02/26/18 07:27 Urine Methadone Screen Negative (NEGATIVE) 02/26/18 07:27 Ur Barbiturates Screen Negative (NEGATIVE) 02/26/18 07:27 Ur Phencyclidine Scrn Negative (NEGATIVE) 02/26/18 07:27 Ur Amphetamines Screen Negative (NEGATIVE) 02/26/18 07:27 U Benzodiazepines Scrn Positive (NEGATIVE) H 02/26/18 07:27 U Oth Cocaine Metabols Negative (NEGATIVE) 02/26/18 07:27 U Cannabinoids Screen Negative (NEGATIVE) 02/26/18 07:27 Ur L.pneumophila Ag Negative (NEGATIVE) 02/26/18 07:27 Mycoplasma pneumon IgG 3.77 (<=0.90) H 02/26/18 06:20 Mycoplasma pneumon IgM 6 U/mL (<770) 02/26/18 06:20 Pneumocystis Source Serum 02/26/18 06:20 S. pneumoniae Antigen Not detected 02/26/18 06:20 Attending/Attestation - Attestation I have personally seen and examined this patient.: Yes I have fully participated in the care of the patient.: Yes I have reviewed all pertinent clinical information, including history, physical exam and plan: Yes Notes (Text): 03/11/18 10:30 Medical record note made by the resident after discussion with my direction and input after the patient was personally seen and examined by me. I have reviewed the chart and agree that the record accurately reflects by personal performance of the history, physical exam, data review, and medical decision-making, in the course for the patient. I have also personally directed the plan of care. 57 year old female with PMH od DM,Obesity presented with acute coronary syndrome in the setting of severe left ventricular systolic dysfunction with suspected COPD exacerbation in the setting of hypercapnic respiratory failure requiring intubation, underwent cardiac cath showed critical LAD lesion which was not amendable by angioplasty, medical management was recommended. Patient was extubated ,life vest was placed on her , has VT , shock was given was by life vest, Patient was evaluated by EP and will be transferred for AICD Placement. COPD is stable, on room air , not wheezing, on tapering dose of Prednisone. IRDM, on Levemir, blood sugars are better controlled. Management plan was discussed in detail with patient. Education was provided.
== END 2018-03-06 17:00 | disposition short-term general hospital (02) | DRG 121 ==
LOC: ED 01:56 → ERH 03:45 → CCU 06:00 → 2RSO 02-28 18:16
PROVIDERS: ADMIT Internal Medicine; ATTEND Internal Medicine
PROC: 5A1945Z Respiratory Ventilation, 24-96 Consecutive Hours (ICD-10-PCS; principal; 2018-02-26)
PROC: 4A023N7 Measurement of Cardiac Sampling and Pressure, Left Heart, Percutaneous Approach (ICD-10-PCS; 2018-02-26)
PROC: B211YZZ Fluoroscopy of Multiple Coronary Arteries using Other Contrast (ICD-10-PCS; 2018-02-26)
PROC: B215YZZ Fluoroscopy of Left Heart using Other Contrast (ICD-10-PCS; 2018-02-26)
PROC: 0BH17EZ Insertion of Endotracheal Airway into Trachea, Via Natural or Artificial Opening (ICD-10-PCS; 2018-02-26)
PROC: 3E0F7GC Introduction of Other Therapeutic Substance into Respiratory Tract, Via Natural or Artificial Opening (ICD-10-PCS; 2018-02-26)
PROC: 5A09457 Assistance with Respiratory Ventilation, 24-96 Consecutive Hours, Continuous Positive Airway Pressure (ICD-10-PCS; 2018-02-28)
DX: I21.09 ST elevation (STEMI) myocardial infarction involving other coronary artery of anterior wall (principal); R57.0 Cardiogenic shock; J96.02 Acute respiratory failure with hypercapnia; J96.01 Acute respiratory failure with hypoxia; I50.21 Acute systolic (congestive) heart failure; J18.9 Pneumonia, unspecified organism; A41.9 Sepsis, unspecified organism; R65.20 Severe sepsis without septic shock; J44.1 Chronic obstructive pulmonary disease with (acute) exacerbation; E11.51 Type 2 diabetes mellitus with diabetic peripheral angiopathy without gangrene; I42.0 Dilated cardiomyopathy; I11.0 Hypertensive heart disease with heart failure; J44.0 Chronic obstructive pulmonary disease with (acute) lower respiratory infection; E87.2 Acidosis; I47.2 Ventricular tachycardia; I25.10 Atherosclerotic heart disease of native coronary artery without angina pectoris; I25.5 Ischemic cardiomyopathy; I47.1 Supraventricular tachycardia; F17.200 Nicotine dependence, unspecified, uncomplicated; E66.9 Obesity, unspecified; Z68.32 Body mass index [BMI] 32.0-32.9, adult

== ENCOUNTER 2018-03-09 16:11 | Inpatient (IN) | payer OTHER ==
--- NOTE | 2018-03-09 16:27 | CP.PCM.HP ---
<Brittany Delaney - Last Filed: 03/09/18 17:14> History of Present Illness - History of Present Illness History of Present Illness: Brittany Delaney, PGY1, H&P for Dr Barber: CC: S/p AICD, transfer back from [facility] 57 year old female, with PMH DM2, HFrEF 25%, dilated cardiomyopathy, CAD, severe PAD, COPD, presents s/p AICD placement at [facility]. On 02/26, patient initially presented to [facility] for acute SOB, found to be in severe hypercapneic respiaratory failure requiring intubation and ICU care, found to have NSTEMI, underwent unsuccessful PCI to LAD, had episode of sustained monomorphic Vtach, converted to SR with lifevest, transferred to [facility] for defibrillator placement to prevent sudden cardiac . At [facility], during placement of AICD, patient developed acute SOB, bilateral crackles, found to have flash pulmonary edema, transferred to CCU, diuresed well with Lasix, placed on bipap. Patient then did well, and underwent AICD placement. Patient transferred back to [facility] for further management and care. Currently, patient states that she feels well and would like to go home. Denies sob, cp, dizziness, palpitations, nausea, vomiting, abdominal pain, leg swelling , urinary symptoms. Records reviewed from [facility], BUN/Cr 14/0.75 on 03/08. 12 point ROS obtained and negative, except as per hPI. PMH: DM at least 8 years, peripheral neuropathy, COPD, Claudication of L leg PSH: Balloon angioplasty for L leg, no stent, 02/16/18, (Dr Lan, @ [facility]) All: NKDA FH: Mom = CHF, passed from cancer SH: Quit smoking 2 weeks ago, prior 1/2 ppd x 30 yearr, Denies ETOH or illicit drug use. Patient is originally from [place], [place]. Patient is visiting boyfriend in [place]. PMD = No PMD [facility], [facility] Present on Admission - Present on Admission Any Indicators Present on Admission: No History of DVT/PE: No History of Uncontrolled Diabetes: No Urinary Catheter: No Decubitus Ulcer Present: No Review of Systems - Review of Systems All systems: reviewed and no additional remarkable complaints except Review of Systems: as per hPI Past Patient History - Past Social History Smoking Status: Former Smoker - CARDIAC Hx Cardiac Disorders: Yes Hx Peripheral Vascular Disease: Yes (pad) Other/Comment: balloon angioplasty for lle for pad 02/16/[address] lan [phone] in [place], claudication left leg - PULMONARY Hx Respiratory Disorders: Yes Hx Chronic Obstructive Pulmonary Disease (COPD): Yes Hx Pneumonia: Yes Other/Comment: chronic cough from copd - NEUROLOGICAL Hx Neurological Disorder: Yes Other/Comment: peripheral neuropathy c/o pins and needles, tingling, cramping to toes both feet, toes becoming crooked, bumps to bottom of feet - HEENT Hx HEENT Problems: Yes (seasonal allergies) - RENAL Hx Chronic Kidney Disease: No - ENDOCRINE/METABOLIC Hx Endocrine Disorders: Yes Hx Diabetes Mellitus Type 2: Yes (dx about 8 yrs ago) - HEMATOLOGICAL/ONCOLOGICAL Hx Blood Disorders: No - INTEGUMENTARY Hx Dermatological Problems: Yes Other/Comment: bumps to bottom of feet, toes turning - MUSCULOSKELETAL/RHEUMATOLOGICAL Hx Falls: No - GASTROINTESTINAL Hx Gastrointestinal Disorders: Yes (obese) Other/Comment: "oregano bothers her gallbladder" stated Tadeo chase - GENITOURINARY/GYNECOLOGICAL Hx Genitourinary Disorders: No - PSYCHIATRIC Hx Substance Use: No - SURGICAL HISTORY Hx Surgeries: Yes Hx Cardiac Catheterization: Yes (today 02/26/18 in progress) Other/Comment: balloon angiolasty for lle pad 02/16/[address] [place] [address] lan [phone], is to f/u later this month as per boyfriend Tadeo Luciano Home Medications: Home Medication List Medication Instructions Recorded Confirmed Type Albuterol HFA [Ventolin HFA 90 0.09 mg IH Q6H PRN #1 puff 03/10/18 Rx mcg/actuation (8 g)] Amiodarone [Cordarone] 200 mg PO BID 14 Days #28 tab 03/10/18 Rx Amiodarone [Cordarone] 400 mg PO BID 7 Days #60 tab 03/10/18 03/09/18 Rx Furosemide [Lasix] 40 mg PO DAILY 30 Days #30 tab 03/10/18 03/09/18 Rx Insulin Detemir [Levemir] 30 unit SC DAILY 30 Days unit 03/10/18 03/09/18 Rx Allergies/Adverse Reactions: Allergies Allergy/AdvReac Type Severity Reaction Status Date / Time No Known Allergies Allergy Verified 02/26/18 02:12 Physical Exam - Constitutional Appears: Non-toxic, No Acute Distress - Head Exam Head Exam: ATRAUMATIC, NORMOCEPHALIC - Eye Exam Eye Exam: EOMI, PERRL. absent: Conjunctival injection, Nystagmus, Scleral icterus Pupil Exam: NORMAL ACCOMODATION, PERRL. absent: Irregular, Miosis, Mydriatic, Unequal - ENT Exam ENT Exam: Mucous Membranes Moist - Neck Exam Neck exam: Positive for: Full Rom - Respiratory Exam Respiratory Exam: Decreased Breath Sounds, NORMAL BREATHING PATTERN. absent: Accessory Muscle Use, Chest Wall Tenderness, Rales, Rhonchi, Wheezes, Respiratory Distress, Stridor Additional comments: + dullness to percussion b/l lower bases - Cardiovascular Exam Cardiovascular Exam: RRR, +S1, +S2 Additional comments: + left sided defibrillator in place - GI/Abdominal Exam GI & Abdominal Exam: Normal Bowel Sounds, Soft. absent: Distended, Firm, Guarding, Mass, Organomegaly, Pulsatile Mass, Rebound, Rigid, Tenderness - Extremities Exam Extremities exam: Positive for: normal inspection. Negative for: calf tenderness, pedal edema - Back Exam Back exam: NORMAL INSPECTION. absent: CVA tenderness (L), CVA tenderness (R) - Neurological Exam Neurological exam: Alert, Oriented x3 - Psychiatric Exam Psychiatric exam: Normal Affect, Normal Mood - Skin Skin Exam: Dry, Normal Color, Warm Assessment & Plan - Assessment and Plan (Free Text) Assessment: 57 year old female with PMH DM2, HFrEF 25%, dilated cardiomyopathy, CAD, severe PAD, COPD, presents as a transfer back to [facility] s/p AICD, in setting of ischemic cardiomyopathy: Acute HFrEF/dilated ischemic cardiomyopathy: - Echo shows EF 25% with moderate global hypokinesis. - C/w ASA, BB, BRAD-i, statin - Strict I&Os, daily weights CAD: - s/p unsuccessful PTCA at [facility] - ASA, statin, BB, brad-i - medical management - cardiology consulted. f/u recs. Monomorphic Ventricular tachycardia: - tele monitor - s/p AICD - Amiodarone 400 mg PO BID - Cardiology consulted. f/u recs for home meds. COPD exacerbation: - prednisone 20 mg x2 days - pulmicort - duonebs mat and prn Hx of DM: - levemir 30 units sq hs - ISS med - BS achs - HHD - [facility] diet - monitor PPX: protonix, lovenox sq Case seen and discussed with Dr Barber. Brittany Delaney PGY1 - Date & Time Date: 03/09/18 Time: 17:41 <Mani Barber - Last Filed: 03/10/18 13:33> Results - Vital Signs Recent Vital Signs: Last Vital Signs Temp 97.8 F 03/10/18 12:00 Pulse 71 03/10/18 12:00 Resp 19 03/10/18 12:00 BP 97/64 L 03/10/18 12:00 Pulse Ox 94 L 03/10/18 06:00 - Labs Result Diagrams: 03/10/18 06:00 03/10/18 06:00 Labs: Laboratory Results - last 24 hr 03/09/18 03/09/18 03/09/18 17:13 17:54 21:30 WBC RBC Hgb Hct MCV MCH MCHC RDW Plt Count MPV Gran % Lymph % (Auto) [place] % (Auto) Eos % (Auto) Baso % (Auto) Gran # Lymph # (Auto) [place] # (Auto) Eos # (Auto) Baso # (Auto) Sodium 140 Potassium 3.9 Chloride 98 Carbon Dioxide 31 Anion Gap 14 BUN 15 Creatinine 0.7 Est GFR ( Amer) > 60 Est GFR (Non-Af Amer) > 60 POC Glucose (mg/dL) 273 H 230 H Random Glucose 305 H* D Calcium 9.5 Phosphorus Magnesium 2.0 Total Bilirubin AST ALT Alkaline Phosphatase Total Protein Albumin Globulin Albumin/Globulin Ratio 03/10/18 03/10/18 03/10/18 02:26 06:00 06:00 WBC 13.4 H D RBC 4.55 Hgb 13.3 Hct 40.3 MCV 88.6 MCH 29.2 MCHC 33.0 RDW 14.0 Plt Count 183 MPV 11.8 H Gran % 52.3 Lymph % (Auto) 39.2 H [place] % (Auto) 6.7 H Eos % (Auto) 1.6 Baso % (Auto) 0.2 Gran # 6.99 H Lymph # (Auto) 5.2 H [place] # (Auto) 0.9 H Eos # (Auto) 0.2 Baso # (Auto) 0.03 Sodium 141 Potassium 3.6 Chloride 102 Carbon Dioxide 31 Anion Gap 12 BUN 15 Creatinine 0.8 Est GFR ( Amer) > 60 Est GFR (Non-Af Amer) > 60 POC Glucose (mg/dL) 145 H Random Glucose 113 H Calcium 9.5 Phosphorus 3.1 Magnesium 2.2 Total Bilirubin 0.7 AST 15 ALT 27 Alkaline Phosphatase 64 Total Protein 6.4 Albumin 3.5 Globulin 2.8 Albumin/Globulin Ratio 1.3 03/10/18 07:19 WBC RBC Hgb Hct MCV MCH MCHC RDW Plt Count MPV Gran % Lymph % (Auto) [place] % (Auto) Eos % (Auto) Baso % (Auto) Gran # Lymph # (Auto) [place] # (Auto) Eos # (Auto) Baso # (Auto) Sodium Potassium Chloride Carbon Dioxide Anion Gap BUN Creatinine Est GFR ( Amer) Est GFR (Non-Af Amer) POC Glucose (mg/dL) 112 H Random Glucose Calcium Phosphorus Magnesium Total Bilirubin AST ALT Alkaline Phosphatase Total Protein Albumin Globulin Albumin/Globulin Ratio Attending/Attestation - Attestation I have personally seen and examined this patient.: Yes I have fully participated in the care of the patient.: Yes I have reviewed all pertinent clinical information: Yes Notes (Text): 03/10/18 13:30 Medical record note made by the resident after discussion with my direction and input after the patient was personally seen and examined by me. I have reviewed the chart and agree that the record accurately reflects by personal performance of the history, physical exam, data review, and medical decision-making, in the course for the patient. I have also personally directed the plan of care. 57 year old female with PMH od DM,Obesity was initially admitted to ICU with acute coronary syndrome in the setting of severe left ventricular systolic dysfunction with suspected COPD exacerbation in the setting of hypercapnic respiratory failure requiring intubation, underwent cardiac cath showed critical LAD lesion which was not amendable by angioplasty, medical management was recommended. Patient was extubated ,life vest was placed on her , has VT , shock was given was by life vest, Patient was evaluated by EP and was transferred for AICD Placement.Patient was treated over there for acute on chronic systolic CHF with IV lasix and BIPAP.She underwent AICD placement yesterday and is transfered to [facility] today.Clinically she is euvolemic, will switch to oral lasix, will repeat chest X ray. COPD is stable, on room air , not wheezing, on tapering dose of Prednisone. IRDM, on Levemir, we will monitor blood sugars.. Management plan was discussed in detail with patient. Education was provided. 03/10/18 13:30
[2018-03-09 16:38] VITALS: BMI 34.2
[2018-03-09] MEDS ORDERED: Albuterol-Ipratrop 3 mg / 0.5 (3 ml) UD IH PRN (17:07)
[2018-03-09 18:09] LABS: BLOOD UREA NITROGEN 15 mg/dL (7-21); CALCIUM 9.5 mg/dL (8.4-10.5); GFR AFRICAN-AMERICAN > 60; GFR NON-AFRICAN AMERICAN > 60
[2018-03-09] MEDS ORDERED: Insulin Reg-MEDIUM-Coverage SC ONE (18:22)
[2018-03-09] MEDS: Enoxaparin 40 mg Syringe SC SCH (18:24)
[2018-03-09] MEDS: Budesonide 0.5 mg/2 ml Inhal Susp UD IH SCH (20:56)
[2018-03-09] MEDS: Albuterol-Ipratrop 3 mg / 0.5 (3 ml) UD IH SCH (20:56)
[2018-03-09] MEDS ORDERED: Pneumococcal 23-Valent Vaccine IM ONE (21:45)
[2018-03-09] MEDS: Insulin Reg-MEDIUM-Coverage SC SCH (21:50)
[2018-03-09] MEDS ORDERED: Insulin Detemir 100 units/ml Vial (Levemir) SC SCH (22:00)
[2018-03-10] MEDS: Albuterol-Ipratrop 3 mg / 0.5 (3 ml) UD IH SCH (02:09)
[2018-03-10] MEDS ORDERED: Pantoprazole 40 mg EC Tab PO SCH (06:00)
[2018-03-10 06:44] VITALS: O2SAT 94
[2018-03-10 07:11] LABS: ALB/GLOB RATIO 1.3 (1.1-1.8); ALBUMIN 3.5 g/dL (3.0-4.8); ALT/SGPT 27 U/L (7-56); AST/SGOT 15 U/L (14-36); BLOOD UREA NITROGEN 15 mg/dL (7-21); CALCIUM 9.5 mg/dL (8.4-10.5); GFR AFRICAN-AMERICAN > 60; GFR NON-AFRICAN AMERICAN > 60
[2018-03-10 07:21] LABS: BASO # 0.03 K/mm3 (0.0-2.0); BASO % 0.2 % (0.0-3.0); EOS # 0.2 (0.0-0.7); EOS % 1.6 % (1.5-5.0); GRAN # 6.99 (1.4-6.5); GRAN % 52.3 % (50.0-68.0); HEMOGLOBIN 13.3 g/dL (12.0-16.0); LYMPH # 5.2 (1.2-3.4); LYMPH % 39.2 % (22.0-35.0); MEAN CELL VOLUME 88.6 fl (80.0-105.0); MEAN CORPUSCULAR HEMOGLOBIN 29.2 pg (25.0-35.0); MEAN PLATELET VOLUME 11.8 fl (7.0-11.0); MONO # 0.9 (0.1-0.6); MONO % 6.7 % (1.0-6.0); RBC 4.55 10^6/uL (3.5-6.1); WHITE BLOOD COUNT 13.4 10^3/ul (4.5-11.0)
[2018-03-10] MEDS: Insulin Reg-MEDIUM-Coverage SC SCH ×2 (08:01→12:38)
[2018-03-10] MEDS: Budesonide 0.5 mg/2 ml Inhal Susp UD IH SCH (08:11)
[2018-03-10] MEDS: Enoxaparin 40 mg Syringe SC SCH (09:13)
--- NOTE | 2018-03-10 09:37 | RAD ---
HISTORY: Decreased breath sounds. Questionable pleural effusion COMPARISON: 02/28/2018 FINDINGS: LUNGS: No active pulmonary disease. PLEURA: No significant pleural effusion identified, no pneumothorax apparent. CARDIOVASCULAR: No radiographic findings to suggest acute or significant cardiovascular disease. Position/ configuration of pacemaker device: Satisfactory. OSSEOUS STRUCTURES: No significant abnormalities. VISUALIZED UPPER ABDOMEN: Normal. OTHER FINDINGS: None. IMPRESSION: No active disease. No significant interval change compared to the prior examination(s).
--- NOTE | 2018-03-10 11:44 | CP.PCM.DIS ---
<Itz Mckeon - Last Filed: 03/10/18 11:36> Provider - Provider Date of Admission: 03/09/18 16:11 Attending physician: Mani Barber MD Primary care physician: Jeanette Profile Required Consults: Cardiology: Dr. Cruz Time Spent in preparation of Discharge (in minutes): 35 Diagnosis - Discharge Diagnosis (1) CHF (congestive heart failure) Status: Chronic (2) COPD (chronic obstructive pulmonary disease) Status: Chronic Hospital Course - Lab Results Lab Results: Most Recent Lab Values WBC 13.4 10^3/ul (4.5-11.0) H D 03/10/18 06:00 RBC 4.55 10^6/uL (3.5-6.1) 03/10/18 06:00 Hgb 13.3 g/dL (12.0-16.0) 03/10/18 06:00 Hct 40.3 % (36.0-48.0) 03/10/18 06:00 MCV 88.6 fl (80.0-105.0) 03/10/18 06:00 MCH 29.2 pg (25.0-35.0) 03/10/18 06:00 MCHC 33.0 g/dl (31.0-37.0) 03/10/18 06:00 RDW 14.0 % (11.5-14.5) 03/10/18 06:00 Plt Count 183 10^3/uL (120.0-450.0) 03/10/18 06:00 MPV 11.8 fl (7.0-11.0) H 03/10/18 06:00 Gran % 52.3 % (50.0-68.0) 03/10/18 06:00 Lymph % (Auto) 39.2 % (22.0-35.0) H 03/10/18 06:00 Caldwell % (Auto) 6.7 % (1.0-6.0) H 03/10/18 06:00 Eos % (Auto) 1.6 % (1.5-5.0) 03/10/18 06:00 Baso % (Auto) 0.2 % (0.0-3.0) 03/10/18 06:00 Gran # 6.99 (1.4-6.5) H 03/10/18 06:00 Lymph # (Auto) 5.2 (1.2-3.4) H 03/10/18 06:00 Caldwell # (Auto) 0.9 (0.1-0.6) H 03/10/18 06:00 Eos # (Auto) 0.2 (0.0-0.7) 03/10/18 06:00 Baso # (Auto) 0.03 K/mm3 (0.0-2.0) 03/10/18 06:00 Sodium 141 mmol/L (132-148) 03/10/18 06:00 Potassium 3.6 mmol/L (3.6-5.0) 03/10/18 06:00 Chloride 102 mmol/L (98-107) 03/10/18 06:00 Carbon Dioxide 31 mmol/L (21-33) 03/10/18 06:00 Anion Gap 12 (10-20) 03/10/18 06:00 BUN 15 mg/dL (7-21) 03/10/18 06:00 Creatinine 0.8 mg/dl (0.7-1.2) 03/10/18 06:00 Est GFR ( Amer) > 60 03/10/18 06:00 Est GFR (Non-Af Amer) > 60 03/10/18 06:00 POC Glucose (mg/dL) 145 mg/dL (65-110) H 03/10/18 02:26 Random Glucose 113 mg/dL (70-110) H 03/10/18 06:00 Calcium 9.5 mg/dL (8.4-10.5) 03/10/18 06:00 Phosphorus 3.1 mg/dL (2.5-4.5) 03/10/18 06:00 Magnesium 2.2 mg/dL (1.7-2.2) 03/10/18 06:00 Total Bilirubin 0.7 mg/dL (0.2-1.3) 03/10/18 06:00 AST 15 U/L (14-36) 03/10/18 06:00 ALT 27 U/L (7-56) 03/10/18 06:00 Alkaline Phosphatase 64 U/L (38-126) 03/10/18 06:00 Total Protein 6.4 g/dL (5.8-8.3) 03/10/18 06:00 Albumin 3.5 g/dL (3.0-4.8) 03/10/18 06:00 Globulin 2.8 gm/dL 03/10/18 06:00 Albumin/Globulin Ratio 1.3 (1.1-1.8) 03/10/18 06:00 - Hospital Course Hospital Course: Patient is a 57 year old female, with PMH DM2, HFrEF 25%, dilated cardiomyopathy , CAD, severe PAD, COPD, presents s/p AICD placement at [facility]. On 02/26, patient initially presented to [facility] for acute SOB, found to be in severe hypercapneic respiratory failure requiring intubation and ICU care, found to have NSTEMI, underwent unsuccessful PCI to LAD, had episode of sustained monomorphic Vtach, converted to SR with lifevest, transferred to [facility] for defibrillator placement to prevent sudden cardiac . While at [facility] patient developed acute flash pulmonary edema and was transferred to CCU. Patient was stabilized there and eventually underwent AICD placement. Patient was transferred back to [facility]. Patient was evaluated and monitored overnight and found to be stable for discharge home with planned outpatient follow up. Discharge planning was conducted including outpatient follow up, medication reconciliation, diet, sodium education conducted, smoking cessation counseling, and signs and symptoms to be monitor to indicate return to nearest ED conducted. Patient was in understanding and in agreement. - Date & Time of H&P Date of H&P: 03/09/18 Time of H&P: 16:20 Discharge Exam - Head Exam Head Exam: ATRAUMATIC, NORMOCEPHALIC - Eye Exam Eye Exam: EOMI, PERRL - ENT Exam ENT Exam: Mucous Membranes Moist - Neck Exam Neck exam: Full Rom - Respiratory Exam Respiratory Exam: NORMAL BREATHING PATTERN Additional comments: dullness to percussion b/l bases, diminished air movement - Cardiovascular Exam Cardiovascular Exam: REGULAR RHYTHM, +S1, +S2 - GI/Abdominal Exam GI & Abdominal Exam: Normal Bowel Sounds, Unremarkable - Extremities Exam Extremities exam: normal capillary refill, pedal pulses present - Neurological Exam Neurological exam: Alert, CN II-XII Intact, Normal Gait, Oriented x3, Reflexes Normal - Psychiatric Exam Psychiatric exam: Normal Mood - Skin Skin Exam: Dry, Intact Discharge Plan - Discharge Medications Prescriptions: Albuterol HFA [Ventolin HFA 90 mcg/actuation (8 g)] 0.09 mg IH Q6H PRN #1 puff PRN Reason: Shortness Of Breath Amiodarone [Cordarone] 200 mg PO BID 14 Days #28 tab - Follow Up Plan Condition: GOOD Disposition: HOME/ ROUTINE Instructions: Heart Failure, Adult, Automatic Cardioverter Defibrillator Implantation, Heart Healthy Diet, Cardiomyopathy (DC) Additional Instructions: Follow up with primary medical doctor Follow up with [facility] within 5 days of discharge, Take medications as prescribed to you, discussed during discharge conversation Check your blood sugars twice a day once in the morning and once at night Weigh yourself daily and keep a record Adhere to a 2 gram or less of sodium or salt diet Smoking cessation advised and counseling Activity as tolerated Return to ED if you experience chest pain, shortness of breath, persistent headache, fever Referrals: [facility], [Primary Care Provider] - Jackson Mosquera MD [Staff Provider] - <Mani Barber - Last Filed: 03/10/18 13:40> Provider - Provider Date of Admission: 03/09/18 16:11 Attending physician: Mani Barber MD Primary care physician: Jeanette Jara Required Hospital Course - Lab Results Lab Results: Most Recent Lab Values WBC 13.4 10^3/ul (4.5-11.0) H D 03/10/18 06:00 RBC 4.55 10^6/uL (3.5-6.1) 03/10/18 06:00 Hgb 13.3 g/dL (12.0-16.0) 03/10/18 06:00 Hct 40.3 % (36.0-48.0) 03/10/18 06:00 MCV 88.6 fl (80.0-105.0) 03/10/18 06:00 MCH 29.2 pg (25.0-35.0) 03/10/18 06:00 MCHC 33.0 g/dl (31.0-37.0) 03/10/18 06:00 RDW 14.0 % (11.5-14.5) 03/10/18 06:00 Plt Count 183 10^3/uL (120.0-450.0) 03/10/18 06:00 MPV 11.8 fl (7.0-11.0) H 03/10/18 06:00 Gran % 52.3 % (50.0-68.0) 03/10/18 06:00 Lymph % (Auto) 39.2 % (22.0-35.0) H 03/10/18 06:00 Caldwell % (Auto) 6.7 % (1.0-6.0) H 03/10/18 06:00 Eos % (Auto) 1.6 % (1.5-5.0) 03/10/18 06:00 Baso % (Auto) 0.2 % (0.0-3.0) 03/10/18 06:00 Gran # 6.99 (1.4-6.5) H 03/10/18 06:00 Lymph # (Auto) 5.2 (1.2-3.4) H 03/10/18 06:00 Caldwell # (Auto) 0.9 (0.1-0.6) H 03/10/18 06:00 Eos # (Auto) 0.2 (0.0-0.7) 03/10/18 06:00 Baso # (Auto) 0.03 K/mm3 (0.0-2.0) 03/10/18 06:00 Sodium 141 mmol/L (132-148) 03/10/18 06:00 Potassium 3.6 mmol/L (3.6-5.0) 03/10/18 06:00 Chloride 102 mmol/L (98-107) 03/10/18 06:00 Carbon Dioxide 31 mmol/L (21-33) 03/10/18 06:00 Anion Gap 12 (10-20) 03/10/18 06:00 BUN 15 mg/dL (7-21) 03/10/18 06:00 Creatinine 0.8 mg/dl (0.7-1.2) 03/10/18 06:00 Est GFR ( Amer) > 60 03/10/18 06:00 Est GFR (Non-Af Amer) > 60 03/10/18 06:00 POC Glucose (mg/dL) 112 mg/dL (65-110) H 03/10/18 07:19 Random Glucose 113 mg/dL (70-110) H 03/10/18 06:00 Calcium 9.5 mg/dL (8.4-10.5) 03/10/18 06:00 Phosphorus 3.1 mg/dL (2.5-4.5) 03/10/18 06:00 Magnesium 2.2 mg/dL (1.7-2.2) 03/10/18 06:00 Total Bilirubin 0.7 mg/dL (0.2-1.3) 03/10/18 06:00 AST 15 U/L (14-36) 03/10/18 06:00 ALT 27 U/L (7-56) 03/10/18 06:00 Alkaline Phosphatase 64 U/L (38-126) 03/10/18 06:00 Total Protein 6.4 g/dL (5.8-8.3) 03/10/18 06:00 Albumin 3.5 g/dL (3.0-4.8) 03/10/18 06:00 Globulin 2.8 gm/dL 03/10/18 06:00 Albumin/Globulin Ratio 1.3 (1.1-1.8) 03/10/18 06:00 Attending/Attestation - Attestation I have personally seen and examined this patient.: Yes I have fully participated in the care of the patient.: Yes I have reviewed all pertinent clinical information, including history, physical exam and plan: Yes Notes (Text): 03/10/18 13:36 Medical record note made by the resident after discussion with my direction and input after the patient was personally seen and examined by me. I have reviewed the chart and agree that the record accurately reflects by personal performance of the history, physical exam, data review, and medical decision-making, in the course for the patient. I have also personally directed the plan of care. 57 year old female with PMH od DM,Obesity was initially admitted to ICU with acute coronary syndrome in the setting of severe left ventricular systolic dysfunction with suspected COPD exacerbation in the setting of hypercapnic respiratory failure requiring intubation, underwent cardiac cath showed critical LAD lesion which was not amendable by angioplasty, medical management was recommended. Patient was extubated ,life vest was placed on her , has VT , shock was given was by life vest, Patient was evaluated by EP and was transferred for AICD Placement.Patient was treated over there for acute on chronic systolic CHF with IV lasix and BIPAP.She underwent AICD placement ye was transferred to [facility] today.Clinically she is euvolemic, lasix has been changed to oral, also on coreg/lisinopril/aspirin/statin/amiodrone. The issue of compliance with medication with medication and diet was discussed in detail.The issue of close follow up with cardiology and [facility] was also discussed.The issue of amiodrone therapy was discussed in detail.She will need adjustment of Amiodrone dose as out patient with her scientific research associate.Patient is ambulatory at the time of discharge. IRDM, on Levemir, has been advised to monitor blood sugars at home and keep record for PCP Management plan was discussed in detail with patient. Education was provided.
--- NOTE | 2018-03-10 12:54 | CON ---
DATE: 03/10/2018 LOCATION: The patient is in room 260, bed 2. This consult is being dictated on behalf of Dr. Cruz, whom I am covering. REASON FOR CONSULTATION: Coronary artery disease, dilated cardiomyopathy, status post AICD insertion, history of CHF. HISTORY OF PRESENT ILLNESS: This is a 57-year-old female who was recently admitted to [facility] with acute anterior wall ID with cardiogenic shock and pulmonary edema. On cardiac catheterization, found to have LAD, subacute to chronically occluded and also, had very diffuse disease, also getting collaterals on the right. The patient's ejection fraction was 20%. The patient was angioplasty, but it was unsuccessful for LAD, so the patient also had ventricular tachycardia, so the patient had defibrillator put in at [facility], where during the procedure, she developed pulmonary edema and had to be admitted to the Coronary Care Unit and treated. The patient is now sitting in bed. Denies chest pain, shortness of breath, or palpitations. PAST MEDICAL HISTORY: Positive for diabetes mellitus, peripheral neuropathy, COPD, balloon angioplasty for peripheral vascular disease on 02/16/2018. PERSONAL HISTORY: She stopped smoking about two weeks ago. She used to smoke half a pack for 30 years. Denies any alcohol or elicit drugs. REVIEW OF SYSTEMS: All the systems reviewed and positive mentioned in the history; others were negative. ALLERGIES: THE PATIENT DENIES ANY ALLERGIES. PHYSICAL EXAMINATION: VITAL SIGNS: Blood pressure 100/59, respirations 18, pulse 64, temperature 98. HEENT: Head is normocephalic. Eyes, pupils normal. Conjunctivae normal. Nose and throat normal. NECK: JVP low. Carotids equal. THORAX: AP diameter normal. LUNGS. No significant rales. CARDIOVASCULAR: S1 and S2. The patient's AICD inserted on left upper chest, healing well. ABDOMEN: Soft. No tenderness. No organomegaly. EXTREMITIES: No clubbing. No cyanosis. LABORATORY DATA: On 03/02/2018, the patient had WBC 10.7, hemoglobin 14.2, hematocrit 41.4, platelets 220. Sodium 141, potassium 3.6, BUN 15, creatinine 0.8. Calcium is 9.5, phosphorus 3.1, magnesium 2.2. Total protein 6.4, albumin 3.5. EKG on 03/02/2018, sinus rhythm with PVCs, left axis deviation, anteroseptal infarct. Chest x-ray repeated last night does not show any significant abnormality. Chest x-ray on 02/28/2018 also showed no active pulmonary disease and showed improved vascular congestion. DIAGNOSES: 1. Status post anterior wall myocardial infarction. 2. Ischemic dilated cardiomyopathy, left ventricular ejection fraction 20%. 3. History of ventricular tachycardia. 4. Hypertension. 5. Diabetes mellitus. 6. Peripheral vascular disease. 7. Status post an implantable cardioverter defibrillator insertion. PLAN: The patient is on aspirin 81 mg daily, amiodarone 400 b.i.d., carvedilol 25 b.i.d., furosemide 20 mg IV every 12 hours, atorvastatin 40 daily, Lovenox 40 subcu daily, Neurontin 300 mg p.o. t.i.d., lisinopril 5 mg daily. We will continue present therapy. Mani Barry MD
[2018-03-10 13:25] VITALS: BP 97/64; PULSE 71; RESP 19; TEMP 97.8
--- NOTE | 2018-03-10 22:43 | CARD ---
APPROVED REPORT EKG Measurement Heart [id number] [id number] <Conclusion> Normal sinus rhythm Left axis deviation Anterolateral infarct, age undetermined Abnormal ECG
== END 2018-03-10 14:18 | disposition home or self-care (01) | DRG 121 ==
LOC: 2RNO 16:11
PROVIDERS: ADMIT Internal Medicine; ATTEND Internal Medicine
DX: I11.0 Hypertensive heart disease with heart failure (principal); I50.23 Acute on chronic systolic (congestive) heart failure; I21.4 Non-ST elevation (NSTEMI) myocardial infarction; I42.0 Dilated cardiomyopathy; I25.5 Ischemic cardiomyopathy; E11.51 Type 2 diabetes mellitus with diabetic peripheral angiopathy without gangrene; E11.42 Type 2 diabetes mellitus with diabetic polyneuropathy; I47.2 Ventricular tachycardia; J44.9 Chronic obstructive pulmonary disease, unspecified; I25.10 Atherosclerotic heart disease of native coronary artery without angina pectoris; E66.9 Obesity, unspecified; Z95.810 Presence of automatic (implantable) cardiac defibrillator

== ENCOUNTER 2018-03-22 08:33 | Inpatient (IN) | payer OTHER ==
[2018-03-22] MEDS ORDERED: Etomidate 20 mg/10ml Inj IV ONE (08:42)
[2018-03-22] MEDS ORDERED: Succinylcholine 200 mg/10 ml Inj IV ONE (08:44)
[2018-03-22] MEDS ORDERED: Propofol 10 mg/ml 1,000 MG/100 ML VIAL ONE (08:49)
[2018-03-22] MEDS ORDERED: Succinylcholine 200 mg/10 ml Inj IV STA (08:52)
[2018-03-22] MEDS ORDERED: Propofol 10 mg/ml 1,000 MG/100 ML VIAL IV PRN (08:53)
[2018-03-22] MEDS ORDERED: Etomidate 20 mg/10ml Inj IV STA (08:53)
--- NOTE | 2018-03-22 09:02 | ED PDOC ---
Arrival/HPI - General Chief Complaint: Respiratory Distress Time Seen by Provider: 03/22/18 08:50 Historian: Patient - History of Present Illness Narrative History of Present Illness (Text): 03/22/18 08:40 57 year old female, whose PMH includes AZ, internal defibrillator, pacemaker, peripheral edema, PVD, COPD, and diabetes, who presents to the emergency department via EMS, complaining of shortness of breath since prior to arrival. reports patient had a recent AZ and pacemaker placed at [facility] and this morning upon waking up patient could not breath. Patient denies chest pain, dizziness, abdominal pain, nausea, vomiting, or other complaints. Time/Duration: Prior to Arrival Symptom Onset: Sudden Symptom Course: Unchanged Activities at Onset: Rest Context: Home Past Medical History - Provider Review Nursing Documentation Reviewed: Yes - Cardiac Hx Cardiac Disorders: Yes (cad) Hx AZ: Yes (02/26/2018) Hx Internal Defibrillator: Yes (aicd at [facility]) Hx Pacemaker: Yes (aicd at [facility]) Hx Peripheral Edema: Yes Hx Peripheral Vascular Disease: Yes Other/Comment: balloon angioplasty for lle for pad 02/16/[address] lan [phone] in [place], claudication left leg, dilated cardiomyopathy - Pulmonary Hx Respiratory Disorders: Yes (respiratory failure, intubated) Hx Chronic Obstructive Pulmonary Disease (COPD): Yes - Neurological Other/Comment: peripheral neuropathy c/o pins and needles, tingling, cramping to toes both feet, toes becoming crooked, slight redness bottom of toes - HEENT Hx HEENT Disorder: Yes (seasonal allergies) - Renal Hx Renal Disorder: No - Endocrine/Metabolic Hx Diabetes Mellitus Type 2: Yes - Hematological/Oncological Hx Blood Disorders: No - Integumentary Other/Comment: slight redness to bottom of toes, crooked toes, left chest aicd dressing dry and intact, lower abd multiple eccymotic bruising for heparin injections - Musculoskeletal/Rheumatological Hx Musculoskeletal Disorders: No - Gastrointestinal Other/Comment: "oregano bothers my gallbladder, " stated pt - Genitourinary/Gynecological Hx Genitourinary Disorders: No - Psychiatric Hx Psychophysiologic Disorder: No Hx Substance Use: No - Surgical History Hx Cardiac Catheterization: Yes (02/26/18) Other/Comment: balloon angiolasty for lle pad 02/16/[address] [place] [address] lan [phone], aicd placement at [facility] Family/Social History - Physician Review Nursing Documentation Reviewed: Yes Family/Social History: Unknown Family HX Smoking Status: Former Smoker Hx Alcohol Use: No Hx Substance Use: No Allergies/Home Meds Allergies/Adverse Reactions: Allergies No Known Allergies Allergy (Verified 03/22/18 11:17) Home Medications: Home Meds Medication Instructions Recorded Confirmed Fluticasone Propionate [Flovent 10.6 gm IH PRN PRN 03/22/18 03/22/18 Hfa] Furosemide [Lasix] 20 mg PO DAILY 03/22/18 03/22/18 metFORMIN [glucOPHAGE] 500 mg PO BID 03/22/18 03/22/18 predniSONE [Prednisone] 10 mg PO DAILY 03/22/18 03/22/18 Review of Systems - Physician Review All systems were reviewed & negative as marked: Yes - Review of Systems Constitutional: absent: Fevers Respiratory: SOB Cardiovascular: absent: Chest Pain Physical Exam - Physical Exam Narrative Physical Exam (Text): 03/22/18 09:02 Gen: (+) lethargic, (+) confused VS reviewed, alert, well nourished, nontoxic, mild distress. ENT: normal pharynx. Eye: EOMI, PERRL. Neck: no JVD, supple, no adenopathy. CV: regular rate, regular rhythm, no rubs, no murmur, no gallops, S1, S2, pulses equal and strong. Pulm: (+) tachypnea, (+) diminished breath sounds bilaterally, clear to auscultation, no wheeze, no rhonchi, no rales. Abd: soft, nontender, no guarding, no rebound, no rigidity, normal bowel sounds. Ext: no edema. Skin: good color, no rash, no cyanosis. Psych: responds appropriately to questions, normal affect. Neuro: oriented x 3, CN2-12 intact grossly, motor intact, sensation intact. Vital Signs Reviewed: Yes Vital Signs Temp Pulse Resp BP Pulse Ox 03/22/18 11:30 68 16 102/57 L 97 03/22/18 11:13 95/61 L 03/22/18 09:56 76 16 97/62 L 100 03/22/18 08:55 76 03/22/18 08:34 97.4 F L 80 16 129/88 100 Temperature: Afebrile Blood Pressure: Normal Pulse: Regular Respiratory Rate: Normal Appearance: Positive for: Well-Appearing, Non-Toxic, Comfortable Pain Distress: None Mental Status: Positive for: Alert and Oriented X 3 Medical Decision Making ED Course and Treatment: 03/22/18 Impression: 57 year old female with diminished breath sound bilaterally, tachypnea, that appears lethargic and confused complaining of shortness of breath since prior to arrival Plan: -- EKG -- Chest X-ray -- Labs -- Urinalysis -- Amidate, Diprivan, and Quelicin -- Reassess and disposition Progress Notes: 03/22/18 Patient was seen immediately upon arrival. 03/22/18 09:40 Chest X-ray: Creator : Radha Low MD COMPARISON: 03/09/2018. FINDINGS: The endotracheal tube terminates 5 cm proximal to the tabihta. LUNGS: The lungs are well inflated. There is severe pulmonary venous congestion and mild interstitial pulmonary edema. PLEURA: No significant pleural effusion identified, no pneumothorax apparent. CARDIOVASCULAR: The heart is normal in size. There is prominent central vasculature. There is stable position of left-sided permanent pacing device with OSSEOUS STRUCTURES: No significant abnormalities. VISUALIZED UPPER ABDOMEN: Normal. OTHER FINDINGS: None. IMPRESSION: Worsening pulmonary venous congestion and interval development of interstitial pulmonary edema. No lobar pneumonia. 03/22/18 11:17 patient was seen for respiratory distress, patient hypoxic prior to arrival as per medics, patient was intubated upon arrival due to resp failure and inability to tolerate bipap due to confusion as well. patient found to be in pulm edema. despite status of presumed sepsis with elevated wbc count i felt it was in the patient best interest to diurese given the fluid volume status. empiric abx were ordered. case was disucssed with financial planning consultant, dr. hua and has requested a CT of the head. admit was accepted to service of dr. richar lawler. - Critical Care Critical Care Minutes: 60 minutes - Lab Interpretations Lab Results: 03/22/18 08:49 03/22/18 08:49 Lab Results 03/22/18 09:00: NT-Pro-B Natriuret Pep 3750 H 03/22/18 09:00: pCO2 44, pO2 158.0 H, HCO3 16.8 L, ABG pH 7.19 L*, ABG Total CO2 18.2 L, ABG O2 Saturation 100.1 H, ABG Base Excess -11.1 L, ABG Potassium 4.6, Glucose 401 H*, Lactate 3.6 H, Mechanical Rate 14, FiO2 100.0, Tidal Volume 400, PEEP 5, Sodium 138.0, Chloride 107.0, Arterial Blood Potassium 4.6 03/22/18 09:00: pO2 53, VBG pH 6.99 L*, VBG pCO2 89.0 H*, VBG HCO3 21.4, VBG Total CO2 24.1, VBG O2 Sat (Calc) 77.9 H, VBG Base Excess -11.8 L, VBG Potassium 4.9, Glucose 350 H, Lactate 5.2 H*, FiO2 21.0, Sodium 139.0, Chloride 104.0, Venous Blood Potassium 4.9 03/22/18 08:50: Troponin I 0.01 D 03/22/18 08:49: Sodium 143, Potassium 4.8, Chloride 107, Carbon Dioxide 22, Anion Gap 19, BUN 8, Creatinine 0.9, Est GFR ( Amer) > 60, Est GFR (Non- Af Amer) > 60, Random Glucose 347 H* D, Calcium 9.3, Phosphorus 6.7 H, Magnesium 1.9, Total Bilirubin 1.0, AST 27, ALT 20, Alkaline Phosphatase 77, Total Protein 6.6, Albumin 3.8, Globulin 2.8, Albumin/Globulin Ratio 1.4 03/22/18 08:49: APTT 32.1 03/22/18 08:49: WBC 20.1 H D, RBC 5.12, Hgb 15.2, Hct 46.7, MCV 91.2, MCH 29.7, MCHC 32.5, RDW 14.4, Plt Count 233, MPV 12.5 H, Gran % 40.8 L, Lymph % (Auto) 50.9 H, [place] % (Auto) 5.0, Eos % (Auto) 2.9, Baso % (Auto) 0.4, Gran # 8.18 H, Lymph # (Auto) 10.2 H, [place] # (Auto) 1.0 H, Eos # (Auto) 0.6, Baso # (Auto) 0.09 I have reviewed the lab results: Yes - RAD Interpretation Radiology Orders: 03/22/18 08:50 CHEST PORTABLE [RAD] Stat 03/22/18 10:10 Brain [HEAD W/O CONTRAST] [CT] Stat Technology Engineer: Radiologist - EKG Interpretation EKG Interpretation (Text): 03/22/18 11:31 0842: sinus rhythm at 91 bpm, nsivcd, low voltage, no ectopy, nonspecific t wave abn Interpreted by ED Physician: Yes Type: 12 lead EKG - Medication Orders Current Medication Orders: Amiodarone HCl (Cordarone) 400 mg PO BID GOLDEN Aspirin (Aspirin Chewable) 81 mg PO DAILY GOLDEN Dextrose (Dextrose 50% Inj) 0 ml IV STAT PRN; Protocol PRN Reason: Hypoglycemia Protocol Enoxaparin Sodium (Lovenox) 40 mg SC DAILY GOLDEN PRN Reason: Protocol Furosemide (Lasix) 40 mg IVP BID GOLDEN Dextrose (Dextrose 5% In Water 1000 Ml) 1,000 mls @ 0 mls/hr IV .Q0M PRN; Protocol; Per Protocol PRN Reason: Hypoglycemia Protocol Dobutamine HCl/Dextrose (Dobutamine/Dextrose 5% 500mg/250ml) 500 mg in 250 mls @ 13.785 mls/hr IV .Q18H9M PRN; Protocol; 5 MCG/KG/MIN PRN Reason: TITRATE PER PROTOCOL Last Admin: 03/22/18 14:12 Dose: 5 mcg/kg/min, 13.785 mls/hr eMAR Start Stop Document 03/22/18 14:12 LIO (Rec: 03/22/18 14:14 [facility]) Intravenous Solution Start Date 03/22/18 Start Time 14:14 MAR Pulse and Blood Pressure Document 03/22/18 14:12 LIO (Rec: 03/22/18 14:14 [facility]) Pulse Pulse Rate (60-90) 74 Blood Pressure Blood Pressure (100/60-150/90) 110/56 Titration Intervention Document 03/22/18 14:12 LIO (Rec: 03/22/18 14:14 [facility]) Titration Intake Waste Amount 0 Container Volume 250 Titration Dosing Titration Dose 5 IV Rate 13.785 Intake/Decrease Started Meropenem (Merrem Iv 1 Gm Premix) 50 mls @ 100 mls/hr IVPB Q8 GOLDEN PRN Reason: Protocol Last Admin: 03/22/18 14:08 Dose: 100 mls/hr eMAR Start Stop Document 03/22/18 14:08 JFG (Rec: 03/22/18 14:08 [facility]) Intravenous Solution Start Date 03/22/18 Start Time 14:08 End Date 03/22/18 End time 14:38 Total Infusion Time 30 Levofloxacin/Dextrose (Levaquin 750mg) 750 mg in 150 mls @ 100 mls/hr IVPB DAILY GOLDEN PRN Reason: Protocol Last Admin: 03/22/18 15:21 Dose: 100 mls/hr eMAR Start Stop Document 03/22/18 15:21 JF (Rec: 03/22/18 15:22 [facility]) Intravenous Solution Start Date 03/22/18 Start Time 15:21 End Date 03/22/18 End time 16:51 Total Infusion Time 90 Insulin Human Lispro (Humalog Med) 0 units SC ACHS GOLDEN PRN Reason: Protocol Methylprednisolone (Solu-Medrol) 30 mg IVP Q12 GOLDEN Last Admin: 03/22/18 11:12 Dose: 30 mg IVP Administration Document 03/22/18 11:12 GMD (Rec: 03/22/18 11:12 [id number] Charges for Administration # of IVP Administrations 1 Ondansetron HCl (Zofran Inj) 4 mg IVP Q4H PRN PRN Reason: Nausea/Vomiting Discontinued Medications Etomidate (Amidate) 20 mg IV STAT STA Stop: 03/22/18 08:54 Last Admin: 03/22/18 09:01 Dose: 20 mg eMAR Start Stop Document 03/22/18 09:01 GMD (Rec: 03/22/18 09:01 [id number][facility] Intravenous Solution Start Date 03/22/18 Start Time 08:45 Furosemide (Lasix) 60 mg IVP STAT STA Stop: 03/22/18 09:34 Last Admin: 03/22/18 11:13 Dose: 40 mg Comments: give only 40mg as per dr toan CANELA Blood Pressure Document 03/22/18 11:13 GMD (Rec: 03/22/18 11:13 [id number]) Blood Pressure Blood Pressure (100/60-150/90) 95/61 IVP Administration Document 03/22/18 11:13 [facility] (Rec: 03/22/18 11:13 [id number]) Charges for Administration # of IVP Administrations 1 Furosemide (Lasix) 40 mg IVP DAILY GOLDNE Furosemide (Lasix) 40 mg IVP DAILY GOLDEN Propofol (Diprivan) 1,000 mg in 100 mls @ 2.757 mls/hr IV .Q24H PRN; Protocol; 5 MCG/KG/MIN PRN Reason: TITRATE PER MD ORDER Last Titration: 03/22/18 13:30 Dose: 0 mcg/kg/min, 0 mls/hr Manuel Agitation Sedation Document 03/22/18 13:30 [facility] (Rec: 03/22/18 14:00 [facility]) Manuel Agitation Sedation Scale Manuel Agitation Sedation Scale Score 0 Alert and Calm: Spontaneously pays attention to customer care manager Titration Intervention Document 03/22/18 13:30 [facility] (Rec: 03/22/18 14:00 [facility]) Titration Intake Container Volume 80 Titration Dosing Titration Dose 0 IV Rate 0 Intake/Decrease Started Cefepime HCl (Maxipime 1gm) 1 gm in 100 mls @ 100 mls/hr IVPB STAT STA PRN Reason: Protocol Stop: 03/22/18 10:32 Last Admin: 03/22/18 10:52 Dose: 100 mls/hr eMAR Start Stop Document 03/22/18 10:52 GMD (Rec: 03/22/18 10:53 D [id number]) Intravenous Solution Start Date 03/22/18 Start Time 10:53 End Date 03/22/18 End time 11:53 Total Infusion Time 60 Insulin Human Regular 100 (units/ Sodium Chloride) 100 mls @ 9 mls/hr IV .Q11H7M PRN; Protocol; 9 UNITS/HR PRN Reason: TITRATE PER MD ORDER Last Titration: 03/22/18 15:02 Dose: 0 units/hr, 0 mls/hr Titration Intervention Document 03/22/18 15:02 JF (Rec: 03/22/18 15:02 [facility] [id number]) Titration Intake Titration Intake 0 Cumulative Intake 16 Cumulative Intake (Rx) 16 Waste Amount 0 Container Volume 84 Titration Dosing Titration Dose 0 IV Rate 0 Intake/Decrease Paused Cumulative Dose 16 Insulin Human Regular (Humulin R) 10 units IV STAT STA Stop: 03/22/18 10:10 Last Admin: 03/22/18 10:52 Dose: 10 unit eMAR Start Stop Document 03/22/18 10:52 GMD (Rec: 03/22/18 10:52 GMD [facility] [id number]) Intravenous Solution Start Date 03/22/18 Start Time 10:52 Ondansetron HCl (Zofran Inj) 4 mg IVP STAT STA Stop: 03/22/18 13:16 Last Admin: 03/22/18 14:19 Dose: 4 mg IVP Administration Document 03/22/18 14:19 [facility] (Rec: 03/22/18 14:19 [facility]) Charges for Administration # of IVP Administrations 1 Pneumococcal Polyvalent Vaccine (Pneumovax 23 Vaccine) 0.5 ml IM .ONCE ONE Stop: 03/22/18 14:39 Succinylcholine Chloride (Quelicin) 100 mg IV STAT STA Stop: 03/22/18 08:53 Last Admin: 03/22/18 09:01 Dose: 100 mg eMAR Start Stop Document 03/22/18 09:01 GMD (Rec: 03/22/18 09:01 GMD [facility] [id number]) Intravenous Solution Start Date 03/22/18 Start Time 08:45 - Scribe Statement The provider has reviewed the documentation as recorded by the Shasta Moseley Provider Scribe Attestation: All medical record entries made by the Shasta were at my direction and personally dictated by me. I have reviewed the chart and agree that the record accurately reflects my personal performance of the history, physical exam, medical decision making, and the department course for this patient. I have also personally directed, reviewed, and agree with the discharge instructions and disposition. Disposition/Present on Arrival - Present on Arrival Any Indicators Present on Arrival: No History of DVT/PE: No History of Uncontrolled Diabetes: No Urinary Catheter: No History of Decub. Ulcer: No History Surgical Site Infection Following: None - Disposition Have Diagnosis and Disposition been Completed?: Yes Diagnosis: Acute respiratory failure with hypoxia, Sepsis, CHF (congestive heart failure) Disposition: HOSPITALIZED Disposition Time: 11:20 Patient Plan: ICU Condition: CRITICAL
[2018-03-22 09:06] LABS: BASO # 0.09 K/mm3 (0.0-2.0); BASO % 0.4 % (0.0-3.0); EOS # 0.6 (0.0-0.7); EOS % 2.9 % (1.5-5.0); GRAN # 8.18 (1.4-6.5); GRAN % 40.8 % (50.0-68.0); HEMOGLOBIN 15.2 g/dL (12.0-16.0); LYMPH # 10.2 (1.2-3.4); LYMPH % 50.9 % (22.0-35.0); MEAN CELL VOLUME 91.2 fl (80.0-105.0); MEAN CORPUSCULAR HEMOGLOBIN 29.7 pg (25.0-35.0); MEAN CORPUSCULAR HGB CONC 32.5 g/dl (31.0-37.0); MEAN PLATELET VOLUME 12.5 fl (7.0-11.0); RBC 5.12 10^6/uL (3.5-6.1); RED CELL DISTRIBUTION WIDTH 14.4 % (11.5-14.5); WHITE BLOOD COUNT 20.1 10^3/ul (4.5-11.0)
[2018-03-22 09:32] LABS: VENOUS BLOOD GAS BASE EXCESS -11.8 mmol/L (0.0-2.0); VENOUS BLOOD GAS PO2 53 mm/Hg (30-55)
[2018-03-22] MEDS ORDERED: Cefepime 1gm in NS 100ml 1 GM/100 ML BAG IVPB STA (09:33)
[2018-03-22 09:34] LABS: ARTERIAL BLOOD GAS HCO3 16.8 mmol/L (21-28); ARTERIAL BLOOD GAS O2 SAT 100.1 % (95-98); ARTERIAL BLOOD GAS PCO2 44 mm/Hg (35-45); ARTERIAL BLOOD GAS TCO2 18.2 mmol.L (22-28)
[2018-03-22 09:36] LABS: VENOUS BLOOD PH 6.99 (7.32-7.43)
--- NOTE | 2018-03-22 09:38 | RAD ---
Date of service: 03/22/2018 HISTORY: Shortness of breath COMPARISON: 03/09/2018. FINDINGS: The endotracheal tube terminates 5 cm proximal to the tabitha. LUNGS: The lungs are well inflated. There is severe pulmonary venous congestion and mild interstitial pulmonary edema. PLEURA: No significant pleural effusion identified, no pneumothorax apparent. CARDIOVASCULAR: The heart is normal in size. There is prominent central vasculature. There is stable position of left-sided permanent pacing device with OSSEOUS STRUCTURES: No significant abnormalities. VISUALIZED UPPER ABDOMEN: Normal. OTHER FINDINGS: None. IMPRESSION: Worsening pulmonary venous congestion and interval development of interstitial pulmonary edema. No lobar pneumonia.
[2018-03-22 09:39] LABS: ARTERIAL BLOOD GAS PH 7.19 (7.35-7.45)
[2018-03-22 09:58] LABS: ALB/GLOB RATIO 1.4 (1.1-1.8); ALBUMIN 3.8 g/dL (3.0-4.8); ALT/SGPT 20 U/L (7-56); AST/SGOT 27 U/L (14-36); BLOOD UREA NITROGEN 8 mg/dL (7-21); CALCIUM 9.3 mg/dL (8.4-10.5); GFR AFRICAN-AMERICAN > 60; GFR NON-AFRICAN AMERICAN > 60
[2018-03-22] MEDS ORDERED: Insulin Regular 100 UNITS in Sodium Chloride 0.9% 99 ML IV PRN (10:08)
[2018-03-22] MEDS ORDERED: Dextrose 50% SYRINGE Inj (50 ml) IV PRN (10:08)
[2018-03-22] MEDS ORDERED: Insulin Regular 1 UNITS/0.01 ML ML IV STA (10:09)
--- NOTE | 2018-03-22 10:48 | CP.PCM.CON ---
<Leoncio Yen - Last Filed: 03/22/18 13:22> History of Present Illness - History of Present Illness History of Present Illness: Leoncio Yen, PGY1 ICU Consult Note for Dr. Webb. Patient is a 57 y/o F who presented to the ED at [facility] complaining of shortness of breath and mild chest pain that started early this morning, as per . Patient woke up in the morning with trouble breathing. As per ED note, patient brought in by ALS, saturating 60% on room air. Patient was intubated in the ED. Currently, patient is awake, alert, and following commands. As per , patient came in on 02/26 for similar presentation; patient had hypercapnic hypoxic respiratory failure requiring intubation, COPD exacerbation from PNA, and severe sepsis with elevated lactic acidosis, ACS, and possible flash pulmonary edema from acute CHF. At that time, patient transferred to ICU and was stabilized on the unit. Patient was then transferred to [facility] for AICD placement (Dr. Viramontes). Full 12 point ROS could not be obtained since patient is currently intubated. When patient arrived to ICU, she is awake and following commands and does not appear to be in acute distress. Placed on Pressure Support and tolerating it well, but had an episode of vomiting. Given zofran. From prior chart review: PMH: DM at least 8 years, peripheral neuropathy, COPD, Claudication of L leg PSH: Balloon angioplasty for L leg, no stent, 02/16/18, (Dr Lna, @ [facility]) All: NKDA FH: Mom = CHF, passed from cancer SH: Quit smoking 2 weeks ago, prior 1/2 ppd x 30 yearr, Denies ETOH or illicit drug use. PMD = No PMD [facility] pharmacy, [facility] Review of Systems - Review of Systems Systems not reviewed;Unavailable: Intubated Past Patient History - Past Medical History & Family History Past Medical History?: Yes - Past Social History Smoking Status: Former Smoker (Stopped in February after PCI) Alcohol: None - CARDIAC Hx Cardiac Disorders: Yes (CAD (s/p cath, Dr. Cruz; EF 20%), CHF (AICD placement on 02/26), HTN) Hx Heart Attack: Yes (02/26/2018) Hx Internal Defibrillator: Yes (AICD at [facility] ) Hx Pacemaker: Yes (AICD at [facility] ) Hx Peripheral Edema: Yes Hx Peripheral Vascular Disease: Yes Other/Comment: balloon angioplasty for lle for pad 02/16/[address] lan [phone] in [place], claudication left leg, dilated cardiomyopathy - PULMONARY Hx Respiratory Disorders: Yes (COPD) Hx Chronic Obstructive Pulmonary Disease (COPD): Yes - NEUROLOGICAL Other/Comment: peripheral neuropathy - HEENT Hx HEENT Problems: Yes (seasonal allergies) - RENAL Hx Chronic Kidney Disease: No - ENDOCRINE/METABOLIC Hx Diabetes Mellitus Type 2: Yes - HEMATOLOGICAL/ONCOLOGICAL Hx Blood Disorders: No - MUSCULOSKELETAL/RHEUMATOLOGICAL Hx Musculoskeletal Disorders: No - GASTROINTESTINAL Other/Comment: "oregano bothers my gallbladder, " stated pt - GENITOURINARY/GYNECOLOGICAL Hx Genitourinary Disorders: No - PSYCHIATRIC Hx Psychophysiologic Disorder: No Hx Substance Use: No - SURGICAL HISTORY Hx Cardiac Catheterization: Yes (02/26/18) Other/Comment: balloon angiolasty for lle pad 02/16/[address] [place] [address] lan [phone], AICD placement at [facility] Allergies/Adverse Reactions: Allergies Allergy/AdvReac Type Severity Reaction Status Date / Time No Known Allergies Allergy Verified 03/22/18 11:17 - Medications Medications: Current Medications Dextrose (Dextrose 50% Inj) 0 ml IV STAT PRN; Protocol PRN Reason: Hypoglycemia Protocol Propofol (Diprivan) 1,000 mg in 100 mls @ 2.757 mls/hr IV .Q24H PRN; Protocol; 5 MCG/KG/MIN PRN Reason: TITRATE PER MD ORDER Last Admin: 03/22/18 09:02 Dose: 2.757 mls/hr Dextrose (Dextrose 5% In Water 1000 Ml) 1,000 mls @ 0 mls/hr IV .Q0M PRN; Protocol; Per Protocol PRN Reason: Hypoglycemia Protocol Insulin Human Regular 100 (units/ Sodium Chloride) 100 mls @ 9 mls/hr IV .Q11H7M PRN; Protocol; 9 UNITS/HR PRN Reason: TITRATE PER MD ORDER Physical Exam - Constitutional Appears: In Acute Distress Additional comments: Respiratory distress, requiring intubation non-sedation tolerating well - Head Exam Head Exam: ATRAUMATIC, NORMAL INSPECTION, NORMOCEPHALIC - Eye Exam Eye Exam: EOMI, Normal appearance, PERRL. absent: Scleral icterus Pupil Exam: NORMAL ACCOMODATION - ENT Exam Additional comments: Patient currently intubated - Respiratory Exam Respiratory Exam: absent: Accessory Muscle Use, Clear to Auscultation Bilateral , Wheezes Additional comments: Diffuse bilateral crackles - Cardiovascular Exam Cardiovascular Exam: REGULAR RHYTHM, RRR, +S1, +S2. absent: JVD, Rubs, Systolic Murmur - GI/Abdominal Exam GI & Abdominal Exam: Soft. absent: Distended, Tenderness Additional comments: Obese - Extremities Exam Extremities exam: Positive for: pedal edema (+1 pitting edema of low extremities bilaterally), pedal pulses present - Neurological Exam Neurological exam: Alert - Skin Skin Exam: Dry, Warm Results - Vital Signs Recent Vital Signs: Last Vital Signs Temp 97.4 F L 03/22/18 08:34 Pulse 76 03/22/18 09:56 Resp 16 03/22/18 09:56 BP 97/62 L 03/22/18 09:56 Pulse Ox 100 03/22/18 09:56 - Labs Result Diagrams: 03/22/18 08:49 03/22/18 08:49 Assessment & Plan - Assessment and Plan (Free Text) Assessment: Patient is a 57 y/o F with PMHx of CHF with recent EF 20% on 02/26 (AICD on 02/26 at [facility]), CAD (s/p unsuccessful on 02/26; Dr. Cruz), HTN, DM II, and COPD who was brought in to the ED by ALS on 03/22 for shortness of breath and mild chest pain early this morning, as per . Patient was saturating 60% on RA with respiratory distress and was intubated in the ED, tolerating the procedure well. Since patient had met criteria for SIRS, code sepsis was initiated. Patient presented to [facility] on 02/26 for a similar presentation with hypercapnic hypoxic respiratory failure, where she was intubated and transferred to the ICU. Patient will be managed in the ICU for flash pulmonary edema possibly 2/2 acute CHF exacerbation. Possibly will be extubated today due to improving mental status. Plan: Flash Pulmonary Edema likely Acute CHF Exacerbation - Lasix 40 mg BID - Currently Intubated on Pressure support - Solu-medrol 30 mg IVP q12 - CXR: worsening pulmonary venous congestion and interval development of interstitial pulmonary edema. - Cardio consult (Dr. Cruz) - Pulm consult (Dr. Cavazos) - ABG f/u with possible extubation - ECHO pending - Prior ECHO 20% EF on 02/26 - BNP 3750 - Troponin negative - Elevate head of bed, oral care, DVT ppx, GI ppx. Sepsis - SIRS criteria met - Leukocytosis (wbc 20.1) - procalcitonin f/u - Panculture: blood cx, sputum cx, urine cx - cefepime 25 q8, vancomycin 2 g q12 - ID consulted (Dr. Lombardo) Possible AMS - Head CT: no acute findings HTN/CAD - ASA 81 mg - monitor BP COPD - steroids - antibiotics - if extubated, continue on BiPAP DM II - Currently hyperglycemic: on insulin gtt - Accucheck ACHS Case is discussed and reviewed with Attending Physician - Dr. Webb. <Maico Webb - Last Filed: 03/22/18 14:37> Meds - Medications Medications: Current Medications Amiodarone HCl (Cordarone) 400 mg PO BID GOLDEN Aspirin (Aspirin Chewable) 81 mg PO DAILY GOLDEN Dextrose (Dextrose 50% Inj) 0 ml IV STAT PRN; Protocol PRN Reason: Hypoglycemia Protocol Furosemide (Lasix) 40 mg IVP BID GOLDEN Propofol (Diprivan) 1,000 mg in 100 mls @ 2.757 mls/hr IV .Q24H PRN; Protocol; 5 MCG/KG/MIN PRN Reason: TITRATE PER MD ORDER Last Titration: 03/22/18 13:30 Dose: 0 mcg/kg/min, 0 mls/hr Dextrose (Dextrose 5% In Water 1000 Ml) 1,000 mls @ 0 mls/hr IV .Q0M PRN; Protocol; Per Protocol PRN Reason: Hypoglycemia Protocol Insulin Human Regular 100 (units/ Sodium Chloride) 100 mls @ 9 mls/hr IV .Q11H7M PRN; Protocol; 9 UNITS/HR PRN Reason: TITRATE PER MD ORDER Last Titration: 03/22/18 13:17 Dose: 4 units/hr, 4 mls/hr Dobutamine HCl/Dextrose (Dobutamine/Dextrose 5% 500mg/250ml) 500 mg in 250 mls @ 13.785 mls/hr IV .Q18H9M PRN; Protocol; 5 MCG/KG/MIN PRN Reason: TITRATE PER PROTOCOL Last Admin: 03/22/18 14:12 Dose: 5 mcg/kg/min, 13.785 mls/hr Meropenem (Merrem Iv 1 Gm Premix) 50 mls @ 100 mls/hr IVPB Q8 GOLDEN PRN Reason: Protocol Last Admin: 03/22/18 14:08 Dose: 100 mls/hr Levofloxacin/Dextrose (Levaquin 750mg) 750 mg in 150 mls @ 100 mls/hr IVPB DAILY GOLDEN PRN Reason: Protocol Methylprednisolone (Solu-Medrol) 30 mg IVP Q12 GOLDEN Last Admin: 03/22/18 11:12 Dose: 30 mg Ondansetron HCl (Zofran Inj) 4 mg IVP Q4H PRN PRN Reason: Nausea/Vomiting Results - Vital Signs Recent Vital Signs: Last Vital Signs Temp 97.4 F L 03/22/18 08:34 Pulse 74 03/22/18 14:12 Resp 16 03/22/18 11:30 BP 110/56 L 03/22/18 14:12 Pulse Ox 97 03/22/18 11:30 - Labs Result Diagrams: 03/22/18 08:49 03/22/18 08:49 Labs: Laboratory Results - last 24 hr 03/22/18 03/22/18 03/22/18 10:45 11:00 12:09 TSH 3rd Generation 4.97 H Blood Type A POSITIVE Blood Type Confirm A POSITIVE Antibody Screen Negative BBK History Checked No verified bt Assessment & Plan - Assessment and Plan (Free Text) Plan: Patient seen and examined on rounds with resident, agree with note with following addition/exceptions: Patient is 57yo female with PMHx of CHF with recent EF 20% on 02/26 (AICD on at [facility]), CAD (s/p unsuccessful on 02/26), HTN, DM II, and COPD who was brought in to the ED for SOB, respiratory failure, hypoxia, subsequently intubated by ER staff in the ER. Currently afebrile, BP stable, comfortable in NAD, doing well on CPAP trial, given Lasix IV, with adequate UOP. Started on broad spectrum antibiotics, Cefepime 2g Q8hr, Vanco IV. Respiratory failure CHF, acute decompensated systolic Pulm edema SOB CAD HTN DM COPD Recommend: - cont with vent support, low tidal vol ventilation, CPAP trial, if tolerates extubate to BIPAP - Duoebs PRN - Broad spectrum abx, Vanco, Cefepime - Panculture, UCx, BCx, Procal - ID eval - Cardio eval - BP control - ASA, Statin, BB, ACEI - Hold IVF - Lasix IV - check troponin - GI ppx - DVT ppx - Monitor in CCU Critical care time 40 minutes
[2018-03-22] MEDS: MethylPREDNISolone 40 mg Vial IVP SCH ×2 (11:12→22:59)
--- NOTE | 2018-03-22 11:23 | PCM.SEPTIC ---
Sepsis Progress Note - Reassessment Type Date of Evaluation: 03/22/18 Time of Evaluation: 13:51 Reassessment Type: Non-invasive reassessment - Non Invasive Reassessment Were the most recent vital sign reviewed: Yes Vital Sign (Latest): Temp Pulse Resp BP Pulse Ox 97.4 F L 68 16 102/57 L 97 03/22/18 08:34 03/22/18 11:30 03/22/18 11:30 03/22/18 11:30 03/22/18 11:30 Cardiovascular: Yes: Regular Rate, Rhythm, Chest Non Tender. No: Edema, Gallop , JVD, Murmur, Bradycardia, Tachycardia, Ectopy, Friction Rub, Irregularly Irregular Respiratory: Yes: Normal Breath Sounds, Crackles, Other (Patient intubated on pressure support ). No: Decreased Breath Sounds, Wheezing, Respiratory Distress Capillary Refill: Delayed Pulses: Normal Radial, Normal Dorsalis Pedis, Normal Posterior Tibialis Skin: Normal Color, Warm, Dry
[2018-03-22] MEDS ORDERED: Vancomycin 2 GM in Sodium Chloride 0.9% 500 ML IVPB SCH (11:30)
[2018-03-22] MEDS ORDERED: Insulin Reg-HIGH-Coverage SC SCH (11:30)
--- NOTE | 2018-03-22 13:14 | CT ---
Date of service: 03/22/2018 PROCEDURE: CT HEAD WITHOUT CONTRAST. HISTORY: altered mentation COMPARISON: None available. TECHNIQUE: Axial computed tomography images were obtained through the head/brain without intravenous contrast. Radiation dose: Total exam DLP = 767 mGy-cm. This CT exam was performed using one or more of the following dose reduction techniques: Automated exposure control, adjustment of the mA and/or kV according to patient size, and/or use of iterative reconstruction technique. FINDINGS: HEMORRHAGE: No intracranial hemorrhage. BRAIN: No mass effect or edema. No atrophy or chronic microvascular ischemic changes. VENTRICLES: Unremarkable. No hydrocephalus. CALVARIUM: Unremarkable. PARANASAL SINUSES: Unremarkable as visualized. No significant inflammatory changes. MASTOID AIR CELLS: Unremarkable as visualized. No inflammatory changes. OTHER FINDINGS: None. IMPRESSION: No acute findings
[2018-03-22] MEDS ORDERED: Cefepime IV 2 gm in NS 2 GM/100 ML BAG IVPB SCH (14:00)
[2018-03-22] MEDS: Meropenem IV 1 gm in NS 50 ML IVPB SCH ×2 (14:08→22:59)
[2018-03-22] MEDS: DOBUTamine 500mg/250ml D5W 500 MG/250 ML BAG IV PRN (14:12)
[2018-03-22 14:38] VITALS: BMI 35.7
[2018-03-22] MEDS ORDERED: Pneumococcal 23-Valent Vaccine IM ONE (14:38)
[2018-03-22 15:08] LABS: ARTERIAL BLOOD GAS HCO3 22.4 mmol/L (21-28); ARTERIAL BLOOD GAS PCO2 33 mm/Hg (35-45); ARTERIAL BLOOD GAS PH 7.44 (7.35-7.45)
[2018-03-22 15:09] LABS: ARTERIAL BLOOD GAS O2 SAT 98.1 % (95-98); ARTERIAL BLOOD GAS TCO2 23.4 mmol.L (22-28)
[2018-03-22 15:10] LABS: ARTERIAL BLOOD GAS FIO2 50 %
[2018-03-22] MEDS: levoFLOXacin 750 mg in D5W 750 MG/150 ML BAG IVPB SCH (15:21)
--- NOTE | 2018-03-22 15:28 | CP.PCM.PCO ---
Addendum Addendum: Patient was placed on Pressure support and was noted to be stable and in no respiratory distress. SBI was adequate and ABG showed proper oxygenation. Propofol was discontinued. Patient was extubated, and was placed on BiPAP. ABG was repeated and again showed good oxygenation. Patient will be maintained on BiPAP and monitored in ICU.
--- NOTE | 2018-03-22 17:07 | CARD ---
APPROVED REPORT Date of service: 03/22/2018 EXAM: Two-dimensional and M-mode echocardiogram with Doppler and color Doppler. INDICATION RESP. FAILURE 2D DIMENSIONS Left Atrium (2D)4.4 (1.6-4.0cm)IVSd0.9 (0.7-1.1cm) LVDd5.6 (3.9-5.9cm)PWd0.9 (0.7-1.1cm) LVDs4.8 (2.5-4.0cm)FS (%) 14.5 % LVEF (%)30.7 (>50%) M-Mode DIMENSIONS Aortic Root2.20 (2.2-3.7cm)Aortic Cusp Exc.1.40 (1.5-2.0cm) Aortic Valve AoV Peak Bnjclhdq063.0cm/Nadeen Peak GR.7mmHg Mitral Valve MV E Pkvglnzo15.5cm/sMV A Elaibqnf01.5cm/sE/A ratio1.5 TDI E/Lateral E'0.0E/Medial E'0.0 Tricuspid Valve TR Peak Vamayqvd341eh/sRAP [id number] Peak Gr.21mmHg [id number] LEFT VENTRICLE The Left Ventricle is borderline dilated. There is normal left ventricular wall thickness. The systolic function is severely impaired. Akinetic Vale The left ventricular diastolic function is normal. No left ventricle thrombus noted on this study. RIGHT VENTRICLE The right ventricle is borderline dilated. There is normal right ventricular wall thickness. Systolic function is mildly reduced. There is a pacemaker lead in the right ventricle. ATRIA The left atrium is mildly dilated. The right atrium size is normal. AORTIC VALVE The aortic valve is mildly thickened. No aortic regurgitation is present. There is no aortic valvular stenosis. MITRAL VALVE The mitral valve is mildly thickened. Mitral regurgitation is trace to mild. There is no mitral valve stenosis. TRICUSPID VALVE The tricuspid valve is normal in structure. There is trace to mild tricuspid regurgitation. GREAT VESSELS The aortic root is normal in size. The IVC is normal in size and collapses >50% with inspiration. PERICARDIAL EFFUSION There is no pericardial effusion. <Conclusion> The Left Ventricle is borderline dilated. There is normal left ventricular wall thickness. The systolic function is severely impaired. Akinetic Vale Mitral regurgitation is trace to mild. There is trace to mild tricuspid regurgitation. No left ventricle thrombus noted on this study.
--- NOTE | 2018-03-22 19:16 | CON ---
DATE: 03/22/2018 HISTORY OF PRESENT ILLNESS: The patient is a 57-year-old woman who presents with sudden onset of shortness of breath. The patient's past medical history is notable for an ischemic dilated cardiomyopathy. She is status post acute myocardial infarction recently in which her ejection fraction was 20%. She was placed on a defibrillator as well as a bi-V pacer. The patient had sudden onset of shortness of breath. No angina noted. PAST MEDICAL HISTORY: Her past medical history is also noted for diabetes mellitus, hypertension, and hypercholesterolemia. PHYSICAL EXAMINATION: GENERAL: Currently, in the hospital, the patient is on a ventilator. She is awake, alert. VITAL SIGNS: Blood pressure is 97/62, the heart rate is in the 70s. NECK: Negative JVD. LUNGS: Decreased breath sounds without rales. HEART: With S1, S2. EXTREMITIES: Without edema. LABORATORY DATA: Reveals an EKG that is unchanged from her previous. Her glucose is 347. Her BUN and creatinine are unremarkable. The bicarb is 22, hemoglobin is 15. Troponins are pending. IMPRESSION: 1. Flash pulmonary edema. 2. Ischemic dilated cardiomyopathy. 3. Diabetes mellitus. 4. Dyspnea, which is now better. 5. Respiratory failure. 6. Congestive heart failure. Given these findings, we will start the patient on Lasix. We will start her on IV dobutamine. We will repeat an echocardiogram. The patient should be able to be extubated today. Tadeo Cruz MD
--- NOTE | 2018-03-22 19:46 | CARD ---
APPROVED REPORT Date of service: 03/22/2018 EKG Measurement Heart [id number] <Conclusion> Sinus rhythm with fusion complexes Left axis deviation Low voltage QRS Cannot rule out Anterior infarct, age undetermined ST & T wave abnormality, consider lateral ischemia Abnormal ECG
--- NOTE | 2018-03-22 22:33 | HP ---
DATE OF EXAM: 03/22/2018 HISTORY OF PRESENT ILLNESS: I was called down to the emergency room. She is already on the ventilator. She comes in with respiratory distress. She is intubated. She is also given IV Lasix. She is a 57-year-old female with a past medical history of an WI, internal defibrillator pacemaker, peripheral edema, PVD, COPD, diabetes, has extreme shortness of breath who is here with the . She had a recent WI and pacemaker placed at [facility]. She has CAD and edema. She had balloon angioplasty for claudication on the left leg and dilated cardiomyopathy. She is presently intubated. She has peripheral neuropathy with pins and needles in both her feet, is a very poorly controlled diabetic, seasonal allergies, type 2 diabetes. Toes have some crooked toes, multiple ecchymotic bruising from heparin injections. She has gallbladder issues from time to time. Balloon angioplasty , [place]. FAMILY HISTORY: Hypertension in the family. SOCIAL HISTORY: Former smoker. No alcohol. No drugs. ALLERGIES: NO KNOWN DRUG ALLERGIES. MEDICATIONS: She is Flovent, Lasix, Glucophage and prednisone. PHYSICAL EXAMINATION GENERAL: At this time, she is intubated. She was short of breath. No chest pain. VITAL SIGNS: She has 97.4 temperature, 80 pulse, 16 respiratory rate, 129/88 blood pressure, 100% O2 sat now on the oxygen ventilator. HEAD: Atraumatic, normocephalic. HEART: Regular rate. Normal S1, S2. LUNGS: Decreased breath sounds bilaterally. No wheezes or rhonchi. ABDOMEN: Morbidly obese. No guarding, no rebound, no CVA tenderness. EXTREMITIES: Have +1 to 2 pitting edema SKIN: Ecchymosis all over the place, but poor turgor. No apparent rashes or ulcers. LYMPHATICS: Thyroid midline. No palpable appreciable lymphadenopathy. IMAGING: She had multiple tests done. Chest x-ray, worsening pulmonary venous congestion, interval development of interstitial pulmonary edema, no lobar pneumonia. LABORATORY DATA: A white count, 15.2 hemoglobin with a 46.7 hematocrit with 233 platelets. She had a lactate of 3.6, pH of 7.19. She had a 143 sodium, potassium 4.8, BUN is 8, creatinine 0.9, GFR is greater than 60, sugar is 347, calcium is 9.3, phosphorous 6.7, magnesium 1.9, total bilirubin is 1, AST is 27, ALT is 20, alkaline phosphatase 77, total protein 6.6, albumin is 3.8. ASSESSMENT AND PLAN: She will have consults with Pulmonary, Cardiology and Infectious Disease. We will give her some antibiotics, IV Lasix, insulin coverage and some Solu-Medrol. She is here for acute respiratory failure, on the ventilator, congestive heart disease. She is also diabetic with elevated blood sugars. Kendall Pierson DO MTDTonya
[2018-03-22] MEDS: Insulin Lispro (humaLOG) MEDIUM Coverage SC SCH (23:00)
[2018-03-22] MEDS: Vancomycin 1gm in NS 250ml 1 GM/250 ML BAG IVPB SCH (23:06)
[2018-03-23] MEDS: Meropenem IV 1 gm in NS 50 ML IVPB SCH (05:37)
[2018-03-23 06:31] LABS: ARTERIAL BLOOD GAS HCO3 20.9 mmol/L (21-28); ARTERIAL BLOOD GAS HEMOGLOBIN 12.8 g/dL (11.7-17.4); ARTERIAL BLOOD GAS O2 CAPACITY 17.4 mL/dl (16-24); ARTERIAL BLOOD GAS O2 CONTENT 16.7 ML/dl (15-23); ARTERIAL BLOOD GAS O2 SAT 96.1 % (95-98); ARTERIAL BLOOD GAS PCO2 33 mm/Hg (35-45); ARTERIAL BLOOD GAS PH 7.41 (7.35-7.45); ARTERIAL BLOOD GAS TCO2 21.9 mmol.L (22-28)
[2018-03-23 06:33] LABS: VENOUS BLOOD GAS BASE EXCESS -2.6 mmol/L (0.0-2.0); VENOUS BLOOD GAS PO2 53 mm/Hg (30-55); VENOUS BLOOD PH 7.32 (7.32-7.43)
[2018-03-23 07:03] LABS: ALB/GLOB RATIO 1.3 (1.1-1.8); ALBUMIN 3.7 g/dL (3.0-4.8); ALT/SGPT 30 U/L (7-56); AST/SGOT 17 U/L (14-36); BLOOD UREA NITROGEN 11 mg/dL (7-21); CALCIUM 9.2 mg/dL (8.4-10.5); GFR AFRICAN-AMERICAN > 60; GFR NON-AFRICAN AMERICAN > 60
[2018-03-23 07:16] LABS: HEMOGLOBIN 13.5 g/dL (12.0-16.0); MEAN CELL VOLUME 87.1 fl (80.0-105.0); MEAN CORPUSCULAR HEMOGLOBIN 29.6 pg (25.0-35.0); MEAN PLATELET VOLUME 12.7 fl (7.0-11.0); RBC 4.56 10^6/uL (3.5-6.1); WHITE BLOOD COUNT 11.7 10^3/ul (4.5-11.0)
[2018-03-23] MEDS ORDERED: Albuterol-Ipratrop 3 mg / 0.5 (3 ml) UD ONE (07:20)
[2018-03-23] MEDS: Albuterol-Ipratrop 3 mg / 0.5 (3 ml) UD IH SCH ×3 (07:38→19:32)
[2018-03-23] MEDS: Insulin Lispro (humaLOG) MEDIUM Coverage SC SCH ×4 (08:05→21:39)
[2018-03-23] MEDS: DOBUTamine 500mg/250ml D5W 500 MG/250 ML BAG IV PRN (08:07)
[2018-03-23] MEDS: levoFLOXacin 750 mg in D5W 750 MG/150 ML BAG IVPB SCH (09:42)
[2018-03-23] MEDS: Enoxaparin 40 mg Syringe SC SCH (09:42)
[2018-03-23] MEDS: MethylPREDNISolone 40 mg Vial IVP SCH (09:42)
[2018-03-23] MEDS: Vancomycin 1gm in NS 250ml 1 GM/250 ML BAG IVPB SCH ×2 (09:46→21:26)
--- NOTE | 2018-03-23 10:02 | CP.CCUPN ---
<Leoncio Yen - Last Filed: 03/23/18 12:06> CCU Subjective - Physician Review Subjective (Free Text): Leoncio Yen, PGY1 Critical Care Progress Note for Dr. Webb Patient was examined at bedside this morning. Patient was resting comfortably in bed with 2 Liters Nasal Canula. Patient does not use home oxygen at home. Patient denied lightheadedness, dizziness, chest pain, shortness of breath, nausea, vomiting, diarrhea, and weakness in extremities. Patient also seen out of bed to chair. Full 12 point ROS was reviewed and unremarkable except as stated above. CCU Objective - Vital Signs / Intake & Output Vital Signs (Last 4 hours): Vital Signs Pulse Resp BP Pulse Ox 03/23/18 09:45 109/40 L 03/23/18 09:43 81 109/40 L 03/23/18 08:40 86 27 H 96 03/23/18 08:30 84 27 H 97 03/23/18 08:20 78 15 97 03/23/18 08:10 81 97 03/23/18 08:07 86 104/47 L 03/23/18 08:00 85 46 H 104/47 L 97 03/23/18 07:50 78 22 97 03/23/18 07:40 82 99 03/23/18 07:30 82 34 H 99 03/23/18 07:20 82 99 03/23/18 07:10 83 22 98 03/23/18 07:00 87 121/54 L 98 03/23/18 06:50 81 97 03/23/18 06:40 81 97 03/23/18 06:30 79 97 03/23/18 06:20 85 95 03/23/18 06:10 91 H 47 H 96 03/23/18 06:00 88 127/59 L 97 Intake and Output (Last 8hrs): Intake & Output 03/22/18 03/23/18 03/23/18 22:59 06:59 14:59 Intake Total 826 565 250 Output Total 1130 1200 Balance -304 -635 250 Weight 90.718 kg Intake: IV 406 565 250 Left Antecubital 300 Left Forearm 104 565 Oral 420 Output: Urine 1100 1200 Urethral (Rod) 1100 1200 Emesis 30 Other: # Bowel Movements 0 - Physical Exam Head: Positive for: Atraumatic, Normocephalic Pupils: Positive for: PERRL Extroacular Muscles: Positive for: EOMI Conjunctiva: Positive for: Normal Mouth: Positive for: Moist Mucous Membranes. Negative for: Drooling Nose (External): Positive for: Other (2 L Nasal Canula ) Nose (Internal): Positive for: Normal Inspection Respiratory/Chest: Positive for: Clear to Auscultation, Good Air Exchange. Negative for: Respiratory Distress, Accessory Muscle Use, Wheezes, Rales, Rhonchi Cardiovascular: Positive for: Regular Rate and Rhythm, Normal S1, S2. Negative for: Murmurs, Rub, Gallop, Muffled Abdomen: Positive for: Normal Bowel Sounds. Negative for: Tenderness, Distention, Peritoneal Signs, Rebound, Guarding Upper Extremity: Positive for: Normal Inspection, Normal ROM, NORMAL PULSES. Negative for: Cyanosis, Edema, Tenderness Lower Extremity: Positive for: Normal Inspection, NORMAL PULSES, Normal ROM. Negative for: Edema, CALF TENDERNESS, Cyanosis Neurological: Positive for: Speech Normal Skin: Positive for: Warm, Dry, Normal Color. Negative for: Rashes, Diaphoretic Psychiatric: Positive for: Alert, Oriented x 3 - Medications Active Medications: Active Medications Generic Name Dose Route Start Last Admin Trade Name Freq PRN Reason Stop Dose Admin Albuterol/Ipratropium 3 ml 03/23/18 08:00 03/23/18 07:38 Duoneb 3 Mg/0.5 Mg (3 Ml) Ud IH 3 ml [id number] GOLDEN Administration Amiodarone HCl 400 mg 03/22/18 18:00 03/23/18 09:43 Cordarone PO 400 mg BID GOLDEN Administration Aspirin 81 mg 03/23/18 10:00 03/23/18 09:43 Aspirin Chewable PO 81 mg DAILY GOLDEN Administration Dextrose 0 ml 03/22/18 10:08 Dextrose 50% Inj IV STAT PRN Hypoglycemia Protocol Protocol Enoxaparin Sodium 40 mg 03/23/18 10:00 03/23/18 09:42 Lovenox SC 40 mg DAILY GOLDEN Administration Protocol Furosemide 40 mg 03/22/18 18:00 03/23/18 09:45 Lasix IVP 40 mg BID GOLDEN Administration Dextrose 1,000 mls @ 0 mls/hr 03/22/18 10:08 Dextrose 5% In Water 1000 Ml IV .Q0M PRN Hypoglycemia Protocol Protocol Per Protocol Dobutamine HCl/Dextrose 500 mg in 250 mls @ 13.785 mls/hr 03/22/18 11:10 08:07 Dobutamine/Dextrose 5% 500mg/250ml IV 5 mcg/kg/min .Q18H9M PRN 13.785 mls/hr TITRATE PER PROTOCOL Administration Protocol 5 MCG/KG/MIN Meropenem 50 mls @ 100 mls/hr 03/22/18 14:00 03/23/18 05:37 Merrem Iv 1 Gm Premix IVPB 100 mls/hr Q8 GOLDEN Administration Protocol Levofloxacin/Dextrose 750 mg in 150 mls @ 100 mls/hr 03/22/18 13:45 03/23/18 09:42 Levaquin 750mg IVPB 100 mls/hr DAILY GOLDEN Administration Protocol Vancomycin HCl 1 gm in 250 mls @ 167 mls/hr 03/22/18 21:45 03/23/18 09:46 Vancomycin 1gm IVPB 167 mls/hr Q12H GOLDEN Administration Protocol Insulin Human Lispro 0 units 03/22/18 22:00 03/23/18 08:05 Humalog Med SC 3 units ACHS GOLDEN Administration Protocol Methylprednisolone 30 mg 03/23/18 10:00 03/23/18 09:42 Solu-Medrol IVP 30 mg DAILY GOLDEN Administration Ondansetron HCl 4 mg 03/22/18 13:15 Zofran Inj IVP Q4H PRN Nausea/Vomiting - Patient Studies Lab Studies: Lab Studies 03/23/18 03/23/18 03/23/18 Range/Units 06:00 06:00 06:00 WBC 11.7 H D (4.5-11.0) 10^3/ul RBC 4.56 (3.5-6.1) 10^6/uL Hgb 13.5 (12.0-16.0) g/dL Hct 39.7 (36.0-48.0) % MCV 87.1 D (80.0-105.0) fl MCH 29.6 (25.0-35.0) pg MCHC 34.0 (31.0-37.0) g/dl RDW 14.0 (11.5-14.5) % Plt Count 113 L (120.0-450.0) 10^3/uL MPV 12.7 H (7.0-11.0) fl pCO2 (35-45) mm/Hg pO2 53 (80-100) mm/Hg HCO3 (21-28) mmol/L ABG pH (7.35-7.45) ABG Total CO2 (22-28) mmol.L ABG O2 Saturation (95-98) % ABG O2 Content (15-23) ML/dl ABG Base Excess (-2.0-3.0) mmol/L ABG Hemoglobin (11.7-17.4) g/dL ABG Carboxyhemoglobin (0.5-1.5) % POC ABG HHb (Measured) (0-5) % ABG Methemoglobin (0.0-3.0) % ABG O2 Capacity (16-24) mL/dl ABG Potassium (3.6-5.2) mmol/L VBG pH 7.32 (7.32-7.43) VBG pCO2 46.0 (40-60) VBG HCO3 23.7 (21-28) mmol/l VBG Total CO2 25.1 (22-28) mmol.L VBG O2 Sat (Calc) 89.9 H (40-65) % VBG Base Excess -2.6 L (0.0-2.0) mmol/L VBG Potassium 4.1 (3.6-5.2) mmol/L Hgb O2 Saturation (95.0-98.0) % Sodium 142 140.0 (132-148) mmol/L Chloride 105 105.0 (98-107) mmol/L Glucose 245 H (65-105) mg/dl Lactate 1.9 (0.7-2.1) mmol/L FiO2 21.0 % Potassium 4.2 (3.6-5.0) mmol/L Carbon Dioxide 23 (21-33) mmol/L Anion Gap 19 (10-20) BUN 11 (7-21) mg/dL Creatinine 0.7 (0.7-1.2) mg/dl Est GFR ( Amer) > 60 Est GFR (Non-Af Amer) > 60 POC Glucose (mg/dL) (65-110) mg/dL Random Glucose 223 H (70-110) mg/dL Calcium 9.2 (8.4-10.5) mg/dL Phosphorus 3.9 (2.5-4.5) mg/dL Magnesium 1.8 (1.7-2.2) mg/dL Total Bilirubin 1.0 (0.2-1.3) mg/dL AST 17 (14-36) U/L ALT 30 (7-56) U/L Alkaline Phosphatase 67 (38-126) U/L Total Protein 6.4 (5.8-8.3) g/dL Albumin 3.7 (3.0-4.8) g/dL Globulin 2.7 gm/dL Albumin/Globulin Ratio 1.3 (1.1-1.8) Procalcitonin (0.19-0.49) NG/ML TSH 3rd Generation (0.46-4.68) mIU/mL Arterial Blood Potassium (3.6-5.2) mmol/L Venous Blood Potassium 4.1 (3.6-5.2) mmol/L Blood Type Blood Type Confirm Antibody Screen BBK History Checked 03/23/18 03/22/18 03/22/18 Range/Units 05:00 22:58 16:13 WBC (4.5-11.0) 10^3/ul RBC (3.5-6.1) 10^6/uL Hgb (12.0-16.0) g/dL Hct (36.0-48.0) % MCV (80.0-105.0) fl MCH (25.0-35.0) pg MCHC (31.0-37.0) g/dl RDW (11.5-14.5) % Plt Count (120.0-450.0) 10^3/uL MPV (7.0-11.0) fl pCO2 33 L (35-45) mm/Hg pO2 58.0 L (80-100) mm/Hg HCO3 20.9 L (21-28) mmol/L ABG pH 7.41 (7.35-7.45) ABG Total CO2 21.9 L (22-28) mmol.L ABG O2 Saturation 96.1 (95-98) % ABG O2 Content 16.7 (15-23) ML/dl ABG Base Excess -3.0 L (-2.0-3.0) mmol/L ABG Hemoglobin 12.8 (11.7-17.4) g/dL ABG Carboxyhemoglobin 2.3 H (0.5-1.5) % POC ABG HHb (Measured) 3.8 (0-5) % ABG Methemoglobin 1.0 (0.0-3.0) % ABG O2 Capacity 17.4 (16-24) mL/dl ABG Potassium (3.6-5.2) mmol/L VBG pH (7.32-7.43) VBG pCO2 (40-60) VBG HCO3 (21-28) mmol/l VBG Total CO2 (22-28) mmol.L VBG O2 Sat (Calc) (40-65) % VBG Base Excess (0.0-2.0) mmol/L VBG Potassium (3.6-5.2) mmol/L Hgb O2 Saturation 92.9 L (95.0-98.0) % Sodium (132-148) mmol/L Chloride (98-107) mmol/L Glucose (65-105) mg/dl Lactate (0.7-2.1) mmol/L FiO2 28.0 % Potassium (3.6-5.0) mmol/L Carbon Dioxide (21-33) mmol/L Anion Gap (10-20) BUN (7-21) mg/dL Creatinine (0.7-1.2) mg/dl Est GFR ( Amer) Est GFR (Non-Af Amer) POC Glucose (mg/dL) 155 H 136 H (65-110) mg/dL Random Glucose (70-110) mg/dL Calcium (8.4-10.5) mg/dL Phosphorus (2.5-4.5) mg/dL Magnesium (1.7-2.2) mg/dL Total Bilirubin (0.2-1.3) mg/dL AST (14-36) U/L ALT (7-56) U/L Alkaline Phosphatase (38-126) U/L Total Protein (5.8-8.3) g/dL Albumin (3.0-4.8) g/dL Globulin gm/dL Albumin/Globulin Ratio (1.1-1.8) Procalcitonin (0.19-0.49) NG/ML TSH 3rd Generation (0.46-4.68) mIU/mL Arterial Blood Potassium (3.6-5.2) mmol/L Venous Blood Potassium (3.6-5.2) mmol/L Blood Type Blood Type Confirm Antibody Screen BBK History Checked 03/22/18 03/22/18 03/22/18 Range/Units 14:59 14:05 12:09 WBC (4.5-11.0) 10^3/ul RBC (3.5-6.1) 10^6/uL Hgb (12.0-16.0) g/dL Hct (36.0-48.0) % MCV (80.0-105.0) fl MCH (25.0-35.0) pg MCHC (31.0-37.0) g/dl RDW (11.5-14.5) % Plt Count (120.0-450.0) 10^3/uL MPV (7.0-11.0) fl pCO2 33 L (35-45) mm/Hg pO2 75.0 L (80-100) mm/Hg HCO3 22.4 (21-28) mmol/L ABG pH 7.44 (7.35-7.45) ABG Total CO2 23.4 (22-28) mmol.L ABG O2 Saturation 98.1 H (95-98) % ABG O2 Content (15-23) ML/dl ABG Base Excess -1.1 (-2.0-3.0) mmol/L ABG Hemoglobin (11.7-17.4) g/dL ABG Carboxyhemoglobin (0.5-1.5) % POC ABG HHb (Measured) (0-5) % ABG Methemoglobin (0.0-3.0) % ABG O2 Capacity (16-24) mL/dl ABG Potassium 3.1 L (3.6-5.2) mmol/L VBG pH (7.32-7.43) VBG pCO2 (40-60) VBG HCO3 (21-28) mmol/l VBG Total CO2 (22-28) mmol.L VBG O2 Sat (Calc) (40-65) % VBG Base Excess (0.0-2.0) mmol/L VBG Potassium (3.6-5.2) mmol/L Hgb O2 Saturation (95.0-98.0) % Sodium 142.0 (132-148) mmol/L Chloride 112.0 H (98-107) mmol/L Glucose 121 H (65-105) mg/dl Lactate 1.7 (0.7-2.1) mmol/L FiO2 50 % Potassium (3.6-5.0) mmol/L Carbon Dioxide (21-33) mmol/L Anion Gap (10-20) BUN (7-21) mg/dL Creatinine (0.7-1.2) mg/dl Est GFR ( Amer) Est GFR (Non-Af Amer) POC Glucose (mg/dL) 104 (65-110) mg/dL Random Glucose (70-110) mg/dL Calcium (8.4-10.5) mg/dL Phosphorus (2.5-4.5) mg/dL Magnesium (1.7-2.2) mg/dL Total Bilirubin (0.2-1.3) mg/dL AST (14-36) U/L ALT (7-56) U/L Alkaline Phosphatase (38-126) U/L Total Protein (5.8-8.3) g/dL Albumin (3.0-4.8) g/dL Globulin gm/dL Albumin/Globulin Ratio (1.1-1.8) Procalcitonin (0.19-0.49) NG/ML TSH 3rd Generation 4.97 H (0.46-4.68) mIU/mL Arterial Blood Potassium 3.1 L (3.6-5.2) mmol/L Venous Blood Potassium (3.6-5.2) mmol/L Blood Type Blood Type Confirm Antibody Screen BBK History Checked 03/22/18 03/22/18 03/22/18 Range/Units 12:00 11:00 10:45 WBC (4.5-11.0) 10^3/ul RBC (3.5-6.1) 10^6/uL Hgb (12.0-16.0) g/dL Hct (36.0-48.0) % MCV (80.0-105.0) fl MCH (25.0-35.0) pg MCHC (31.0-37.0) g/dl RDW (11.5-14.5) % Plt Count (120.0-450.0) 10^3/uL MPV (7.0-11.0) fl pCO2 (35-45) mm/Hg pO2 (80-100) mm/Hg HCO3 (21-28) mmol/L ABG pH (7.35-7.45) ABG Total CO2 (22-28) mmol.L ABG O2 Saturation (95-98) % ABG O2 Content (15-23) ML/dl ABG Base Excess (-2.0-3.0) mmol/L ABG Hemoglobin (11.7-17.4) g/dL ABG Carboxyhemoglobin (0.5-1.5) % POC ABG HHb (Measured) (0-5) % ABG Methemoglobin (0.0-3.0) % ABG O2 Capacity (16-24) mL/dl ABG Potassium (3.6-5.2) mmol/L VBG pH (7.32-7.43) VBG pCO2 (40-60) VBG HCO3 (21-28) mmol/l VBG Total CO2 (22-28) mmol.L VBG O2 Sat (Calc) (40-65) % VBG Base Excess (0.0-2.0) mmol/L VBG Potassium (3.6-5.2) mmol/L Hgb O2 Saturation (95.0-98.0) % Sodium (132-148) mmol/L Chloride (98-107) mmol/L Glucose (65-105) mg/dl Lactate (0.7-2.1) mmol/L FiO2 % Potassium (3.6-5.0) mmol/L Carbon Dioxide (21-33) mmol/L Anion Gap (10-20) BUN (7-21) mg/dL Creatinine (0.7-1.2) mg/dl Est GFR ( Amer) Est GFR (Non-Af Amer) POC Glucose (mg/dL) (65-110) mg/dL Random Glucose (70-110) mg/dL Calcium (8.4-10.5) mg/dL Phosphorus (2.5-4.5) mg/dL Magnesium (1.7-2.2) mg/dL Total Bilirubin (0.2-1.3) mg/dL AST (14-36) U/L ALT (7-56) U/L Alkaline Phosphatase (38-126) U/L Total Protein (5.8-8.3) g/dL Albumin (3.0-4.8) g/dL Globulin gm/dL Albumin/Globulin Ratio (1.1-1.8) Procalcitonin < 0.05 L (0.19-0.49) NG/ML TSH 3rd Generation (0.46-4.68) mIU/mL Arterial Blood Potassium (3.6-5.2) mmol/L Venous Blood Potassium (3.6-5.2) mmol/L Blood Type A POSITIVE Blood Type Confirm A POSITIVE Antibody Screen Negative BBK History Checked No verified bt Laboratory Results - last 24 hr 03/22/18 03/22/18 03/22/18 10:45 11:00 12:00 WBC RBC Hgb Hct MCV MCH MCHC RDW Plt Count MPV pCO2 pO2 HCO3 ABG pH ABG Total CO2 ABG O2 Saturation ABG O2 Content ABG Base Excess ABG Hemoglobin ABG Carboxyhemoglobin POC ABG HHb (Measured) ABG Methemoglobin ABG O2 Capacity ABG Potassium VBG pH VBG pCO2 VBG HCO3 VBG Total CO2 VBG O2 Sat (Calc) VBG Base Excess VBG Potassium Hgb O2 Saturation Sodium Chloride Glucose Lactate FiO2 Potassium Carbon Dioxide Anion Gap BUN Creatinine Est GFR ( Amer) Est GFR (Non-Af Amer) POC Glucose (mg/dL) Random Glucose Calcium Phosphorus Magnesium Total Bilirubin AST ALT Alkaline Phosphatase Total Protein Albumin Globulin Albumin/Globulin Ratio Procalcitonin < 0.05 L TSH 3rd Generation Arterial Blood Potassium Venous Blood Potassium Blood Type A POSITIVE Blood Type Confirm A POSITIVE Antibody Screen Negative BBK History Checked No verified bt 03/22/18 03/22/18 03/22/18 12:09 14:05 14:59 WBC RBC Hgb Hct MCV MCH MCHC RDW Plt Count MPV pCO2 33 L pO2 75.0 L HCO3 22.4 ABG pH 7.44 ABG Total CO2 23.4 ABG O2 Saturation 98.1 H ABG O2 Content ABG Base Excess -1.1 ABG Hemoglobin ABG Carboxyhemoglobin POC ABG HHb (Measured) ABG Methemoglobin ABG O2 Capacity ABG Potassium 3.1 L VBG pH VBG pCO2 VBG HCO3 VBG Total CO2 VBG O2 Sat (Calc) VBG Base Excess VBG Potassium Hgb O2 Saturation Sodium 142.0 Chloride 112.0 H Glucose 121 H Lactate 1.7 FiO2 50 Potassium Carbon Dioxide Anion Gap BUN Creatinine Est GFR ( Amer) Est GFR (Non-Af Amer) POC Glucose (mg/dL) 104 Random Glucose Calcium Phosphorus Magnesium Total Bilirubin AST ALT Alkaline Phosphatase Total Protein Albumin Globulin Albumin/Globulin Ratio Procalcitonin TSH 3rd Generation 4.97 H Arterial Blood Potassium 3.1 L Venous Blood Potassium Blood Type Blood Type Confirm Antibody Screen BBK History Checked 03/22/18 03/22/18 03/23/18 16:13 22:58 05:00 WBC RBC Hgb Hct MCV MCH MCHC RDW Plt Count MPV pCO2 33 L pO2 58.0 L HCO3 20.9 L ABG pH 7.41 ABG Total CO2 21.9 L ABG O2 Saturation 96.1 ABG O2 Content 16.7 ABG Base Excess -3.0 L ABG Hemoglobin 12.8 ABG Carboxyhemoglobin 2.3 H POC ABG HHb (Measured) 3.8 ABG Methemoglobin 1.0 ABG O2 Capacity 17.4 ABG Potassium VBG pH VBG pCO2 VBG HCO3 VBG Total CO2 VBG O2 Sat (Calc) VBG Base Excess VBG Potassium Hgb O2 Saturation 92.9 L Sodium Chloride Glucose Lactate FiO2 28.0 Potassium Carbon Dioxide Anion Gap BUN Creatinine Est GFR ( Amer) Est GFR (Non-Af Amer) POC Glucose (mg/dL) 136 H 155 H Random Glucose Calcium Phosphorus Magnesium Total Bilirubin AST ALT Alkaline Phosphatase Total Protein Albumin Globulin Albumin/Globulin Ratio Procalcitonin TSH 3rd Generation Arterial Blood Potassium Venous Blood Potassium Blood Type Blood Type Confirm Antibody Screen BBK History Checked 03/23/18 03/23/18 03/23/18 06:00 06:00 06:00 WBC 11.7 H D RBC 4.56 Hgb 13.5 Hct 39.7 MCV 87.1 D MCH 29.6 MCHC 34.0 RDW 14.0 Plt Count 113 L MPV 12.7 H pCO2 pO2 53 HCO3 ABG pH ABG Total CO2 ABG O2 Saturation ABG O2 Content ABG Base Excess ABG Hemoglobin ABG Carboxyhemoglobin POC ABG HHb (Measured) ABG Methemoglobin ABG O2 Capacity ABG Potassium VBG pH 7.32 VBG pCO2 46.0 VBG HCO3 23.7 VBG Total CO2 25.1 VBG O2 Sat (Calc) 89.9 H VBG Base Excess -2.6 L VBG Potassium 4.1 Hgb O2 Saturation Sodium 140.0 142 Chloride 105.0 105 Glucose 245 H Lactate 1.9 FiO2 21.0 Potassium 4.2 Carbon Dioxide 23 Anion Gap 19 BUN 11 Creatinine 0.7 Est GFR ( Amer) > 60 Est GFR (Non-Af Amer) > 60 POC Glucose (mg/dL) Random Glucose 223 H Calcium 9.2 Phosphorus 3.9 Magnesium 1.8 Total Bilirubin 1.0 AST 17 ALT 30 Alkaline Phosphatase 67 Total Protein 6.4 Albumin 3.7 Globulin 2.7 Albumin/Globulin Ratio 1.3 Procalcitonin TSH 3rd Generation Arterial Blood Potassium Venous Blood Potassium 4.1 Blood Type Blood Type Confirm Antibody Screen BBK History Checked Fingerstick Blood Sugar Results: 223 Review of Systems - Review of Systems All systems: reviewed and no additional remarkable complaints except (as per HPI.) Critical Care Progress Note - Extremities/Vascular Does the Patient have a Central Venous Catheter?: No Does the Patient need a Central Venous Catheter?: No Does the Patient have a Rod Catheter?: No Does the Patient need a Rod Catheter?: No - Prophylaxis GI Prophylaxis GI: Not Indicated - Prophylaxis DVT Prophylaxis DVT: Lovenox - Nutrition Nutrition: Nutrition Category Date Time Status Heart Healthy Diet [DIET] Diets 03/22/18 Dinner Active Assessment/Plan - Assessment and Plan (Free Text) Assessment: Patient is a 57 y/o F with PMHx of CHF with recent EF 20% on 02/26 (AICD on 02/26 at [facility]), CAD (s/p unsuccessful on 02/26; Dr. Cruz), HTN, DM II, and COPD who was brought in to the ED by ALS on 03/22 for shortness of breath and mild chest pain early this morning, as per . Patient was saturating 60% on RA with respiratory distress and was intubated in the ED, tolerating the procedure well. Since patient had met criteria for SIRS, code sepsis was initiated. Patient managed in the ICU for flash pulmonary edema 2/2 acute CHF exacerbation. Patient arrived to the ICU awake, alert, and following commands. Patient was not in respiratory distress and was successfully extubated. Patient then placed on BiPAP; she improved and is now on 2 L NC. Patient presented to [facility] on 02/26 for a similar presentation with hypercapnic hypoxic respiratory failure. Currently, patient is asymptomatic. No acute issues at this time. Patient is hemodynamically stable for transfer to telemetry. Plan: Neuro: - CT Head (03/22): no acute findings - AAOx3 - Maintain normothermia Pulm: - 2 L NC, asymptomatic, no respiratory distress - taper steroids - Duonebs q6 - ABG: hypercapnia improved - CXR (03/22): worsening pulmonary venous congestion adn interval development of interstitial pulmonary edema - Pulm consult (Dr. Cavazos), recs appreciated Cardio: - Cardio consult (Dr. Cruz), recs appreciated - c/w Dobutamine, as per cardio - ECHO (03/22): EF 30.7%, dilated LV, systolic function severely impaired, Akinetic apex, mild MR, mild TR - Old ECHO (02/26): 20% EF GI: - Diet: Heart Healthy Diet Renal: - Replete electrolytes as needed Heme: - DVT ppx with Lovenox ID: - Downtrending leukocytosis (wbc 11.7) - Dowtrending lactate (1.9) - c/w steroids - c/w dulce, vanco, levaquin - Blood culture negative x 1 after 24 hours (prelim) - f/u sputum cx - f/u urine cx - ID consulted (Dr. Lombardo), recs appreciated Endo: - Downtrending blood sugar - Accuchecks ACHS Dispo: Patient has no acute issues at this time. Patient is hemodynamically stable and safe for transfer to telemetry. Case was discussed and reviewed with Attending Physician Dr. Webb. <Maico Webb - Last Filed: 03/23/18 12:34> CCU Objective - Vital Signs / Intake & Output Vital Signs (Last 4 hours): Vital Signs Pulse Resp BP Pulse Ox 03/23/18 10:00 78 21 110/45 L 99 03/23/18 09:50 84 36 H 98 03/23/18 09:45 109/40 L 03/23/18 09:43 79 24 109/40 L 98 03/23/18 09:40 77 22 99 03/23/18 09:30 79 14 99 03/23/18 09:20 83 22 98 03/23/18 09:10 82 21 98 03/23/18 09:00 79 24 108/47 L 98 03/23/18 08:50 83 24 96 03/23/18 08:40 86 27 H 96 Intake and Output (Last 8hrs): Intake & Output 03/22/18 03/23/18 03/23/18 22:59 06:59 14:59 Intake Total 826 565 250 Output Total 1130 1200 Balance -304 -635 250 Weight 200 lb Intake: IV 406 565 250 Left Antecubital 300 Left Forearm 104 565 Oral 420 Output: Urine 1100 1200 Urethral (Rod) 1100 1200 Emesis 30 Other: # Bowel Movements 0 - Medications Active Medications: Active Medications Generic Name Dose Route Start Last Admin Trade Name Freq PRN Reason Stop Dose Admin Albuterol/Ipratropium 3 ml 03/23/18 08:00 03/23/18 07:38 Duoneb 3 Mg/0.5 Mg (3 Ml) Ud IH 3 ml [id number] GOLDEN Administration Amiodarone HCl 400 mg 03/22/18 18:00 03/23/18 09:43 Cordarone PO 400 mg BID GOLDEN Administration Aspirin 81 mg 03/23/18 10:00 03/23/18 09:43 Aspirin Chewable PO 81 mg DAILY GOLDEN Administration Dextrose 0 ml 03/22/18 10:08 Dextrose 50% Inj IV STAT PRN Hypoglycemia Protocol Protocol Enoxaparin Sodium 40 mg 03/23/18 10:00 03/23/18 09:42 Lovenox SC 40 mg DAILY GOLDEN Administration Protocol Furosemide 40 mg 03/22/18 18:00 03/23/18 09:45 Lasix IVP 40 mg BID GOLDEN Administration Dextrose 1,000 mls @ 0 mls/hr 03/22/18 10:08 Dextrose 5% In Water 1000 Ml IV .Q0M PRN Hypoglycemia Protocol Protocol Per Protocol Dobutamine HCl/Dextrose 500 mg in 250 mls @ 13.785 mls/hr 03/22/18 11:10 08:07 Dobutamine/Dextrose 5% 500mg/250ml IV 5 mcg/kg/min .Q18H9M PRN 13.785 mls/hr TITRATE PER PROTOCOL Administration Protocol 5 MCG/KG/MIN Insulin Human Lispro 0 units 03/22/18 22:00 03/23/18 11:53 Humalog Med SC 5 units ACHS GOLDEN Administration Protocol Methylprednisolone 30 mg 03/23/18 10:00 03/23/18 09:42 Solu-Medrol IVP 30 mg DAILY GOLDEN Administration Ondansetron HCl 4 mg 03/22/18 13:15 Zofran Inj IVP Q4H PRN Nausea/Vomiting - Patient Studies Lab Studies: Lab Studies 03/23/18 03/23/18 03/23/18 Range/Units 11:14 06:00 06:00 WBC 11.7 H D (4.5-11.0) 10^3/ul RBC 4.56 (3.5-6.1) 10^6/uL Hgb 13.5 (12.0-16.0) g/dL Hct 39.7 (36.0-48.0) % MCV 87.1 D (80.0-105.0) fl MCH 29.6 (25.0-35.0) pg MCHC 34.0 (31.0-37.0) g/dl RDW 14.0 (11.5-14.5) % Plt Count 113 L (120.0-450.0) 10^3/uL MPV 12.7 H (7.0-11.0) fl pCO2 (35-45) mm/Hg pO2 (80-100) mm/Hg HCO3 (21-28) mmol/L ABG pH (7.35-7.45) ABG Total CO2 (22-28) mmol.L ABG O2 Saturation (95-98) % ABG O2 Content (15-23) ML/dl ABG Base Excess (-2.0-3.0) mmol/L ABG Hemoglobin (11.7-17.4) g/dL ABG Carboxyhemoglobin (0.5-1.5) % POC ABG HHb (Measured) (0-5) % ABG Methemoglobin (0.0-3.0) % ABG O2 Capacity (16-24) mL/dl ABG Potassium (3.6-5.2) mmol/L VBG pH (7.32-7.43) VBG pCO2 (40-60) VBG HCO3 (21-28) mmol/l VBG Total CO2 (22-28) mmol.L VBG O2 Sat (Calc) (40-65) % VBG Base Excess (0.0-2.0) mmol/L VBG Potassium (3.6-5.2) mmol/L Hgb O2 Saturation (95.0-98.0) % Sodium 142 (132-148) mmol/L Chloride 105 (98-107) mmol/L Glucose (65-105) mg/dl Lactate (0.7-2.1) mmol/L FiO2 % Potassium 4.2 (3.6-5.0) mmol/L Carbon Dioxide 23 (21-33) mmol/L Anion Gap 19 (10-20) BUN 11 (7-21) mg/dL Creatinine 0.7 (0.7-1.2) mg/dl Est GFR ( Amer) > 60 Est GFR (Non-Af Amer) > 60 POC Glucose (mg/dL) 276 H (65-110) mg/dL Random Glucose 223 H (70-110) mg/dL Calcium 9.2 (8.4-10.5) mg/dL Phosphorus 3.9 (2.5-4.5) mg/dL Magnesium 1.8 (1.7-2.2) mg/dL Total Bilirubin 1.0 (0.2-1.3) mg/dL AST 17 (14-36) U/L ALT 30 (7-56) U/L Alkaline Phosphatase 67 (38-126) U/L Total Protein 6.4 (5.8-8.3) g/dL Albumin 3.7 (3.0-4.8) g/dL Globulin 2.7 gm/dL Albumin/Globulin Ratio 1.3 (1.1-1.8) Procalcitonin (0.19-0.49) NG/ML TSH 3rd Generation (0.46-4.68) mIU/mL Arterial Blood Potassium (3.6-5.2) mmol/L Venous Blood Potassium (3.6-5.2) mmol/L 03/23/18 03/23/18 03/22/18 Range/Units 06:00 05:00 22:58 WBC (4.5-11.0) 10^3/ul RBC (3.5-6.1) 10^6/uL Hgb (12.0-16.0) g/dL Hct (36.0-48.0) % MCV (80.0-105.0) fl MCH (25.0-35.0) pg MCHC (31.0-37.0) g/dl RDW (11.5-14.5) % Plt Count (120.0-450.0) 10^3/uL MPV (7.0-11.0) fl pCO2 33 L (35-45) mm/Hg pO2 53 58.0 L (80-100) mm/Hg HCO3 20.9 L (21-28) mmol/L ABG pH 7.41 (7.35-7.45) ABG Total CO2 21.9 L (22-28) mmol.L ABG O2 Saturation 96.1 (95-98) % ABG O2 Content 16.7 (15-23) ML/dl ABG Base Excess -3.0 L (-2.0-3.0) mmol/L ABG Hemoglobin 12.8 (11.7-17.4) g/dL ABG Carboxyhemoglobin 2.3 H (0.5-1.5) % POC ABG HHb (Measured) 3.8 (0-5) % ABG Methemoglobin 1.0 (0.0-3.0) % ABG O2 Capacity 17.4 (16-24) mL/dl ABG Potassium (3.6-5.2) mmol/L VBG pH 7.32 (7.32-7.43) VBG pCO2 46.0 (40-60) VBG HCO3 23.7 (21-28) mmol/l VBG Total CO2 25.1 (22-28) mmol.L VBG O2 Sat (Calc) 89.9 H (40-65) % VBG Base Excess -2.6 L (0.0-2.0) mmol/L VBG Potassium 4.1 (3.6-5.2) mmol/L Hgb O2 Saturation 92.9 L (95.0-98.0) % Sodium 140.0 (132-148) mmol/L Chloride 105.0 (98-107) mmol/L Glucose 245 H (65-105) mg/dl Lactate 1.9 (0.7-2.1) mmol/L FiO2 21.0 28.0 % Potassium (3.6-5.0) mmol/L Carbon Dioxide (21-33) mmol/L Anion Gap (10-20) BUN (7-21) mg/dL Creatinine (0.7-1.2) mg/dl Est GFR ( Amer) Est GFR (Non-Af Amer) POC Glucose (mg/dL) 155 H (65-110) mg/dL Random Glucose (70-110) mg/dL Calcium (8.4-10.5) mg/dL Phosphorus (2.5-4.5) mg/dL Magnesium (1.7-2.2) mg/dL Total Bilirubin (0.2-1.3) mg/dL AST (14-36) U/L ALT (7-56) U/L Alkaline Phosphatase (38-126) U/L Total Protein (5.8-8.3) g/dL Albumin (3.0-4.8) g/dL Globulin gm/dL Albumin/Globulin Ratio (1.1-1.8) Procalcitonin (0.19-0.49) NG/ML TSH 3rd Generation (0.46-4.68) mIU/mL Arterial Blood Potassium (3.6-5.2) mmol/L Venous Blood Potassium 4.1 (3.6-5.2) mmol/L 03/22/18 03/22/18 03/22/18 Range/Units 16:13 14:59 14:05 WBC (4.5-11.0) 10^3/ul RBC (3.5-6.1) 10^6/uL Hgb (12.0-16.0) g/dL Hct (36.0-48.0) % MCV (80.0-105.0) fl MCH (25.0-35.0) pg MCHC (31.0-37.0) g/dl RDW (11.5-14.5) % Plt Count (120.0-450.0) 10^3/uL MPV (7.0-11.0) fl pCO2 33 L (35-45) mm/Hg pO2 75.0 L (80-100) mm/Hg HCO3 22.4 (21-28) mmol/L ABG pH 7.44 (7.35-7.45) ABG Total CO2 23.4 (22-28) mmol.L ABG O2 Saturation 98.1 H (95-98) % ABG O2 Content (15-23) ML/dl ABG Base Excess -1.1 (-2.0-3.0) mmol/L ABG Hemoglobin (11.7-17.4) g/dL ABG Carboxyhemoglobin (0.5-1.5) % POC ABG HHb (Measured) (0-5) % ABG Methemoglobin (0.0-3.0) % ABG O2 Capacity (16-24) mL/dl ABG Potassium 3.1 L (3.6-5.2) mmol/L VBG pH (7.32-7.43) VBG pCO2 (40-60) VBG HCO3 (21-28) mmol/l VBG Total CO2 (22-28) mmol.L VBG O2 Sat (Calc) (40-65) % VBG Base Excess (0.0-2.0) mmol/L VBG Potassium (3.6-5.2) mmol/L Hgb O2 Saturation (95.0-98.0) % Sodium 142.0 (132-148) mmol/L Chloride 112.0 H (98-107) mmol/L Glucose 121 H (65-105) mg/dl Lactate 1.7 (0.7-2.1) mmol/L FiO2 50 % Potassium (3.6-5.0) mmol/L Carbon Dioxide (21-33) mmol/L Anion Gap (10-20) BUN (7-21) mg/dL Creatinine (0.7-1.2) mg/dl Est GFR ( Amer) Est GFR (Non-Af Amer) POC Glucose (mg/dL) 136 H 104 (65-110) mg/dL Random Glucose (70-110) mg/dL Calcium (8.4-10.5) mg/dL Phosphorus (2.5-4.5) mg/dL Magnesium (1.7-2.2) mg/dL Total Bilirubin (0.2-1.3) mg/dL AST (14-36) U/L ALT (7-56) U/L Alkaline Phosphatase (38-126) U/L Total Protein (5.8-8.3) g/dL Albumin (3.0-4.8) g/dL Globulin gm/dL Albumin/Globulin Ratio (1.1-1.8) Procalcitonin (0.19-0.49) NG/ML TSH 3rd Generation (0.46-4.68) mIU/mL Arterial Blood Potassium 3.1 L (3.6-5.2) mmol/L Venous Blood Potassium (3.6-5.2) mmol/L 03/22/18 03/22/18 Range/Units 12:09 12:00 WBC (4.5-11.0) 10^3/ul RBC (3.5-6.1) 10^6/uL Hgb (12.0-16.0) g/dL Hct (36.0-48.0) % MCV (80.0-105.0) fl MCH (25.0-35.0) pg MCHC (31.0-37.0) g/dl RDW (11.5-14.5) % Plt Count (120.0-450.0) 10^3/uL MPV (7.0-11.0) fl pCO2 (35-45) mm/Hg pO2 (80-100) mm/Hg HCO3 (21-28) mmol/L ABG pH (7.35-7.45) ABG Total CO2 (22-28) mmol.L ABG O2 Saturation (95-98) % ABG O2 Content (15-23) ML/dl ABG Base Excess (-2.0-3.0) mmol/L ABG Hemoglobin (11.7-17.4) g/dL ABG Carboxyhemoglobin (0.5-1.5) % POC ABG HHb (Measured) (0-5) % ABG Methemoglobin (0.0-3.0) % ABG O2 Capacity (16-24) mL/dl ABG Potassium (3.6-5.2) mmol/L VBG pH (7.32-7.43) VBG pCO2 (40-60) VBG HCO3 (21-28) mmol/l VBG Total CO2 (22-28) mmol.L VBG O2 Sat (Calc) (40-65) % VBG Base Excess (0.0-2.0) mmol/L VBG Potassium (3.6-5.2) mmol/L Hgb O2 Saturation (95.0-98.0) % Sodium (132-148) mmol/L Chloride (98-107) mmol/L Glucose (65-105) mg/dl Lactate (0.7-2.1) mmol/L FiO2 % Potassium (3.6-5.0) mmol/L Carbon Dioxide (21-33) mmol/L Anion Gap (10-20) BUN (7-21) mg/dL Creatinine (0.7-1.2) mg/dl Est GFR ( Amer) Est GFR (Non-Af Amer) POC Glucose (mg/dL) (65-110) mg/dL Random Glucose (70-110) mg/dL Calcium (8.4-10.5) mg/dL Phosphorus (2.5-4.5) mg/dL Magnesium (1.7-2.2) mg/dL Total Bilirubin (0.2-1.3) mg/dL AST (14-36) U/L ALT (7-56) U/L Alkaline Phosphatase (38-126) U/L Total Protein (5.8-8.3) g/dL Albumin (3.0-4.8) g/dL Globulin gm/dL Albumin/Globulin Ratio (1.1-1.8) Procalcitonin < 0.05 L (0.19-0.49) NG/ML TSH 3rd Generation 4.97 H (0.46-4.68) mIU/mL Arterial Blood Potassium (3.6-5.2) mmol/L Venous Blood Potassium (3.6-5.2) mmol/L Laboratory Results - last 24 hr 03/22/18 03/22/18 03/22/18 12:00 12:09 14:05 WBC RBC Hgb Hct MCV MCH MCHC RDW Plt Count MPV pCO2 33 L pO2 75.0 L HCO3 22.4 ABG pH 7.44 ABG Total CO2 23.4 ABG O2 Saturation 98.1 H ABG O2 Content ABG Base Excess -1.1 ABG Hemoglobin ABG Carboxyhemoglobin POC ABG HHb (Measured) ABG Methemoglobin ABG O2 Capacity ABG Potassium 3.1 L VBG pH VBG pCO2 VBG HCO3 VBG Total CO2 VBG O2 Sat (Calc) VBG Base Excess VBG Potassium Hgb O2 Saturation Sodium 142.0 Chloride 112.0 H Glucose 121 H Lactate 1.7 FiO2 50 Potassium Carbon Dioxide Anion Gap BUN Creatinine Est GFR ( Amer) Est GFR (Non-Af Amer) POC Glucose (mg/dL) Random Glucose Calcium Phosphorus Magnesium Total Bilirubin AST ALT Alkaline Phosphatase Total Protein Albumin Globulin Albumin/Globulin Ratio Procalcitonin < 0.05 L TSH 3rd Generation 4.97 H Arterial Blood Potassium 3.1 L Venous Blood Potassium 03/22/18 03/22/18 03/22/18 14:59 16:13 22:58 WBC RBC Hgb Hct MCV MCH MCHC RDW Plt Count MPV pCO2 pO2 HCO3 ABG pH ABG Total CO2 ABG O2 Saturation ABG O2 Content ABG Base Excess ABG Hemoglobin ABG Carboxyhemoglobin POC ABG HHb (Measured) ABG Methemoglobin ABG O2 Capacity ABG Potassium VBG pH VBG pCO2 VBG HCO3 VBG Total CO2 VBG O2 Sat (Calc) VBG Base Excess VBG Potassium Hgb O2 Saturation Sodium Chloride Glucose Lactate FiO2 Potassium Carbon Dioxide Anion Gap BUN Creatinine Est GFR ( Amer) Est GFR (Non-Af Amer) POC Glucose (mg/dL) 104 136 H 155 H Random Glucose Calcium Phosphorus Magnesium Total Bilirubin AST ALT Alkaline Phosphatase Total Protein Albumin Globulin Albumin/Globulin Ratio Procalcitonin TSH 3rd Generation Arterial Blood Potassium Venous Blood Potassium 03/23/18 03/23/18 03/23/18 05:00 06:00 06:00 WBC 11.7 H D RBC 4.56 Hgb 13.5 Hct 39.7 MCV 87.1 D MCH 29.6 MCHC 34.0 RDW 14.0 Plt Count 113 L MPV 12.7 H pCO2 33 L pO2 58.0 L 53 HCO3 20.9 L ABG pH 7.41 ABG Total CO2 21.9 L ABG O2 Saturation 96.1 ABG O2 Content 16.7 ABG Base Excess -3.0 L ABG Hemoglobin 12.8 ABG Carboxyhemoglobin 2.3 H POC ABG HHb (Measured) 3.8 ABG Methemoglobin 1.0 ABG O2 Capacity 17.4 ABG Potassium VBG pH 7.32 VBG pCO2 46.0 VBG HCO3 23.7 VBG Total CO2 25.1 VBG O2 Sat (Calc) 89.9 H VBG Base Excess -2.6 L VBG Potassium 4.1 Hgb O2 Saturation 92.9 L Sodium 140.0 Chloride 105.0 Glucose 245 H Lactate 1.9 FiO2 28.0 21.0 Potassium Carbon Dioxide Anion Gap BUN Creatinine Est GFR ( Amer) Est GFR (Non-Af Amer) POC Glucose (mg/dL) Random Glucose Calcium Phosphorus Magnesium Total Bilirubin AST ALT Alkaline Phosphatase Total Protein Albumin Globulin Albumin/Globulin Ratio Procalcitonin TSH 3rd Generation Arterial Blood Potassium Venous Blood Potassium 4.1 03/23/18 03/23/18 06:00 11:14 WBC RBC Hgb Hct MCV MCH MCHC RDW Plt Count MPV pCO2 pO2 HCO3 ABG pH ABG Total CO2 ABG O2 Saturation ABG O2 Content ABG Base Excess ABG Hemoglobin ABG Carboxyhemoglobin POC ABG HHb (Measured) ABG Methemoglobin ABG O2 Capacity ABG Potassium VBG pH VBG pCO2 VBG HCO3 VBG Total CO2 VBG O2 Sat (Calc) VBG Base Excess VBG Potassium Hgb O2 Saturation Sodium 142 Chloride 105 Glucose Lactate FiO2 Potassium 4.2 Carbon Dioxide 23 Anion Gap 19 BUN 11 Creatinine 0.7 Est GFR ( Amer) > 60 Est GFR (Non-Af Amer) > 60 POC Glucose (mg/dL) 276 H Random Glucose 223 H Calcium 9.2 Phosphorus 3.9 Magnesium 1.8 Total Bilirubin 1.0 AST 17 ALT 30 Alkaline Phosphatase 67 Total Protein 6.4 Albumin 3.7 Globulin 2.7 Albumin/Globulin Ratio 1.3 Procalcitonin TSH 3rd Generation Arterial Blood Potassium Venous Blood Potassium Critical Care Progress Note - Nutrition Nutrition: Nutrition Category Date Time Status Heart Healthy Diet [DIET] Diets 03/22/18 Dinner Active Assessment/Plan - Assessment and Plan (Free Text) Plan: Patient seen and examined on rounds with resident, agree with note with following addition/exceptions: Patient is 57yo female with PMHx of CHF with recent EF 20% on 02/26 (AICD on at [facility]), CAD (s/p unsuccessful on 02/26), HTN, DM II, and COPD who was brought in to the ED for SOB, respiratory failure, hypoxia, subsequently intubated by ER staff in the ER. Patient was then subsequently extubated few hours later in the ICU, successfully to BIPAP. Currently afebrile, BP stable, comfortable in NAD, doing well on 2LNC, with adequate UOP. On antibiotics Respiratory failure CHF, acute decompensated systolic Pulm edema SOB CAD HTN DM COPD Recommend: - cont with supp o2 as needed, goal sat 90% - Duoebs PRN - Broad spectrum abx, as per ID - Panculture, UCx, BCx, Procal - ID follow up - Cardio follow up - BP control - ASA, Statin, BB, ACEI - Lasix IV - GI ppx - DVT ppx - transfer to telemetry
--- NOTE | 2018-03-23 11:22 | CP.PCM.CON ---
History of Present Illness - History of Present Illness History of Present Illness: 57 year old female with PMH of COPD, significant smoking history, obesity with BMI 35, DM, PAD S/P angioplasty of left leg [place] [facility] [place] of shortness of breath when she woke up yesterday morning and was noted to be hypoxic in the ED. She states she had cry cough prior to coming to the ED for a day. She had no fevers, no rhinorrhea, no sore throat, denies recent travel outside of [place] in the past month, denies animal contacts. She was very hypoxic and had to be intubated in the ED and sent to the ICU for further management. She is now extubated and more comfortable in bed. On further HPI and ROS, she denies chest pain, no headache or dizziness, no nausea or vomiting , no abdominal pain, no diarrhea, no dysuria. Infectious Diseases consult is requested further evaluate and manage. Review of Systems - Review of Systems All systems: reviewed and no additional remarkable complaints except (as per HPI ) Past Patient History - Past Medical History & Family History Past Medical History?: Yes - Past Social History Smoking Status: Former Smoker (Stopped in February after PCI) Alcohol: None - CARDIAC Hx Cardiac Disorders: Yes (CAD (s/p cath, Dr. Cruz; EF 20%), CHF (AICD placement on 02/26), HTN) Hx Heart Attack: Yes (02/26/2018) Hx Internal Defibrillator: Yes (AICD at [facility] ) Hx Pacemaker: Yes (AICD at [facility] ) Hx Peripheral Edema: Yes Hx Peripheral Vascular Disease: Yes Other/Comment: balloon angioplasty for lle for pad 02/16/[address] lan [phone] in [place], claudication left leg, dilated cardiomyopathy - PULMONARY Hx Respiratory Disorders: Yes (COPD) Hx Chronic Obstructive Pulmonary Disease (COPD): Yes - NEUROLOGICAL Other/Comment: peripheral neuropathy - HEENT Hx HEENT Problems: Yes (seasonal allergies) - RENAL Hx Chronic Kidney Disease: No - ENDOCRINE/METABOLIC Hx Diabetes Mellitus Type 2: Yes - HEMATOLOGICAL/ONCOLOGICAL Hx Blood Disorders: No - INTEGUMENTARY Other/Comment: slight redness to bottom of toes, crooked toes, left chest aicd dressing dry and intact, lower abd multiple eccymotic bruising for heparin injections - MUSCULOSKELETAL/RHEUMATOLOGICAL Hx Musculoskeletal Disorders: No - GASTROINTESTINAL Other/Comment: "oregano bothers my gallbladder, " stated pt - GENITOURINARY/GYNECOLOGICAL Hx Genitourinary Disorders: No - PSYCHIATRIC Hx Psychophysiologic Disorder: No Hx Substance Use: No - SURGICAL HISTORY Hx Cardiac Catheterization: Yes (02/26/18) Other/Comment[phone] at [facility] Allergies/Adverse Reactions: Allergies Allergy/AdvReac Type Severity Reaction Status Date / Time No Known Allergies Allergy Verified 03/22/18 11:17 - Medications Medications: Current Medications Amiodarone HCl (Cordarone) 400 mg PO BID [facility] Aspirin (Aspirin Chewable) 81 mg PO DAILY [facility] Dextrose (Dextrose 50% Inj) 0 ml IV STAT PRN; Protocol PRN Reason: Hypoglycemia Protocol Furosemide (Lasix) 40 mg IVP BID [facility] Propofol (Diprivan) 1,000 mg in 100 mls @ 2.757 mls/hr IV .Q24H PRN; Protocol; 5 MCG/KG/MIN PRN Reason: TITRATE PER MD ORDER Last Admin: 03/22/18 09:02 Dose: 2.757 mls/hr Dextrose (Dextrose 5% In Water 1000 Ml) 1,000 mls @ 0 mls/hr IV .Q0M PRN; Protocol; Per Protocol PRN Reason: Hypoglycemia Protocol Insulin Human Regular 100 (units/ Sodium Chloride) 100 mls @ 9 mls/hr IV .Q11H7M PRN; Protocol; 9 UNITS/HR PRN Reason: TITRATE PER MD ORDER Last Admin: 03/22/18 12:16 Dose: 9 units/hr, 9 mls/hr Dobutamine HCl/Dextrose (Dobutamine/Dextrose 5% 500mg/250ml) 500 mg in 250 mls @ 13.785 mls/hr IV .Q18H9M PRN; Protocol; 5 MCG/KG/MIN PRN Reason: TITRATE PER PROTOCOL Meropenem (Merrem Iv 1 Gm Premix) 50 mls @ 100 mls/hr IVPB Q8 [facility] PRN Reason: Protocol Levofloxacin/Dextrose (Levaquin 750mg) 750 mg in 150 mls @ 100 mls/hr IVPB DAILY [facility] PRN Reason: Protocol Insulin Human Regular (Humulin R High) 0 units SC ACHS [facility] PRN Reason: Protocol Methylprednisolone (Solu-Medrol) 30 mg IVP Q12 [facility] Last Admin: 03/22/18 11:12 Dose: 30 mg Ondansetron HCl (Zofran Inj) 4 mg IVP Q4H PRN PRN Reason: Nausea/Vomiting Physical Exam - Constitutional Appears: Chronically Ill - Head Exam Head Exam: NORMAL INSPECTION - ENT Exam ENT Exam: Mucous Membranes Moist - Neck Exam Neck exam: Negative for: Lymphadenopathy, Meningismus - Respiratory Exam Respiratory Exam: Decreased Breath Sounds - Cardiovascular Exam Cardiovascular Exam: +S1, +S2 - GI/Abdominal Exam GI & Abdominal Exam: Soft. absent: Tenderness Results - Vital Signs Recent Vital Signs: Last Vital Signs Temp 97.4 F L 03/22/18 08:34 Pulse 68 03/22/18 11:30 Resp 16 03/22/18 11:30 BP 102/57 L 03/22/18 11:30 Pulse Ox 97 03/22/18 11:30 - Labs Result Diagrams: 03/23/18 06:00 03/23/18 06:00 Labs: Laboratory Results - last 24 hr 03/22/18 03/22/18 03/22/18 10:45 11:00 12:09 TSH 3rd Generation 4.97 H Blood Type A POSITIVE Blood Type Confirm A POSITIVE Antibody Screen Negative BBK History Checked No verified bt Assessment & Plan - Assessment and Plan (Free Text) Plan: Assessment Systemic inflammatory response S/P VDRF due to hypoxic respiratory failure probably from pulmonary edema, improving, R/O acute bronchitis S/P Systemic inflammatory response syndrome S/P ventilator-dependent respiratory failure, consider due to acute coronary syndrome with probable CHF, R/O pneumonia, R/O COPD exacerbation coagulase negative staph in blood cx, probably contamination COPD significant smoking history obesity with BMI 34 DM PAD S/P angioplasty of left leg CAD S/P PCI with cardiomyopathy with LVEF 20% with ICD Plan we started Vancomycin, Merrem and Levaquin yesterday but blood cx are negative, CXR does not show pneumonia and PCT is <0.05 - will d/c antibiotics and observe continue management of CHF as per Cardiology and ICU team will monitor clinically
--- NOTE | 2018-03-23 12:14 | PN ---
DATE: 03/23/2018 SUBJECTIVE: She is in Intensive Care Unit. She was intubated when I left during the emergency room last night. Now she is off the ventilator, which is great. She had acute respiratory failure, also extremely high blood sugars. She is doing a little bit better this morning and she said she is a little bit hungry. PHYSICAL EXAMINATION: VITAL SIGNS: She has a 98 temperature. She has 81 pulse, 109/40 blood pressure, 15 up to 27 respiratory rate, 96% O2 sat on oxygen. HEENT: Head: Atraumatic, normocephalic. HEART: Regular rate. LUNGS: Decreased breath sounds, but fairly clear. ABDOMEN: Soft, morbidly obese, nontender. EXTREMITIES: No edema. MEDICATIONS: She is currently on aspirin, Cordarone, dextrose, dobutamine, DuoNebs, Humalog, Lasix IV twice a day, Levaquin, Lovenox, Merrem IV, Solu-Medrol IV, vancomycin, Zofran. LABORATORY DATA: She has a 11.7 white count, when she came in, it was 20.1 down to 11. She has a 13.5 hemoglobin, 39.7 hematocrit with 113 platelets. She has a lactate, when she came in it was 5.2, it went to 3.6, 1.7 now it is 1.9. She has 142 sodium, potassium 4.2, BUN is 11, creatinine 0.7, GFR is greater than 60, sugars is 233, calcium is 9.2, phosphorus 3.9, magnesium 1.8, total bili is 1, AST is 17, ALT is 30, alkaline phosphatase 67, total protein 6.4. She is being seen by the therapeutic consultant cardiology. She has consult for Pulmonary and Endocrinology. She had a CAT scan of the head that said no acute findings. Await for input from Pulmonary and Infectious Disease. Continue aggressive treatment and care. Sidra Ruano who was slowly improving from the respiratory failure. We will follow. Kendall Pierson DO
--- NOTE | 2018-03-23 13:06 | PN ---
DATE: 03/23/2018 CARDIOLOGY FOLLOWUP SUBJECTIVE: The patient is extubated, sitting in a chair, breathing well without dyspnea. OBJECTIVE: VITAL SIGNS: Blood pressure 110/45, heart rate in the 70s. NECK: Negative JVD. LUNGS: Without rales. HEART: S1, S2. EXTREMITIES: Without edema. LABORATORY DATA: Hemoglobin is 13.5. Chemistries: BUN and creatinine are unremarkable. Glucose is 223. IMPRESSION: 1. Status post flash pulmonary edema. 2. Status post respiratory arrest. 3. Diabetes mellitus. 4. Coronary artery disease. 5. Severe dilated cardiomyopathy with an ejection fraction of 30%. Given these findings, we will continue the patient on dobutamine for the next 24 hours. We will discuss with ID about stopping or reducing the antibiotics. Tadeo Cruz MD
--- NOTE | 2018-03-23 18:42 | CON ---
DATE: 03/23/2018 PULMONARY CONSULTATION We were asked by Dr. Pierson, fire systems inspector to evaluate and help treat this 57 years old woman who was admitted with shortness of breath, acute respiratory failure, and intubated in emergency room. HISTORY OF PRESENT ILLNESS: Patient complained to her of shortness of breath, knowing that she has serious cardiac problem with low ejection fraction and recent implantation of ICD. She was taken to emergency room; however, in the emergency room, she was intubated for acute respiratory failure. When she came up to the intensive care unit, she was awake and alert, in no distress. She was placed on BiPAP and in the last hour, successfully extubated. I am evaluating her, currently on nasal cannula, in no respiratory distress. REVIEW OF SYSTEMS: Conducted by reviewing all sources. PULMONARY: Status post previous acute respiratory failure one month ago. CARDIOVASCULAR: See history of present illness. The rest of her systems were reviewed and found to be negative. PAST MEDICAL HISTORY: Positive for diabetes mellitus, peripheral neuropathy, dilated cardiomyopathy, and coronary artery disease. FAMILY HISTORY: Mother had congestive heart failure and cancer. SOCIAL HISTORY: She is a former smoker for 30 years, quit two weeks ago. Denies EtOH and drugs. ALLERGIES: NO KNOWN ALLERGIES. PHYSICAL EXAMINATION: GENERAL: She is awake and alert, in no acute distress currently. VITAL SIGNS: Temperature 97, pulse 76, respirations 20, blood pressure 97/62, and current pulse oximetry on nasal cannula 100%. HEENT: Head normocephalic, atraumatic. NECK: Supple with no jugular vein distentions. CARDIOVASCULAR: AICD in place. S1, S2. A 2/6 systolic ejection murmur. PULMONARY: Few crackles at both lung bases. No wheezing. GI: Soft, nontender. No organomegaly. EXTREMITIES: A 1+ pedal edema. No cyanosis. SKIN: No acute skin rashes. NEUROLOGIC: No focal deficits. Additional data reviewed. Chest x-ray consistent with pulmonary edema, cardiomegaly, AICD present, no discrete infiltrates. LABORATORY DATA: WBC is elevated at 20.1, hemoglobin 15, and platelets 233,000. Her chemistries are normal except for blood sugar. ASSESSMENT AND PLAN: Patient was admitted with flash pulmonary edema and acute respiratory failure, treated appropriately in the emergency room with endotracheal intubation, since then patient improved and extubated successfully. She was currently on nasal cannula with oxygen saturation of 100%. Her main problems are cardiac problems and Dr. Cruz is being consulted. I discussed her pulmonary status with intensive care unit team. Agree with current antibiotics. Although there is no evidence of pneumonia, we will follow up procalcitonin. Patient's condition remains critical. Eamon Malloy MD
[2018-03-24] MEDS: Albuterol-Ipratrop 3 mg / 0.5 (3 ml) UD IH SCH ×4 (01:04→19:32)
[2018-03-24] MEDS: DOBUTamine 500mg/250ml D5W 500 MG/250 ML BAG IV PRN (04:13)
[2018-03-24 06:13] LABS: ALB/GLOB RATIO 1.3 (1.1-1.8); ALBUMIN 3.6 g/dL (3.0-4.8); ALT/SGPT 28 U/L (7-56); AST/SGOT 12 U/L (14-36); BLOOD UREA NITROGEN 14 mg/dL (7-21); CALCIUM 9.2 mg/dL (8.4-10.5); GFR AFRICAN-AMERICAN > 60; GFR NON-AFRICAN AMERICAN > 60
[2018-03-24 06:17] LABS: HEMOGLOBIN 12.8 g/dL (12.0-16.0); MEAN CELL VOLUME 86.2 fl (80.0-105.0); MEAN CORPUSCULAR HEMOGLOBIN 28.9 pg (25.0-35.0); MEAN CORPUSCULAR HGB CONC 33.5 g/dl (31.0-37.0); MEAN PLATELET VOLUME 11.4 fl (7.0-11.0); RBC 4.43 10^6/uL (3.5-6.1); RED CELL DISTRIBUTION WIDTH 14.1 % (11.5-14.5); WHITE BLOOD COUNT 15.3 10^3/ul (4.5-11.0)
[2018-03-24] MEDS: Insulin Lispro (humaLOG) MEDIUM Coverage SC SCH ×4 (08:09→22:16)
[2018-03-24] MEDS: Enoxaparin 40 mg Syringe SC SCH (09:55)
[2018-03-24] MEDS: MethylPREDNISolone 40 mg Vial IVP SCH (09:56)
[2018-03-24] MEDS: Vancomycin 1gm in NS 250ml 1 GM/250 ML BAG IVPB SCH ×2 (09:57→22:11)
--- NOTE | 2018-03-24 12:10 | CP.PCM.PN ---
Subjective - Date & Time of Evaluation Date of Evaluation: 03/23/18 Time of Evaluation: 10:20 - Subjective Subjective: Comfortable, breathing better, no fevers, no chest pain or palpitations, not in distress. Objective - Vital Signs/Intake and Output Vital Signs (last 24 hours): Temp Pulse Resp BP Pulse Ox 98.2 F 76 19 114/56 L 96 03/23/18 20:00 03/23/18 20:40 03/23/18 20:40 03/23/18 20:01 03/23/18 20:40 Intake and Output: 03/23/18 03/24/18 18:59 06:59 Intake Total 1985 Balance 1985 - Medications Medications: Current Medications Albuterol/Ipratropium (Duoneb 3 Mg/0.5 Mg (3 Ml) Ud) 3 ml IH [id number] [facility] Last Admin: 03/23/18 19:32 Dose: 3 ml Amiodarone HCl (Cordarone) 400 mg PO BID [facility] Last Admin: 03/23/18 18:32 Dose: 400 mg Aspirin (Aspirin Chewable) 81 mg PO DAILY [facility] Last Admin: 03/23/18 09:43 Dose: 81 mg Dextrose (Dextrose 50% Inj) 0 ml IV STAT PRN; Protocol PRN Reason: Hypoglycemia Protocol Enoxaparin Sodium (Lovenox) 40 mg SC DAILY [facility] PRN Reason: Protocol Last Admin: 03/23/18 09:42 Dose: 40 mg Furosemide (Lasix) 40 mg IVP BID [facility] Last Admin: 03/23/18 18:31 Dose: 40 mg Dextrose (Dextrose 5% In Water 1000 Ml) 1,000 mls @ 0 mls/hr IV .Q0M PRN; Protocol; Per Protocol PRN Reason: Hypoglycemia Protocol Dobutamine HCl/Dextrose (Dobutamine/Dextrose 5% 500mg/250ml) 500 mg in 250 mls @ 13.785 mls/hr IV .Q18H9M PRN; Protocol; 5 MCG/KG/MIN PRN Reason: TITRATE PER PROTOCOL Last Admin: 03/23/18 08:07 Dose: 5 mcg/kg/min, 13.785 mls/hr Vancomycin HCl (Vancomycin 1gm) 1 gm in 250 mls @ 167 mls/hr IVPB Q12H [facility] PRN Reason: Protocol Last Admin: 03/23/18 21:26 Dose: 167 mls/hr Insulin Human Lispro (Humalog Med) 0 units SC ACHS [facility] PRN Reason: Protocol Last Admin: 03/23/18 21:39 Dose: Not Given Methylprednisolone (Solu-Medrol) 30 mg IVP DAILY [facility] Last Admin: 03/23/18 09:42 Dose: 30 mg Ondansetron HCl (Zofran Inj) 4 mg IVP Q4H PRN PRN Reason: Nausea/Vomiting - Labs Labs: 03/23/18 06:00 03/23/18 06:00 APTT 32.1 Seconds (25.1-36.5) 03/22/18 08:49 - Constitutional Appears: Non-toxic, Chronically Ill - Head Exam Head Exam: NORMAL INSPECTION - ENT Exam ENT Exam: Mucous Membranes Moist - Neck Exam Neck Exam: absent: Meningismus - Respiratory Exam Respiratory Exam: Decreased Breath Sounds - Cardiovascular Exam Cardiovascular Exam: +S1, +S2 - GI/Abdominal Exam GI & Abdominal Exam: Soft. absent: Tenderness Assessment and Plan - Assessment and Plan (Free Text) Plan: Assessment Systemic inflammatory response S/P VDRF due to hypoxic respiratory failure probably from pulmonary edema, improving, R/O acute bronchitis coagulase negative staph in 1 of 4 bottles of blood cx, R/O contamination S/P Systemic inflammatory response syndrome S/P ventilator-dependent respiratory failure, consider due to acute coronary syndrome with probable CHF, R/O pneumonia, R/O COPD exacerbation coagulase negative staph in blood cx, probably contamination COPD significant smoking history obesity with BMI 34 DM PAD S/P angioplasty of left leg CAD S/P PCI with cardiomyopathy with LVEF 20% with ICD Plan we have the patient on Vancomycin for now pending repeat blood cx done this morning - more likely contamination but want to make sure since patient has ICD continue management of CHF as per Cardiology and ICU team will continue monitor clinically discussed with Dr. Pierson
--- NOTE | 2018-03-24 14:22 | PN ---
DATE: 03/24/2018 PULMONARY PROGRESS NOTE SUBJECTIVE: The patient is out of bed in a chair, feeling well. She was extubated yesterday. She used BiPAP last night. She is feeling better today. She is comfortable on nasal cannula oxygen and no respiratory distress. PHYSICAL EXAMINATION: VITAL SIGNS: Stable. She remains afebrile, heart rate 76, respiratory rate 16, and blood pressure 130/80. NECK: Supple. No jugular venous distention. LUNGS: Scattered rhonchi throughout both lung ferreira. ABDOMEN: Soft. Bowel sounds normoactive. CARDIAC: AICD. S1, S2. Soft systolic ejection murmur at the lower left sternal border. EXTREMITIES: No clubbing or cyanosis. There is trace edema. SKIN: No rash or excoriation. NEUROLOGIC: No focal defects. LABORATORY DATA: Chest x-ray shows no pulmonary infiltrates. ASSESSMENT: 1. Status post respiratory failure secondary to flash pulmonary edema. 2. No apparent intrinsic lung disease. PLAN: Once the patient is stabilized, the patient should be seen with intensive evaluation by Cardiology. In addition, the patient should have a pulmonary function study to make sure that there is no underlying pulmonary disease that can be associated with this. A chest x-ray today shows no pneumonia, but followup x-ray should be done to rule out the development of an aspiration type pneumonia. Thank you for the opportunity to see this young lady. We will follow closely with you during the course of her hospitalization. Son Zamudio MD
--- NOTE | 2018-03-24 14:51 | PN ---
DATE: 03/24/2018 SUBJECTIVE: The patient's breathing is much better. PHYSICAL EXAMINATION: VITAL SIGNS: Blood pressure 124/53, the heart rate is in the 70s. NECK: Negative JVD. LUNGS: Without rales. HEART: S1, S2. EXTREMITIES: Without edema. LABORATORY DATA: White count is down to 15,000. Chemistries, BUN and creatinine are unremarkable. Glucose is 272. IMPRESSION: 1. Status post congestive heart failure, which is resolved on IV dobutamine. 2. Ischemic dilated cardiomyopathy. 3. Diabetes mellitus. 4. Status post respiratory arrest. Given these findings, we will discontinue her dobutamine today. We will change her IV Lasix to p.o. Lasix. The patient can be transferred to Telemetry. Tadeo Cruz MD
--- NOTE | 2018-03-24 16:43 | PN ---
DATE: 03/24/2018 SUBJECTIVE: I saw her in the intensive care unit, out of bed to chair. She went status post flash pulmonary edema, status post respiratory arrest, diabetes mellitus, coronary artery disease, severely dilated mild cardiomyopathy, ejection fraction of 30%. She also had some issues of being on antibiotics. She is off them now. She had an elevated white count and she is being seen by Infectious Disease and Cardiology and Pulmonary. MEDICATIONS: She is currently on aspirin, Cordarone, dextrose, dobutamine drip, DuoNeb, insulin, Lasix IV b.i.d., Lovenox, Solu-Medrol 30 IV daily, vancomycin, and Zofran. OBJECTIVE: VITAL SIGNS: She has a 98.4 temperature, 72 pulse, 124/73 blood pressure, HEENT: Head is atraumatic, normocephalic. HEART: Regular rate. LUNGS: Decreased breath sounds, but clear. ABDOMEN: Soft, morbidly obese. EXTREMITIES: No edema. I need physical therapy to get as per Cardiology so far. LABORATORY DATA: She has 15.3 white count, still elevated, but she is on Solu-Medrol. Hemoglobin 12.8, hematocrit 30.2, and platelets 168. She has 139 sodium, potassium 3.7. BUN 14, creatinine 0.6. GFR greater than 60. Sugar is 272. Calcium is 9.2. Total bili is 0.6, phosphorous 2.6, magnesium 2. AST is 12, ALT is 29, alkaline phosphatase 66. Total protein 6.4. She has coagulase negative Staphylococcus in the venous blood culture. I will continue with aggressive treatment and care with Infectious Disease, Cardiology, and Pulmonary. Physical therapy to see her. We will check her labs tomorrow. I have discussed with family and the patient at length. Kendall Pierson DO MTDD
[2018-03-25] MEDS: Albuterol-Ipratrop 3 mg / 0.5 (3 ml) UD IH SCH ×2 (01:12→07:30)
[2018-03-25 07:00] VITALS: O2SAT 96
[2018-03-25 07:25] LABS: HEMOGLOBIN 13.3 g/dL (12.0-16.0); MEAN CELL VOLUME 87.7 fl (80.0-105.0); MEAN CORPUSCULAR HEMOGLOBIN 29.2 pg (25.0-35.0); MEAN CORPUSCULAR HGB CONC 33.3 g/dl (31.0-37.0); MEAN PLATELET VOLUME 11.2 fl (7.0-11.0); RBC 4.56 10^6/uL (3.5-6.1); RED CELL DISTRIBUTION WIDTH 14.1 % (11.5-14.5); WHITE BLOOD COUNT 11.6 10^3/ul (4.5-11.0)
[2018-03-25 08:04] LABS: ALB/GLOB RATIO 1.3 (1.1-1.8); ALBUMIN 3.7 g/dL (3.0-4.8); ALT/SGPT 29 U/L (7-56); AST/SGOT 16 U/L (14-36); BLOOD UREA NITROGEN 16 mg/dL (7-21); CALCIUM 9.5 mg/dL (8.4-10.5); GFR AFRICAN-AMERICAN > 60; GFR NON-AFRICAN AMERICAN > 60
[2018-03-25] MEDS: Insulin Lispro (humaLOG) MEDIUM Coverage SC SCH ×2 (08:13→12:12)
[2018-03-25] MEDS: Enoxaparin 40 mg Syringe SC SCH (10:19)
--- NOTE | 2018-03-25 12:12 | PN ---
DATE: 03/25/2018 CARDIOLOGY FOLLOWUP SUBJECTIVE: The patient is without shortness of breath, without chest pain. PHYSICAL EXAMINATION: VITAL SIGNS: Blood pressure is 110/68, the heart rate is in the 70s. NECK: Negative JVD. LUNGS: Without rales. HEART: Reveals S1, S2. EXTREMITIES: Without edema. LABORATORY DATA: The white count is down to 11.6, hemoglobin is 13. Chemistries: BUN and creatinine are unremarkable. Glucose is 283. IMPRESSION: 1. Status post congestive heart failure, which is resolved. 2. Dilated cardiomyopathy. 3. Diabetes mellitus. 4. Obesity. 5. Status post respiratory arrest. PLAN: Given these findings, the patient is doing well. She is scheduled for discharge today. Followup and instructions have been given to the patient in detail. Tadeo Cruz MD
[2018-03-25 12:15] VITALS: BP 102/60; PULSE 63; RESP 20; TEMP 98.6
--- NOTE | 2018-03-25 12:43 | PN ---
DATE: 03/25/2018 PULMONARY PROGRESS NOTE SUBJECTIVE: The patient is out of bed in a chair, feeling comfortable, awaiting discharge from the hospital following cardiac clearance. The patient continues to the point continues to feel well with no respiratory complaints. I have discussed at length the patient's previous history of low long-time smoking. She denies any respiratory compromise. The patient had a body plethysmography done at [facility] during her previous hospitalization. The results of this test are not available to me at this time. I have discussed with the patient and her the need for short-term evaluation including pulmonary function studies and CT of the chest to rule out radiographic abnormalities secondary to smoking such as neoplasm. PHYSICAL EXAMINATION: GENERAL: The patient remains comfortable, in no acute distress. VITAL SIGNS: Remain stable. She is afebrile. Respiratory rate of 16. NECK: Supple. No JVD. LUNGS: Clear to percussion and auscultation. Scattered rhonchi had cleared. ABDOMEN: Soft. Bowel sounds normoactive. CARDIAC: AICD in place. S1, S2 within normal limits. Soft systolic ejection murmur at the lower left sternal border. ABDOMEN: Soft. Bowel sounds normoactive without mass, guarding, rebound or organomegaly. EXTREMITY: Reveals no clubbing or cyanosis. Edema has resolved. SKIN: Shows no rash or excoriation. NEUROLOGIC: No focal defects. LABORATORY DATA: No further of laboratory data is available. ASSESSMENT: 1. Status post respiratory failure. 2. Coronary artery disease. 3. Cardiac arrhythmia. 4. Long smoking history. PLAN: As suggested with the patient, once the cardiac evaluation is completed and the patient remains stable, she should have evaluation by Pulmonary including CT of the chest and pulmonary function study. If we indeed have the results of the body plethysmography, which may be in the possession of Dr. Pierson, then a new routine pulmonary function study is not necessary. She may indeed have airway obstruction, which is not yet evident on subjective findings or in the past may have been referable to her coronary disease. Further pulmonary evaluation is essential to rule out the comorbidities of heart and lung problems. Once the patient is stable, she has been asked to see a physician in our group for further pulmonary intervention. Our card has been given to her to make an appointment. If she is cleared during her hospital stay, this can be done here. If she is cleared from a cardiac point of view during her stay, this can be done while she is still hospitalized. We will discuss the situation with both Cardiology and Internal Medicine and follow closely with you. Thank you for the opportunity to evaluate Sidra Ruano. Son Zamudio MD
--- NOTE | 2018-03-25 16:04 | CP.PCM.PN ---
Subjective - Date & Time of Evaluation Date of Evaluation: 03/25/18 Time of Evaluation: 09:45 - Subjective Subjective: Breathing much better, no fevers. Objective - Vital Signs/Intake and Output Vital Signs (last 24 hours): Temp Pulse Resp BP Pulse Ox 98.0 F 63 19 99/54 L 92 L 03/25/18 00:00 03/25/18 05:39 03/25/18 00:00 03/25/18 00:00 03/25/18 00:00 Intake and Output: 03/24/18 03/25/18 18:59 06:59 Intake Total 970 600 Output Total 950 Balance 20 600 - Medications Medications: Current Medications Albuterol/Ipratropium (Duoneb 3 Mg/0.5 Mg (3 Ml) Ud) 3 ml IH [id number] [facility] Last Admin: 03/25/18 01:12 Dose: 3 ml Amiodarone HCl (Cordarone) 400 mg PO BID [facility] Last Admin: 03/24/18 19:45 Dose: 400 mg Aspirin (Aspirin Chewable) 81 mg PO DAILY [facility] Last Admin: 03/24/18 09:55 Dose: 81 mg Enoxaparin Sodium (Lovenox) 40 mg SC DAILY [facility] PRN Reason: Protocol Last Admin: 03/24/18 09:55 Dose: 40 mg Furosemide (Lasix) 40 mg PO BID [facility] Last Admin: 03/24/18 19:45 Dose: 40 mg Insulin Human Lispro (Humalog Med) 0 units SC ACHS [facility] PRN Reason: Protocol Last Admin: 03/24/18 22:16 Dose: 2 units Lisinopril (Zestril) 5 mg PO DAILY [facility] Last Admin: 03/24/18 16:02 Dose: 5 mg Methylprednisolone (Solu-Medrol) 30 mg IVP DAILY [facility] Last Admin: 03/24/18 09:56 Dose: 30 mg Ondansetron HCl (Zofran Inj) 4 mg IVP Q4H PRN PRN Reason: Nausea/Vomiting - Labs Labs: 03/24/18 05:00 03/24/18 05:00 APTT 32.1 Seconds (25.1-36.5) 03/22/18 08:49 - Constitutional Appears: Non-toxic, Chronically Ill - Head Exam Head Exam: NORMAL INSPECTION - Respiratory Exam Respiratory Exam: Decreased Breath Sounds - Cardiovascular Exam Cardiovascular Exam: +S1, +S2 - GI/Abdominal Exam GI & Abdominal Exam: Soft. absent: Tenderness Assessment and Plan - Assessment and Plan (Free Text) Plan: Assessment Systemic inflammatory response S/P VDRF due to hypoxic respiratory failure probably from pulmonary edema, improving, R/O acute bronchitis coagulase negative staph in 1 of 8 bottles of blood cx, likely contamination S/P Systemic inflammatory response syndrome S/P ventilator-dependent respiratory failure, consider due to acute coronary syndrome with probable CHF, R/O pneumonia, R/O COPD exacerbation coagulase negative staph in blood cx, probably contamination COPD significant smoking history obesity with BMI 34 DM PAD S/P angioplasty of left leg CAD S/P PCI with cardiomyopathy with LVEF 20% with ICD Plan repeat blood cx are negative - we can d/c Vancomycin - more likely contamination continue management of CHF as per Cardiology
--- NOTE | 2018-03-26 08:36 | DS ---
HISTORY OF PRESENT ILLNESS: Sitting out of bed to chair this morning, feeling well. Eating well, ate all her breakfast. No chest pain or shortness of breath. No abdominal pain. She is walking well, in good spirits. She is on aspirin, Cordarone, DuoNebs, insulin coverage, Lasix, Lovenox. I stopped the Solu-Medrol, put her back on prednisone. She takes regularly Zestril and Zofran as needed, which she is not taking. PHYSICAL EXAMINATION: VITAL SIGNS: She has a 98 temp, 70 pulse, 111/59 blood pressure, 19 respiratory rate, 96% O2 saturation on room air. HEENT: Head is atraumatic, normocephalic. HEART: Regular rate. LUNGS: Clear to auscultation with decreased breath sounds. ABDOMEN: Soft, obese, nontender. EXTREMITIES: No edema. LABORATORY DATA: She has 140 sodium, potassium is 4, BUN 16, creatinine 0.7. GFR is greater than 60. Sugar is 235. Calcium is 9.5, phosphorus is 2.7, magnesium 2.3. Total bili is 0.7. AST is 16, ALT is 29, alkaline phosphatase is 95. Total protein is 6.6. White count 7.6, best it has been in a while; hemoglobin 13.3; hematocrit 40, platelets of 182. ASSESSMENT AND PLAN: She was being seen by Infectious Disease, Cardiology, Pulmonary. She did have a coagulase-negative Staphylococcus blood venous; the other one was negative, I think it is a contaminant. I will discuss with Dr. Nation, the infectious disease doctor. I will discharge her today with intravenous antibiotics. She is to follow up with her primary care doctor in the next week. She is here for numerous reasons; diabetic ketoacidosis, acute respiratory failure, systemic inflammatory response syndrome, flash pulmonary edema, dilated cardiomyopathy, diabetes and congestive heart failure. Kendall Pierson DO MTDD
== END 2018-03-25 13:21 | disposition home or self-care (01) | DRG 882 ==
LOC: ED 08:33 → ERH 10:11 → CCU 13:26 → 2RSO 03-24 18:44
PROVIDERS: ADMIT Family Medicine; ATTEND Family Medicine
PROC: 5A1935Z Respiratory Ventilation, Less than 24 Consecutive Hours (ICD-10-PCS; principal; 2018-03-22)
PROC: 0BH17EZ Insertion of Endotracheal Airway into Trachea, Via Natural or Artificial Opening (ICD-10-PCS; 2018-03-22)
PROC: 5A09457 Assistance with Respiratory Ventilation, 24-96 Consecutive Hours, Continuous Positive Airway Pressure (ICD-10-PCS; 2018-03-22)
PROC: 3E0F7GC Introduction of Other Therapeutic Substance into Respiratory Tract, Via Natural or Artificial Opening (ICD-10-PCS; 2018-03-23)
DX: J96.01 Acute respiratory failure with hypoxia (principal); I50.23 Acute on chronic systolic (congestive) heart failure; I11.0 Hypertensive heart disease with heart failure; E11.10 Type 2 diabetes mellitus with ketoacidosis without coma; I42.0 Dilated cardiomyopathy; J44.9 Chronic obstructive pulmonary disease, unspecified; E11.51 Type 2 diabetes mellitus with diabetic peripheral angiopathy without gangrene; E11.42 Type 2 diabetes mellitus with diabetic polyneuropathy; I25.10 Atherosclerotic heart disease of native coronary artery without angina pectoris; E78.00 Pure hypercholesterolemia, unspecified; I25.5 Ischemic cardiomyopathy; E66.9 Obesity, unspecified; Z68.35 Body mass index [BMI] 35.0-35.9, adult; I25.2 Old myocardial infarction; Z98.61 Coronary angioplasty status; Z95.810 Presence of automatic (implantable) cardiac defibrillator; Z87.891 Personal history of nicotine dependence